=== PATIENT | male | born 1925 | race Caucasian/White ===

== ENCOUNTER 2016-10-31 17:14 | Inpatient (IN) | payer MEDICARE, OTHER ==
[~2016-10-31] VITALS: Ht 185.4 cm; Wt 88.3 kg
[~2016-10-31 17:14] MED LIST: AMIO200T4 PO; ATOR-24 PO; CLOP1TAB15 PO; CMD6 PO; LISI-461 PO; NTRGSL/4 UT; PANT1TAB48 PO; SIME80CH PO
[2016-10-31] MEDS ORDERED: SODIUM CHLORIDE 0.9% 1000ML 500 ML IV STA (17:41)
--- NOTE | 2016-10-31 17:45 | EMERGENCY ROOM VISIT NOTE ---
History Report prepared by Dereck: Colton Benjamin Under the Supervision of: Dr. Elijah Gaytan M.D. First contact with patient: 17:35 Chief Complaint: ABDOMINAL PAIN Stated Complaint: STOMACH PAIN, GAS History of Present Illness The patient is an 89 year old male who presents to the Emergency Room with complaints of upper abdominal pain that started around 1800 last evening. He rates this pain an 8/10 in severity. The patient states that he was unable to sleep last night due to this pain. He reports that he ate italian fries last evening for dinner. He denies urinary symptoms, fever, shortness of breath, or any additional associated symptoms. The patient states that he is no longer experiencing pain at this time. Per the patient's family, the patient's family doctor recommended the patient come in to the ED as he takes Warfarin regularly secondary to a prior cardiac bypass procedure. The patient reports no prior GI surgeries. He does take gas-X regularly for indigestion. Source of History: patient, family Onset: 1800 last evening Position: abdomen Symptom Intensity: 8/10 Timing: resolved Associated Symptoms: No SOB, No fevers, No urinary symptoms Review of Systems See HPI for pertinent positives & negatives. A total of 10 systems reviewed and were otherwise negative. 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5 MG PO 4XWK Warfarin Sodium (Warfarin Sodium), 5 MG PO 3XWK Scheduled PRN Acetaminophen (Tylenol), 975 MG PO Q8 PRN for Pain or Fever Miscellaneous Medications [Erna-Setlzer], Unknown Dose Allergies Coded Allergies: No Known Allergies (Verified , 10/31/16) Physical Exam Vital Signs Date Time Temp Pulse Resp B/P Pulse Ox O2 Delivery O2 Flow Rate FiO2 10/31/16 20:43 90 10/31/16 20:19 91 20 164/109 96 Room Air 10/31/16 18:25 89 18 158/99 90 Room Air 10/31/16 17:24 36.8 91 18 140/90 96 Room Air Physical Exam GENERAL: Patient is in no acute distress. HEENT: No acute trauma, normocephalic atraumatic, mucous membranes moist, no nasal congestion, no scleral icterus. NECK: No stridor, no adenopathy, no meningismus, trachea is midline. LUNGS: Clear to auscultation bilaterally, no wheeze, no rhonchi, breath sounds equal. HEART: Irregular rhythm, normal rate, no murmurs. ABDOMEN: Tender in epigastrium, soft, bowel sounds positive, no hernias, no peritonitis. EXTREMITIES: Mild bilateral pedal edema, no cyanosis, full range of motion of all the joints without pain or difficulty, no signs for acute trauma. NEUROLOGIC: Oriented x 3, no acute motor or sensory deficits, no focal weakness. SKIN: No rash, no jaundice, no diaphoresis. Medical Decision & Procedures ER Provider Diagnostic Interpretation: X ray results and stated below per my interpretation and radiologist interpretation. Other radiology results and stated below per my review and radiologist interpretation: BILIARY ULTRASOUND CLINICAL HISTORY: Right upper quadrant abdominal pain COMPARISON STUDY: No previous studies for comparison. FINDINGS: Evaluation the pancreas is nondiagnostic. There is right renal cortical thinning. There is no hydronephrosis. There are multiple gallbladder calculi. The gallbladder wall is at the upper limits of normal diameter. The common bile duct measures 4 mm. There is no intrahepatic biliary ductal dilatation. No hepatic masses are evident. There are multiple right renal cysts measuring up to 3.9 cm in diameter. IMPRESSION: 1. Nondiagnostic evaluation of the pancreas 2. Cholelithiasis. No evidence of ductal dilatation. Electronically signed by: Vikram Roldan M.D. 10/31/2016 7:04 PM Dictated Date/Time: 10/31/2016 7:02 PM CHEST ONE VIEW PORTABLE CLINICAL HISTORY: Pain, radiating to the abdomen COMPARISON STUDY: 08/13/2015 FINDINGS: The cardiac silhouette is enlarged. There is no free intraperitoneal air. There is no pneumothorax. There is no lobar consolidation. There is mild left lung interstitial thickening. There are postsurgical changes of midline sternotomy. The study was obtained in apical lordotic fashion.[ IMPRESSION: 1. Cardiac enlargement 2. Persistent asymmetric interstitial thickening on the left 3. No evidence of lobar consolidation Electronically signed by: Vikram Roldan M.D. 10/31/2016 7:01 PM Dictated Date/Time: 10/31/2016 7:00 PM Laboratory Results 10/31/16 18:15 Red Blood Count 3.99, Mean Corpuscular Volume 89.5, Mean Corpuscular Hemoglobin 29.6, Mean Corpuscular Hemoglobin Concent 33.1, Mean Platelet Volume 11.5, Neutrophils (%) (Auto) 54.4, Lymphocytes (%) (Auto) 27.0, Monocytes (%) (Auto) 14.3, Eosinophils (%) (Auto) 3.9, Basophils (%) (Auto) 0.4, Neutrophils # (Auto ) 2.79, Lymphocytes # (Auto) 1.38, Monocytes # (Auto) 0.73, Eosinophils # (Auto ) 0.20, Basophils # (Auto) 0.02 10/31/16 18:15 Test 10/31/16 18:00 10/31/16 18:15 Urine Color DK YELLOW Urine Appearance CLEAR (CLEAR) Urine pH 5.0 (4.5-7.5) Urine Specific Douglass 1.026 (1.000-1.030) Urine Protein NEG (NEG) Urine Glucose (UA) NEG (NEG) Urine Ketones TRACE (NEG) Urine Occult Blood NEG (NEG) Urine Nitrite NEG (NEG) Urine Bilirubin NEG (NEG) Urine Urobilinogen NEG (NEG) Urine Leukocyte Esterase NEG (NEG) White Blood Count 5.12 K/uL (4.8-10.8) Red Blood Count 3.99 M/uL (4.7-6.1) Hemoglobin 11.8 g/dL (14.0-18.0) Hematocrit 35.7 % (42-52) Mean Corpuscular Volume 89.5 fL (80-100) Mean Corpuscular Hemoglobin 29.6 pg (25-34) Mean Corpuscular Hemoglobin Concent 33.1 g/dl (32-36) Platelet Count 160 K/uL (130-400) Mean Platelet Volume 11.5 fL (7.4-10.4) Neutrophils (%) (Auto) 54.4 % Lymphocytes (%) (Auto) 27.0 % Monocytes (%) (Auto) 14.3 % Eosinophils (%) (Auto) 3.9 % Basophils (%) (Auto) 0.4 % Neutrophils # (Auto) 2.79 K/uL (1.4-6.5) Lymphocytes # (Auto) 1.38 K/uL (1.2-3.4) Monocytes # (Auto) 0.73 K/uL (0.11-0.59) Eosinophils # (Auto) 0.20 K/uL (0-0.5) Basophils # (Auto) 0.02 K/uL (0-0.2) RDW Standard Deviation 48.3 fL (36.4-46.3) RDW Coefficient of Variation 14.8 % (11.5-14.5) Immature Granulocyte % (Auto) 0.0 % Immature Granulocyte # (Auto) 0.00 K/uL (0.00-0.02) Prothrombin Time 34.4 SECONDS (9.0-12.0) Prothromb Time International Ratio 3.1 (0.9-1.1) Activated Partial Thromboplast Time 39.4 SECONDS (21.0-31.0) Partial Thromboplastin Ratio 1.5 Anion Gap 9.0 mmol/L (3-11) Est Creatinine Clear Calc Drug Dose 44.4 ml/min Estimated GFR () 56.5 Estimated GFR (Non- 48.7 BUN/Creatinine Ratio 24.2 (10-20) Calcium Level 8.3 mg/dl (8.5-10.1) Total Bilirubin 0.3 mg/dl (0.2-1) Aspartate Amino Transf (AST/SGOT) 21 U/L (15-37) Alanine Aminotransferase (ALT/SGPT) 19 U/L (12-78) Alkaline Phosphatase 96 U/L (45-117) Troponin I 0.158 ng/ml (0-0.045) Total Protein 7.0 gm/dl (6.4-8.2) Albumin 3.4 gm/dl (3.4-5.0) Globulin 3.6 gm/dl (2.5-4.0) Albumin/Globulin Ratio 0.9 (0.9-2) Lipase 255 U/L (73-393) Laboratory results reviewed by me. Medications Administered Medications (Trade) Dose Ordered Sig/Zainab Route Start Time Stop Time Status Last Admin Dose Admin Sodium Chloride (Nss 1000ml) 500 ml @ 999 mls/hr Q31M STAT IV 10/31/16 17:41 10/31/16 18:11 DC 10/31/16 18:24 999 MLS/HR ECG Indication: abdominal pain Rate (beats per minute): 86 Rhythm: atrial fibrillation Findings: other (Old inferior infarct, poor R wave progression, no obvious acute ischemia, ) Comparison ECG Date: August 15, 2015 Change: Atrial Fibrillation now present. ED Course 1734: The patient was evaluated in room C8. A complete history and physical exam was performed. 1740:Ordered Sodium Chloride 500 ml @ 999 mls/hr IV. 2111: Discussed the patient's case with Dr. Jurado ([facility]). The patient will be evaluated for further management. 2115: I updated the patient of the treatment plan. He is agreeable at this time. Medical Decision Differential diagnosis includes but is not limited to ulcer, gastritis, intracranial bleeding, pancreatitis, biliary colic, acute cholecystitis, diverticulitis, appendicitis, hernia, UTI, pneumonia, cardiac ischemia There is no leukocytosis or concerning anemia. No significant electrolyte abnormality, kidney failure or hepatitis. There is no pancreatitis. INR is elevated consistent with his Coumadin use. Gallbladder ultrasound shows gallstones, no acute cholecystitis. Abdominal and pelvis CT shows some chronic findings, no acute cause for his abdominal pain by CT. No bowel obstruction or acute diverticulitis. Urinalysis does not show infection. EKG shows atrial fibrillation, no acute ischemia. Cardiac enzyme testing 1 is elevated, this troponin elevation is concerning for acute cardiac strain/injury. The patient did not require anything for pain. He did receive IV saline for hydration. Because of the elevated cardiac troponin, further workup in the hospital was felt warranted. The patient's symptoms may all be from biliary colic but a cardiac etiology must be ruled out first. I did review the patient' s old records and he has had some elevated troponins in the past. I talked to the patient and the case coordinator. The on-call hospitalist was consulted. Consults Time Called: 2029 Consulting Physician: Dr. Jurado ([facility]) Returned Call: 2111 Discussed the patient's case with Dr. Jurado ([facility]). The patient will be evaluated for further management. Impression Primary Impression: Epigastric abdominal pain Additional Impressions: Elevated troponin Gallstones Scribe Attestation The scribe's documentation has been prepared under my direction and personally reviewed by me in its entirety. I confirm that the note above accurately reflects all work, treatment, procedures, and medical decision making performed by me. Departure Information Dispostion Being Evaluated By Hospitalist Referrals Kiah Rm DO (PCP) Patient Instructions [facility] Problem Qualifiers
[2016-10-31] MEDS ORDERED: OPTIRAY 320 IV PRN (18:00)
[2016-10-31] MEDS ORDERED: WARF7.5T4 PO (18:11)
[2016-10-31] MEDS ORDERED: AMIO100T PO (18:11)
[2016-10-31] MEDS ORDERED: NRV/5 PO (18:11)
[2016-10-31] MEDS ORDERED: WARF-246 PO (18:11)
[2016-10-31] MEDS ORDERED: LSN40 PO (18:11)
[2016-10-31] MEDS ORDERED: [UNRECOGNIZED DRUG - OTHER] (18:12)
[2016-10-31] MEDS ORDERED: ACET-1311 PO (18:12)
[2016-10-31 18:38] LABS: BASO % 0.4 %; BASO ABS # 0.02 K/uL (0-0.2); COMPLETE YES; EOS % 3.9 %; HEMATOCRIT 35.7 % (42-52); LYMPH ABS # 1.38 K/uL (1.2-3.4); MEAN CELL VOLUME 89.5 fL (80-100); MEAN CORPUSCULAR HEMOGLOBIN 29.6 pg (25-34); MEAN CORPUSCULAR HGB CONC 33.1 g/dl (32-36); MEAN PLATELET VOLUME 11.5 fL (7.4-10.4); MONO % 14.3 %; NEUT % 54.4 %; PLATELET COUNT 160 K/uL (130-400); RED BLOOD COUNT 3.99 M/uL (4.7-6.1); WHITE BLOOD COUNT 5.12 K/uL (4.8-10.8)
[2016-10-31 18:50] LABS: URINE APPEARANCE CLEAR (CLEAR); URINE BILIRUBIN NEG (NEG); URINE COLOR DK YELLOW; URINE NITRITE NEG (NEG); URINE SPECIFIC GRAVITY 1.026 (1.000-1.030); UROBILINOGEN NEG (NEG); ZZUR CULT IF INDIC CLEAN CATCH NO
[2016-10-31 18:51] LABS: BUN/CREATININE RATIO 24.2 (10-20); CALCIUM 8.3 mg/dl (8.5-10.1); CREATININE 1.3 mg/dl (0.60-1.40); POTASSIUM 4.1 mmol/L (3.5-5.1)
[2016-10-31 18:56] LABS: INR 3.1 (0.9-1.1); PARTIAL THROMBOPLASTIN RATIO 1.5; PROTHROMBIN TIME (PATIENT) 34.4 SECONDS (9.0-12.0)
[2016-10-31 18:58] LABS: ALB/GLOB RATIO 0.9 (0.9-2)
--- NOTE | 2016-10-31 19:03 | DIAGNOSTIC IMAGING REPORT ---
CHEST ONE VIEW PORTABLE CLINICAL HISTORY: Pain, radiating to the abdomen COMPARISON STUDY: 08/13/2015 FINDINGS: The cardiac silhouette is enlarged. There is no free intraperitoneal air. There is no pneumothorax. There is no lobar consolidation. There is mild left lung interstitial thickening. There are postsurgical changes of midline sternotomy. The study was obtained in apical lordotic fashion.[ IMPRESSION: 1. Cardiac enlargement 2. Persistent asymmetric interstitial thickening on the left 3. No evidence of lobar consolidation Electronically signed by: Vikram Roldan M.D. 10/31/2016 7:01 PM Dictated Date/Time: 10/31/2016 7:00 PM
--- NOTE | 2016-10-31 19:05 | DIAGNOSTIC IMAGING REPORT ---
BILIARY ULTRASOUND CLINICAL HISTORY: Right upper quadrant abdominal pain COMPARISON STUDY: No previous studies for comparison. FINDINGS: Evaluation the pancreas is nondiagnostic. There is right renal cortical thinning. There is no hydronephrosis. There are multiple gallbladder calculi. The gallbladder wall is at the upper limits of normal diameter. The common bile duct measures 4 mm. There is no intrahepatic biliary ductal dilatation. No hepatic masses are evident. There are multiple right renal cysts measuring up to 3.9 cm in diameter. IMPRESSION: 1. Nondiagnostic evaluation of the pancreas 2. Cholelithiasis. No evidence of ductal dilatation. Electronically signed by: Vikram Roldan M.D. 10/31/2016 7:04 PM Dictated Date/Time: 10/31/2016 7:02 PM
[2016-10-31 19:06] LABS: MANUAL MICROSCOPIC REQUIRED? NO; REVIEW REQ? NO
--- NOTE | 2016-10-31 20:05 | DIAGNOSTIC IMAGING REPORT ---
CT ABD/PELVIS IV CONTRAST ONLY CLINICAL HISTORY: Generalized abdominal pain. Patient on Coumadin. COMPARISON STUDY: 04/04/2013 TECHNIQUE: Following the IV administration of 116 mL of Optiray-320, CT scan of the abdomen and pelvis was performed from the lung bases to the proximal femurs. Images are reviewed in the axial, sagittal, and coronal planes. IV contrast was administered without complication. CT DOSE: 477.07 mGy.cm FINDINGS: Lower chest: There is calcified mediastinal and hilar lymphadenopathy. There are coronary artery calcifications present. There is a trace right pleural effusion. There is septal edema present. There is a lingular airspace opacity, likely atelectatic. Liver: The contrast-enhanced liver is normal in size, contour, and attenuation. There is no intrahepatic biliary ductal dilatation. The hepatic veins and portal veins are patent. Gallbladder: Cholelithiasis Spleen: Normal in size and attenuation. 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 12 month follow-up is recommended. Adrenal glands: Unremarkable. Kidneys: There are multiple bilateral renal cysts ranging in size from 5 mm to 4 cm. Bowel: There are no transition zones indicate bowel obstruction. There is no evidence of acute diverticulitis. There are multiple scattered diverticula present. There is a tiny fat-containing umbilical hernia. There is mild fecal retention. The appendix is not visualized with certainty. There are no findings to indicate acute appendicitis. Bowel evaluation is limited due to the lack of enteric contrast Peritoneum: There is no intraperitoneal free air or abdominal ascites. Vasculature: There is mild infrarenal abdominal aortic ectasia. There are atheromatous changes present most pronounced in the left common iliac artery. Adenopathy: None. Pelvic viscera: The bladder, and pelvic viscera are unremarkable. Skeletal structures: No destructive osseous lesions are seen. IMPRESSION: 1. Calcified mediastinal and hilar lymphadenopathy 2. Cardiomegaly, coronary calcifications, and septal edema 3. Cholelithiasis 4. 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 12 month follow-up is recommended 5. No evidence of bowel obstruction. No evidence of free air 6. No evidence of acute diverticulitis. No evidence of acute appendicitis. Electronically signed by: Vikram Roldan M.D. 10/31/2016 8:04 PM Dictated Date/Time: 10/31/2016 7:56 PM
[2016-10-31] MEDS ORDERED: ONDANSETRON INJ 2 MG/ML 2 ML VIAL IV PRN (21:15)
[2016-10-31] MEDS ORDERED: MAGNESIUM HYDROXIDE SUSP 30 ML UDC PO PRN (21:15)
[2016-10-31] MEDS ORDERED: NITROGLYCERIN 0.4 MG SL PER TAB CHARGE SL PRN (21:15)
[2016-10-31] MEDS ORDERED: MoRPHine SULFATE 2 MG/ML CARP IV PRN (21:15)
[2016-10-31] MEDS ORDERED: ALUMINUM/MAGNESIUM/SIMETH (MAALOX MAX) 30 ML UDC PO PRN (21:15)
[2016-10-31] MEDS ORDERED: ACETAMINOPHEN 325 MG TAB PO PRN (21:15)
[2016-10-31 22:56] VITALS: BP 186/94; PULSE 102; TEMP 36.4; O2SAT 95; Ht 185.4 cm; Wt 88.3 kg
[2016-11-01] VITALS (10 sets, daily range): BP systolic 118–158; BP diastolic 73–88; PULSE 59–95; TEMP 36.3–36.8; O2SAT 90–95
--- NOTE | 2016-11-01 03:35 | History and Physical ---
History & Physical Date & Time of Service: Nov 01, 2016 at 03:35 Chief Complaint: Elevated Troponin, Epigastric Abdominal Pain Primary Care Physician: Kiah Rm DO History of Present Illness this is an 89 yo m that is presenting to us with epigastric pain. He states that at 1800 the day before the patient had acute epigastric pain without radiation that was a sharp 9/10 pain. He had a difficult time sleeping overnight because of this pain but it resolved in the am. It is currently a 0/ 10 but he states his encouraged him to come to the ED to be evaluated. In the ED he was found to have a elevation in his troponin. He was also found to have cholelithiasis and a pancreatic cyst on his imaging. No significant changes in his LFTs. Because of the troponin and significant CVS history he was admitted to the ED. 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 The first was in 2003 and the second he believes was in 2010. He also has a history of a fibb and is on coumadin for this. 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 Non smoker. His father and multiple siblings had CAD/ MA. He was also admitted last year for TIA and has been on plavix since. 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 (4) Heart disease Status: Chronic (5) Hx-Venous Thrombosis&Embolism Status: Chronic (6) Perforation of intestine Status: Resolved Family History FH: cancer FH: heart disease FH: hypertension Social History Smoking Status: Never Smoker Smokeless Tobacco Use: No Alcohol Use: none Drug Use: none Marital Status: Occupational Status: retired Immunizations History of Influenza Vaccine: N/A Influenza Vaccine Date: Aug 18, 2007 History of Tetanus Vaccine?: Yes History of Pneumococcal: Yes Pneumococcal Date: Aug 18, 2007 History of Hepatitis B Vaccine: No Multi-Drug Resistant Organisms History of MDRO: No Allergies Coded Allergies: No Known Allergies (Verified , 10/31/16) Home Medications Scheduled Amiodarone Hcl (Pacerone), 100 MG PO QAM Amlodipine Besylate (Amlodipine Besylate), 5 MG PO QAM Atorvastatin (Lipitor), 40 MG PO HS Clopidogrel (Plavix), 75 MG PO DAILY Lisinopril (Lisinopril), 40 MG PO QAM Nitroglycerin (Nitrostat), 0.4 MG UT PRN Pantoprazole (Protonix), 40 MG PO QAM Simethicone (Gas-X), 2 TABS PO AMPM Warfarin Sod (Jantoven), 7.5 MG PO [id number] Warfarin Sodium (Warfarin Sodium), 5 MG PO [id number] Scheduled PRN Acetaminophen (Tylenol), 975 MG PO Q8 PRN for Pain or Fever Miscellaneous Medications [Erna-Setlzer], Unknown Dose Review of Systems Constitutional: No fever Eyes: No worsening of vision ENT: No hearing loss Respiratory: + wheezing, No cough, No dyspnea at rest, No dyspnea on exertion, No shortness of breath, No sputum Cardiovascular: No chest pain Abdomen: + pain, No GI bleeding, No constipation, No diarrhea, No nausea, No vomiting Musculoskeletal: No joint pain, No muscle pain Endocrine: No fatigue Integumentary: No rash Physical Exam Vital Signs Date Time Temp Pulse Resp B/P Pulse Ox O2 Delivery O2 Flow Rate FiO2 11/01/16 00:00 Room Air 10/31/16 22:56 36.4 102 22 186/94 95 Room Air 10/31/16 22:14 88 18 158/91 94 Room Air 10/31/16 20:43 90 10/31/16 20:19 91 20 164/109 96 Room Air 10/31/16 18:25 89 18 158/99 90 Room Air 10/31/16 17:24 36.8 91 18 140/90 96 Room Air General Appearance: WD/WN, no apparent distress Head: normocephalic, atraumatic Eyes: normal inspection ENT: normal ENT inspection Neck: supple Respiratory/Chest: no respiratory distress, no accessory muscle use, + wheezing (throughout) Cardiovascular: no murmur, + irregularly irregular Abdomen/GI: normal bowel sounds, non tender, soft Back: normal inspection Extremities/Musculoskelatal: normal inspection, no calf tenderness, no pedal edema Neurologic/Psych: alert, normal mood/affect, oriented x 3 Skin: normal color, warm/dry, no rash Lymphatic: no adenopathy Diagnostics Laboratory Results Results Past 24 Hours Test 10/31/16 18:00 10/31/16 18:15 Range/Units Urine Color DK YELLOW Urine Appearance CLEAR CLEAR Urine pH 5.0 4.5-7.5 Urine Specific [place] 1.026 1.000-1.030 Urine Protein NEG NEG Urine Glucose (UA) NEG NEG Urine Ketones TRACE NEG Urine Occult Blood NEG NEG Urine Nitrite NEG NEG Urine Bilirubin NEG NEG Urine Urobilinogen NEG NEG Urine Leukocyte Esterase NEG NEG White Blood Count 5.12 4.8-10.8 K/uL Red Blood Count 3.99 4.7-6.1 M/uL Hemoglobin 11.8 14.0-18.0 g/dL Hematocrit 35.7 42-52 % Mean Corpuscular Volume 89.5 80-100 fL Mean Corpuscular Hemoglobin 29.6 25-34 pg Mean Corpuscular Hemoglobin Concent 33.1 32-36 g/dl Platelet Count 160 130-400 K/uL Mean Platelet Volume 11.5 7.4-10.4 fL Neutrophils (%) (Auto) 54.4 % Lymphocytes (%) (Auto) 27.0 % Monocytes (%) (Auto) 14.3 % Eosinophils (%) (Auto) 3.9 % Basophils (%) (Auto) 0.4 % Neutrophils # (Auto) 2.79 1.4-6.5 K/uL Lymphocytes # (Auto) 1.38 1.2-3.4 K/uL Monocytes # (Auto) 0.73 0.11-0.59 K/uL Eosinophils # (Auto) 0.20 0-0.5 K/uL Basophils # (Auto) 0.02 0-0.2 K/uL RDW Standard Deviation 48.3 36.4-46.3 fL RDW Coefficient of Variation 14.8 11.5-14.5 % Immature Granulocyte % (Auto) 0.0 % Immature Granulocyte # (Auto) 0.00 0.00-0.02 K/uL Prothrombin Time 34.4 9.0-12.0 SECONDS Prothromb Time International Ratio 3.1 0.9-1.1 Activated Partial Thromboplast Time 39.4 21.0-31.0 SECONDS Partial Thromboplastin Ratio 1.5 Sodium Level 140 136-145 mmol/L Potassium Level 4.1 3.5-5.1 mmol/L Chloride Level 108 98-107 mmol/L Carbon Dioxide Level 23 21-32 mmol/L Anion Gap 9.0 3-11 mmol/L Blood Urea Nitrogen 31 7-18 mg/dl Creatinine 1.30 0.60-1.40 mg/dl Est Creatinine Clear Calc Drug Dose 44.4 ml/min Estimated GFR () 56.5 Estimated GFR (Non- 48.7 BUN/Creatinine Ratio 24.2 10-20 Random Glucose 90 70-99 mg/dl Calcium Level 8.3 8.5-10.1 mg/dl Total Bilirubin 0.3 0.2-1 mg/dl Aspartate Amino Transf (AST/SGOT) 21 15-37 U/L Alanine Aminotransferase (ALT/SGPT) 19 12-78 U/L Alkaline Phosphatase 96 45-117 U/L Troponin I 0.158 0-0.045 ng/ml Total Protein 7.0 6.4-8.2 gm/dl Albumin 3.4 3.4-5.0 gm/dl Globulin 3.6 2.5-4.0 gm/dl Albumin/Globulin Ratio 0.9 0.9-2 Lipase 255 73-393 U/L Diagnostic Radiology CT ABD/PELVIS IV CONTRAST ONLY CLINICAL HISTORY: Generalized abdominal pain. Patient on Coumadin. COMPARISON STUDY: 04/04/2013 TECHNIQUE: Following the IV administration of 116 mL of Optiray-320, CT scan of the abdomen and pelvis was performed from the lung bases to the proximal femurs. Images are reviewed in the axial, sagittal, and coronal planes. IV contrast was administered without complication. CT DOSE: 477.07 mGy.cm FINDINGS: Lower chest: There is calcified mediastinal and hilar lymphadenopathy. There are coronary artery calcifications present. There is a trace right pleural effusion. There is septal edema present. There is a lingular airspace opacity, likely atelectatic. Liver: The contrast-enhanced liver is normal in size, contour, and attenuation. There is no intrahepatic biliary ductal dilatation. The hepatic veins and portal veins are patent. Gallbladder: Cholelithiasis Spleen: Normal in size and attenuation. 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 12 month follow-up is recommended. Adrenal glands: Unremarkable. Kidneys: There are multiple bilateral renal cysts ranging in size from 5 mm to 4 cm. Bowel: There are no transition zones indicate bowel obstruction. There is no evidence of acute diverticulitis. There are multiple scattered diverticula present. There is a tiny fat-containing umbilical hernia. There is mild fecal retention. The appendix is not visualized with certainty. There are no findings to indicate acute appendicitis. Bowel evaluation is limited due to the lack of enteric contrast Peritoneum: There is no intraperitoneal free air or abdominal ascites. Vasculature: There is mild infrarenal abdominal aortic ectasia. There are atheromatous changes present most pronounced in the left common iliac artery. Adenopathy: None. Pelvic viscera: The bladder, and pelvic viscera are unremarkable. Skeletal structures: No destructive osseous lesions are seen. IMPRESSION: 1. Calcified mediastinal and hilar lymphadenopathy 2. Cardiomegaly, coronary calcifications, and septal edema 3. Cholelithiasis 4. 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 12 month follow-up is recommended 5. No evidence of bowel obstruction. No evidence of free air 6. No evidence of acute diverticulitis. No evidence of acute appendicitis. CHEST ONE VIEW PORTABLE CLINICAL HISTORY: Pain, radiating to the abdomen COMPARISON STUDY: 08/13/2015 FINDINGS: The cardiac silhouette is enlarged. There is no free intraperitoneal air. There is no pneumothorax. There is no lobar consolidation. There is mild left lung interstitial thickening. There are postsurgical changes of midline sternotomy. The study was obtained in apical lordotic fashion.[ IMPRESSION: 1. Cardiac enlargement 2. Persistent asymmetric interstitial thickening on the left 3. No evidence of lobar consolidation [~ rep ct add3]] BILIARY ULTRASOUND CLINICAL HISTORY: Right upper quadrant abdominal pain COMPARISON STUDY: No previous studies for comparison. FINDINGS: Evaluation the pancreas is nondiagnostic. There is right renal cortical thinning. There is no hydronephrosis. There are multiple gallbladder calculi. The gallbladder wall is at the upper limits of normal diameter. The common bile duct measures 4 mm. There is no intrahepatic biliary ductal dilatation. No hepatic masses are evident. There are multiple right renal cysts measuring up to 3.9 cm in diameter. IMPRESSION: 1. Nondiagnostic evaluation of the pancreas 2. Cholelithiasis. No evidence of ductal dilatation. EKG bpm 86 a fibb no significant ischemic changes no ectopy Impression Assessment and Plan This is an 89 yo m that was suffering from epigastric pain that is presenting to us with a elevation in his troponin and has significant PMHX Elevated troponin secondary to ischemic vs supply and demand - tele admission - NPO except meds while decision is made for a cath - trend troponin - echo - consult cardio - cont ator Epigastric pain secondary to GERD vs MA vs cholelithiasis - see above for MA r/o - Protonix daily - CMP in am - HIDA Pancreatic cyst noted on CT - new finding - repeat CT in 1 year is recommended - arrange prior to d/c Wheezing possibly secondary to obstructive airway disease from pervious employment - duoneb and pulmicort - consider PFT in outpt setting - O2 per nursing protocol HTN - cont amlodipine and lisinopril A fibb - warfarin held while determining need for cath - currently therapeutic, repeat in am - cont amiodarone H/O TIA - plavix held while determining need for cath DVT Prophylaxis - SCD for now, therapeutic INR FULL CODE Advanced Directives Existing Living Will: Yes Existing Power of Pitch Filler: Yes Resuscitation Status FULL RESUSCITATION VTE Prophylaxis VTE Risk Assessment Done? Y/N: Yes Risk Level: Moderate Given or contraindicated: SCD's Social Service Consult None Apply Note Total Time: Critical Care 30 - 74 minutes Additional Copies To Kiah Rm, DO Assessment and Plan Attending Addendum: I have physically seen and examined this patient, have directed their medical care, have supervised the medical residents activities, and agree with the H&P as noted above, with the following changes: NONE The patient is awake, well-developed and adequately nourished, alert and oriented 3, normocephalic and atraumatic, lying in bed and in no acute distress. HEENT--PERRL, EOMI, mucous membranes and oropharynx dry. Neck--supple, no JVD or bruits, thyroid normal, trachea midline, no adenopathy. Heart--normal S1 and S2, no extra beats, no murmurs, rubs or gallops. Lungs--clear bilaterally with good air movement, no respiratory distress, no accessory muscle use. Abdomen--normal bowel sounds and soft, epigastric and right upper quadrant discomfort, nondistended, no hernias or masses, no organomegaly. Without edema the greater, the upper [place] when her liver enzymes on Extremities--no cyanosis, clubbing or edema. There are good distal pulses b/l. Dermatologic--normal skin turgor, normal color, warm and dry, no abnormal lymph nodes, no rash. Neurologic--cranial nerves II through XII grossly intact, motor and sensory examination normal. Rheumatologic--normal range of motion, nontender, muscles and joints. Psychiatric--normal affect. Assessment and Plan: Cholelithiasis, with possible cholecystitis--patient will be admitted to medical floor. HIDA EF has been ordered for the morning to further assess gallbladder function. He'll be placed on IV antibiotics, and will need to have cardiology approval before he could potentially undergo surgery if that is deemed necessary. Coronary disease/history of CABG/atrial fibrillation--continue amiodarone 100 mg by mouth every morning, amlodipine 5 mg by mouth every morning and lisinopril 40 mg every morning. For now we'll hold Plavix 75 mg by mouth daily and warfarin. He is presently therapeutic on warfarin with an INR 3.1. He will likely need bridging therapy with Lovenox if he is undergoing surgery in the near future. His troponin is mildly elevated at 0.158, with no acute findings on EKG. His director engineering will be consulted. Hypercholesterolemia--atorvastatin 40 mg by mouth at bedtime will be held for now. GERD--pantoprazole 40 mg by mouth every morning. 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 Further workup to include endoscopic ultrasound at a future date.
[2016-11-01] MEDS ORDERED: NITROGLYCERIN 0.4 MG SL PER TAB CHARGE UT SCH (03:45)
[2016-11-01 05:08] LABS: HEMATOCRIT 35.3 % (42-52); MEAN CELL VOLUME 90.1 fL (80-100); MEAN CORPUSCULAR HEMOGLOBIN 29.8 pg (25-34); MEAN CORPUSCULAR HGB CONC 33.1 g/dl (32-36); MEAN PLATELET VOLUME 11.3 fL (7.4-10.4); PLATELET COUNT 147 K/uL (130-400); RED BLOOD COUNT 3.92 M/uL (4.7-6.1); WHITE BLOOD COUNT 4.96 K/uL (4.8-10.8)
[2016-11-01 05:19] LABS: INR 3.1 (0.9-1.1); PROTHROMBIN TIME (PATIENT) 35.2 SECONDS (9.0-12.0)
[2016-11-01 05:34] LABS: BUN/CREATININE RATIO 20.5 (10-20); CALCIUM 8.2 mg/dl (8.5-10.1); CREATININE 1.2 mg/dl (0.60-1.40); POTASSIUM 3.9 mmol/L (3.5-5.1)
[2016-11-01] MEDS: ALBUT/IPRATROP 3MG/0.5MG NEB 3 ML VIAL INH SCH ×4 (07:39→19:10)
[2016-11-01] MEDS: SIMETHICONE 80 MG CHEW PO SCH (08:46)
[2016-11-01] MEDS: PANTOprazole SOD 40 MG TAB PO SCH (08:46)
[2016-11-01] MEDS: AMLODIPINE BESYLATE 5 MG TAB PO SCH (08:47)
[2016-11-01] MEDS: LISINOPRIL 40 MG TAB PO SCH (08:47)
[2016-11-01] MEDS ORDERED: AMIODARONE 200 MG TAB PO SCH (09:00)
[2016-11-01] MEDS: BUDESONIDE 90 MCG INH INH SCH ×2 (09:06→19:53)
[2016-11-01] MEDS: SODIUM CHLORIDE 0.9% 1000ML 1,000 ML IV SCH ×2 (09:39→19:55)
[2016-11-01] MEDS ORDERED: AMIODARONE 200 MG TAB PO ONE (10:00)
[2016-11-01] MEDS ORDERED: METOPROLOL TARTRATE 25 MG TAB PO ONE (10:00)
--- NOTE | 2016-11-01 11:48 | Hospitalist Progress Note ---
Hospitalist Progress Note Date of Service Nov 01, 2016. (Margoth Ellis PA-C) Subjective Pt evaluation today including: conversation w/ patient, physical exam, chart review, lab review, review of studies, review of inpatient medication list Patient reports feeling well this morning. Denies any further pain. He has been pain free all morning. Denies any shortness of breath or heart palpitations. No dizziness or lightheadedness. No cough. No changes in bowel movements. No nausea. Additional Comments: 6 system review negative. Please see pertinent positives in the history of present illness section. (Margoth Ellis PA-C) Objective Vital Signs Date Time Temp Pulse Resp B/P Pulse Ox O2 Delivery O2 Flow Rate FiO2 11/01/16 11:14 82 16 95 Room Air 11/01/16 08:00 Room Air 11/01/16 07:56 36.8 76 20 143/77 93 Room Air 11/01/16 07:41 77 16 93 Room Air 11/01/16 04:15 36.4 78 18 155/76 90 Room Air 11/01/16 04:00 Room Air 11/01/16 00:00 Room Air 10/31/16 22:56 36.4 102 22 186/94 95 Room Air 10/31/16 22:14 88 18 158/91 94 Room Air 10/31/16 20:43 90 10/31/16 20:19 91 20 164/109 96 Room Air 10/31/16 18:25 89 18 158/99 90 Room Air 10/31/16 17:24 36.8 91 18 140/90 96 Room Air (Margoth Ellis PA-C) Physical Exam General Appearance: no apparent distress Eyes: EOMI Neck: + JVD (mild JVD noted) Respiratory/Chest: + pertinent finding (very faint crackles at the bases bilaterally) Cardiovascular: + irregularly irregular (with a mild systolic murmur noted) Abdomen: normal bowel sounds, soft, + pertinent finding (mild tenderness to palpation noted in the epigastric and right upper quadrant) Extremities: non-tender, no pedal edema Neurologic/Psychiatric: no motor/sensory deficits Skin: warm/dry (Margoth Ellis PA-C) Laboratory Results 11/01/16 04:56 11/01/16 04:56 Test 10/31/16 18:00 10/31/16 18:15 11/01/16 04:56 11/01/16 06:05 Urine Color DK YELLOW Urine Appearance CLEAR (CLEAR) Urine pH 5.0 (4.5-7.5) Urine Specific [place] 1.026 (1.000-1.030) Urine Protein NEG (NEG) Urine Glucose (UA) NEG (NEG) Urine Ketones TRACE (NEG) Urine Occult Blood NEG (NEG) Urine Nitrite NEG (NEG) Urine Bilirubin NEG (NEG) Urine Urobilinogen NEG (NEG) Urine Leukocyte Esterase NEG (NEG) Immature Granulocyte % (Auto) 0.0 % White Blood Count 5.12 K/uL (4.8-10.8) Red Blood Count 3.99 M/uL (4.7-6.1) 3.92 M/uL (4.7-6.1) Hemoglobin 11.8 g/dL (14.0-18.0) Hematocrit 35.7 % (42-52) Mean Corpuscular Volume 89.5 fL (80-100) 90.1 fL (80-100) Mean Corpuscular Hemoglobin 29.6 pg (25-34) 29.8 pg (25-34) Mean Corpuscular Hemoglobin Concent 33.1 g/dl (32-36) 33.1 g/dl (32-36) Platelet Count 160 K/uL (130-400) Mean Platelet Volume 11.5 fL (7.4-10.4) 11.3 fL (7.4-10.4) Neutrophils (%) (Auto) 54.4 % Lymphocytes (%) (Auto) 27.0 % Monocytes (%) (Auto) 14.3 % Eosinophils (%) (Auto) 3.9 % Basophils (%) (Auto) 0.4 % Neutrophils # (Auto) 2.79 K/uL (1.4-6.5) Lymphocytes # (Auto) 1.38 K/uL (1.2-3.4) Monocytes # (Auto) 0.73 K/uL (0.11-0.59) Eosinophils # (Auto) 0.20 K/uL (0-0.5) Basophils # (Auto) 0.02 K/uL (0-0.2) Immature Granulocyte # (Auto) 0.00 K/uL (0.00-0.02) Activated Partial Thromboplast Time 39.4 SECONDS (21.0-31.0) Partial Thromboplastin Ratio 1.5 Globulin 3.6 gm/dl (2.5-4.0) Albumin/Globulin Ratio 0.9 (0.9-2) Lipase 255 U/L (73-393) RDW Standard Deviation 49.3 fL (36.4-46.3) RDW Coefficient of Variation 14.9 % (11.5-14.5) Prothrombin Time 35.2 SECONDS (9.0-12.0) Prothromb Time International Ratio 3.1 (0.9-1.1) Anion Gap 11.0 mmol/L (3-11) Est Creatinine Clear Calc Drug Dose 48.1 ml/min Estimated GFR () 62.2 Estimated GFR (Non- 53.7 BUN/Creatinine Ratio 20.5 (10-20) Calcium Level 8.2 mg/dl (8.5-10.1) Total Bilirubin 0.4 mg/dl (0.2-1) Direct Bilirubin 0.1 mg/dl (0-0.2) Aspartate Amino Transf (AST/SGOT) 25 U/L (15-37) Alanine Aminotransferase (ALT/SGPT) 25 U/L (12-78) Alkaline Phosphatase 93 U/L (45-117) Total Protein 6.6 gm/dl (6.4-8.2) Albumin 3.2 gm/dl (3.4-5.0) Troponin I 0.170 ng/ml (0-0.045) Last 24 Hours Test 10/31/16 18:00 10/31/16 18:15 11/01/16 04:56 11/01/16 06:05 Urine Color DK YELLOW Urine Appearance CLEAR Urine pH 5.0 Urine Specific [place] 1.026 Urine Protein NEG Urine Glucose (UA) NEG Urine Ketones TRACE Urine Occult Blood NEG Urine Nitrite NEG Urine Bilirubin NEG Urine Urobilinogen NEG Urine Leukocyte Esterase NEG White Blood Count 5.12 K/uL 4.96 K/uL Red Blood Count 3.99 M/uL 3.92 M/uL Hemoglobin 11.8 g/dL 11.7 g/dL Hematocrit 35.7 % 35.3 % Mean Corpuscular Volume 89.5 fL 90.1 fL Mean Corpuscular Hemoglobin 29.6 pg 29.8 pg Mean Corpuscular Hemoglobin Concent 33.1 g/dl 33.1 g/dl Platelet Count 160 K/uL 147 K/uL Mean Platelet Volume 11.5 fL 11.3 fL Neutrophils (%) (Auto) 54.4 % Lymphocytes (%) (Auto) 27.0 % Monocytes (%) (Auto) 14.3 % Eosinophils (%) (Auto) 3.9 % Basophils (%) (Auto) 0.4 % Neutrophils # (Auto) 2.79 K/uL Lymphocytes # (Auto) 1.38 K/uL Monocytes # (Auto) 0.73 K/uL Eosinophils # (Auto) 0.20 K/uL Basophils # (Auto) 0.02 K/uL RDW Standard Deviation 48.3 fL 49.3 fL RDW Coefficient of Variation 14.8 % 14.9 % Immature Granulocyte % (Auto) 0.0 % Immature Granulocyte # (Auto) 0.00 K/uL Prothrombin Time 34.4 SECONDS 35.2 SECONDS Prothromb Time International Ratio 3.1 3.1 Activated Partial Thromboplast Time 39.4 SECONDS Partial Thromboplastin Ratio 1.5 Sodium Level 140 mmol/L 145 mmol/L Potassium Level 4.1 mmol/L 3.9 mmol/L Chloride Level 108 mmol/L 112 mmol/L Carbon Dioxide Level 23 mmol/L 22 mmol/L Anion Gap 9.0 mmol/L 11.0 mmol/L Blood Urea Nitrogen 31 mg/dl 25 mg/dl Creatinine 1.30 mg/dl 1.20 mg/dl Est Creatinine Clear Calc Drug Dose 44.4 ml/min 48.1 ml/min Estimated GFR () 56.5 62.2 Estimated GFR (Non- 48.7 53.7 BUN/Creatinine Ratio 24.2 20.5 Random Glucose 90 mg/dl 82 mg/dl Calcium Level 8.3 mg/dl 8.2 mg/dl Total Bilirubin 0.3 mg/dl 0.4 mg/dl Aspartate Amino Transf (AST/SGOT) 21 U/L 25 U/L Alanine Aminotransferase (ALT/SGPT) 19 U/L 25 U/L Alkaline Phosphatase 96 U/L 93 U/L Troponin I 0.158 ng/ml 0.177 ng/ml 0.170 ng/ml Total Protein 7.0 gm/dl 6.6 gm/dl Albumin 3.4 gm/dl 3.2 gm/dl Globulin 3.6 gm/dl Albumin/Globulin Ratio 0.9 Lipase 255 U/L Direct Bilirubin 0.1 mg/dl (Margoth Ellis PA-C) Assessment and Plan 89-year-old gentleman with a history of coronary artery disease, UT and CABG admitted to the hospital last night with complaints of epigastric abdominal pain. This is now resolved. Labs notable for a slight elevation of troponin. Cholelithiasis noted on imaging. Epigastric pain with hx CAD-? cardiac cause-->unlikely. Troponin trending down. EKG shows A fib -Continue telemetry monitoring for now -f/u echo -Plavix and Coumadin currently on hold. This is reasonable. Follow-up HIDA scan to rule out gallbladder pathology -We'll likely restart today if normal -Continue med management: MICHELLE, statin -Continue PPI A fib-mildly tachycardic overnight. BP stable -Continue amiodarone 100 mg daily -We'll consider the addition of a beta randy (I'm guessing pt was not tolerating beta randy in the outpt setting) DVT prophylaxis -Coumadin-INR therapeutic yesterday -TEDS, SCDs CODE STATUS -LEVEL I FULL CODE (Margoth Ellis PA-C) AMADEO Physician Supervision Note: I interviewed and examined the patient. Discussed with Margoth Ellis PAC and agree with findings and plan as documented in the note. Any exceptions or clarifications are listed here: None Pt is now without complaints states epigastric pain resolved vss, maybe some mild tachycardia car is irreg, irreg lungs are clear abd is soft Cardiology recommended and changed amiodarone to 200mg bid and started metoprolol given slight resting tachy continue treat abd issue with ppi, HIDA is negative for cholecystitis, hgb stable Documented By: Sanket Danielson (Sanket Danielson M.D.)
[2016-11-01] MEDS ORDERED: SINCALIDE INJ 1.7 MCG in SODIUM CHLORIDE 0.9% 100ML 100 ML IV ONE (14:00)
--- NOTE | 2016-11-01 14:25 | ECHOCARDIOGRAM REPORT ---
*NOTICE TO RECEIVING REPUBLICAN AGENCY This information is strictly Confidential and protected under [place] law. [place] law prohibits you from making any further disclosure of this information unless further disclosure is expressly permitted by the written consent of the person to whom it pertains or is authorized by law. A general authorization for the release of medical or other information is not sufficient for this purpose. Hospital accepts no responsibility if the information is made available to any other person, INCLUDING THE PATIENT. Interpretation Summary * Name: DONITA MCKEON JR Study Date: 11/01/2016 07:07 AM BP: 155/76 mmHg * Patient Location: C.2T\S\S239\S\1 HR: 78 * : 1925 (M/d/yyy) Gender: Male Height: 73 in * Age: 89 yrs Ethnicity: [place] Weight: 194 lb * Ordering Physician: Adela Cali * Referring Physician: Self, Referred * Performed By: Aleksandra Roberson RCS * * Reason For Study: Chest Pain * BSA: 2.1 m2 * -- Conclusions -- * Left ventricular systolic function is normal. * No regional wall motion abnormalities noted. * Ejection Fraction = 50-55%. * There is mild concentric left ventricular hypertrophy. * There is mild mitral regurgitation. * There is mild tricuspid regurgitation. Procedure Details * A complete two-dimensional transthoracic echocardiogram was performed (2D, M-mode, Doppler and color flow Doppler). Left Ventricle * The left ventricle is normal in size. * There is mild concentric left ventricular hypertrophy. * Left ventricular systolic function is normal. * Ejection Fraction = 50-55%. * No regional wall motion abnormalities noted. Right Ventricle * The right ventricle is grossly normal size. * The right ventricular systolic function is reduced as assessed by tricuspid annular plane systolic excursion (TAPSE) (TAPSE <1.6 cm). Atria * The left atrium is moderately dilated. * The right atrium is mildly dilated. * There is no evidence of atrial septal defect, but resolution does not allow assessment for a patent foramen ovale. Mitral Valve * The mitral valve is grossly normal. * There is mild mitral annular calcification. * There is no mitral valve stenosis. * There is mild mitral regurgitation. Tricuspid Valve * The tricuspid valve is not well visualized, but is grossly normal. * There is mild tricuspid regurgitation. Aortic Valve * The aortic valve is not well visualized. * The aortic valve opens well. * No hemodynamically significant valvular aortic stenosis. * Trace aortic regurgitation. Pulmonic Valve * The pulmonary valve is not well seen, but the Doppler examination is normal without significant regurgitation or stenosis. * There is no significant pulmonary regurgitation. Great Vessels * The aortic root is normal size. * The pulmonary is not well visualized. Pericardium/Pleural * There is no pericardial effusion. Great Vessels * Normal inferior vena cava size and collapsability with sniff indicates a normal right atrial pressure of 3 mmHg MMode 2D Measurements and Calculations IVSd 1.0 cm IVSs 1.6 cm LVIDd 3.6 cm LVIDs 2.3 cm LVPWd 1.0 cm LVPWs 1.8 cm IVS/LVPW 1.0 FS 34.8 % EDV(Teich) 54.0 ml ESV(Teich) 18.9 ml EF(Teich) 65.0 % EDV(cubed) 46.2 ml ESV(cubed) 12.8 ml EF(cubed) 72.3 % % IVS thick 57.0 % % LVPW thick 72.2 % LV mass(C)d 112.8 grams LV mass(C)dI 53.1 grams/m\S\2 LV mass(C)s 147.6 grams LV mass(C)sI 69.5 grams/m\S\2 CO(Teich) 3.7 l/min CI(Teich) 1.7 l/min/m\S\2 SV(Teich) 35.1 ml SI(Teich) 16.5 ml/m\S\2 CO(cubed) 3.5 l/min CI(cubed) 1.6 l/min/m\S\2 SV(cubed) 33.4 ml SI(cubed) 15.7 ml/m\S\2 Ao root diam 3.8 cm Ao root area 11.6 cm\S\2 ACS 1.3 cm LA dimension 4.0 cm LA/Ao 1.0 LVAd ap4 24.5 cm\S\2 LVLd ap4 8.1 cm EDV(MOD-sp4) 61.0 ml LVAs ap4 17.2 cm\S\2 LVLs ap4 7.3 cm ESV(MOD-sp4) 34.0 ml EF(MOD-sp4) 44.3 % LVAd ap2 23.3 cm\S\2 LVLd ap2 7.7 cm EDV(MOD-sp2) 61.0 ml LVAs ap2 15.1 cm\S\2 LVLs ap2 6.5 cm ESV(MOD-sp2) 32.0 ml EF(MOD-sp2) 47.5 % CO(MOD-sp4) 2.8 l/min CI(MOD-sp4) 1.3 l/min/m\S\2 SV(MOD-sp4) 27.0 ml SI(MOD-sp4) 12.7 ml/m\S\2 CO(MOD-sp2) 3.0 l/min CI(MOD-sp2) 1.4 l/min/m\S\2 SV(MOD-sp2) 29.0 ml SI(MOD-sp2) 13.7 ml/m\S\2 Doppler Measurements and Calculations MV E max nic 99.2 cm/sec MV A max nic 28.6 cm/sec MV E/A 3.5 MV P1/2t max nic 118.6 cm/sec MV P1/2t 61.3 msec MVA(P1/2t) 3.6 cm\S\2 MV dec slope 566.6 cm/sec\S\2 MV dec time 0.20 sec Ao V2 max 184.0 cm/sec Ao max PG 13.5 mmHg Ao max PG (full) 11.7 mmHg LV V1 max PG 1.9 mmHg LV V1 max 68.1 cm/sec PA V2 max 74.0 cm/sec PA max PG 2.2 mmHg TR max nic 278.8 cm/sec
--- NOTE | 2016-11-01 15:47 | DIAGNOSTIC IMAGING REPORT ---
NUCLEAR MEDICINE HEPATOBILIARY SCAN WITH GALLBLADDER EJECTION FRACTION CLINICAL HISTORY: Epigastric pain. COMPARISON: CT of the abdomen and pelvis and right upper quadrant ultrasound October 31, 2016. TECHNIQUE: 5.5 mCi of technetium 99m Choletec IV was injected at 1:30 PM on November 01, 2016. Immediately following injection, imaging of the abdomen was carried out for 60 minutes in the anterior projection. At this time, 1.7 mcg of Sincalide was injected IV as per protocol. Imaging was performed for an additional 45 minutes to estimate a gallbladder ejection fraction. FINDINGS: Hepatic uptake of radiotracer is prompt and homogeneous. Activity is first identified within the common bile duct and gallbladder at 15 minutes. There is borderline delayed visualization of small bowel activity, first noted at 55 minutes. Following injection of sincalide, there is normal gallbladder emptying with an ejection fraction estimated at 71%. Normal is greater than 30-35%. IMPRESSION: 1. No evidence of acute cholecystitis. 2. Borderline delayed visualization of small bowel activity which is within normal limits. 3. Normal gallbladder ejection fraction of 71%. Electronically signed by: Ryan Stone M.D. 11/01/2016 3:46 PM Dictated Date/Time: 11/01/2016 3:42 PM
--- NOTE | 2016-11-01 15:50 | CARDIOLOGY CONSULTATION ---
DATE OF CONSULTATION: 11/01/2016 REFERRING PHYSICIAN: Adela Cali MD ATTENDING PHYSICIAN: Sanket Danielson MD PRIMARY PHYSICIAN: Kiah Aranda DO CONSULTATION BY: Hubert Brar Jr, MD HISTORY OF PRESENT ILLNESS: The patient is an 89-year-old white male. He is well known to me. Longstanding history of coronary artery disease. He also has a history of COPD, dyslipidemia, pulmonary embolus, deep venous thrombosis, hypertension, paroxysmal atrial fibrillation, and GE reflux disease. The patient states he was in his usual state of health until the evening of October 30. A few hours after eating [place] fries, he developed severe epigastric sharp pain. No associated dyspnea or diaphoresis. No associated nausea or vomiting. No fevers or chills. The intensity of the discomfort did not increase with exertion. No radiation of the discomfort. No diarrhea. No symptoms of GI bleeding. The discomfort persisted throughout the night. It subsequently resolved on the morning of October 31. Because of having had a prolonged episode of pain, he came to the Emergency Department for evaluation. He states that when he arrived in the Emergency Department, he was not having any epigastric pain. He denies any further epigastric discomfort since admission to the telemetry unit. He denies any of his prior anginal type chest symptoms. Prior to his bypass surgery, he had severe upper retrosternal chest pressure. He denies having had any such symptoms recently. He states that he has performed strenuous exertion in the past week including moving a large amount of wood at his home. He also did some mechanical work that requires strenuous exertion. He denies any associated anginal symptoms with the strenuous activities. He denies orthopnea or PND. No palpitations, lightheadedness, or syncope. No cerebrovascular or peripheral vascular complaints suggestive of thromboembolic event. No pulmonary or urinary complaints. His appetite is good. No HEENT complaints other than a dry mouth. He is currently only on ice chips. He is scheduled to undergo a HIDA scan later today. PAST MEDICAL HISTORY: 1. Coronary artery disease. 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 Emergency cardiac catheterization at that time revealed a total RCA occlusion, 50% proximal LAD stenosis, 80% mid LAD stenosis, 50% left circumflex stenosis, and 60% left circumflex stenosis. He underwent PTCA of his LAD at that time. In 2003, he underwent 5-vessel CABG surgery at [facility]. 2. History of atrial fibrillation in 2008. 3. Chronic obstructive pulmonary disease. 4. Silicosis. 5. 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 6. Status post pneumothorax secondary to rib fracture secondary to fall off a ladder in June 2013. 7. Small bowel obstruction in admission of March 2013. Colonoscopy at that time revealed ulcerations consistent with ischemia. 8. 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 No cardiac complications with the surgery. 9. Admission in May 2015 with blurry vision. Hypertension noted at that time. Readmission on 06/10/2015 with left-sided weakness. 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 His INR was therapeutic at that time. He was in sinus rhythm. His antiplatelet agent at that time was changed from aspirin to clopidogrel. 10. Echocardiogram in May 2015 with normal biventricular systolic function, moderate LVH, moderate left atrial dilatation, mild pulmonary hypertension, mild aortic regurgitation, mild mitral regurgitation, and mild tricuspid regurgitation. No embolic source identified. Carotid ultrasound in May 2015 with no significant carotid artery disease. 11. Admission for symptomatic hypotension in July 2015. Doxazosin discontinued at that time. 12. History of prostate cancer. 13. Gastroesophageal reflux disease. 14. Osteoarthritis. 15. Decreased hearing. 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 SOCIAL HISTORY: The patient is and lives with his . He is a never smoker. Rare use of alcohol. He is retired. FAMILY HISTORY: History of coronary artery disease in his father. History of clotting disorder in his sister. PAST SURGICAL HISTORY: 1. Status post CABG surgery. 2. Status post cataract surgery. 3. Status post hernia repair. 4. Status post carpal tunnel surgery. MEDICATIONS: At time of admission were amiodarone 100 mg daily, amlodipine 5 mg daily, atorvastatin 40 mg at bedtime, clopidogrel 75 mg daily, lisinopril 40 mg daily, pantoprazole 40 mg daily, warfarin daily as directed, and simethicone 2 tablets b.i.d. ALLERGIES AND ADVERSE DRUG REACTIONS: None. REVIEW OF SYSTEMS: 1. As above. 2. No urinary complaints. 3. No complaints of any GI bleeding. No other bleeding complaints. 4. No cerebrovascular or peripheral vascular complaints. 5. No fevers or chills. 6. No HEENT complaints other than dry mouth and decreased hearing. PHYSICAL EXAMINATION: VITAL SIGNS: This morning with oral temperature of 36.8, pulse 76, blood pressure 143/77, and pulse oximetry on room air 93%. Monitor reveals atrial fibrillation. Ventricular rates up into the low 100s. NECK: No jugular venous distension. Carotids 2/2 bilaterally. Normal upstroke. No bruits. LUNGS: Clear. No rales or wheezes. Normal respiratory effort. HEART: PMI not palpable. No lifts or heaves. Irregularly irregular rhythm. No murmur, S3, or rub. ABDOMEN: Soft. Nontender. No palpable masses or organomegaly. No bruits. EXTREMITIES: No pretibial edema. No cyanosis or clubbing. PULSES: Distal pulses in all extremities are palpable bilaterally. NEUROLOGICAL: Alert and oriented x3. Motor grossly intact. PSYCHIATRIC: Affect is normal. LABORATORY DATA: Labs this morning with WBC 4.96, hemoglobin 11.7, hematocrit 35.3, and platelet count 147. INR 3.1. Metabolic profile -- sodium 145, potassium 3.9, chloride 112, carbon dioxide 22, BUN 25, creatinine 1.20, and random glucose 82. Troponin I's have been 0.158, 0.177, and 0.170. AST 25 and ALT 25. Total bilirubin 0.4. Lipase 255. Electrocardiogram on 10/31/2016 at 05:41 p.m. revealed atrial fibrillation with ventricular rate of 86 beats per minute, left axis deviation, inferior TX, poor R-wave progression in V1-V3, which may reflect lead placement, and nonspecific ST and T wave abnormalities. Chest x-ray performed on 10/31/2016 with increased interstitial markings in the left lung field. Gallbladder ultrasound in October 31 with cholelithiasis. No ductal dilatation. Abdominal CT scan in October 31 with cholelithiasis, coronary calcifications, calcified mediastinal and hilar lymph nodes, and an 8-mm cystic lesion in the pancreatic head. No free air. No evidence of diverticulitis, bowel obstruction, or appendicitis. The patient's blood pressure on October 31 was as high as 164/109. ASSESSMENT: 1. History of coronary artery disease. Prior anginal symptoms versus an upper retrosternal chest pressure. The patient denies any such symptoms for many years. No recent anginal type symptoms such as these. Even with recently performing strenuous exertion, he had no anginal or anginal equivalent symptoms. 2. Troponin I mildly elevated. Suspect secondary to demand ischemia. He had an increased blood pressure yesterday. He has left ventricular hypertrophy on echocardiography. These were both increased myocardial oxygen demand. He clearly has underlying coronary artery disease. Electrocardiogram without any diagnostic ischemic changes. 3. No evidence of heart failure on exam. 4. Chronic obstructive pulmonary disease. This is stable. No wheezing on exam today. No complaints of dyspnea. 5. History of paroxysmal atrial fibrillation. He is in atrial fibrillation on this admission. He has not been noted to have atrial fibrillation on recent office followups. The stress of his acute epigastric pain may have precipitated this episode of atrial fibrillation. 6. Prerenal azotemia on labs. Dry mucous membranes on exam today. These findings are consistent with intravascular volume depletion. 7. History of both severe hypertension as well as symptomatic hypertension. Blood pressure today is adequate. Systolic reading this morning was mildly elevated. Diastolic pressure good. 8. No bleeding complaints on anticoagulation therapy. 9. No symptoms suggestive of a thromboembolic event at this time. 10. Epigastric pain. The patient states he was tender on physical exam in this region just today. The episode of pain occurred after eating a fatty meal. He has cholelithiasis on imaging of his abdomen. The pain may have been secondary to his gallbladder. RECOMMENDATIONS: 1. Increase amiodarone to 200 mg b.i.d. 2. Continue anticoagulation therapy with warfarin. INR today is slightly above therapeutic. 3. Metoprolol tartrate 25 mg b.i.d. This is in light of his ventricular response, being in the low 100s at the time of my exam. 4. Intravenous fluids at this time. The patient is only on ice chips at this time. He does not have any IV fluids running. 5. Conservative medical management of his coronary arteries at this time. I did not suspect that his troponin elevation represents an acute coronary syndrome. 6. If he persists with atrial fibrillation, we will consider electrical cardioversion. Thank you for asking me to see this patient in cardiology consultation. TEMITOPE
[2016-11-01] MEDS: AMIODARONE 200 MG TAB PO SCH (19:54)
[2016-11-01] MEDS: METOPROLOL TARTRATE 25 MG TAB PO SCH (19:54)
[2016-11-01] MEDS ORDERED: ATORVASTATIN 20 MG TAB PO SCH (21:00)
[2016-11-02 04:00] VITALS: BP 152/85; PULSE 65; TEMP 36.6; O2SAT 97
[2016-11-02] MEDS: SODIUM CHLORIDE 0.9% 1000ML 1,000 ML IV SCH (05:15)
[2016-11-02 06:44] LABS: HEMATOCRIT 35.7 % (42-52); MEAN CELL VOLUME 90.2 fL (80-100); MEAN CORPUSCULAR HEMOGLOBIN 29.5 pg (25-34); MEAN CORPUSCULAR HGB CONC 32.8 g/dl (32-36); MEAN PLATELET VOLUME 11.6 fL (7.4-10.4); PLATELET COUNT 152 K/uL (130-400); RED BLOOD COUNT 3.96 M/uL (4.7-6.1); WHITE BLOOD COUNT 4.79 K/uL (4.8-10.8)
[2016-11-02 07:02] LABS: INR 1.9 (0.9-1.1)
[2016-11-02 07:05] VITALS: BP 163/85; PULSE 99; TEMP 36.4; O2SAT 97
[2016-11-02 07:18] LABS: BUN/CREATININE RATIO 17.1 (10-20); CALCIUM 8.2 mg/dl (8.5-10.1); CREATININE 1.2 mg/dl (0.60-1.40); POTASSIUM 4.1 mmol/L (3.5-5.1)
[2016-11-02] MEDS: ALBUT/IPRATROP 3MG/0.5MG NEB 3 ML VIAL INH SCH (07:27)
[2016-11-02 07:37] VITALS: PULSE 87; O2SAT 97
[2016-11-02] MEDS: SIMETHICONE 80 MG CHEW PO SCH (08:39)
[2016-11-02] MEDS: AMIODARONE 200 MG TAB PO SCH (08:40)
[2016-11-02] MEDS: LISINOPRIL 40 MG TAB PO SCH (08:40)
[2016-11-02] MEDS: METOPROLOL TARTRATE 25 MG TAB PO SCH (08:41)
[2016-11-02] MEDS: AMLODIPINE BESYLATE 5 MG TAB PO SCH (08:41)
[2016-11-02] MEDS: PANTOprazole SOD 40 MG TAB PO SCH (08:41)
[2016-11-02] MEDS: BUDESONIDE 90 MCG INH INH SCH (08:42)
[2016-11-02] MEDS ORDERED: CRD200 PO (10:38)
[2016-11-02] MEDS ORDERED: LPR25 PO (10:38)
--- NOTE | 2016-11-02 10:48 | Discharge Instructions ---
Discharge Instructions Admission Reason for Admission: Elevated Troponin, Epigastric Abdominal Pain Discharge Discharge Diagnosis / Problem: abdominal pain, afib Discharge Goals Goal(s): Improve function, Diagnostic testing, Therapeutic intervention Activity Recommendations Activity Limitations: resume your previous activity . Instructions / Follow-Up Instructions / Follow-Up You been treated in the hospital for pain in your upper abdomen. There was concern that this may be coming from your heart given your known history of heart disease. An echocardiogram was performed. No abnormalities with the heart were noted. Your however noted to be in A. fib. Your heart rate was slightly high. A few adjustments have been made to your medications. On your CAT scan, gallstones were noted. Further evaluation of your gallbladder (a HIDA scan) did not show any abnormalities. The following changes/additions of the mid to medications: -Amiodarone has increased to 200 mg twice daily -Metoprolol 25 mg 1 tab twice daily has been added Please continue other medications as prescribed It is important that you follow up with her primary care physician within one week of discharge Please also follow up with your sales office administrator within 1 month Return to the emergency department if you have any of the following symptoms: -Fever of 102F or greater -Persistent vomiting - Persistent diarrhea -Lethargy -dizziness -Chest pain -Shortness of breath -Worsening or returning pain Current Hospital Diet Patient's current hospital diet: AHA Diet (Heart Healthy) Discharge Diet Recommended Diet: AHA Diet (Heart Healthy) Procedures Procedures Performed: HIDA scan-noral Echo-normal Pending Studies Studies pending at discharge: no Medical Emergencies . Who to Call and When: Medical Emergencies: If at any time you feel your situation is an emergency, please call 911 immediately. . Non-Emergent Contact Non-Emergency issues call your: Primary Care Provider . . "Provider Documentation" section prepared by Margoth Ellis. VTE Core Measure Inpt VTE Proph given/why not?: Daisha (Coumadin)Toni, SCD's
--- NOTE | 2016-11-02 10:58 | Discharge Summary ---
Discharge Summary Admission Date: Oct 31, 2016 at 21:10 Discharge Date: Nov 02, 2016 Discharge Disposition: Home Principal Diagnosis: epigastric abdominal pain, gallstones, A. fib Problems/Secondary Diagnoses: (1) Hx-Venous Thrombosis&Embolism Status: Chronic CVA a fib PE GERD Immunizations: Have You Had Influenza Vaccine: N/A Influenza Vaccine Date: Aug 18, 2007 History of Tetanus Vaccine?: Yes History of Pneumococcal: Yes Pneumococcal Date: Aug 18, 2007 History of Hepatitis B Vaccine: No Procedures: HIDA scan-EF noted to be 71%. No signs of cholecystitis Echo-preserved EF of 50-55%. No wall motion abnormalities noted Consultations: Cardiology (Margoth Ellis PA-C) Medication Reconciliation New Medications: Amiodarone HCl (Amiodarone HCl) 200 Mg Tab 200 MG PO BID for 30 Days, #60 TAB Metoprolol Tartrate (Lopressor) 25 Mg Tab 25 MG PO BID for 30 Days, #60 TAB Continued Medications: Acetaminophen (Tylenol) 325 Mg Tab 975 MG PO Q8 PRN for Pain or Fever, TAB Amlodipine Besylate (Amlodipine Besylate) 5 Mg Tab 5 MG PO QAM, #90 Atorvastatin (Lipitor) 40 Mg Tab 40 MG PO HS, TAB Clopidogrel (Plavix) 75 Mg Tab 75 MG PO DAILY, TAB Lisinopril (Lisinopril) 40 Mg Tab 40 MG PO QAM, #90 Nitroglycerin (Nitrostat) 0.4 Mg Tab 0.4 MG UT PRN, 0 Refills Pantoprazole (Protonix) 40 Mg Tab 40 MG PO QAM, #30 TAB Simethicone (Gas-X) 80 Mg Chw 2 TABS PO AMPM Warfarin Sod (Jantoven) 7.5 Mg Tab 7.5 MG PO 4XWK, TAB SATURDAY, SATURDAY, SATURDAY, SATURDAY Warfarin Sodium (Warfarin Sodium) 5 Mg Tab 5 MG PO 3XWK, #100 TAKE 5MG ON MONDAYS, THURSDAYS, AND FRIDAYS ONLY [Erna-Setlzer] () Unknown Strength Unknown Dose Discontinued Medications: Amiodarone Hcl (Pacerone) 100 Mg Tab 100 MG PO QAM, #30 Referrals At Discharge Follow up Referrals: Drywall Finisher Referral - Within a Month with Hubert Brar M.D. Discharge Exam Further epigastric pain. No nausea. Denies any chest pain or discomfort. No shortness of breath. No heart palpitations or dizziness. Review of Systems: Constitutional: No chills Cardiovascular: No chest pain Abdomen: No nausea Neurologic: No weakness Physical Exam: General Appearance: no apparent distress Neck: no JVD Respiratory/Chest: + pertinent finding (very faint crackles noted at the bases bilaterally. No wheezing.) Cardiovascular: + irregularly irregular Abdomen / GI: normal bowel sounds, non tender, soft Extremities: no calf tenderness, no pedal edema Neurologic/Psychiatric: no motor/sensory deficits, oriented x 3 Skin: warm/dry (Margoth Ellis, TYRONE) Review of Systems: Constitutional: No chills, No fever Respiratory: No cough, No sputum, No wheezing Cardiovascular: No PND, No chest pain, No orthopnea Abdomen: No nausea, No pain, No vomiting Physical Exam: General Appearance: WD/WN, + mild distress Neck: supple, no JVD Respiratory/Chest: chest non-tender, lungs clear, normal breath sounds Cardiovascular: + systolic murmur, + irregularly irregular Abdomen / GI: normal bowel sounds, non tender, soft Neurologic/Psychiatric: alert, oriented x 3 (Sanket Danielson M.D.) Hospital Course 89-year-old gentleman with a history of coronary artery disease, [place] and CABG admitted to the hospital last night with complaints of epigastric abdominal pain. This is now resolved. Labs notable for a slight elevation of troponin. Cholelithiasis noted on imaging. Epigastric pain with hx CAD-? cardiac cause-->unlikely. Troponin trending down. EKG shows A fib. Probably GI related. 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 EF 50-55% -Continue med management: MICHELLE, statin, Beta randy added Cholelithiasis noted on CT scan -HIDA scan performed-EF 71%. No signs of cholecystitis -Abdominal pain resolved A fib-mildly tachycardic overnight. BP stable -Amiodarone increased to 200 mg BID -Metoprolol 25 mg BID added -VSS Hx PE/DVT -continue Coumadin hx CVA -ASA, Plavix, statin DVT prophylaxis -Coumadin-INR therapeutic yesterday -TEDS, SCDs CODE STATUS -LEVEL I FULL CODE Total Time Spent: Greater than 30 minutes This includes examination of the patient, discharge planning, medication reconciliation, and communication with other providers. (Margoth Ellis PA-C) Pt here with epigastric pain after dietary indiscression developed recurrent afib with rvr Cardiology has increased amiodarone to 200mg bid and started metoprolol 25 bid with outpt follow up for further titration of possible cardioversion elevated troponin felt not consistent with acute coronary syndrome GI upset resolved, Total Time Spent: Greater than 30 minutes (Sanket Danielson M.D.) Discharge Instructions Please refer to the electronic Patient Visit Report (Discharge Instructions) for additional information. (Margoth Ellis PA-C) Follow-Up PCP 1 week Cardiology 1 month (Margoth Ellis PA-C) Additional Copies To Kiah Rm DO; Hubert Brar M.D.
[2016-11-02 11:03] VITALS: BP 163/85; PULSE 87; TEMP 36.4; O2SAT 97
--- NOTE | 2016-11-05 20:33 | EDITING REQUIRED CODING QUERY ---
CODING QUERY To promote full compliance with coding requirements relating to patient care, provider participation is requested in all cases of mainframe analyst uncertainty. Please assist us with the question(s) below: Coding Question(s): Patient admitted with epigastric pain. Please provide the underlying cause of epigastric pain Physician's Response(s): unknown Thank you Fabby Fairchildwell Principal Diagnosis: "_that condition established after study, to be chiefly responsible for occasioning the admission of the patient to the hospital for care." Co-Existing Principal Diagnosis: "_when two or more diagnoses equally meet the criteria for principal diagnosis as determined by the circumstances of admission, diagnostic work up, and/or therapy provided, and the Alphabetic Index, Tabular List, or another coding guideline does not provide sequencing direction, any one of the diagnoses may be sequenced first." "When the physician has documented what appears to be a current diagnosis in the body of the record, but has not included the diagnosis in the final diagnostic statement, the physician should be asked whether the diagnosis should be added." (Source Coding [facility] 2 QTR90. p3-4)
[2016-11-23] MEDS ORDERED: CMD75 PO (07:49)
[2016-11-23] MEDS ORDERED: CYAN10005 PO (07:49)
[2016-11-23] MEDS ORDERED: FERR325T18 PO (07:49)
[2016-11-23] MEDS ORDERED: WARF5TAB7 PO (07:49)
[2016-12-19] MEDS ORDERED: NEBMAC (12:57)
[2016-12-19] MEDS ORDERED: LSN40 PO (14:44)
[2016-12-19] MEDS ORDERED: LVQ750 PO (14:44)
[2016-12-19] MEDS ORDERED: MRLP17 PO (14:44)
[2016-12-19] MEDS ORDERED: IPRASOL4 INH (14:44)
[2016-12-19] MEDS ORDERED: PRED10TA PO (14:44)
[2016-12-19] MEDS ORDERED: OMEP40CA41 PO (15:21)
[2017-06-01] MEDS ORDERED: FLVHFA220 INH (16:08)
[2017-06-01] MEDS ORDERED: LPR25 PO (16:08)
== END 2016-11-02 12:27 | disposition home or self-care (01) | DRG 392 ==
LOC: ENRESERVTM → ENRESERVDT → C.EDB 17:15 → C.2T 21:10
PROVIDERS: ADMIT Hospitalist; ATTEND Internal Medicine
DX: R10.13 Epigastric pain (principal); K86.2 Cyst of pancreas; Z95.1 Presence of aortocoronary bypass graft; K80.20 Calculus of gallbladder without cholecystitis without obstruction; I25.2 Old myocardial infarction; Z79.01 Long term (current) use of anticoagulants; Z86.73 Personal history of transient ischemic attack (TIA), and cerebral infarction without residual deficits; Z79.02 Long term (current) use of antithrombotics/antiplatelets; I10 Essential (primary) hypertension; Z86.718 Personal history of other venous thrombosis and embolism; I25.10 Atherosclerotic heart disease of native coronary artery without angina pectoris; Z80.9 Family history of malignant neoplasm, unspecified; Z82.49 Family history of ischemic heart disease and other diseases of the circulatory system; Z79.899 Other long term (current) drug therapy; K21.9 Gastro-esophageal reflux disease without esophagitis; E78.00 Pure hypercholesterolemia, unspecified; I48.0 Paroxysmal atrial fibrillation; E78.5 Hyperlipidemia, unspecified; Z95.5 Presence of coronary angioplasty implant and graft; J62.8 Pneumoconiosis due to other dust containing silica; Z96.653 Presence of artificial knee joint, bilateral; M19.90 Unspecified osteoarthritis, unspecified site; Z83.2 Family history of diseases of the blood and blood-forming organs and certain disorders involving the immune mechanism; H91.90 Unspecified hearing loss, unspecified ear; Z86.711 Personal history of pulmonary embolism; J44.9 Chronic obstructive pulmonary disease, unspecified; Z85.46 Personal history of malignant neoplasm of prostate; Z85.028 Personal history of other malignant neoplasm of stomach

== ENCOUNTER 2016-11-17 03:18 | Observation (INO) | payer MEDICARE ==
[2016-11-17] VITALS (7 sets, daily range): BP systolic 131–173; BP diastolic 80–95; PULSE 57–90; TEMP 36.3–36.7; O2SAT 93–100; Ht 185.4 cm; Wt 86.7 kg
[~2016-11-17] VITALS: Ht 185.4 cm; Wt 86.7 kg
[~2016-11-17 03:18] MED LIST changes: +ACET-1311 PO; -AMIO200T4 PO; -CMD6 PO; +CRD200 PO; -LISI-461 PO; +LPR25 PO; +LSN40 PO; +NRV/5 PO; +WARF-246 PO; +WARF7.5T4 PO; +[UNRECOGNIZED DRUG - OTHER]
[2016-11-17 04:07] LABS: BASO % 0.2 %; BASO ABS # 0.01 K/uL (0-0.2); COMPLETE YES; HEMATOCRIT 36.3 % (42-52); IG% 0.2 %; LYMPH % 18.8 %; LYMPH ABS # 1.03 K/uL (1.2-3.4); MEAN CELL VOLUME 90.5 fL (80-100); MEAN CORPUSCULAR HEMOGLOBIN 29.7 pg (25-34); MEAN CORPUSCULAR HGB CONC 32.8 g/dl (32-36); MEAN PLATELET VOLUME 11.4 fL (7.4-10.4); MONO % 14.3 %; NEUT % 62.5 %; PLATELET COUNT 141 K/uL (130-400); RED BLOOD COUNT 4.01 M/uL (4.7-6.1); WHITE BLOOD COUNT 5.47 K/uL (4.8-10.8)
[2016-11-17 04:13] LABS: BUN/CREATININE RATIO 22.3 (10-20); CALCIUM 8.4 mg/dl (8.5-10.1); CREATININE 1.1 mg/dl (0.60-1.40)
[2016-11-17 04:21] LABS: PARTIAL THROMBOPLASTIN RATIO 1.7; PROTHROMBIN TIME (PATIENT) 58.9 SECONDS (9.0-12.0)
[2016-11-17 04:26] LABS: INR 5.1 (0.9-1.1)
[2016-11-17 04:27] LABS: CKMB/CK RATIO 2.3 (0-3.0)
[2016-11-17] MEDS ORDERED: ACETAMINOPHEN 325 MG TAB PO PRN (05:45)
[2016-11-17] MEDS ORDERED: NITROGLYCERIN 0.4 MG SL PER TAB CHARGE SL PRN (05:45)
[2016-11-17] MEDS ORDERED: ZOLPIDEM TARTRATE 5 MG TAB PO PRN (05:45)
--- NOTE | 2016-11-17 05:59 | EMERGENCY ROOM VISIT NOTE ---
History Report prepared by Dereck: Nico Denise Under the Supervision of: Dr. Malgorzata Mar D.O. First contact with patient: 03:30 Chief Complaint: SHORTNESS OF BREATH Stated Complaint: SHORT OF BREATH History of Present Illness The patient is a 89 year old male who presents to the Emergency Room with complaints of intermittent shortness of breath beginning 13 hours ago. He states that he noticed his issues during the day, and they persisted through the night. He has no history of problems with breathing. He does describe recent orthopnea. The patient has a history of atrial fibrillation, and is scheduled to be cardioverted soon. His oxygen saturations were found to be around 92% en route. The patient denies any abdominal pain. He notes that he has had increased leg swelling over the past month. He is on Coumadin. The patient was given 2 L of normal saline en route which appears to have improved his symptoms. Source of History: patient Onset: 13 hours ago Quality: other (shortness of breath) Timing: intermittent Associated Symptoms: No abdominal pain Note: The patient notes that he has had increased leg swelling over the past month. Review of Systems See HPI for pertinent positives & negatives. A total of 10 systems reviewed and were otherwise negative. 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 (8) Shortness of breath Family History FH: cancer FH: heart disease FH: hypertension Social History Smoking Status: Never Smoker Alcohol Use: none Drug Use: none Marital Status: Housing Status: lives alone Occupation Status: retired Current/Historical Medications Scheduled Amiodarone HCl (Amiodarone HCl), 200 MG PO BID Amlodipine Besylate (Amlodipine Besylate), 5 MG PO QAM Atorvastatin (Lipitor), 40 MG PO HS Clopidogrel (Plavix), 75 MG PO DAILY Lisinopril (Lisinopril), 40 MG PO QAM Metoprolol Tartrate (Lopressor), 25 MG PO BID Nitroglycerin (Nitrostat), 0.4 MG UT PRN Pantoprazole (Protonix), 40 MG PO QAM Simethicone (Gas-X), 2 TABS PO AMPM Warfarin Sod (Jantoven), 7.5 MG PO 4XWK Warfarin Sodium (Warfarin Sodium), 5 MG PO 3XWK Scheduled PRN Acetaminophen (Tylenol), 975 MG PO Q8 PRN for Pain or Fever Miscellaneous Medications [Erna-Setlzer], Unknown Dose Allergies Coded Allergies: No Known Allergies (Verified , 10/31/16) Physical Exam Vital Signs Date Time Temp Pulse Resp B/P Pulse Ox O2 Delivery O2 Flow Rate FiO2 11/17/16 05:29 74 23 164/104 99 11/17/16 04:59 76 20 164/93 100 Nasal Cannula 2.0 11/17/16 04:59 80 22 164/93 92 11/17/16 03:35 96 Nasal Cannula 2.0 11/17/16 03:30 36.5 75 20 151/81 94 Room Air 11/17/16 03:30 94 Room Air 11/17/16 03:30 96 Room Air 11/17/16 03:28 81 Physical Exam HEENT: Head - normocephalic and atraumatic Pupils are equal, round, and reactive to light. Extraocular eye muscles are intact, and sclera are anicteric. Nose - moist nasal mucosa without discharge. Mouth - moist buccal mucosa. Oropharynx is nonerythematous and there is no tonsillar exudate or edema noted. Neck: Supple; no JVD, nuchal rigidity, cervical lymphadenopathy, or auscultated bruits. Heart: Irregularly irregular rhythm with a normal rate. There is a normal S1 and S2 with no murmurs, clicks, or gallops appreciated. Lungs: Diffuse rales to auscultation. Abdomen: Soft, completely nontender, nondistended, with good bowel sounds. There are no palpable pulsatile masses or hepatosplenomegaly. There is no guarding, rigidity, or rebound noted. Extremities: No evidence of cyanosis, or clubbing. There are easily palpable peripheral pulses. 2+ pitting edema to the bilateral legs. Skin: warm and dry with good turgor and no rashes. Medical Decision & Procedures ER Provider Diagnostic Interpretation: Two View Chest X-ray interpreted by me: Congestive heart failure. Cardiomegaly. Small left sided pleural effusion. Laboratory Results 11/17/16 03:45 Red Blood Count 4.01, Mean Corpuscular Volume 90.5, Mean Corpuscular Hemoglobin 29.7, Mean Corpuscular Hemoglobin Concent 32.8, Mean Platelet Volume 11.4, Neutrophils (%) (Auto) 62.5, Lymphocytes (%) (Auto) 18.8, Monocytes (%) (Auto) 14.3, Eosinophils (%) (Auto) 4.0, Basophils (%) (Auto) 0.2, Neutrophils # (Auto ) 3.42, Lymphocytes # (Auto) 1.03, Monocytes # (Auto) 0.78, Eosinophils # (Auto ) 0.22, Basophils # (Auto) 0.01 11/17/16 03:45 Test 11/17/16 03:45 White Blood Count 5.47 K/uL (4.8-10.8) Red Blood Count 4.01 M/uL (4.7-6.1) Hemoglobin 11.9 g/dL (14.0-18.0) Hematocrit 36.3 % (42-52) Mean Corpuscular Volume 90.5 fL (80-100) Mean Corpuscular Hemoglobin 29.7 pg (25-34) Mean Corpuscular Hemoglobin Concent 32.8 g/dl (32-36) Platelet Count 141 K/uL (130-400) Mean Platelet Volume 11.4 fL (7.4-10.4) Neutrophils (%) (Auto) 62.5 % Lymphocytes (%) (Auto) 18.8 % Monocytes (%) (Auto) 14.3 % Eosinophils (%) (Auto) 4.0 % Basophils (%) (Auto) 0.2 % Neutrophils # (Auto) 3.42 K/uL (1.4-6.5) Lymphocytes # (Auto) 1.03 K/uL (1.2-3.4) Monocytes # (Auto) 0.78 K/uL (0.11-0.59) Eosinophils # (Auto) 0.22 K/uL (0-0.5) Basophils # (Auto) 0.01 K/uL (0-0.2) RDW Standard Deviation 53.0 fL (36.4-46.3) RDW Coefficient of Variation 16.0 % (11.5-14.5) Immature Granulocyte % (Auto) 0.2 % Immature Granulocyte # (Auto) 0.01 K/uL (0.00-0.02) Activated Partial Thromboplast Time 44.6 SECONDS (21.0-31.0) Partial Thromboplastin Ratio 1.7 Anion Gap 10.0 mmol/L (3-11) Est Creatinine Clear Calc Drug Dose 52.4 ml/min Estimated GFR () 69.1 Estimated GFR (Non- 59.6 BUN/Creatinine Ratio 22.3 (10-20) Calcium Level 8.4 mg/dl (8.5-10.1) Total Bilirubin 0.6 mg/dl (0.2-1) Direct Bilirubin 0.2 mg/dl (0-0.2) Aspartate Amino Transf (AST/SGOT) 30 U/L (15-37) Alanine Aminotransferase (ALT/SGPT) 42 U/L (12-78) Alkaline Phosphatase 91 U/L (45-117) Total Creatine Kinase 98 U/L (39-308) Pro-B-Type Natriuretic Peptide 3893 pg/ml (0-1800) Total Protein 6.9 gm/dl (6.4-8.2) Albumin 3.6 gm/dl (3.4-5.0) Laboratory results per my review. ECG Indication: SOB/dyspnea Rate (beats per minute): 72 Rhythm: atrial fibrillation Findings: no acute ischemic change, no ectopy ED Course 0348: Past medical records reviewed. The patient was evaluated in room B11A. A complete history and physical exam was performed. A twelve-lead EKG was obtained. An IV lock was initiated and labs are drawn as above. The patient had chest x-ray as described above. 0442: Upon reevaluation, I discussed findings and results with the patient. He verbalized agreement of the treatment plan. I spoke with Dr. Jurado of the [facility] Hospitalist Service. The patient will be evaluated for further management and care. Medical Decision The patient is a 89 year old male who presents to the ED with shortness of breath. Differential diagnosis includes CHF, orthopnea, cardiac ischemia, a fib with RVR, as well as other etiologies were considered. Laboratory studies: No leukocytosis. Anemic with a hemoglobin of 11.9. BUN 25. Creatinine 1.1. Glucose of 96. LFTs are normal. Troponin of 0.124. BNP of 3893. INR of 5.1. The patient presents to the emergency department with increasing shortness of breath and orthopnea. Chest x-ray shows evidence of congestive heart failure. Patient has a history of A. fib which is rate controlled but he was scheduled for the end of November to have an elective cardioversion. At this time, his INR is supratherapeutic. The patient has an elevated troponin at this time with a significantly elevated BNP consistent with heart failure. I have discussed the case with the [facility] hospitalist and they will evaluate for further management. Consults Time Called: [phone] Consulting Physician: [facility] Returned Call: [phone] Discussed the patient's case. The patient will be evaluated for further management. Impression Primary Impression: CHF (congestive heart failure) Additional Impression: Supratherapeutic INR Scribe Attestation The scribe's documentation has been prepared under my direction and personally reviewed by me in its entirety. I confirm that the note above accurately reflects all work, treatment, procedures, and medical decision making performed by me. Departure Information Dispostion Being Evaluated By Hospitalist Referrals Kiah Rm DO (PCP) Patient Instructions My [facility] Problem Qualifiers
[2016-11-17] MEDS ORDERED: IV FLUIDS COMPLETED PRN (06:00)
--- NOTE | 2016-11-17 06:31 | History and Physical ---
History & Physical Date & Time of Service: Nov 17, 2016 at 06:14 Chief Complaint: Short Of Breath Primary Care Physician: Kiah Rm DO History of Present Illness Source: patient, family The patient is an 89-year-old male most recently in hospital from October 31 to November 02, who presents to the emergency department with complaint of intermittent shortness of breath that began about 13 hours prior to arrival, and continued frequent abdominal bloating and belching symptoms. During a previous admission, he was seen by Dr. Brar, from cardiology, and was noted to have an ejection fraction of 50-55%, had his amiodarone dose increased to 200 mg by mouth twice a day to further control his atrial fibrillation, and is presently scheduled for tentative cardioversion on December 13. He denies any change in his usual dietary habits, in particular, continues to watch his sodium carefully. 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 (4) Heart disease Status: Chronic (5) Hx-Venous Thrombosis&Embolism Status: Chronic (6) Perforation of intestine Status: Resolved Family History FH: cancer FH: heart disease FH: hypertension Social History Smoking Status: Never Smoker Smokeless Tobacco Use: No Alcohol Use: none Drug Use: none Marital Status: Housing status: lives with family Occupational Status: retired Immunizations History of Influenza Vaccine: N/A Influenza Vaccine Date: Aug 18, 2007 History of Tetanus Vaccine?: Yes History of Pneumococcal: Yes Pneumococcal Date: Aug 18, 2007 History of Hepatitis B Vaccine: No Multi-Drug Resistant Organisms History of MDRO: No Allergies Coded Allergies: No Known Allergies (Verified , 10/31/16) Home Medications Scheduled Amiodarone HCl (Amiodarone HCl), 200 MG PO BID Amlodipine Besylate (Amlodipine Besylate), 5 MG PO QAM Atorvastatin (Lipitor), 40 MG PO HS Clopidogrel (Plavix), 75 MG PO DAILY Lisinopril (Lisinopril), 40 MG PO QAM Metoprolol Tartrate (Lopressor), 25 MG PO BID Nitroglycerin (Nitrostat), 0.4 MG UT PRN Pantoprazole (Protonix), 40 MG PO QAM Simethicone (Gas-X), 2 TABS PO AMPM Warfarin Sod (Jantoven), 7.5 MG PO 4XWK Warfarin Sodium (Warfarin Sodium), 5 MG PO 3XWK Scheduled PRN Acetaminophen (Tylenol), 975 MG PO Q8 PRN for Pain or Fever Miscellaneous Medications [Erna-Setlzer], Unknown Dose Review of Systems The patient denies vision change, hearing change, sore throat, fevers, chills, sweats, weight change, fatigue, nausea, vomiting, abdominal pain, pelvic pain, blood in urine or stool, dysuria, urinary frequency or urgency, lightheadedness , dizziness, headache, memory loss, rash, abnormal bruising or bleeding, imbalance, focal or generalized weakness, numbness or tingling in arms or legs, arthralgias or myalgias, back or neck pain, night sweats, or allergy symptoms. The review of systems is otherwise negative other than for that already noted above, and at least 10 systems have been reviewed. Physical Exam Vital Signs Date Time Temp Pulse Resp B/P Pulse Ox O2 Delivery O2 Flow Rate FiO2 11/17/16 04:59 76 20 164/93 100 Nasal Cannula 2.0 11/17/16 03:35 96 Nasal Cannula 2.0 11/17/16 03:30 36.5 75 20 151/81 94 Room Air 11/17/16 03:30 94 Room Air 11/17/16 03:30 96 Room Air 11/17/16 03:28 81 The patient is awake, well-developed and adequately nourished, alert and oriented 3, normocephalic and atraumatic, lying in bed and in no acute distress. HEENT--PERRL, EOMI, mucous membranes and oropharynx dry. Neck--supple, no JVD or bruits, thyroid normal, trachea midline, no adenopathy. Heart--irregularly irregular, no murmurs, rubs or gallops. Lungs--few crackles at the bases bilaterally, no respiratory distress, no accessory muscle use. Abdomen--hyperactive bowel sounds, soft, mildly distended, tympanitic, nontender. Extremities--no cyanosis, clubbing. There is trace left lower extremity pitting Edema. There are good distal pulses b/l. Dermatologic--normal skin turgor, normal color, warm and dry, no abnormal lymph nodes, no rash. Neurologic--cranial nerves II through XII grossly intact, motor and sensory examination normal. Rheumatologic--normal range of motion, nontender, muscles and joints. Psychiatric--normal affect. Diagnostics Laboratory Results Results Past 24 Hours Test 11/17/16 03:45 Range/Units White Blood Count 5.47 4.8-10.8 K/uL Red Blood Count 4.01 4.7-6.1 M/uL Hemoglobin 11.9 14.0-18.0 g/dL Hematocrit 36.3 42-52 % Mean Corpuscular Volume 90.5 80-100 fL Mean Corpuscular Hemoglobin 29.7 25-34 pg Mean Corpuscular Hemoglobin Concent 32.8 32-36 g/dl Platelet Count 141 130-400 K/uL Mean Platelet Volume 11.4 7.4-10.4 fL Neutrophils (%) (Auto) 62.5 % Lymphocytes (%) (Auto) 18.8 % Monocytes (%) (Auto) 14.3 % Eosinophils (%) (Auto) 4.0 % Basophils (%) (Auto) 0.2 % Neutrophils # (Auto) 3.42 1.4-6.5 K/uL Lymphocytes # (Auto) 1.03 1.2-3.4 K/uL Monocytes # (Auto) 0.78 0.11-0.59 K/uL Eosinophils # (Auto) 0.22 0-0.5 K/uL Basophils # (Auto) 0.01 0-0.2 K/uL RDW Standard Deviation 53.0 36.4-46.3 fL RDW Coefficient of Variation 16.0 11.5-14.5 % Immature Granulocyte % (Auto) 0.2 % Immature Granulocyte # (Auto) 0.01 0.00-0.02 K/uL Prothrombin Time 58.9 9.0-12.0 SECONDS Prothromb Time International Ratio 5.1 0.9-1.1 Activated Partial Thromboplast Time 44.6 21.0-31.0 SECONDS Partial Thromboplastin Ratio 1.7 Sodium Level 145 136-145 mmol/L Potassium Level 4.0 3.5-5.1 mmol/L Chloride Level 112 98-107 mmol/L Carbon Dioxide Level 23 21-32 mmol/L Anion Gap 10.0 3-11 mmol/L Blood Urea Nitrogen 25 7-18 mg/dl Creatinine 1.10 0.60-1.40 mg/dl Est Creatinine Clear Calc Drug Dose 52.4 ml/min Estimated GFR () 69.1 Estimated GFR (Non- 59.6 BUN/Creatinine Ratio 22.3 10-20 Random Glucose 96 70-99 mg/dl Calcium Level 8.4 8.5-10.1 mg/dl Total Bilirubin 0.6 0.2-1 mg/dl Direct Bilirubin 0.2 0-0.2 mg/dl Aspartate Amino Transf (AST/SGOT) 30 15-37 U/L Alanine Aminotransferase (ALT/SGPT) 42 12-78 U/L Alkaline Phosphatase 91 45-117 U/L Total Creatine Kinase 98 39-308 U/L Creatine Kinase MB 2.3 0.5-3.6 ng/ml Creatine Kinase MB Ratio 2.3 0-3.0 Troponin I 0.124 0-0.045 ng/ml Pro-B-Type Natriuretic Peptide 3893 0-1800 pg/ml Total Protein 6.9 6.4-8.2 gm/dl Albumin 3.6 3.4-5.0 gm/dl EKG EKG shows atrial fibrillation at 72 bpm, left axis deviation, old inferior wall IL, no acute ST-T changes. Impression Assessment and Plan Gaseous abdominal distention--the patient's symptoms of shortness of breath, and abdominal distention and frequent belching may be all interrelated. X-ray today shows significant dilated bowel loops suggestive of adynamic ileus, although he has had bowel obstructions in the past. He did have a workup last admission including CT of the abdomen and pelvis, abdominal ultrasound, and HIDA scan with gallbladder ejection fraction. We'll consult GI for their opinion regarding his symptoms. We'll increase his simethicone to 4 times a day. CAD/status post CABG/atrial fibrillation/hypertension--continue amiodarone 200 mg by mouth twice a day, metoprolol tartrate 25 mg by mouth twice a day, amlodipine 5 mg by mouth every morning, lisinopril 40 mg by mouth every morning , clopidogrel 75 mg by mouth daily, nitroglycerin sublinguals when necessary. Warfarin will be held due to supratherapeutic INR 5.1, and will follow serial INRs. We'll consult Dr. Brar. Venous thrombosis/PE history--warfarin as noted above is being held due to supratherapeutic INR. GERD--continue pantoprazole 40 mg by mouth every morning. Hypercholesterolemia--continue atorvastatin 40 mg by mouth at bedtime. Level of Care Telemetry Advanced Directives Existing Advance Directive: No Existing Living Will: No Existing Power of Quarter Folder: No Resuscitation Status FULL RESUSCITATION VTE Prophylaxis VTE Risk Assessment Done? Y/N: Yes Risk Level: Moderate
--- NOTE | 2016-11-17 06:59 | DIAGNOSTIC IMAGING REPORT ---
KUB CLINICAL HISTORY: Abdominal distention COMPARISON STUDY: 04/11/2013 FINDINGS: There is mild gaseous distention of both large and small bowel loops. There is moderate fecal retention. There are no transition zones identified. There are advanced degenerative changes within the lumbar spine. The visualized portions lung bases reveal interstitial thickening IMPRESSION: 1. No conventional radiographic evidence of bowel obstruction 2. Fecal retention Electronically signed by: Vikram Roldan M.D. 11/17/2016 6:57 AM Dictated Date/Time: 11/17/2016 6:56 AM
--- NOTE | 2016-11-17 07:46 | DIAGNOSTIC IMAGING REPORT ---
CHEST 2 VIEWS ROUTINE CLINICAL HISTORY: Shortness of breath COMPARISON STUDY: 10/31/2016 FINDINGS: The heart is enlarged. There are postsurgical changes of a midline sternotomy. There is progressive by basilar interstitial thickening. This may indicate an inflammatory process or failure superimposed on chronic lung disease.[ IMPRESSION: Progressive bibasal interstitial opacities Electronically signed by: Vikram Roldan M.D. 11/17/2016 7:45 AM Dictated Date/Time: 11/17/2016 7:44 AM
[2016-11-17] MEDS ORDERED: POLYETHYLENE (MIRALAX) 17 GM PACK PO PRN (09:00)
[2016-11-17 09:58] LABS: PROTHROMBIN TIME (PATIENT) 53.5 SECONDS (9.0-12.0)
[2016-11-17 10:18] LABS: INR 4.7 (0.9-1.1)
--- NOTE | 2016-11-17 10:29 | Progress Note ---
Subjective Date of Service: Nov 17, 2016. (Josephine Lai PA-C) Date of Service: 11/17/16 agree with PA Note no BM yet (Ron Boles MD) Subjective Pt evaluation today including: conversation w/ patient, physical exam, chart review, lab review, review of studies, review of inpatient medication list Patient seen and evaluated. No acute events overnight. Patient reporting improvement in abdominal distention since admission. Improvement in SOB. Reports last BM yesterday but was hard and did not resolve symptoms. Verbalizes no further complaints at this time. (Josephine Lai PA-C) Pt evaluation today including: conversation w/ patient, physical exam, chart review, review of studies, review of inpatient medication list (Ron Boles MD) Problem List Medical Problems: (1) CHF (congestive heart failure) Status: Acute (2) Dizziness Status: Acute (3) Elevated troponin Status: Acute (4) Epigastric abdominal pain Status: Acute (5) Gallstones Status: Acute (6) Hx-Venous Thrombosis&Embolism Status: Chronic (7) Hypotension Status: Acute (8) Supratherapeutic INR Status: Acute (Josephine Lai PA-C) Review of Systems Constitutional: No chills, No fever Respiratory: + cough, + sputum, No shortness of breath Cardiac: No chest pain Abdomen: + problem reported (abdominal distention (improving)), No nausea, No pain, No vomiting Musculoskeletal: No calf pain Male : No dysuria Endo: No fatigue Skin: No rash (Josephine Lai PA-C) Constitutional: No fever ENT: No hearing loss Respiratory: No cough Cardiac: No chest pain Abdomen: No pain Neurologic: No memory loss Psychiatric: No depression symptoms Endo: + fatigue (Ron Boles MD) Medications Current Inpatient Medications Medications (Trade) Dose Ordered Sig/Zainab Route Start Time Stop Time Status Last Admin Dose Admin Acetaminophen (Tylenol Tab) 650 mg Q4H PRN PO 11/17/16 05:45 12/17/16 05:44 Zolpidem Tartrate (Ambien Tab) 5 mg HSZ PRN PO 11/17/16 05:45 12/17/16 05:44 Nitroglycerin (Nitrostat Tab) 0.4 mg UD PRN SL 2/25/17 05:45 12/17/16 05:44 Amiodarone HCl (Cordarone Tab) 200 mg BID PO 11/17/16 09:00 12/17/16 08:59 Amlodipine Besylate (Norvasc Tab) 5 mg QAM PO 11/17/16 09:00 12/17/16 08:59 Metoprolol Tartrate (Lopressor Tab) 25 mg BID PO 11/17/16 09:00 12/17/16 08:59 Pantoprazole Sodium (Protonix Tab) 40 mg QAM PO 11/17/16 09:00 12/17/16 08:59 Simethicone (Mylicon Chew Tab) 160 mg QID PO 11/17/16 09:00 12/17/16 08:59 Miscellaneous (Iv Fluids Completed) 1 ea PRN PRN N/A 11/17/16 06:00 11/17/17 05:59 Polyethylene (Miralax Powder Packet) 17 gm DAILY PRN PO 11/17/16 09:00 12/17/16 08:59 (Josephine Lai, PA-C) Objective Vital Signs Date Time Temp Pulse Resp B/P Pulse Ox O2 Delivery O2 Flow Rate FiO2 11/17/16 08:50 Room Air 11/17/16 08:06 36.6 62 18 158/95 100 Room Air 11/17/16 07:07 36.4 71 18 157/92 94 Room Air 11/17/16 06:29 78 16 161/103 97 11/17/16 06:16 162/99 11/17/16 05:29 74 23 164/104 99 11/17/16 04:59 76 20 164/93 100 Nasal Cannula 2.0 11/17/16 04:59 80 22 164/93 92 11/17/16 03:35 96 Nasal Cannula 2.0 11/17/16 03:30 36.5 75 20 151/81 94 Room Air 11/17/16 03:30 94 Room Air 11/17/16 03:30 96 Room Air 11/17/16 03:28 81 (Josephine Lai PA-C) Physical Exam General Appearance: WD/WN, no apparent distress Eyes: sclerae normal Neck: supple, no JVD, trachea midline Respiratory/Chest: no respiratory distress, no accessory muscle use, + decreased breath sounds, + crackles (bases bilat), + pertinent finding (barrel chest) Cardiovascular: no gallop, no murmur Abdomen: normal bowel sounds, non tender, soft, + distended Extremities: no pedal edema, no calf tenderness Neurologic/Psychiatric: alert, oriented x 3 Skin: normal color, warm/dry (Josephine Lai, PA-C) General Appearance: WD/WN, no apparent distress Eyes: normal inspection ENT: hearing grossly normal Neck: supple Respiratory/Chest: lungs clear Cardiovascular: no edema, no JVD Abdomen: normal bowel sounds, soft Extremities: non-tender, no pedal edema Neurologic/Psychiatric: alert, normal mood/affect (Ron Boles MD) Laboratory Results Last 24 Hours Test 11/17/16 03:45 11/17/16 07:33 11/17/16 09:21 White Blood Count 5.47 K/uL Red Blood Count 4.01 M/uL Hemoglobin 11.9 g/dL Hematocrit 36.3 % Mean Corpuscular Volume 90.5 fL Mean Corpuscular Hemoglobin 29.7 pg Mean Corpuscular Hemoglobin Concent 32.8 g/dl Platelet Count 141 K/uL Mean Platelet Volume 11.4 fL Neutrophils (%) (Auto) 62.5 % Lymphocytes (%) (Auto) 18.8 % Monocytes (%) (Auto) 14.3 % Eosinophils (%) (Auto) 4.0 % Basophils (%) (Auto) 0.2 % Neutrophils # (Auto) 3.42 K/uL Lymphocytes # (Auto) 1.03 K/uL Monocytes # (Auto) 0.78 K/uL Eosinophils # (Auto) 0.22 K/uL Basophils # (Auto) 0.01 K/uL RDW Standard Deviation 53.0 fL RDW Coefficient of Variation 16.0 % Immature Granulocyte % (Auto) 0.2 % Immature Granulocyte # (Auto) 0.01 K/uL Prothrombin Time 58.9 SECONDS Prothromb Time International Ratio 5.1 Activated Partial Thromboplast Time 44.6 SECONDS Partial Thromboplastin Ratio 1.7 Sodium Level 145 mmol/L Potassium Level 4.0 mmol/L Chloride Level 112 mmol/L Carbon Dioxide Level 23 mmol/L Anion Gap 10.0 mmol/L Blood Urea Nitrogen 25 mg/dl Creatinine 1.10 mg/dl Est Creatinine Clear Calc Drug Dose 52.4 ml/min Estimated GFR () 69.1 Estimated GFR (Non- 59.6 BUN/Creatinine Ratio 22.3 Random Glucose 96 mg/dl Calcium Level 8.4 mg/dl Total Bilirubin 0.6 mg/dl Direct Bilirubin 0.2 mg/dl Aspartate Amino Transf (AST/SGOT) 30 U/L Alanine Aminotransferase (ALT/SGPT) 42 U/L Alkaline Phosphatase 91 U/L Total Creatine Kinase 98 U/L Creatine Kinase MB 2.3 ng/ml Creatine Kinase MB Ratio 2.3 Troponin I 0.124 ng/ml Pro-B-Type Natriuretic Peptide 3893 pg/ml Total Protein 6.9 gm/dl Albumin 3.6 gm/dl (Josephine Lai PA-C) Assessment and Plan Gaseous Abdominal Distention: Associated SOB, Abdominal Distention, and Belching - Last BM 11/16 per patient but was hard and not usual amount; Did not relieve symptoms; continues in A Fib - KUB - image and report reviewed - no evidence of obstruction but moderate fecal impaction - Miralax PRN - will give one dose now and add Colace 100 mg BID - Simethicone 160 mg QID and Protonix 40 mg daily - GI Consulted - last admission Cholelithiasis noted on CT scan - HIDA EF 71% Elevated Troponins: - Present on previous admission will trend - trending down - Cardiology consulted - Tentative cardioversion in November per patient CAD S/P CABG with A Fib/HTN: - Amiodarone 200 mg BID - Metoprolol 25 mg BID, Amlodipine 5 mg daily, Lisinopril 40 mg daily - Plavix 75 mg daily and Atorvastatin 40 mg daily Supratherapeutic INR: - Continue to hold Coumadin and trend INR DVT Prophylaxis: - Supratherapeutic INR - will resume Coumadin when necessary Code Status: FULL RESUSCITATION Disposition: Hopeful discharge 1-2 days (Josephine Lai PA-C) Gaseous Abdominal Distention: Associated SOB Last BM 11/16 per patient but was hard and not usual amount; Did not relieve symptoms KUB: no evidence of obstruction but moderate fecal impaction Miralax PRN - will give one dose now and add Colace 100 mg BID Simethicone 160 mg QID and Protonix 40 mg daily GI Consulted, last admission Cholelithiasis noted on CT scan HIDA EF 71% Elevated Troponins: Present on previous admission will trend, trending down Cardiology consulted, Tentative cardioversion in November per patient CAD S/P CABG with A Fib/HTN: cont amiodarone 200 mg BID cont Metoprolol 25 mg BID, Amlodipine 5 mg daily, Lisinopril 40 mg daily cont Plavix 75 mg daily and Atorvastatin 40 mg daily Supratherapeutic INR: Continue to hold Coumadin and trend INR DVT Prophylaxis:high INR will resume Coumadin when necessary FULL RESUSCITATION (Ron Boles MD)
[2016-11-17] MEDS ORDERED: DOCUSATE SODIUM 100 MG CAP PO ONE (11:00)
[2016-11-17] MEDS ORDERED: POLYETHYLENE (MIRALAX) 17 GM PACK PO ONE (11:00)
[2016-11-17] MEDS ORDERED: FUROSEMIDE INJ 20 MG in SYRINGE 0 ML IV ONE (11:15)
--- NOTE | 2016-11-17 11:19 | Gastrointestinal Consultation ---
Gastrointestinal Consultation Date of Consultation: Nov 17, 2016 History of Present Illness Patient is a 89 year old male whom we are consulted for abdominal gas and bloating. He is a 89 yo gentleman who presented to ER for dyspnea after a recent hospitilization earlier in the month for epigastric abdominal pain. W/U excluded cholecystitis with RUQ U/S in which stones were visualized but no inflammation, and HIDA was normal. He was discharged and apparently had the insidious onset of dyspnea without chest pain, over the last 2-3 days. During this time he apparently has had worsening of constipation and abdominal distention. He has denied n/v or blood in stool. No pain on this admission noted. He tells me this am he feels dramatically improved with both breathing, he specifically denies abdominal pain, bloating, or feelings of fullness that he had yesterday. His GI hx if significant for prior admission several years ago with pain in rlq , colonoscopy at that time revealed ischemic changes. He has no concerns of ischemia now. Discussed with Cardiology who has a planned cardioversion for a-fib and given presentation of edema, dyspnea, CXR findings, and elevated BNP he is in heart failure and likely culprit of abdominal symptoms. Xray on presentation consistent with fecal retention. Past Medical/Surgical History Medical Problems: (1) CHF (congestive heart failure) Status: Acute (2) Dizziness Status: Acute (3) Elevated troponin Status: Acute (4) Epigastric abdominal pain Status: Acute (5) Gallstones Status: Acute (6) Hx-Venous Thrombosis&Embolism Status: Chronic (7) Hypotension Status: Acute (8) Supratherapeutic INR Status: Acute Family History FH: cancer FH: heart disease FH: hypertension Social History Smoking Status: Unknown if Ever Smoked Alcohol Use: none Drug Use: none Marital Status: Housing Status: lives alone Occupation Status: retired Allergies Coded Allergies: No Known Allergies (Verified , 10/31/16) Current Medications Home Meds and Scripts Medications Dose Route/Sig Max Daily Dose Days Date Category Dose Instructions Lopressor (Metoprolol Tartrate) 25 Mg Tab 25 Mg PO BID 30 11/02/16 Rx Amiodarone HCl 200 Mg Tab 200 Mg PO BID 30 11/02/16 Rx [Erna-Setlzer] Unknown Strength Unknown Dose 10/31/16 Reported Tylenol (Acetaminophen) 325 Mg Tab 975 Mg PO Q8 PRN 2/8/17 Reported Lisinopril 40 Mg Tab 40 Mg PO QAM 10/31/16 Reported Amlodipine Besylate 5 Mg Tab 5 Mg PO QAM 10/31/16 Reported Jantoven (Warfarin Sodium) 7.5 Mg Tab 7.5 Mg PO 4XWK 10/31/16 Reported SATURDAY, SATURDAY, SATURDAY, SATURDAY Warfarin Sodium 5 Mg Tab 5 Mg PO 3XWK 10/31/16 Reported TAKE 5MG ON MONDAYS, THURSDAYS, AND FRIDAYS ONLY Plavix (Clopidogrel Bisulfate) 75 Mg Tab 75 Mg PO DAILY 08/11/15 Reported Gas-X (Simethicone) 80 Mg Chw 2 Tabs PO AMPM 06/10/15 Reported Lipitor (Atorvastatin Calcium) 40 Mg Tab 40 Mg PO HS 05/25/15 Reported Protonix (Pantoprazole) 40 Mg Tab 40 Mg PO QAM 11/27/13 Reported Nitrostat (Nitroglycerin) 0.4 Mg Tab 0.4 Mg UT PRN 07/16/09 Reported Review of Systems Constitutional: No chills, No fatigue, No fever, No problem reported, No see HPI, No sweats, No weakness, No weight loss Eyes: No diplopia, No discharge, No eye pain, No problem reported, No redness, No see HPI, No worsening of vision Respiratory: + dyspnea at rest Cardiac: + palpitations Abdomen: + see HPI Musculoskeletal: No calf pain, No joint pain, No muscle pain, No problem reported, No see HPI, No swelling Male : No dysuria, No hematuria, No incontinence, No nocturia more than once/ night, No problem reported, No see HPI, No sexual dysfunction, No slowing stream , No urinary frequency Neuro: No balance problems, No memory loss, No numbness/tingling, No paralysis , No problem reported, No see HPI, No vertigo, No weakness Physical Exam Date Time Temp Pulse Resp B/P Pulse Ox O2 Delivery O2 Flow Rate FiO2 11/17/16 08:50 Room Air 11/17/16 08:06 36.6 62 18 158/95 100 Room Air 11/17/16 07:07 36.4 71 18 157/92 94 Room Air 11/17/16 06:29 78 16 161/103 97 11/17/16 06:16 162/99 11/17/16 05:29 74 23 164/104 99 11/17/16 04:59 76 20 164/93 100 Nasal Cannula 2.0 11/17/16 04:59 80 22 164/93 92 11/17/16 03:35 96 Nasal Cannula 2.0 11/17/16 03:30 36.5 75 20 151/81 94 Room Air 11/17/16 03:30 94 Room Air 11/17/16 03:30 96 Room Air 11/17/16 03:28 81 General Appearance: WD/WN, no apparent distress, + pertinent finding (sits up in bed to talk) Eyes: normal inspection ENT: normal ENT inspection Neck: supple Respiratory/Chest: + decreased breath sounds, + crackles, + wheezing Cardiovascular: + irregularly irregular Abdomen: normal bowel sounds, + pertinent finding (soft and flat without, no pain on palpation) Neurologic/Psych: legal internship II-XII nml as tested Laboratory Results Last 24 Hours Test 11/17/16 03:45 11/17/16 07:33 11/17/16 09:21 White Blood Count 5.47 K/uL Red Blood Count 4.01 M/uL Hemoglobin 11.9 g/dL Hematocrit 36.3 % Mean Corpuscular Volume 90.5 fL Mean Corpuscular Hemoglobin 29.7 pg Mean Corpuscular Hemoglobin Concent 32.8 g/dl Platelet Count 141 K/uL Mean Platelet Volume 11.4 fL Neutrophils (%) (Auto) 62.5 % Lymphocytes (%) (Auto) 18.8 % Monocytes (%) (Auto) 14.3 % Eosinophils (%) (Auto) 4.0 % Basophils (%) (Auto) 0.2 % Neutrophils # (Auto) 3.42 K/uL Lymphocytes # (Auto) 1.03 K/uL Monocytes # (Auto) 0.78 K/uL Eosinophils # (Auto) 0.22 K/uL Basophils # (Auto) 0.01 K/uL RDW Standard Deviation 53.0 fL RDW Coefficient of Variation 16.0 % Immature Granulocyte % (Auto) 0.2 % Immature Granulocyte # (Auto) 0.01 K/uL Prothrombin Time 58.9 SECONDS 53.5 SECONDS Prothromb Time International Ratio 5.1 4.7 Activated Partial Thromboplast Time 44.6 SECONDS Partial Thromboplastin Ratio 1.7 Sodium Level 145 mmol/L Potassium Level 4.0 mmol/L Chloride Level 112 mmol/L Carbon Dioxide Level 23 mmol/L Anion Gap 10.0 mmol/L Blood Urea Nitrogen 25 mg/dl Creatinine 1.10 mg/dl Est Creatinine Clear Calc Drug Dose 52.4 ml/min Estimated GFR () 69.1 Estimated GFR (Non- 59.6 BUN/Creatinine Ratio 22.3 Random Glucose 96 mg/dl Calcium Level 8.4 mg/dl Total Bilirubin 0.6 mg/dl Direct Bilirubin 0.2 mg/dl Aspartate Amino Transf (AST/SGOT) 30 U/L Alanine Aminotransferase (ALT/SGPT) 42 U/L Alkaline Phosphatase 91 U/L Total Creatine Kinase 98 U/L Creatine Kinase MB 2.3 ng/ml 2.4 ng/ml Creatine Kinase MB Ratio 2.3 Troponin I 0.124 ng/ml 0.112 ng/ml Pro-B-Type Natriuretic Peptide 3893 pg/ml Total Protein 6.9 gm/dl Albumin 3.6 gm/dl Impression Patient is a 89 year old male admitted with CHF exacerbation with abdominal bloating that has now resolved. Plan -He denies abdominal discomfort to be today including the pain that he previously had on earlier admission. -Abdomen is flat without distention and passing flatus and no pain. Recs 1. Daily miralax at 17 grams, colace is unlikely to be additive 2. Ambulation 3. Care of CHF likely to improve symptoms. Call with questions or change in clinical status, otherwise will sign off unless other issues. Thank you for the consultation
[2016-11-17] MEDS: PANTOprazole SOD 40 MG TAB PO SCH (11:59)
[2016-11-17] MEDS: AMLODIPINE BESYLATE 5 MG TAB PO SCH (11:59)
[2016-11-17] MEDS: METOPROLOL TARTRATE 25 MG TAB PO SCH ×2 (11:59→20:51)
[2016-11-17] MEDS: AMIODARONE 200 MG TAB PO SCH ×2 (12:00→20:51)
[2016-11-17] MEDS: SIMETHICONE 80 MG CHEW PO SCH ×4 (12:00→20:51)
--- NOTE | 2016-11-17 12:14 | CARDIOLOGY CONSULTATION ---
DATE OF CONSULTATION: 11/17/2016 REQUESTING PHYSICIAN: Josephine Lai PA-C. [employer] CARETAKER: Jesus Doherty D.O, [facility] Cardiology for Dr. Hubert Brar, who is the patient's primary supply officer. REASON FOR CONSULTATION: Increasing abdominal distention, lower extremity edema and shortness of breath in a patient with known coronary artery disease and atrial fibrillation. Dear Ms. Lai, It was a pleasure to see Logan today in consultation with regards to his shortness of breath, lower extremity edema and abdominal distention. As you know, he was admitted to [facility] from 10/31/2016 through 11/02/2016. He was found to be in atrial fibrillation which was a new diagnosis for him. In addition, he was admitted with epigastric abdominal pain. While he was in the hospital, he underwent echocardiography which revealed low normal left ventricular systolic function. His right ventricle was normal in size but his RV function was abnormal. His right atrium was dilated, although his IVC was normal in size and collapse, consistent with a normal right atrial pressure. He was placed on amiodarone with the intent that he would be cardioverted in November for his atrial fibrillation. This was a new diagnosis according to the records. He is unaware of any atrial arrhythmias, palpitations, fluttering or skips during that admission or even this admission. His troponin was mildly elevated 2 weeks ago and remains mildly elevated today. In addition, his BNP is elevated in the 4000s, which is slightly more elevated than his previous in 2015. He is on chronic Coumadin anticoagulation. His INR was therapeutic when he was admitted, it did drop to 1.9 on the day of admission. Currently, he is supratherapeutic. He describes feeling some shortness of breath, especially when he talks in long sentences or with ambulation. He described sitting on the porch and just feeling like he could not breathe well enough. He has had some lower extremity edema. He had abdominal distention. He does note that he did not move his bowels for about 2 days before he came to the hospital. REVIEW OF SYSTEMS: Denies any chest pain, chest pressure, chest heaviness, lightheadedness, dizziness, presyncope, or syncope. He has had a mild cough but denies fevers, chills or sweats. He denies any bleeding, dark stools or black stools even with his supratherapeutic INR. There is no bleeding from his gums or nosebleeds. He does have some arthritic discomfort. The rest of complete review of systems is negative. PAST MEDICAL HISTORY: 1. New onset atrial fibrillation 10/2016. 2. 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 3. Angioplasty and stenting of the LAD in 1986. 4. Coronary artery disease status post coronary artery bypass grafting in 2003 at [facility]. 5. History of AFib in 2008. 6. COPD. 7. Silicosis. 8. History of recurrent pulmonary emboli and DVT. 9. Status post pneumothorax secondary to rib fracture, secondary to a fall off a ladder in June 2013. 10. Small bowel obstruction March 2013, secondary to ischemic bowel. 11. Status post right total knee arthroplasty in 2013 and left knee arthroplasty in October 2014. 12. TIA in May 2015. 13. History of symptomatic hypotension in July 2015. 14. GERD. 15. Osteoarthritis. SOCIAL HISTORY: He is , he lives with his . He is a nonsmoker, rarely uses alcohol. He is retired. 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 FAMILY HISTORY: Positive for coronary artery disease in his dad and a clotting disorder in his sister. MEDICATIONS: Outpatient and inpatient medications were reviewed. ALLERGIES: No known drug allergies. PHYSICAL EXAMINATION: GENERAL: He is awake, alert, oriented x3. He does appear mildly short of breath talking in sentences. VITAL SIGNS: His heart rate 62, respirations 18, blood pressure 158/95, he is 100% on room air. HEENT: 1+ carotid upstrokes. No evidence of carotid bruits. Jugular venous pressure did not appear elevated. His sclera is anicteric. His hearing is mildly diminished. LUNGS: He has crackles in the bases bilaterally with very faint wheezing present. HEART: Irregular rate and rhythm. No appreciable murmurs, rubs or gallops. ABDOMEN: Soft, nontender, nondistended, positive bowel sounds. EXTREMITIES: Mild pitting edema to the mid tibia bilaterally. PSYCHIATRIC: His affect appeared appropriate. NEUROLOGIC: He is awake, alert and oriented x3. LABORATORY STUDIES: INR 4.7 today. His troponin is 0.112. His admission was 0.124, it is unchanged from his admission 2 weeks ago. His proBNP was 3893. Sodium 145, potassium 4.0, BUN 25, creatinine 1.1. Hemoglobin 11.9, platelet count 141. Echocardiogram from his last admission was reviewed as well as his chest x-ray from this admission, progressive bibasilar interstitial opacities. IMPRESSION: 1. Increased abdominal distention, lower extremity edema and shortness of breath, likely consistent with acute on chronic systolic and right-sided heart failure. 2. Echocardiogram with low normal left ventricular systolic function but with RV dysfunction in October 2016. 3. Coronary artery disease status post coronary artery bypass grafting x5. 4. New onset atrial fibrillation in early October 2016, now on amiodarone. 5. Chronic anticoagulation. 6. History of prior transient ischemic attack. As I discussed with the GI service as well as the patient, it sounds like he is having some mild heart failure symptoms. Actually it may be related to loss of his atrial kick in atrial fibrillation. I did review his INRs, one INR was 1.9. The patient asked with regards to potentially being cardioverted while he was in the hospital. I discussed with him he would need to discuss with Dr. Brar whether he felt comfortable with one INR less than 2 within the last 3 weeks of cardioverting him or not. I would recommend Lasix 20 mg IV today while reassessing his weight and how he feels tomorrow. He does need heart failure education. He does not weigh himself on a regular basis. We reviewed foods that are high in salt, that he needs to avoid and low salt foods that are better for him. If he does not feel significantly better, there is a rare form of amiodarone-induced lung toxicity that occurs acutely. I do not think that that is the cause as it sounds pretty consistent with heart failure. He should remain on his anticoagulation for goal INR of 2-3. We will continue to follow with you. Otherwise, he should remain on the rest of his current cardiac regimen.
[2016-11-17] MEDS: DOCUSATE SODIUM 100 MG CAP PO SCH (20:51)
[2016-11-18 04:28] VITALS: BP 151/88; PULSE 71; TEMP 36.4; O2SAT 92
[2016-11-18 08:03] VITALS: BP 162/71; PULSE 70; TEMP 36.3; O2SAT 95
[2016-11-18] MEDS: SIMETHICONE 80 MG CHEW PO SCH (08:11)
[2016-11-18] MEDS: DOCUSATE SODIUM 100 MG CAP PO SCH (08:11)
[2016-11-18] MEDS: AMIODARONE 200 MG TAB PO SCH (08:11)
[2016-11-18] MEDS: PANTOprazole SOD 40 MG TAB PO SCH (08:12)
[2016-11-18] MEDS: AMLODIPINE BESYLATE 5 MG TAB PO SCH (08:12)
[2016-11-18] MEDS: METOPROLOL TARTRATE 25 MG TAB PO SCH (08:12)
[2016-11-18 08:13] LABS: BASO % 0.2 %; BASO ABS # 0.01 K/uL (0-0.2); COMPLETE YES; EOS % 3.2 %; IG% 0.2 %; LYMPH % 15.6 %; LYMPH ABS # 0.97 K/uL (1.2-3.4); MEAN CELL VOLUME 90.3 fL (80-100); MEAN CORPUSCULAR HEMOGLOBIN 29.9 pg (25-34); MEAN CORPUSCULAR HGB CONC 33.2 g/dl (32-36); MEAN PLATELET VOLUME 11.7 fL (7.4-10.4); MONO % 12.4 %; NEUT % 68.4 %; PLATELET COUNT 157 K/uL (130-400); RED BLOOD COUNT 4.21 M/uL (4.7-6.1); WHITE BLOOD COUNT 6.22 K/uL (4.8-10.8)
[2016-11-18 08:31] LABS: PROTHROMBIN TIME (PATIENT) 44.6 SECONDS (9.0-12.0)
[2016-11-18 08:53] LABS: BUN/CREATININE RATIO 18.3 (10-20); CALCIUM 8.9 mg/dl (8.5-10.1); CREATININE 1.2 mg/dl (0.60-1.40); POTASSIUM 3.8 mmol/L (3.5-5.1)
[2016-11-18 09:07] LABS: INR 3.9 (0.9-1.1)
[2016-11-18] MEDS ORDERED: MGNO400 PO (10:45)
[2016-11-18] MEDS ORDERED: MCRK20 PO (10:45)
[2016-11-18] MEDS ORDERED: FURO-85 PO (10:45)
[2016-11-18] MEDS ORDERED: MRLP17X PO (10:45)
[2016-11-18] MEDS ORDERED: MYL80 PO (10:45)
--- NOTE | 2016-11-18 10:55 | Discharge Instructions ---
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 Instructions / Follow-Up Instructions / Follow-Up Gaseous Abdominal Distention: Associated Shortness of Breath, Abdominal Distention, and Belching - It appears that these symptoms are related to fluid backing up due to your Atrial Fibrillation as well as constipation - Your XRay shows that there is a moderate amount of stool located in the bowels - Take Miralax daily to help move your bowels and an prescription will be provided. As well this can be bought over the counter - We increased the Gas-X to 160 mg to take four times a day and a prescription will be provided Atrial Fibrillation and Fluid: - Continue all of your home medications as previous prescribed. We did not adjust dosing or made changes to these - HOLD YOUR COUMADIN TONIGHT YOUR BLOOD IS TOO THIN RIGHT NOW -- Please have your INR checked tomorrow and pending on that result your Coumadin will be adjusted and probably restarted tomorrow. - It is important that this level stay between 2-3 prior to cardioversion. - Due to the fluid backing up we will use medication to help control this until your follow-up appointment - Lasix 20 mg daily which is a water pill - a prescription will be provided -- Due to this we will start you on a potassium and magnesium supplement and a prescription will be provided - Please see the instructions below about monitoring and managing fluid overload due to your atrial fibrillation. Follow-Up: - Please follow-up with Dr. Brar in 7-10 days we will assist with scheduling this appointment - You will be given a prescription to monitor your electrolytes and can be discussed with Dr. Brar's office Call your Primary Care doctor if any of the following symptoms or problems start or get worse: * Shortness of breath or difficulty breathing * Wake up at night short of breath * Chest pain * Cough * Swelling of your hands, feet, or legs * More fatigued or tired with your normal activity * Palpitations - sudden fast heart beats WEIGHT * Weigh yourself every morning after using the bathroom. * Use the same scale. * Wear the same amount of clothing. * Write your weight down on a chart. * Call your Primary Care doctor if you gain more than 2-3 pounds in 1-2 days. MEDICATIONS * Use this discharge instruction sheet for medication instructions. * Take your medications at the time your doctor ordered. * Do not skip a dose of your medicines. * If you miss a dose of medicine, take it as soon as possible, but DO NOT DOUBLE A DOSE. * Read your medicine information when you get home. * Know all of the side effects of your medicine. If in doubt, ask your pharmacist * Call your Primary Care doctor's office if you have any side effects. * Be sure all of your doctors know what medicine and herbs you take (including cold, flu, and herbal medicine). Take the following with you to your follow-up doctor appointments: * Weight Chart * Medication List * List of questions Do not drink excessive alcohol, beer or wine. Current Hospital Diet Patient's current hospital diet: AHA Diet (Heart Healthy), Low Sodium Diet (2gm Na) Discharge Diet Recommended Diet: AHA Diet (Heart Healthy), Low Sodium Diet (2gm Na) Pending Studies Studies pending at discharge: no Medical Emergencies . Who to Call and When: Call 911 or go to the Emergency Room if: * If at any time you feel your situation is an emergency * You have tightness or pain in your chest that does not go away with rest or Nitroglycerin * You are very short of breath even with rest . Non-Emergent Contact Non-Emergency issues call your: Primary Care Provider Call Non-Emergent contact if: you have a fever, your pain is concerning you, you have any medication questions . . "Provider Documentation" section prepared by Josephine Lai. VTE Core Measure Inpt VTE Proph given/why not?: Warfarin (Coumadin)
[2016-11-18 11:10] VITALS: BP 162/71; PULSE 70; TEMP 36.3; O2SAT 95
[2016-11-18 11:52] VITALS: BP 112/72; PULSE 80; TEMP 36.4; O2SAT 98
--- NOTE | 2016-11-18 15:04 | Discharge Summary ---
Discharge Summary Date of Service Nov 18, 2016. Discharge Summary Admission Date: Nov 17, 2016 at 05:45 Discharge Date: Nov 18, 2016 Discharge Disposition: Home Principal Diagnosis: Acute Congestive Heart Failure in Setting of Atrial Fibrillation Problems/Secondary Diagnoses: (1) Hx-Venous Thrombosis&Embolism Status: Chronic Immunizations: Have You Had Influenza Vaccine: N/A Influenza Vaccine Date: Aug 18, 2007 History of Tetanus Vaccine?: Yes History of Pneumococcal: Yes Pneumococcal Date: Aug 18, 2007 History of Hepatitis B Vaccine: No Procedures: 1. KUB CLINICAL HISTORY: Abdominal distention COMPARISON STUDY: 04/11/2013 FINDINGS: There is mild gaseous distention of both large and small bowel loops. There is moderate fecal retention. There are no transition zones identified. There are advanced degenerative changes within the lumbar spine. The visualized portions lung bases reveal interstitial thickening IMPRESSION: 1. No conventional radiographic evidence of bowel obstruction 2. Fecal retention 2. CHEST 2 VIEWS ROUTINE CLINICAL HISTORY: Shortness of breath COMPARISON STUDY: 10/31/2016 FINDINGS: The heart is enlarged. There are postsurgical changes of a midline sternotomy. There is progressive by basilar interstitial thickening. This may indicate an inflammatory process or failure superimposed on chronic lung disease.[ IMPRESSION: Progressive bibasal interstitial opacities Consultations: 1. Cardiology - Dr. Doherty 2. GI - Dr. Petersen Medication Reconciliation New Medications: Furosemide (Lasix) 20 Mg Tab 20 MG PO DAILY for 30 Days, #30 TAB Magnesium Oxide (Magnesium-Oxide) 400 Mg Tab 400 MG PO DAILY for 30 Days Potassium Chloride (Klor-Con M20) 20 Meq Tabcr 20 MEQ PO DAILY for 30 Days Polyethylene (Miralax) 17 Gm Pow 17 GM PO DAILY PRN for Constipation for 5 Days Simethicone (Mi-Acid Gas Relief) 80 Mg Chew 160 MG PO QID for 15 Days Continued Medications: Acetaminophen (Tylenol) 325 Mg Tab 975 MG PO Q8 PRN for Pain or Fever, TAB Amiodarone HCl (Amiodarone HCl) 200 Mg Tab 200 MG PO BID for 30 Days, #60 TAB Amlodipine Besylate (Amlodipine Besylate) 5 Mg Tab 5 MG PO QAM, #90 Atorvastatin (Lipitor) 40 Mg Tab 40 MG PO HS, TAB Clopidogrel (Plavix) 75 Mg Tab 75 MG PO DAILY, TAB Lisinopril (Lisinopril) 40 Mg Tab 40 MG PO QAM, #90 Metoprolol Tartrate (Lopressor) 25 Mg Tab 25 MG PO BID for 30 Days, #60 TAB Nitroglycerin (Nitrostat) 0.4 Mg Tab 0.4 MG UT PRN, 0 Refills Pantoprazole (Protonix) 40 Mg Tab 40 MG PO QAM, #30 TAB Warfarin Sod (Jantoven) 7.5 Mg Tab 7.5 MG PO 4XWK, TAB SATURDAY, SATURDAY, SATURDAY, SATURDAY Warfarin Sodium (Warfarin Sodium) 5 Mg Tab 5 MG PO 3XWK, #100 TAKE 5MG ON MONDAYS, THURSDAYS, AND FRIDAYS ONLY [Erna-Setlzer] () Unknown Strength Unknown Dose Discontinued Medications: Simethicone (Gas-X) 80 Mg Chw 2 TABS PO AMPM Discharge Exam Review of Systems: Constitutional: No chills, No fever Eyes: No worsening of vision ENT: No nasal symptoms Respiratory: No cough, No shortness of breath Cardiovascular: No chest pain Abdomen: + constipation, No diarrhea, No nausea, No pain, No vomiting Musculoskeletal: No calf pain Genitourinary - Male: No dysuria Hematologic / Lymphatic: No abnormal bleeding/bruising Integumentary: No rash Physical Exam: General Appearance: WD/WN, no apparent distress Eyes: sclerae normal ENT: hearing grossly normal Neck: supple, no JVD, trachea midline Respiratory/Chest: no respiratory distress, no accessory muscle use, + crackles (minimal crackles at bases bilat) Cardiovascular: no gallop, no murmur, + irregularly irregular Abdomen / GI: normal bowel sounds, non tender, soft, + distended (mild) Extremities: no calf tenderness, + swelling (trace to 1+ pitting edema bilat ) Neurologic/Psychiatric: alert, oriented x 3 Skin: normal color, warm/dry Hospital Course HOSPITAL ADMISSION: The patient is an 89-year-old male most recently in hospital from October 31 to November 02, who presents to the emergency department with complaint of intermittent shortness of breath that began about 13 hours prior to arrival, and continued frequent abdominal bloating and belching symptoms. During a previous admission, he was seen by Dr. Brar, from cardiology, and was noted to have an ejection fraction of 50-55%, had his amiodarone dose increased to 200 mg by mouth twice a day to further control his atrial fibrillation, and is presently scheduled for tentative cardioversion on December 13. He denies any change in his usual dietary habits, in particular, continues to watch his sodium carefully. HOSPITAL COURSE: Acute on Chronic CHF - Right Ventricular Dysfunction and Atrial Fibrillation ( Rate Controlled): - Collaborated with GI and Cardiology as patient's complaints of gaseous abdominal distention, SOB, and lower extremity edema likely the result of the acute failure that is resultant of his Atrial Fibrillation. Concern for loss of atrial kick contributing to findings - Treated with Lasix 20 mg IV x 1 dose that patient reports marked improvement in symptoms - Rx provided for Lasix 20 mg daily and Potassium and Magnesium supplementation with Rx for BMP check in next 2-3 days - Discussed case with Dr. Doherty prior to discharge and advised follow-up in one week with Dr. Brar for the possible need to do cardioversion sooner than December 13 which was scheduled. -- Placed consult for Nurse Navigator to assist with establishing an appointment - He was continued on home medications as previously prescribed without dosage adjustments Gaseous Abdominal Distention: Associated SOB, Abdominal Distention, and Belching - Last BM 11/16 per patient but was hard and not usual amount; Did not relieve symptoms - KUB - see procedures for full report - no evidence of obstruction but moderate fecal impaction - Miralax daily to help resolve constipation and an Rx was given - Increased Simethicone 160 mg to QID and Rx provided - If constipation does not resolve may need fleet enema vs manual disimpaction Elevated Troponins: - Present on previous admission and currently trending down - did not appear as an ACS and more likely demand ischemia Supratherapeutic INR: - Coumadin noted at 5.1 on admission and Coumadin held and currently INR is 3.9 - Advised to hold Coumadin tonight (11/18) and have INR checked tomorrow for further dosing to maintain therapeutic range of 2-3 DVT Prophylaxis: - Supratherapeutic INR Code Status: FULL RESUSCITATION Disposition: Discussed findings and plan to daughters Gisela and Manuel and updated patient's . Provided discharge instructions of the med changes and additions. Gisela states she will be able to take Mr. Villa to the Coumadin Lab tomorrow for INR check. Will assist in follow-up appointment with Dr. Brar for 1 week. Answered questions they had. Patient currently with resolved symptoms and no acute onset of symptoms. He is suitable for discharge home and follow-up with Dr. Brar in 1 week. Total Time Spent: Greater than 30 minutes This includes examination of the patient, discharge planning, medication reconciliation, and communication with other providers. Discharge Instructions Please refer to the electronic Patient Visit Report (Discharge Instructions) for additional information. Additional Copies To Kiah Rm DO; Hubert Brar M.D.
[2016-11-23] MEDS ORDERED: CMD75 PO (07:49)
[2016-11-23] MEDS ORDERED: CYAN10005 PO (07:49)
[2016-11-23] MEDS ORDERED: FERR325T18 PO (07:49)
[2016-11-23] MEDS ORDERED: WARF5TAB7 PO (07:49)
[2016-12-19] MEDS ORDERED: NEBMAC (12:57)
[2016-12-19] MEDS ORDERED: IPRASOL4 INH (14:44)
[2016-12-19] MEDS ORDERED: PRED10TA PO (14:44)
[2016-12-19] MEDS ORDERED: MRLP17 PO (14:44)
[2016-12-19] MEDS ORDERED: LSN40 PO (14:44)
[2016-12-19] MEDS ORDERED: LVQ750 PO (14:44)
[2016-12-19] MEDS ORDERED: OMEP40CA41 PO (15:21)
[2017-06-01] MEDS ORDERED: LPR25 PO (16:08)
[2017-06-01] MEDS ORDERED: FLVHFA220 INH (16:08)
== END 2016-11-18 13:45 | disposition home or self-care (01) ==
LOC: ENRESERVDT → ENRESERVTM → EDBD 03:18 → C.EDB 03:19 → C.MED 05:45
PROVIDERS: ADMIT Hospitalist; ATTEND Hospitalist
DX: I50.23 Acute on chronic systolic (congestive) heart failure (principal); I48.91 Unspecified atrial fibrillation; I11.0 Hypertensive heart disease with heart failure; K21.9 Gastro-esophageal reflux disease without esophagitis; E78.00 Pure hypercholesterolemia, unspecified; I25.10 Atherosclerotic heart disease of native coronary artery without angina pectoris; Z95.1 Presence of aortocoronary bypass graft; Z79.02 Long term (current) use of antithrombotics/antiplatelets; Z86.718 Personal history of other venous thrombosis and embolism; Z82.49 Family history of ischemic heart disease and other diseases of the circulatory system; Z79.899 Other long term (current) drug therapy; Z79.01 Long term (current) use of anticoagulants

== ENCOUNTER → 2016-11-23 | Day surgery (SDC) | payer MEDICARE ==
[~2016-11-23] VITALS: Ht 185.4 cm; Wt 90.0 kg
[~2016-11-23] MED LIST changes: +ACET-1256 PO; +AMIO200T4 PO; +AZITTAB PO; +CMD75 PO; +CYAN10005 PO; +DOXA2TAB PO; +FERR325T18 PO; +FERR325T49 PO; +FLVHFA220 INH; +FURO-85 PO; +HYDR5SYP11 PO; +IPRASOL4 INH; +LANS30CA12 PO; +LANS30TA3 PO; +LEVO50TA6 PO; +LIDOCAINE HCL 2% 2 ML VIAL (20MG/ML) ONE; +LISI-725 PO; +LVQ750 PO; +MCRK20 PO; +METO25TA56 PO; +MGNO400 PO; +MRLP17 PO; +MRLP17X PO; +MYL80 PO; +NEBMAC; +OMEP40CA41 PO; +POTA10TA PO; +PRED10TA PO; +PROPOFOL IV EMULSION 10 MG/ML 20 ML VIAL IV ONE; -SIME80CH PO; +SPIRIVA 18MCG INH; +WARF5TAB7 PO
[2016-11-23 07:23] VITALS: BP 141/92; PULSE 65; TEMP 36.4; O2SAT 93; Ht 185.4 cm; Wt 90.0 kg
[2016-11-23 09:33] VITALS: BP 140/76; PULSE 67; O2SAT 99
[2016-11-23 09:35] VITALS: BP 112/56; PULSE 44; O2SAT 99
--- NOTE | 2016-11-23 10:06 | Discharge Instructions ---
Discharge Instructions Procedure Procedure Date: Nov 23, 2016. Reason for Visit: BennettJoseph Delmi. Discharge Discharge Date: Nov 23, 2016. Discharge Diagnosis: Electrical cardioversion for atrial fibrillation Last Recorded Wt (Kilograms): 90 Anesthesia Post Anesthesia Instructions: If you have had General Anesthesia or IV Sedation: * Do not drive today. * Resume driving when surgeon permits. * Do not make important decisions or sign legal documents today. * Call surgeon for: 1. Temperature elevations greater than 101 degrees F. 2. Uncontrollable pain. 3. Excessive bleeding. 4. Persistent nausea and vomiting. 5. Medication intolerance (nausea, vomiting or rash). * For nausea and vomiting use only clear liquids such as: tea, soda, bouillon until nausea subsides, then gradually increase diet as tolerated. * If you have any concerns or questions, call your surgeon's office. If physician is unavailable and it is an emergency, call 911 or go to the nearest emergency room. Instructions Activity Recommendations: resume regular activity (on 11/24/26), driving or machine use limit (no driving today.) Recommended Home Diet: low sodium, low cholesterol Allergies: Coded Allergies: No Known Allergies (Verified , 10/31/16) Provider Instructions Decrease amiodarone to 200 mg once a day. Follow Up Additional Instructions: Call Dr. Brar at [phone] for any questions or problems. Follow-up with: Cardiology clinic on 12/13/16 as scheduled. Delaney Bowman Recommendations: Call your doctor if: * Temperature above 101 degrees * Pain not relieved by pain medicine ordered * There is increased drainage or redness from any incision * You have any unanswered questions or concerns. Your Doctors Instructions noted above were prepared by provider Hubert Brar. Patient Signature Section: Patient Instructions Signature Page Logan Villa Patient (or Guardian) Signature/Date: I have read and understand the instructions given to me by my caregivers. Caregiver/RN/Doctor Signature/Date: The above-named patient and/or guardian has received patient instructions on this date. + Original Patient Signature Page (only) stays with chart. Please make copy for patient.
--- NOTE | 2016-11-23 10:34 | Anesthesiology Progress Note ---
Anesthesia Post Op Note Date & Time Nov 23, 2016 at 10:34 Vital Signs Pain Intensity: 0 Vital Signs Past 12 Hours Date Time Temp Pulse Resp B/P Pulse Ox O2 Delivery O2 Flow Rate FiO2 11/23/16 10:15 59 16 131/60 94 Room Air 11/23/16 09:59 48 16 133/68 94 Room Air 11/23/16 09:49 48 16 93/50 94 Room Air 11/23/16 09:39 47 16 92/48 93 Room Air 11/23/16 09:35 44 16 112/56 99 Nasal Cannula 4 11/23/16 09:33 67 16 140/76 99 Nasal Cannula 4 11/23/16 07:23 36.4 65 16 141/92 93 Room Air Notes Mental Status: alert / awake / arousable, participated in evaluation Pt Amnestic to Procedure: Yes Nausea / Vomiting: adequately controlled Pain: adequately controlled Airway Patency, RR, SpO2: stable & adequate BP & HR: stable & adequate Hydration State: stable & adequate Anesthetic Complications: no major complications apparent
--- NOTE | 2016-11-23 10:36 | CARDIOVERSION ---
DATE OF OPERATION: 11/23/2016 DATE OF PROCEDURE: 11/23/2016. PROCEDURE: Elective electrical cardioversion. CLINICAL INDICATIONS: Atrial fibrillation. PROTOCOL: The patient was given deep sedation by the anesthesiology department with intravenous propofol. Following documentation of adequate anesthesia he was given 1 electrical shock of 200 joules of synchronized biphasic energy. This was given via Electro Pads placed anteriorly and posteriorly on his thorax. His rhythm converted to sinus bradycardia. Several minutes later he woke up without any complaint. No cardiac or neurologic complaints. He was hemodynamically stable. His oxygenation was stable. CONCLUSIONS: Successful electrical cardioversion of atrial fibrillation to sinus bradycardia. PLAN: The patient will be monitored post cardioversion in the cardiac garage laborer recovery unit. He will then be discharged home. His amiodarone dose will be decreased from 200 mg b.i.d. to 200 mg once daily. His other medications will remain as they were on admission. He will remain on machinist outside anticoagulation therapy with warfarin. He will have outpatient cardiology followup on 12/13/2016 at the [facility]. I attest to the content of the Intraoperative Record and any orders documented therein. Any exceptio ns are noted below.
[2016-11-23 10:45] VITALS: BP 128/58; PULSE 62; O2SAT 94
== END | disposition home or self-care (01) ==
LOC: C.CATH 06:57
PROVIDERS: ATTEND Internal Medicine Cardiovascular Disease
DX: I48.1 Persistent atrial fibrillation (principal); I50.9 Heart failure, unspecified; J44.9 Chronic obstructive pulmonary disease, unspecified; I63.9 Cerebral infarction, unspecified; J45.909 Unspecified asthma, uncomplicated; I10 Essential (primary) hypertension; D64.9 Anemia, unspecified; K21.9 Gastro-esophageal reflux disease without esophagitis; M15.9 Polyosteoarthritis, unspecified; E78.5 Hyperlipidemia, unspecified; C61 Malignant neoplasm of prostate; Z95.1 Presence of aortocoronary bypass graft

== ENCOUNTER 2016-12-08 16:50 | Emergency (ER) | payer MEDICARE ==
[~2016-12-08] VITALS: Ht 185.4 cm; Wt 85.5 kg
[~2016-12-08 16:50] MED LIST changes: -ACET-1256 PO; -AMIO200T4 PO; -AZITTAB PO; -DOXA2TAB PO; -FERR325T49 PO; -FLVHFA220 INH; -HYDR5SYP11 PO; -IPRASOL4 INH; -LANS30CA12 PO; -LANS30TA3 PO; -LEVO50TA6 PO; -LIDOCAINE HCL 2% 2 ML VIAL (20MG/ML) ONE; -LISI-725 PO; -LVQ750 PO; -METO25TA56 PO; -MRLP17 PO; -NEBMAC; -OMEP40CA41 PO; -POTA10TA PO; -PRED10TA PO; -PROPOFOL IV EMULSION 10 MG/ML 20 ML VIAL IV ONE; -SPIRIVA 18MCG INH; -WARF-246 PO; -WARF7.5T4 PO; -[UNRECOGNIZED DRUG - OTHER]
[2016-12-08 16:53] VITALS: Ht 185.4 cm; Wt 85.5 kg
[2016-12-08] MEDS ORDERED: ALBUT/IPRATROP 3MG/0.5MG NEB 3 ML VIAL INH STA (17:33)
[2016-12-08] MEDS ORDERED: HYDROCODONE/HOMATROPINE SYRUP 5MG/1.5MG 5ML UDP PO STA (17:33)
[2016-12-08 18:07] LABS: HEMATOCRIT 37.3 % (42-52); MEAN CELL VOLUME 88.6 fL (80-100); MEAN CORPUSCULAR HGB CONC 32.7 g/dl (32-36); MEAN PLATELET VOLUME 11.6 fL (7.4-10.4); PLATELET COUNT 145 K/uL (130-400); RED BLOOD COUNT 4.21 M/uL (4.7-6.1); WHITE BLOOD COUNT 5.86 K/uL (4.8-10.8)
[2016-12-08] MEDS ORDERED: HYDR5SYP11 PO (18:09)
[2016-12-08] MEDS ORDERED: AMIO200T4 PO (18:13)
--- NOTE | 2016-12-08 18:14 | EMERGENCY ROOM VISIT NOTE ---
History Report prepared by Dereck: Nikolai Sutherland Under the Supervision of: Dr. Andrew Marte D.O. First contact with patient: 17:28 Chief Complaint: RESPIRATORY PROBLEMS Stated Complaint: COUGHING UP BLOOD Nursing Triage Summary: Triage Note: "I'm spitting up blood". Symptoms started this AM. Coughing has increased. Denies pain. Denies diarrhea or bloody stools. Patient is on Coumadin. History of Present Illness The patient is an 89 year old male who presents to the Emergency Room with complaints of an persistent productive cough with blood tinged sputum beginning twelve and a half hours prior to arrival. He states he has had a cold for the past couple of days. The patient notes he coughs up blood tinted sputum once every half hour. He states he is on Coumadin for atrial fibrillation but he was put back into rhythm recently. They note he is also on Plavix. As per family, the patient had his Coumadin checked two days ago, and his INR was 2.5. The patient denies using an inhaler at home. He denies a history of lung disease. The patient denies diarrhea. 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 A total of 10 systems reviewed and were otherwise negative. 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 (8) Shortness of breath Family History FH: cancer FH: heart disease FH: hypertension Social History Smoking Status: Never Smoker Alcohol Use: none Drug Use: none Marital Status: Housing Status: lives alone Occupation Status: retired Current/Historical Medications Scheduled Amiodarone Hcl (Cordarone), 200 MG PO DAILY Amlodipine Besylate (Amlodipine Besylate), 5 MG PO QAM Atorvastatin (Lipitor), 40 MG PO HS Azithromycin (Zithromax Z-Luis Felipe), 0 PO UD Clopidogrel (Plavix), 75 MG PO DAILY Cyanocobalamin (Vitamin B-12), 1,000 MCG PO DAILY Ferrous Gluconate (Ferrous Gluconate), 324 MG PO BID Lisinopril (Lisinopril), 40 MG PO QAM Nitroglycerin (Nitrostat), 0.4 MG UT PRN Pantoprazole (Protonix), 40 MG PO QAM Warfarin Sod (Jantoven), 5 MG PO DAILY Scheduled PRN Acetaminophen (Tylenol), 975 MG PO Q8 PRN for Pain or Fever Hydrocodone W/ Homatropine (Hycodan 5/1.5MG 5 Ml), 5 ML PO Q6H PRN for Cough Allergies Coded Allergies: No Known Allergies (Verified , 12/08/16) Physical Exam Vital Signs Date Time Temp Pulse Resp B/P Pulse Ox O2 Delivery O2 Flow Rate FiO2 12/08/16 19:31 36.9 99 20 148/66 93 12/08/16 19:30 99 20 148/66 93 Room Air 12/08/16 17:24 92 Room Air 12/08/16 16:56 92 Room Air 12/08/16 16:53 36.9 102 20 153/68 94 Room Air Physical Exam CONSTITUTIONAL/VITAL SIGNS: Reviewed / noted above. GENERAL: Non-toxic in appearance. Patient did cough and spit up some sputum during my evaluation. There was no blood in the sputum at this time. INTEGUMENTARY: Warm, dry, and [place]. HEAD: Normocephalic. EYES: without scleral icterus or trauma. ENT/OROPHARYNX: clear and moist. LYMPHADENOPATHY/NECK: Is supple without lymphadenopathy or meningismus. RESPIRATORY: End expiratory wheezing noted. CARDIOVASCULAR: Regular rate and rhythm. GI/ABDOMEN: Soft and nontender. No organomegaly or pulsatile mass. No rebound or guarding. Normal bowel sounds. EXTREMITIES: Warm and well perfused. BACK: No CVA tenderness. NEUROLOGICAL: Intact without focal deficits. PSYCHIATRIC: normal affect. MUSCULOSKELETAL: Normally developed with good muscle tone. Medical Decision & Procedures ER Provider Diagnostic Interpretation: X ray results and stated below per my interpretation and radiology interpretation. CHEST 2 VIEWS ROUTINE CLINICAL HISTORY: EVALUATE RESPIRATORY DISTRESS.DYSPNEA dyspnea COMPARISON STUDY: 11/17/2016 FINDINGS: Moderate stable cardiomegaly. Prior median sternotomy. Diffuse fibrotic change similar compared to the prior study. Small superimposed left upper lung infiltrate. Baseline emphysematous change unaltered. IMPRESSION: 1. Small parenchymal infiltrate left upper lobe. 2. Interstitial and/or chronic fibrotic changes stable. Electronically signed by: hCavo Schwartz M.D. 12/08/2016 6:18 PM Laboratory Results 12/08/16 17:49 Red Blood Count 4.21, Mean Corpuscular Volume 88.6, Mean Corpuscular Hemoglobin 29.0, Mean Corpuscular Hemoglobin Concent 32.7, Mean Platelet Volume 11.6, Neutrophils (%) (Auto) 70.4, Lymphocytes (%) (Auto) 12.1, Monocytes (%) (Auto) 16.4, Eosinophils (%) (Auto) 0.7, Basophils (%) (Auto) 0.2, Neutrophils # (Auto ) 4.13, Lymphocytes # (Auto) 0.71, Monocytes # (Auto) 0.96, Eosinophils # (Auto ) 0.04, Basophils # (Auto) 0.01 12/08/16 17:49 Test 12/08/16 17:49 White Blood Count 5.86 K/uL (4.8-10.8) Red Blood Count 4.21 M/uL (4.7-6.1) Hemoglobin 12.2 g/dL (14.0-18.0) Hematocrit 37.3 % (42-52) Mean Corpuscular Volume 88.6 fL (80-100) Mean Corpuscular Hemoglobin 29.0 pg (25-34) Mean Corpuscular Hemoglobin Concent 32.7 g/dl (32-36) Platelet Count 145 K/uL (130-400) Mean Platelet Volume 11.6 fL (7.4-10.4) Neutrophils (%) (Auto) 70.4 % Lymphocytes (%) (Auto) 12.1 % Monocytes (%) (Auto) 16.4 % Eosinophils (%) (Auto) 0.7 % Basophils (%) (Auto) 0.2 % Neutrophils # (Auto) 4.13 K/uL (1.4-6.5) Lymphocytes # (Auto) 0.71 K/uL (1.2-3.4) Monocytes # (Auto) 0.96 K/uL (0.11-0.59) Eosinophils # (Auto) 0.04 K/uL (0-0.5) Basophils # (Auto) 0.01 K/uL (0-0.2) RDW Standard Deviation 52.6 fL (36.4-46.3) RDW Coefficient of Variation 16.1 % (11.5-14.5) Immature Granulocyte % (Auto) 0.2 % Immature Granulocyte # (Auto) 0.01 K/uL (0.00-0.02) Echinocytes 2+ Prothrombin Time 26.8 SECONDS (9.0-12.0) Prothromb Time International Ratio 2.4 (0.9-1.1) Activated Partial Thromboplast Time 40.1 SECONDS (21.0-31.0) Partial Thromboplastin Ratio 1.5 Anion Gap 7.0 mmol/L (3-11) Est Creatinine Clear Calc Drug Dose 52.4 ml/min Estimated GFR () 69.1 Estimated GFR (Non- 59.6 BUN/Creatinine Ratio 22.8 (10-20) Calcium Level 8.6 mg/dl (8.5-10.1) Laboratory results as stated above per my review. Medications Administered Medications (Trade) Dose Ordered Sig/Zainab Route Start Time Stop Time Status Last Admin Dose Admin Albuterol/ Ipratropium (Duoneb) 3 ml NOW STAT INH 12/08/16 17:33 12/08/16 17:35 DC 12/08/16 17:51 3 ML Hydrocodone Bit/ Homatropine Methylb (Hycodan Syrup) 5 ml NOW STAT PO 12/08/16 17:33 12/08/16 17:35 DC 12/08/16 17:50 5 ML Albuterol (Ventolin Hfa Inhaler) 2 puffs NOW ONCE INH 12/08/16 18:15 12/08/16 18:16 DC 12/08/16 19:19 2 PUFFS Azithromycin (Zithromax Tab) 500 mg NOW STAT PO 12/08/16 18:57 12/08/16 18:58 DC 12/08/16 19:19 500 MG Hydrocodone Bit/ Homatropine Methylb (Hycodan Elix Homepack 5/1.5MG/ 5ML) 1 homepack UD ONCE PO 12/08/16 19:15 12/08/16 19:16 DC 12/08/16 19:19 1 HOMEPACK ED Course 1730: Previous medical records were reviewed. The patient was evaluated in room B8. A complete history and physical examination was performed. 1733: Ordered Hycodan Syrup 5 ml PO, Duoneb 3 ml INH. 1814: Ordered Albuterol 2 puffs INH. 1856: Ordered Azithromycin 500 mg PO. 1904: On reevaluation, the patient is doing well. I discussed the results and findings with the patient. He verbalized agreement of the treatment plan. The patient was discharged home. Medical Decision The differential was considered includes acute myocardial infarction, acute coronary syndrome, myocarditis, pericarditis, pericardial effusions /tamponad, esophageal perforation, pulmonary embolism, pneumonia, pneumothorax, cardiomyopathy, congestive heart, anemia , COPD/asthma exacerbation. This is a 89-year-old male who presents to the ED with a chief complaint of blood-tinged sputum with cough. The patient states that his symptoms started around 5 AM today. He has had a cough and cold symptoms for the past couple of days. The patient is on Coumadin for atrial fibrillation and he is also taking Plavix. The patient states that he noticed some blood tinged sputum with his cough today. His INR was 2.5 yesterday. He denies any significant complaints. Denies shortness of breath or chest pains. His exam reveals normal vital signs. He is afebrile. He has expiratory wheezing on exam. He did cough and spit sputum up during my evaluation there was no blood in it. The patient's saturations were normal. A chest x-ray reveals a left upper lobe infiltrate. CBC is unremarkable. INR is 2.4 the BUN is 25. The patient was given Hycodan orally as well as a DuoNeb treatment. He was also treated with Zithromax by mouth. He will be discharged on Hycodan, Zithromax and was provided an inhaler. Impression Primary Impression: Bronchitis Additional Impression: Blood-streaked sputum Scribe Attestation The scribe's documentation has been prepared under my direction and personally reviewed by me in its entirety. I confirm that the note above accurately reflects all work, treatment, procedures, and medical decision making performed by me. Departure Information Dispostion Home / Self-Care Prescriptions Azithromycin (ZITHROMAX Z-LUIS FELIPE) 250 Mg Tab 0 PO UD, #1 PKT 2 TABS DAY 1, THEN 1 TAB DAILY FOR 4 DAYS Prov: Andrew Marte, D.O. 12/08/16 Hydrocodone W/ Homatropine (HYCODAN 5/1.5MG 5 ML) 1 Syp Syp 5 ML PO Q6H Y for Cough for 5 Days, #100 ML Prov: Andrew Marte D.O. 12/08/16 Referrals Kiah Rm DO (PCP) Forms HOME CARE DOCUMENTATION FORM, IMPORTANT VISIT INFORMATION, WORK / SCHOOL INSTRUCTIONS Patient Instructions Bronchitis Acute, My [facility] Additional Instructions Albuterol inhaler: 2 puffs every 4 hours until better. Hycodan cough medicine as prescribed. Return for any concerns. See your doctor for recheck this week. Problem Qualifiers
[2016-12-08] MEDS ORDERED: ALBUTEROL HFA 8 GM INHALER INH ONE (18:15)
[2016-12-08 18:16] LABS: INR 2.4 (0.9-1.1); PARTIAL THROMBOPLASTIN RATIO 1.5; PROTHROMBIN TIME (PATIENT) 26.8 SECONDS (9.0-12.0)
--- NOTE | 2016-12-08 18:19 | DIAGNOSTIC IMAGING REPORT ---
CHEST 2 VIEWS ROUTINE CLINICAL HISTORY: EVALUATE RESPIRATORY DISTRESS.DYSPNEA dyspnea COMPARISON STUDY: 11/17/2016 FINDINGS: Moderate stable cardiomegaly. Prior median sternotomy. Diffuse fibrotic change similar compared to the prior study. Small superimposed left upper lung infiltrate. Baseline emphysematous change unaltered. IMPRESSION: 1. Small parenchymal infiltrate left upper lobe. 2. Interstitial and/or chronic fibrotic changes stable. Electronically signed by: Chavo Schwartz M.D. 12/08/2016 6:18 PM Dictated Date/Time: 12/08/2016 6:17 PM
[2016-12-08 18:27] LABS: CREATININE 1.1 mg/dl (0.60-1.40)
[2016-12-08 18:28] LABS: BASO % 0.2 %; BASO ABS # 0.01 K/uL (0-0.2); BUN/CREATININE RATIO 22.8 (10-20); CALCIUM 8.6 mg/dl (8.5-10.1); COMPLETE YES; ECHINOCYTES 2+; EOS % 0.7 %; IG% 0.2 %; LYMPH % 12.1 %; LYMPH ABS # 0.71 K/uL (1.2-3.4); MONO % 16.4 %; NEUT % 70.4 %; POTASSIUM 4.1 mmol/L (3.5-5.1)
[2016-12-08] MEDS ORDERED: AZITHROMYCIN 250 MG TAB PO STA (18:57)
[2016-12-08] MEDS ORDERED: AZITTAB PO (19:01)
[2016-12-08] MEDS ORDERED: HYCODAN 60ML BOTTLE HOMEPACK PO ONE (19:15)
[2016-12-08 19:31] VITALS: BP 148/66; PULSE 99; TEMP 36.9; O2SAT 93
[2016-12-19] MEDS ORDERED: NEBMAC (12:57)
[2016-12-19] MEDS ORDERED: PRED10TA PO (14:44)
[2016-12-19] MEDS ORDERED: LVQ750 PO (14:44)
[2016-12-19] MEDS ORDERED: LSN40 PO (14:44)
[2016-12-19] MEDS ORDERED: MRLP17 PO (14:44)
[2016-12-19] MEDS ORDERED: IPRASOL4 INH (14:44)
[2016-12-19] MEDS ORDERED: OMEP40CA41 PO (15:21)
[2017-06-01] MEDS ORDERED: LPR25 PO (16:08)
[2017-06-01] MEDS ORDERED: FLVHFA220 INH (16:08)
== END 2016-12-08 19:32 | disposition home or self-care (01) ==
LOC: C.EDB 16:50
DX: J40 Bronchitis, not specified as acute or chronic (principal); R04.2 Hemoptysis

== ENCOUNTER 2016-12-13 13:53 | Inpatient (IN) | payer MEDICARE, OTHER ==
[~2016-12-13] VITALS: Ht 185.4 cm; Wt 86.7 kg
[~2016-12-13 13:53] MED LIST changes: -ACET-1256 PO; -DOXA2TAB PO; -FERR325T49 PO; -FLVHFA220 INH; -FURO-85 PO; -IPRASOL4 INH; -LANS30CA12 PO; -LANS30TA3 PO; -LEVO50TA6 PO; -LISI-725 PO; -LPR25 PO; -LVQ750 PO; -METO25TA56 PO; -MRLP17 PO; -NEBMAC; -OMEP40CA41 PO; -POTA10TA PO; -PRED10TA PO; -SPIRIVA 18MCG INH; -WARF7.5T4 PO
[2016-12-13] MEDS ORDERED: METO25TA56 PO (14:24)
[2016-12-13] MEDS ORDERED: POLYETHYLENE (MIRALAX) 17 GM PACK PO PRN (15:15)
[2016-12-13] MEDS ORDERED: ALUMINUM/MAGNESIUM/SIMETH (MAALOX MAX) 30 ML UDC PO PRN (15:15)
[2016-12-13] MEDS ORDERED: ONDANSETRON INJ 2 MG/ML 2 ML VIAL IV PRN (15:15)
[2016-12-13] MEDS ORDERED: VANCOMYCIN CONSULT ACTIVE PRN (15:45)
[2016-12-13] MEDS ORDERED: PATIENT'S HEIGHT AND/OR WEIGHT NEEDED SCH (15:45)
[2016-12-13 15:49] VITALS: BP 134/72; PULSE 98; TEMP 36.5
--- NOTE | 2016-12-13 16:02 | History and Physical ---
History & Physical Date & Time of Service: Dec 13, 2016 at 15:29 Chief Complaint: Pneumonia Primary Care Physician: Kiah Rm DO History of Present Illness Source: patient, clinic records, hospital records This is an 89 y/o male with a history of CHF, CAD, CVA, GERD, hypertension, hyperlipidemia, paroxysmal A. fib, neuropathy, prostate cancer, and silicosis who presented for a direct admission on 12/13 with shortness breath, wheezing and productive cough. The patient presents to the ED on 12/08 and was diagnosed with bronchitis. He was given a Z-Luis Felipe and Hycodan syrup as well as an albuterol inhaler for home. The patient finished his antibiotic course and states that he has continued to feel worse. He has been using the albuterol inhaler every 4 hours without any relief of his symptoms. He complains of shortness of breath, orthopnea, wheezing, and productive cough with occasional blood tinged sputum. The patient states that he's been coughing for 1-2 weeks nonstop despite taking Hycodan syrup. The patient is also on Plavix and warfarin. He denies dyspnea on exertion. The patient also complains of weakness and fatigue and notes that the other night he woke up very sweaty. He has had some intermittent nausea, but he states he has not vomited. The patient denies fevers, chills, chest pain, palpitations, claudication, vomiting , abdominal pain, dysuria, hematuria, urinary retention, paralysis, weakness, numbness and tingling. 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 (4) Heart disease Status: Chronic (5) Hx-Venous Thrombosis&Embolism Status: Chronic (6) Perforation of intestine Status: Resolved Diastolic CHF CAD CVA HLD GERD Paroxysmal a-fib Peripheral neuropathy Prostate cancer Silicosis Family History Coronary artery disease FH: cancer FH: heart disease FH: hypertension Myocardial infarction Social History Smoking Status: Never Smoker Smokeless Tobacco Use: No Alcohol Use: none Drug Use: none Marital Status: Housing status: lives with significant other Occupational Status: retired Immunizations History of Influenza Vaccine: N/A Influenza Vaccine Date: Aug 18, 2007 History of Tetanus Vaccine?: Yes History of Pneumococcal: Yes Pneumococcal Date: Aug 18, 2007 History of Hepatitis B Vaccine: No Multi-Drug Resistant Organisms History of MDRO: No Allergies Coded Allergies: No Known Allergies (Verified , 12/08/16) Home Medications Scheduled Amiodarone Hcl (Cordarone), 200 MG PO DAILY Amlodipine Besylate (Amlodipine Besylate), 5 MG PO QAM Atorvastatin (Lipitor), 40 MG PO HS Clopidogrel (Plavix), 75 MG PO DAILY Cyanocobalamin (Vitamin B-12), 1,000 MCG PO DAILY Ferrous Gluconate (Ferrous Gluconate), 324 MG PO BID Lisinopril (Lisinopril), 40 MG PO QAM Metoprolol Tartrate (Lopressor) (Lopressor), 25 MG PO BID Nitroglycerin (Nitrostat), 0.4 MG UT PRN Pantoprazole (Protonix), 40 MG PO QAM Warfarin Sod (Jantoven), 5 MG PO DAILY Scheduled PRN Acetaminophen (Tylenol), 975 MG PO Q8 PRN for Pain or Fever Hydrocodone W/ Homatropine (Hycodan 5/1.5MG 5 Ml), 5 ML PO Q6H PRN for Cough Review of Systems Constitutional: + fatigue, + sweats, + weakness, No chills, No fever Eyes: No diplopia, No eye pain, No worsening of vision ENT: No hearing loss, No sore throat, No trouble swallowing Respiratory: + cough, + shortness of breath, + sputum (some blood tinged), + wheezing, No dyspnea on exertion Cardiovascular: + orthopnea, No PND, No chest pain, No claudication, No palpitations Abdomen: + constipation, + nausea, No pain, No vomiting Musculoskeletal: No calf pain, No joint pain, No muscle pain Genitourinary - Male: No dysuria, No hematuria, No urinary retention Neurologic: No numbness/tingling, No paralysis, No weakness Integumentary: No color change, No itch, No rash Physical Exam General Appearance: WD/WN, no apparent distress Head: normocephalic, atraumatic Eyes: normal inspection, PERRL, EOMI ENT: normal ENT inspection, hearing grossly normal, pharynx normal Neck: supple, no JVD, trachea midline Respiratory/Chest: normal breath sounds, no respiratory distress, + crackles ( right base), + wheezing (scattered throughout) Cardiovascular: no gallop, no murmur, + abnormal rhythm (periods of irregularity, normal rate) Abdomen/GI: normal bowel sounds, non tender, soft Extremities/Musculoskelatal: normal inspection, no calf tenderness, no pedal edema Neurologic/Psych: alert, normal mood/affect, oriented x 3 Skin: normal color, warm/dry, no rash Diagnostics Laboratory Results Results Past 24 Hours Test 12/13/16 15:15 Range/Units Microbiology Results 12/13/16 MRSA DNA Surveillance Screen, Primitivo Batch Pending Diagnostic Radiology Reviewed the following studies and agree with interpretation as follows: Patient Name: DONITA MCKEON JR Unit Number: [id number] Dictated: 12/13/161309 Transcribed: 12/13/161309 ARG Printed Date/Time: [~ rep prt dt]/[~ rep prt tm] [~ rep ct labl] - [~ rep ct ivnm] [facility] [place] [address] Dictated: 12/13/161309 Transcribed: 12/13/161309 ARG Printed Date/Time: [~ rep prt dt]/[~ rep prt tm] [~ rep ct labl] - [~ rep ct ivnm] Patient: DONITA MCKEON JR Address1: [address] [place] [address] Rec: [id number] Address2: Acct ID: [id number] [facility] Zip: [place] [address] Date: 1925 Sex: M Room/Bed: Ref Phy: Pushpa Pimentel PA-C SC: [id number] Att Phy: Pushpa Pimentel PA-C Report #: [id number] Cami Phy: Kiah Rm DO Test: CXR Admit Phy: [employer] Teacher: ISABEL Interpreting Phy: Vikram Roldan M.D. Diagnosis: J18.9 Ordering Phy: Pushpa Pimentel PA-C Service Date: 12/13/16 Admit Date: 12/13/16 MNE: [id number] CONF: DICTATED BY: Vikram Roldan M.D.]] CC: Kiah Rm DO Tyson, Sara, PA-C Endcc: [~ rep ct add3]] CHEST 2 VIEWS ROUTINE CLINICAL HISTORY: Pneumonia COMPARISON STUDY: 12/08/2016 FINDINGS: There are postsurgical changes of a midline sternotomy. There are increasing left lung interstitial opacities. There is a small right pleural effusion. There is mild right lower lobe bronchial wall thickening. IMPRESSION: 1. Small right pleural effusion 2. Slight increase in the nonspecific left lung interstitial opacities Electronically signed by: Vikram Roldan M.D. 12/13/2016 1:11 PM Dictated Date/Time: 12/13/2016 1:10 PM The status of this report is Signed. Draft = Not yet reviewed or approved by Radiologist. Signed = Reviewed and approved by Radiologist. <AttendingPhy>Pushpa Pimentel PA-C</AttendingPhy> <FamilyPhy>Pushpa Pimentel PA-C</ FamilyPhy> <PrimaryPhy>Kiah Rm DO</PrimaryPhy> <UnitNumber>[id number]< /UnitNumber> <VisitNumber>[id number]</VisitNumber> <PatientName>DONITA MCKEON JR</PatientName> <DateOfBirth>1925</DateOfBirth> <Location> [id number]</Location> <ServiceDate>12/13/16</ServiceDate> <MNE>ESINDI</MNE> < OrderingPhy>Pushpa Pimentel PA-C</OrderingPhy> <OrderingPhyMNE>f rep ord dr palmer</ OrderingPhyMNE> <DictatingPhyMNE>f rep dict dr palmer</DictatingPhyMNE> <CCListMNE> f rep ct mne</CCListMNE> <AdmittingPhyMNE>f pt admit dr palmer</AdmittingPhyMNE> < AttendingPhyMNE>f pt attend dr palmer</AttendingPhyMNE> <ConsultingPhyMNE>f pt consult dr palmer</ConsultingPhyMNE> <FamilyPhyMNE>f pt fam dr palmer</FamilyPhyMNE> <OtherPhyMNE>f pt other dr palmer</OtherPhyMNE> < PrimaryPhyMNE>f pt prim care dr palmer</PrimaryPhyMNE> <ReferringPhyMNE>f pt referring dr palmer</ReferringPhyMNE> Impression Assessment and Plan 89 y/o male with a history of CHF, CAD, CVA, GERD, hypertension, hyperlipidemia , paroxysmal A. fib, neuropathy, prostate cancer, and silicosis who presented for a direct admission on 12/13 with shortness breath, wheezing and productive cough. Patient presented to the ED on 12/08 and was diagnosed with bronchitis. He was given a Z-Luis Felipe, Hycodan syrup and albuterol inhaler. Patient has continued to feel worse and presents for admission per his PCP. Chest x-ray done in PCP office shows right pleural effusion and slight increase in left lung opacities as compared to 12/08 study. On arrival, patient is afebrile. O2 saturations were only 86% on room air, ordered to place patient on 2 L nasal cannula and titrate as appropriate. Other vital signs stable. Presumed hospital-acquired pneumonia--patient had been admitted on 11/17 -Admit to [facility] -IV vancomycin and Levaquin 750 mg IV qd -Check for MRSA in nares -Duonebs QIDR scheduled and q2h prn SOB/wheezing -Incentive spirometry -Sputum culture if obtainable -O2 per protocol Paroxysmal A. fib--patient sounds somewhat irregular on exam -Obtain stat EKG -Continue amiodarone 200 mg PO qd and Lopressor 25 mg PO BID -Continue warfarin 5 mg PO qd -Check PT/INR HTN--stable on arrival -Continue amlodipine 5 mg PO qd and lisinopril 40 mg PO qd HLD -Continue atorvastatin 40 mg PO qd Chronic diastolic CHF--small right pleural effusion, no peripheral edema -Continue beta randy and MICHELLE inhibitor as above -Daily weights -Strict I's and O's -Low sodium diet GERD -Continue Protonix 40 mg PO qd DVT prophylaxis -Warfarin -MERLINE hose and SCDs Code Status -Level I, FULL RESUSCITATION STATUS This chart was completed in part utilizing [employer] Speech Voice Recognition software. Attempts were made to minimize the grammatical errors, random word insertions, pronoun errors and incomplete sentences. Any formal questions or concerns about the content, text or information contained within the body of this dictation should be directly addressed to the provider for clarification. I agree with PA assessment and plan and have seen and examined pt myself Pt admitted as direct admit from Dr Smith office Failed OP antibx Treating for HCAP Will utilitze levaquin, and ricardo Milligan SPutum cx if available Pt has hx of silicosis Lungs: scattered rhochi Level of Care Med/Surg Resuscitation Status FULL RESUSCITATION VTE Prophylaxis VTE Risk Assessment Done? Y/N: Yes Risk Level: Moderate Given or contraindicated: Warfarin (Coumadin), T.E.D. Stockings, SCD's
[2016-12-13 16:06] VITALS: BP 134/72; PULSE 98; TEMP 36.5; Ht 185.4 cm; Wt 86.7 kg
[2016-12-13 16:13] LABS: BASO % 0.4 %; BASO ABS # 0.02 K/uL (0-0.2); COMPLETE YES; EOS % 1.2 %; HEMATOCRIT 36.1 % (42-52); IG% 0.2 %; LYMPH % 14.7 %; LYMPH ABS # 0.76 K/uL (1.2-3.4); MEAN CORPUSCULAR HEMOGLOBIN 28.8 pg (25-34); MEAN CORPUSCULAR HGB CONC 32.7 g/dl (32-36); MEAN PLATELET VOLUME 10.9 fL (7.4-10.4); MONO % 10.9 %; NEUT % 72.6 %; PLATELET COUNT 133 K/uL (130-400); WHITE BLOOD COUNT 5.16 K/uL (4.8-10.8)
[2016-12-13 16:24] VITALS: O2SAT 92
[2016-12-13 16:30] LABS: INR 3.4 (0.9-1.1); PROTHROMBIN TIME (PATIENT) 38.8 SECONDS (9.0-12.0)
[2016-12-13 16:39] LABS: BUN/CREATININE RATIO 19.9 (10-20); CALCIUM 8.7 mg/dl (8.5-10.1); POTASSIUM 3.8 mmol/L (3.5-5.1)
--- NOTE | 2016-12-13 16:50 | Pharmacy Progress Note ---
Pharmacy Antibiotic Consult Date of Service: Dec 13, 2016. Pharmacy Dosing Scope Pharmacy is consulted to initiate Vancomycin IV dosing therapy, order appropriate labs and adjust drug dose/frequency. Subjective The patient is a 89 year old male admitted on Dec 13, 2016 at 14:15 with possible HAP. Recent admission 11/17/16, and patient was in ED on 12/08/16, discharged on Z-Luis Felipe, pt finished course. Objective Height (Feet): 6 Height (Inches): 1.00 Weight (Kilograms): 84.100 Lab Results (24hrs): Laboratory Tests Test 12/13/16 16:04 BUN/Creatinine Ratio 19.9 Blood Urea Nitrogen 20 mg/dl Creatinine 1.00 mg/dl White Blood Count 5.16 K/uL Red Blood Count 4.10 M/uL Hemoglobin 11.8 g/dL Hematocrit 36.1 % Mean Corpuscular Volume 88.0 fL Mean Corpuscular Hemoglobin 28.8 pg Mean Corpuscular Hemoglobin Concent 32.7 g/dl Platelet Count 133 K/uL Mean Platelet Volume 10.9 fL Neutrophils (%) (Auto) 72.6 % Lymphocytes (%) (Auto) 14.7 % Monocytes (%) (Auto) 10.9 % Eosinophils (%) (Auto) 1.2 % Basophils (%) (Auto) 0.4 % Neutrophils # (Auto) 3.75 K/uL Lymphocytes # (Auto) 0.76 K/uL Monocytes # (Auto) 0.56 K/uL Eosinophils # (Auto) 0.06 K/uL Basophils # (Auto) 0.02 K/uL Micro Results: Item Value Date Time Gram Stain Primitivo Batch 12/13/16 1631 Sputum Expectorated Sputum Pending MRSA DNA Surveillance Screen Received 12/13/16 1545 Nasal Pending Recent Pertinent Medications Levaquin 750mg IV daily Assessment & Plan Loading dose: Vancomycin 2100 mg (25mg/kg) IV X 1 dose then: * Vancomycin 1300 mg (15mg/kg) IV every 18 hours. * Estimated pharmacokinetic parameters: T1/2 = 13.6hrs, Christiano = 0.051/hr, Vd = 0.7L/kg * Goal trough level estimate: between 15 - 20 mcg/mL for HAP. * Trough level has been ordered for: prior to 2200 dose, this will be after patient has received 3 total doses of IV Vancomycin. Pharmacy will continue to follow and will adjust dose/frequency as necessary. Thank you
[2016-12-13] MEDS ORDERED: VANCOMYCIN INJ 2,100 MG in SODIUM CHLORIDE 0.9% 500ML 500 ML IV ONE (17:00)
[2016-12-13] MEDS ORDERED: POLYETHYLENE (MIRALAX) 17 GM PACK PO ONE (17:00)
[2016-12-13] MEDS: LEVOFLOXACIN / D5W 750 MG in PREMIXED IN D5W 150 ML IV SCH (17:46)
[2016-12-13 19:49] VITALS: PULSE 85; O2SAT 94
[2016-12-13] MEDS: ALBUT/IPRATROP 3MG/0.5MG NEB 3 ML VIAL INH SCH (19:49)
[2016-12-13] MEDS ORDERED: NITROGLYCERIN 0.4 MG SL PER TAB CHARGE UT PRN (20:00)
[2016-12-13] MEDS ORDERED: HYDROCODONE/HOMATROPINE SYRUP 5MG/1.5MG 5ML UDP PO PRN (20:00)
[2016-12-13] MEDS: FERROUS GLUCONATE 324 MG TAB PO SCH (22:29)
[2016-12-13] MEDS: METOPROLOL TARTRATE 25 MG TAB PO SCH (22:30)
[2016-12-13] MEDS: ATORVASTATIN 40 MG TAB PO SCH (22:30)
[2016-12-14] VITALS (15 sets, daily range): BP systolic 131–164; BP diastolic 78–100; PULSE 64–100; TEMP 36.4–36.7; O2SAT 90–98
[2016-12-14] MEDS: ALBUT/IPRATROP 3MG/0.5MG NEB 3 ML VIAL INH SCH ×5 (01:40→20:06)
[2016-12-14 07:28] LABS: BASO % 0.9 %; BASO ABS # 0.04 K/uL (0-0.2); COMPLETE YES; EOS % 1.7 %; HEMATOCRIT 36.2 % (42-52); IG% 0.2 %; LYMPH % 19.1 %; LYMPH ABS # 0.88 K/uL (1.2-3.4); MEAN CELL VOLUME 88.5 fL (80-100); MEAN CORPUSCULAR HEMOGLOBIN 28.9 pg (25-34); MEAN CORPUSCULAR HGB CONC 32.6 g/dl (32-36); MEAN PLATELET VOLUME 11.3 fL (7.4-10.4); MONO % 11.1 %; PLATELET COUNT 142 K/uL (130-400); RED BLOOD COUNT 4.09 M/uL (4.7-6.1); WHITE BLOOD COUNT 4.61 K/uL (4.8-10.8)
[2016-12-14 07:38] LABS: INR 3.4 (0.9-1.1); PROTHROMBIN TIME (PATIENT) 38.1 SECONDS (9.0-12.0)
[2016-12-14] MEDS: FERROUS GLUCONATE 324 MG TAB PO SCH ×2 (07:47→21:12)
[2016-12-14] MEDS: METOPROLOL TARTRATE 25 MG TAB PO SCH ×2 (07:47→21:12)
[2016-12-14] MEDS: POLYETHYLENE (MIRALAX) 17 GM PACK PO SCH (07:47)
[2016-12-14] MEDS: AMLODIPINE BESYLATE 5 MG TAB PO SCH (07:48)
[2016-12-14] MEDS: CYANOCOBALAMIN 500 MCG TAB (VIT B-12) PO SCH (07:48)
[2016-12-14] MEDS: LISINOPRIL 40 MG TAB PO SCH (07:48)
[2016-12-14] MEDS: AMIODARONE 200 MG TAB PO SCH (07:48)
[2016-12-14] MEDS: CLOPIDOGREL BISULFATE 75 MG TAB PO SCH (07:49)
[2016-12-14] MEDS: PANTOprazole SOD 40 MG TAB PO SCH (07:49)
[2016-12-14 07:54] LABS: BUN/CREATININE RATIO 18.9 (10-20); CALCIUM 8.6 mg/dl (8.5-10.1); CREATININE 0.94 mg/dl (0.60-1.40); POTASSIUM 3.8 mmol/L (3.5-5.1)
[2016-12-14] MEDS: SIMETHICONE 80 MG CHEW PO PRN ×2 (07:54→21:17)
[2016-12-14] MEDS ORDERED: VANCOMYCIN INJ 1,300 MG in SODIUM CHLORIDE 0.9% 250ML 250 ML IV SCH (10:00)
--- NOTE | 2016-12-14 10:33 | Clinical Documentation Query ---
CLINICAL DOCUMENTATION QUERY Dr. CALLE, In your clinical opinion is this patient being managed for: ( ) possible gram negative Pneumonia (x ) Other explanation of clinical findings (Please Explain) - community acquired pneumonia, LLL ( ) Unable to determine (Please Define) ( ) Need to Discuss ( ) Not Agree The medical record reflects the following clinical findings, treatment, and risk factors. Clinical Indicators: 89 yo male presenting with dyspnea, wheezing and productive cough from pulmonology office. Sputum gram stain with moderate gram negative coccobacilli Treatment: IV vancomycin, IV levaquin, nebs, IS, O2 support Risk Factors: age, prior hospital OBS status 11/17, Please clarify and document your clinical opinion in the progress notes and discharge summary. Terms such as "probable", "suspected", "likely", "questionable", "possible", or "still to be ruled out" are acceptable. IF IN AGREEMENT, YOU MUST DOCUMENT ABOVE DIAGNOSTIC STATEMENT IN DAILY PROGRESS NOTES AND DISCHARGE SUMMARY. This document is not part of the patient's record. Thank You, Mague Meier RN [phone]
[2016-12-14] MEDS ORDERED: BISACODYL 10 MG SUPP PR STA (14:38)
[2016-12-14] MEDS ORDERED: GUAIFENESIN 600 MG TABCR PO ONE (15:00)
[2016-12-14] MEDS: METHYLPREDNISOLONE IV 40 MG in SYRINGE 0 ML IV SCH ×2 (16:33→21:12)
[2016-12-14] MEDS: LEVOFLOXACIN / D5W 750 MG in PREMIXED IN D5W 150 ML IV SCH (17:09)
[2016-12-14] MEDS: ATORVASTATIN 40 MG TAB PO SCH (21:12)
[2016-12-14] MEDS: MAGNESIUM HYDROXIDE SUSP 30 ML UDC PO PRN (21:19)
[2016-12-14] MEDS: ACETAMINOPHEN 325 MG TAB PO PRN (23:18)
--- NOTE | 2016-12-14 23:30 | Progress Note ---
Subjective Date of Service: Dec 14, 2016. Subjective Pt evaluation today including: conversation w/ patient, physical exam, chart review, lab review, review of studies (cxr, ct chest - old films), review of inpatient medication list Pain: abdominal bloating from constipation PO Intake: poor due to abdominal bloating Voiding: no voiding problems patient with ongoing cough, congestion cough is productive of yellow/brown sputum very short of breath and wheezy today albeit somewhat better than yesterday no fever Problem List Medical Problems: (1) Blood-streaked sputum Status: Acute (2) CHF (congestive heart failure) Status: Acute (3) Dizziness Status: Acute (4) Elevated troponin Status: Acute (5) Epigastric abdominal pain Status: Acute (6) Gallstones Status: Acute (7) Hx-Venous Thrombosis&Embolism Status: Chronic (8) Hypotension Status: Acute (9) Supratherapeutic INR Status: Acute Review of Systems Constitutional: No chills, No fever Respiratory: + cough, + dyspnea on exertion, + shortness of breath, + sputum, + wheezing Cardiac: No chest pain, No orthopnea Abdomen: + constipation, + pain, + see HPI Objective Vital Signs Date Time Temp Pulse Resp B/P Pulse Ox O2 Delivery O2 Flow Rate FiO2 12/14/16 21:09 100 131/78 91 Room Air 12/14/16 20:06 95 18 98 Room Air 12/14/16 16:43 36.5 85 20 153/88 96 Room Air 12/14/16 16:00 91 Room Air 12/14/16 15:56 87 95 12/14/16 15:53 88 18 97 Nasal Cannula 2.0 12/14/16 11:25 64 18 93 Nasal Cannula 2.0 12/14/16 10:02 131/83 12/14/16 09:56 94 Nasal Cannula 2.0 12/14/16 08:30 Nasal Cannula 2.0 12/14/16 08:03 90 18 95 Nasal Cannula 2.0 12/14/16 07:35 36.4 80 19 164/100 97 Nasal Cannula 2.0 134/81 12/14/16 01:40 74 18 91 Nasal Cannula 2.0 12/14/16 00:44 36.5 81 18 142/88 91 Room Air 12/14/16 00:05 Nasal Cannula 2.0 Physical Exam General Appearance: no apparent distress ENT: pharynx normal Neck: no JVD Respiratory/Chest: + decreased breath sounds (right base), + crackles (right base), + wheezing (diffuse in all lung segments) Cardiovascular: no gallop, no murmur, + irregularly irregular Abdomen: normal bowel sounds, non tender, no organomegaly, + distended (mild) Extremities: no pedal edema Neurologic/Psychiatric: alert, oriented x 3 Laboratory Results Last 24 Hours Test 12/14/16 06:42 12/14/16 06:56 White Blood Count 4.61 K/uL Red Blood Count 4.09 M/uL Hemoglobin 11.8 g/dL Hematocrit 36.2 % Mean Corpuscular Volume 88.5 fL Mean Corpuscular Hemoglobin 28.9 pg Mean Corpuscular Hemoglobin Concent 32.6 g/dl Platelet Count 142 K/uL Mean Platelet Volume 11.3 fL Neutrophils (%) (Auto) 67.0 % Lymphocytes (%) (Auto) 19.1 % Monocytes (%) (Auto) 11.1 % Eosinophils (%) (Auto) 1.7 % Basophils (%) (Auto) 0.9 % Neutrophils # (Auto) 3.09 K/uL Lymphocytes # (Auto) 0.88 K/uL Monocytes # (Auto) 0.51 K/uL Eosinophils # (Auto) 0.08 K/uL Basophils # (Auto) 0.04 K/uL RDW Standard Deviation 50.6 fL RDW Coefficient of Variation 15.7 % Immature Granulocyte % (Auto) 0.2 % Immature Granulocyte # (Auto) 0.01 K/uL Sodium Level 139 mmol/L Potassium Level 3.8 mmol/L Chloride Level 105 mmol/L Carbon Dioxide Level 28 mmol/L Anion Gap 6.0 mmol/L Blood Urea Nitrogen 18 mg/dl Creatinine 0.94 mg/dl Est Creatinine Clear Calc Drug Dose 60.2 ml/min Estimated GFR () 83.0 Estimated GFR (Non- 71.6 BUN/Creatinine Ratio 18.9 Random Glucose 99 mg/dl Calcium Level 8.6 mg/dl Prothrombin Time 38.1 SECONDS Prothromb Time International Ratio 3.4 Activated Partial Thromboplast Time 51.7 SECONDS Partial Thromboplastin Ratio 2.0 Assessment and Plan 89yo male with: 1. COPD with exacerbation - add IV solumedrol 40mg q6h. Cont scheduled nebs. Cont levaquin, day #2. Add mucinex. Incentive spirometry. Follow sputum cx. Repeat chest x-ray in AM to assess for worsening pneumonia. 2. abnormal CXR - cxr from 12/13/16 with LLL interstitial opacities. I am unclear if this represents chronic fibrotic changes or pneumonia. repeat cxr in AM. records indicate h/o silicosis; there is another reference to sarcoid but I cannot substantiate this. he is on amiodarone - known to cause fibrosis. low threshold for CT chest if he fails to show clinical improvement. 3. a. fib on chronic coumadin - underwent elective cardioversion by Dr. Brar a few weeks ago at [facility]. NSR was restored, but at time of follow-up he was back in a. fib. He remains on amiodarone and beta randy. repeat INR am. 4. abdominal bloating and constipation - in October he was hospitalized and had abdominal pain/bloating at that time. No bowel movement in 4 days. Dulcolax suppos x 1 now, then bowel maintenance thereafter. Had CT abd/pelvis in October showing small cyst of pancreas but no other pathology. check TSH as he was early hypothyroid in 2014. 5. CAD s/p CABG - noted. no ischemic symptoms at this time. 6. HTN - controlled. 7. chronic diastolic CHF - compensated. 8. h/o stroke - noted. remains on aspirin and coumadin. 9. h/o prostate cancer - noted. 10. mild thrombocytopenia with leukopenia - chronic. check b12/folate in AM. 11. concern for LLL pneumonia - day #2 of levaquin. Continue such; change to PO when clinically improving. PT, OT consults Continued [facility] stay due to: multiple IV medications needed
[2016-12-15] VITALS (9 sets, daily range): BP systolic 129–138; BP diastolic 80–88; PULSE 79–104; TEMP 36.4–36.9; O2SAT 93–98
[2016-12-15] MEDS: METHYLPREDNISOLONE IV 40 MG in SYRINGE 0 ML IV SCH ×3 (03:02→20:14)
[2016-12-15] MEDS: FERROUS GLUCONATE 324 MG TAB PO SCH ×2 (07:44→20:15)
[2016-12-15] MEDS: POLYETHYLENE (MIRALAX) 17 GM PACK PO SCH (07:44)
[2016-12-15] MEDS: METOPROLOL TARTRATE 25 MG TAB PO SCH ×2 (07:44→20:16)
[2016-12-15] MEDS: AMIODARONE 200 MG TAB PO SCH (07:44)
[2016-12-15] MEDS: GUAIFENESIN 600 MG TABCR PO SCH ×2 (07:44→20:15)
[2016-12-15] MEDS: CLOPIDOGREL BISULFATE 75 MG TAB PO SCH (07:45)
[2016-12-15] MEDS: AMLODIPINE BESYLATE 5 MG TAB PO SCH (07:45)
[2016-12-15] MEDS: LISINOPRIL 40 MG TAB PO SCH (07:45)
[2016-12-15] MEDS: PANTOprazole SOD 40 MG TAB PO SCH (07:45)
[2016-12-15] MEDS: CYANOCOBALAMIN 500 MCG TAB (VIT B-12) PO SCH (07:45)
[2016-12-15 07:48] LABS: INR 3.1 (0.9-1.1); PROTHROMBIN TIME (PATIENT) 34.5 SECONDS (9.0-12.0)
[2016-12-15] MEDS: ALBUT/IPRATROP 3MG/0.5MG NEB 3 ML VIAL INH SCH ×4 (08:00→20:38)
--- NOTE | 2016-12-15 09:26 | DIAGNOSTIC IMAGING REPORT ---
TWO VIEW CHEST CLINICAL HISTORY: Cough and wheezing. FINDINGS: PA and lateral chest radiographs are compared to study dated 12/13/2016 and correlated with chest CT dated 12/02/2013. The frontal view is degraded by patient rotation. The patient is status post midline sternotomy. The heart is enlarged and there is atherosclerotic calcification of the thoracic aorta. The pulmonary vasculature is noncongested. There are low lung volumes with chronic elevation of left hemidiaphragm. No airspace consolidation is seen typical for pneumonia. There are small pleural effusions. Bibasilar airspace opacities are unchanged from yesterday. Chronic interstitial thickening is again noted. There is no pneumothorax. The skeletal structures are osteopenic. The bony thorax is grossly intact. Degenerative changes are present throughout the thoracic spine. IMPRESSION: 1. Cardiomegaly without radiographic evidence of congestive failure. 2. Small pleural effusions and bibasilar airspace opacities are similar to 12/13/2016. Electronically signed by: Elijah Mo M.D. 12/15/2016 9:25 AM Dictated Date/Time: 12/15/2016 9:22 AM
--- NOTE | 2016-12-15 09:28 | Hospitalist Progress Note ---
Hospitalist Progress Note Date of Service Dec 15, 2016. Subjective Pt evaluation today including: conversation w/ patient, physical exam, chart review, lab review, review of studies, review of inpatient medication list Voiding: no voiding problems, no incontinence Patient states he is feeling well today. +SOB w/ ambulation. O2 supplement off while interviewing w/ O2 sats of 94%. +cough w/ sputum production. He is eating and drinking OK. Patient denies any fever, chills, sweats, lightheadedness, dizziness, vision changes, CP, palpitations, edema, wheezing, abdominal pain, nausea, vomiting, diarrhea, urinary symptoms, melena, numbness/tingling, weakness, muscle/joint pain, anxiety/depression, active bleeding, or new skin discoloration/changes. Medications Current Inpatient Medications Medications (Trade) Dose Ordered Sig/Zainab Route Start Time Stop Time Status Last Admin Dose Admin Acetaminophen (Tylenol Tab) 650 mg Q4H PRN PO 12/13/16 15:15 01/12/17 15:14 12/14/16 23:18 650 MG Al Hydrox/Mg Hydrox/Simethicone (Maalox Max Susp) 15 ml Q4H PRN PO 12/13/16 15:15 01/12/17 15:14 12/14/16 01:23 15 ML Magnesium Hydroxide (Milk Of Magnesia Susp) 30 ml Q6H PRN PO 12/13/16 15:15 01/12/17 15:14 12/14/16 21:19 30 ML Ondansetron HCl 4 mg 4 mg Q6H PRN IV 12/13/16 15:15 01/12/17 15:14 Levofloxacin/Prmx (Levaquin / D5W/ Premixed D5W) 150 ml @ 100 mls/hr DAILY@1700 IV 12/13/16 17:00 12/20/16 16:59 12/14/16 17:09 100 MLS/HR Albuterol/ Ipratropium (Duoneb) 3 ml QIDR INH 12/13/16 16:00 01/12/17 15:59 12/15/16 08:00 3 ML Polyethylene (Miralax Powder Packet) 17 gm DAILY PO 12/14/16 09:00 01/13/17 08:59 12/15/16 07:44 17 GM Amiodarone HCl (Cordarone Tab) 200 mg DAILY PO 12/14/16 09:00 01/13/17 08:59 12/15/16 07:44 200 MG Amlodipine Besylate (Norvasc Tab) 5 mg QAM PO 12/14/16 09:00 01/13/17 08:59 12/15/16 07:45 5 MG Atorvastatin Calcium (Lipitor Tab) 40 mg HS PO 12/13/16 21:00 01/12/17 20:59 12/14/16 21:12 40 MG Clopidogrel Bisulfate (plAVix TAB) 75 mg DAILY PO 12/14/16 09:00 01/13/17 08:59 12/15/16 07:45 75 MG Cyanocobalamin (Vitamin B-12 Tab) 1,000 mcg DAILY PO 12/14/16 09:00 01/13/17 08:59 12/15/16 07:45 1,000 MCG Ferrous Gluconate (Ferrous Gluconate Tab) 324 mg BID PO 12/13/16 21:00 01/12/17 20:59 12/15/16 07:44 324 MG Hydrocodone Bit/ Homatropine Methylb (Hycodan Syrup) 5 ml Q6H PRN PO 12/13/16 20:00 12/27/16 19:59 Lisinopril (Zestril Tab) 40 mg QAM PO 12/14/16 09:00 01/13/17 08:59 12/15/16 07:45 40 MG Metoprolol Tartrate (Lopressor Tab) 25 mg BID PO 12/13/16 21:00 01/12/17 20:59 12/15/16 07:44 25 MG Nitroglycerin (Nitrostat Tab) 0.4 mg UD PRN UT 12/13/16 20:00 01/12/17 19:59 Pantoprazole Sodium (Protonix Tab) 40 mg QAM PO 12/14/16 09:00 01/13/17 08:59 12/15/16 07:45 40 MG Simethicone (Mylicon Chew Tab) 80 mg Q6H PRN PO 12/14/16 01:45 01/13/17 01:44 12/14/16 21:17 80 MG Guaifenesin 1200 mg 1,200 mg Q12 PO 12/15/16 09:00 01/14/17 08:59 12/15/16 07:44 1,200 MG Methylprednisolone Sodium Succinate/ Syringe (Solu-Medrol IV/ Syringe) 0.64 ml @ 1.5 mls/min Q6H IV 12/14/16 15:00 01/13/17 14:59 12/15/16 07:44 1.5 MLS/MIN Objective Vital Signs Date Time Temp Pulse Resp B/P Pulse Ox O2 Delivery O2 Flow Rate FiO2 12/15/16 08:00 Room Air 12/15/16 08:00 92 18 98 Room Air 12/15/16 07:30 36.9 86 17 138/84 93 Room Air 12/14/16 23:44 92 Room Air 12/14/16 23:28 36.7 99 18 150/97 90 Room Air 12/14/16 21:09 100 131/78 91 Room Air 12/14/16 20:06 95 18 98 Room Air 12/14/16 16:43 36.5 85 20 153/88 96 Room Air 12/14/16 16:00 91 Room Air 12/14/16 15:56 87 95 12/14/16 15:53 88 18 97 Nasal Cannula 2.0 12/14/16 11:25 64 18 93 Nasal Cannula 2.0 12/14/16 10:02 131/83 12/14/16 09:56 94 Nasal Cannula 2.0 Physical Exam General Appearance: no apparent distress Eyes: normal inspection, PERRL ENT: hearing grossly normal Neck: supple Respiratory/Chest: no respiratory distress, no accessory muscle use, + decreased breath sounds (right lung base ), + wheezing (throughout all lung velazquez ) Cardiovascular: + irregularly irregular (rate controlled ) Abdomen: normal bowel sounds, non tender, soft Extremities: no pedal edema, no calf tenderness Neurologic/Psychiatric: alert, normal mood/affect, oriented x 3 Skin: normal color, warm/dry, no rash Laboratory Results Last 24 Hours Test 12/15/16 07:09 Prothrombin Time 34.5 SECONDS Prothromb Time International Ratio 3.1 Vitamin B12 Level 1359 pg/mL Folate 9.44 ng/mL Thyroid Stimulating Hormone (TSH) 0.967 uIu/ml Assessment and Plan 89 y/o male with a history of CHF, CAD, CVA, GERD, hypertension, hyperlipidemia , paroxysmal A. fib, neuropathy, prostate cancer, and silicosis who presented for a direct admission on 12/13 with shortness breath, wheezing and productive cough. Patient presented to the ED on 12/08 and was diagnosed with bronchitis. He was given a Z-Luis Felipe, Hycodan syrup and albuterol inhaler. Patient has continued to feel worse and presents for admission per his PCP. Chest x-ray done in PCP office shows right pleural effusion and slight increase in left lung opacities as compared to 12/08 study. On arrival, patient is afebrile. O2 saturations were only 86% on room air, ordered to place patient on 2 L nasal cannula and titrate as appropriate. Other vital signs stable. Presumed hospital-acquired pneumonia- patient had been admitted on 11/17/COPD exacerbation: - Admit to MedSurg - IV Vancomycin and Levaquin 750 mg IV qd (started on 12/13)--> transition to PO Levaquin on 12/15 -- MRSA swab negative, d/c IV Vancomycin - DuoNebs QIDR and q2 hrs PRN SOB/wheezing - IV Solu Medrol 40 mg q6 hrs--> wean to q12 hrs on 12/15 and transition to PO Prednisone ari on 12/16 - Mucinex - Incentive spirometry - Sputum culture - O2 per protocol--> wean as tolerated. Patient does NOT wear O2 supplement at home - Repeat CXR on 12/15- Cardiomegaly without radiographic evidence of congestive failure. Small pleural effusions and bibasilar airspace opacities are similar to 12/13/2016. Constipation, resolved: - Treated w/ Dulcolax suppository - TSH WNL Paroxysmal A. fib: - Continue Amiodarone 200 mg PO qd and Lopressor 25 mg PO BID - Warfarin 5 mg PO qd held due to supratherapeutic INR, resume when INR < 3 - Follow PT/INR HTN: Continue Amlodipine 5 mg PO qd and Lisinopril 40 mg PO qd HLD: Continue Atorvastatin 40 mg PO qd Chronic diastolic CHF/CAD s/p CABG: - Continue beta randy and MICHELLE inhibitor as above - Daily weights - Strict I's and O's - Low sodium diet h/o stroke: Continue ASA h/o prostate cancer Mild thrombocytopenia with leukopenia- chronic: - Checked B12/folate GERD: Continue Protonix 40 mg PO qd DVT prophylaxis: Warfarin, MERLINE hose and SCDs Code Status: Level I, FULL Dispo: Discharge to home once medically stable, likely within the next 1-2 days - PT/OT evaluations--> patient stable to return home
[2016-12-15] MEDS: LEVOFLOXACIN 750 MG TAB PO SCH (12:22)
--- NOTE | 2016-12-15 13:49 | Progress Note ---
Subjective Date of Service: Dec 15, 2016. Subjective pt feels much better but has continued wheezing, cough Problem List Medical Problems: (1) Blood-streaked sputum Status: Acute (2) CHF (congestive heart failure) Status: Acute (3) Dizziness Status: Acute (4) Elevated troponin Status: Acute (5) Epigastric abdominal pain Status: Acute (6) Gallstones Status: Acute (7) Hx-Venous Thrombosis&Embolism Status: Chronic (8) Hypotension Status: Acute (9) Supratherapeutic INR Status: Acute Review of Systems Constitutional: No chills, No fever Respiratory: + cough, + dyspnea on exertion, + shortness of breath, + wheezing Cardiac: No chest pain, No edema Abdomen: No diarrhea, No nausea, No pain, No vomiting Male : No dysuria, No urinary frequency Objective Vital Signs Date Time Temp Pulse Resp B/P Pulse Ox O2 Delivery O2 Flow Rate FiO2 12/14/16 23:44 92 Room Air 12/14/16 23:28 36.7 99 18 150/97 90 Room Air 12/14/16 21:09 100 131/78 91 Room Air 12/14/16 20:06 95 18 98 Room Air 12/14/16 16:43 36.5 85 20 153/88 96 Room Air 12/14/16 16:00 91 Room Air 12/14/16 15:56 87 95 12/14/16 15:53 88 18 97 Nasal Cannula 2.0 12/14/16 11:25 64 18 93 Nasal Cannula 2.0 12/14/16 10:02 131/83 12/14/16 09:56 94 Nasal Cannula 2.0 12/14/16 08:30 Nasal Cannula 2.0 12/14/16 08:03 90 18 95 Nasal Cannula 2.0 Physical Exam General Appearance: WD/WN, + mild distress Neck: supple, no JVD Respiratory/Chest: + decreased breath sounds, + accessory muscle use, + rhonchi , + wheezing Cardiovascular: + systolic murmur, + irregularly irregular Abdomen: normal bowel sounds, non tender, soft Extremities: no pedal edema, no calf tenderness Neurologic/Psychiatric: alert, oriented x 3 Laboratory Results Last 24 Hours Test 12/15/16 04:44 Assessment and Plan 89yo male with copd exacerbation Acute on chronic respiratory failure with LLL pneumonia IV solumedrol scheduled nebs. levaquin, mucinex. Pneumonia, with abnormal CXR, will consider CT to eval as h/o silicosis exposure , and possible sarcoid A. fib rate controlled on chronic coumadin - failed cardioversion by Dr Brar amiodarone and beta randy. constipation - No bowel movement in 4 days. Dulcolax suppos CAD s/p CABG -stble at this point and HTN - controlled, chronic diastolic CHF - compensated. h/o prostate cancer - noted. PT, OT consults Continued [facility] stay due to: multiple IV medications needed
[2016-12-15] MEDS: SIMETHICONE 80 MG CHEW PO PRN (20:14)
[2016-12-15] MEDS: ATORVASTATIN 40 MG TAB PO SCH (20:15)
[2016-12-15] MEDS ORDERED: VANCOMYCIN TROUGH SCH (21:30)
[2016-12-16] VITALS (10 sets, daily range): BP systolic 122–136; BP diastolic 76–87; PULSE 80–100; TEMP 36.4–37; O2SAT 91–97
[2016-12-16] MEDS: ACETAMINOPHEN 325 MG TAB PO PRN (00:06)
[2016-12-16] MEDS: ALBUT/IPRATROP 3MG/0.5MG NEB 3 ML VIAL INH SCH ×4 (07:25→20:00)
[2016-12-16] MEDS: METHYLPREDNISOLONE IV 40 MG in SYRINGE 0 ML IV SCH ×2 (07:51→20:45)
[2016-12-16] MEDS: AMIODARONE 200 MG TAB PO SCH (07:51)
[2016-12-16] MEDS: POLYETHYLENE (MIRALAX) 17 GM PACK PO SCH (07:51)
[2016-12-16] MEDS: METOPROLOL TARTRATE 25 MG TAB PO SCH ×2 (07:51→20:45)
[2016-12-16] MEDS: FERROUS GLUCONATE 324 MG TAB PO SCH ×2 (07:51→20:44)
[2016-12-16] MEDS: GUAIFENESIN 600 MG TABCR PO SCH (07:51)
[2016-12-16] MEDS: CLOPIDOGREL BISULFATE 75 MG TAB PO SCH (07:52)
[2016-12-16] MEDS: CYANOCOBALAMIN 500 MCG TAB (VIT B-12) PO SCH (07:52)
[2016-12-16] MEDS: PANTOprazole SOD 40 MG TAB PO SCH (07:52)
[2016-12-16] MEDS: LISINOPRIL 40 MG TAB PO SCH (07:52)
[2016-12-16] MEDS: AMLODIPINE BESYLATE 5 MG TAB PO SCH (07:52)
[2016-12-16] MEDS: SIMETHICONE 80 MG CHEW PO PRN ×2 (07:59→20:47)
[2016-12-16 08:14] LABS: PROTHROMBIN TIME (PATIENT) 33.5 SECONDS (9.0-12.0)
[2016-12-16] MEDS ORDERED: PROMETHAZINE HCL 12.5 MG/10 ML UDP PO PRN (09:15)
[2016-12-16] MEDS: FORMOTEROL FUMA NEBULIZER SOLN 20 MCG/2 ML VIAL INH SCH ×2 (10:30→20:27)
[2016-12-16] MEDS: LEVOFLOXACIN 750 MG TAB PO SCH (11:07)
--- NOTE | 2016-12-16 14:31 | Progress Note ---
Subjective Date of Service: Dec 16, 2016. Subjective this pt had a rough night with cough and mucus production Problem List Medical Problems: (1) Blood-streaked sputum Status: Acute (2) CHF (congestive heart failure) Status: Acute (3) Dizziness Status: Acute (4) Elevated troponin Status: Acute (5) Epigastric abdominal pain Status: Acute (6) Gallstones Status: Acute (7) Hx-Venous Thrombosis&Embolism Status: Chronic (8) Hypotension Status: Acute (9) Supratherapeutic INR Status: Acute Review of Systems Constitutional: No chills, No fever Respiratory: No cough, No shortness of breath Cardiac: No chest pain, No edema Abdomen: No diarrhea, No nausea, No pain, No vomiting Musculoskeletal: No joint pain, No muscle pain Psychiatric: No anhedonism, No anxiety, No depression symptoms Objective Vital Signs Date Time Temp Pulse Resp B/P Pulse Ox O2 Delivery O2 Flow Rate FiO2 12/16/16 11:19 99 16 97 Room Air 12/16/16 08:00 Room Air 12/16/16 07:30 36.4 80 18 136/87 93 Room Air 12/16/16 07:25 99 16 95 Room Air 12/16/16 00:30 93 Room Air 2.0 12/16/16 00:27 36.6 100 18 122/82 93 Room Air 12/15/16 20:38 104 16 95 Room Air 12/15/16 20:12 91 129/80 95 Room Air 12/15/16 16:20 99 16 95 Room Air 12/15/16 16:00 95 Room Air 12/15/16 15:00 36.4 88 15 130/82 95 Room Air Physical Exam General Appearance: WD/WN, + mild distress Neck: supple, no JVD Respiratory/Chest: chest non-tender, + decreased breath sounds, + accessory muscle use, + rhonchi Cardiovascular: regular rate, rhythm, + systolic murmur Abdomen: normal bowel sounds, non tender, soft Extremities: no pedal edema, no calf tenderness Neurologic/Psychiatric: alert, oriented x 3 Laboratory Results Last 24 Hours Test 12/16/16 07:10 Prothrombin Time 33.5 SECONDS Prothromb Time International Ratio 3.0 Assessment and Plan 89yo male with copd exacerbation, had coughing episode, maybe mucus plugging Acute on chronic respiratory failure with LLL pneumonia IV solumedrol scheduled nebs. levaquin, mucinex. Pulmonary evaluation will have them help with decision if CT needed Pneumonia, with abnormal CXR, will consider CT to eval as h/o silicosis exposure , and possible sarcoid A. fib rate controlled on chronic coumadin - failed cardioversion by Dr Brar amiodarone and beta randy. constipation - No bowel movement in 4 days. Dulcolax suppos Pt requested sleeping aid, add hs seroquel CAD s/p CABG -stble at this point and HTN - controlled, chronic diastolic CHF - compensated. h/o prostate cancer - noted. PT, OT consults Continued [facility] stay due to: multiple IV medications needed
--- NOTE | 2016-12-16 14:46 | PULMONARY CONSULTATION ---
DATE OF CONSULTATION: 12/16/2016 HISTORY OF PRESENT ILLNESS: The patient is an 89-year-old male who was admitted to the hospital on the and Dr. Danielson has asked me to evaluate the patient today for COPD. When I reviewed his records, went through the extensive records as an outpatient, he had PFTs done last year as ordered by Dr. Brar. I showed absolutely minimal obstruction with an FEF 25/75 with 71% with a normal FEV1, normal volumes, reduced diffusion. I do not believe this patient has chronic obstructive lung disease. 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 He has had small pleural effusions as well which have been chronic especially on the left side. Nonetheless, he was seen by Pushpa Pimentel PA-C in the office on the . There was a suggestion of perhaps pneumonia since he had some blood tinged sputum. When I reviewed his records, he was seen in the Emergency Room on the by Dr. Andrew Lewis and was noted to have some blood tinged sputum at that point as well. He states this started just last week, but apparently it started perhaps several weeks ago. He has been on anticoagulants for atrial fibrillation and did have an evaluation by Dr. Brar with cardioversion. At this point, the patient was discharged in a normal sinus rhythm on 23 of November. His oxygen saturation when I reviewed those records was 94% on room air. At this point, the patient has been fairly stable at home, although he does have dyspnea with heavy exertion. He denies chest pain, fevers, night sweats or weight loss. He has not had any aspiration. He was then admitted to the hospitalist service with possible pneumonia, although recently he was treated for a possible left upper lobe infiltrate with Zithromax and Hycodan for the cough. Since his admission, he has been placed on Levaquin and steroids intravenously and states he feels considerably better. However, he continues to have hemoptysis. He has a large basin with about 30 towels with blood tinged sputum, some of them up to about 2 mL. He denies chest pain, aspiration, cough, has not had any weight loss. His daughters, at the end of the exam came into the room and states that other than some abdominal distention he looks about the same. He has had some wheezing and some shortness of breath as well. He has not had any industrial exposures recently. He has been using an albuterol inhaler, even though there is no significant evidence of significant obstructive lung disease and states that sometimes that will help. He denies any upper airway bleeding. He has been on Coumadin with an adequate INR in the 3.4 range, on the it is down to 3.0. Sputum Gram stain on the revealed some epithelial cells but revealed many inflammatory cells with Gram-positive diplococci. At this point the patient is comfortable. 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 He may have been about 37 years old at that time. His daughter who is 42 years old states that as a child she and her mother were checked for TB after he was diagnosed with this. He was seen the [facility] and treated. He does not know whether it was active TB or just a positive PPD. He states he was coughing at that time and was told that he had tuberculosis. When I reviewed his records in 1997 he had a biopsy of a lymph node that showed some lymphocytes. I do not see any records prior to 1997. At this point, the patient is comfortable. He is able to carry on a conversation. Continues to have cough producing some blood tinged sputum. He denies wheezing. REVIEW OF SYSTEMS: Otherwise, unremarkable. PAST MEDICAL HISTORY: Well outlined in the records includes history of pulmonary embolism, atrial fibrillation, coronary artery disease with bypass surgery, prostate cancer, hypertension, perforated intestines, stroke, diastolic heart failure, coronary artery disease, peripheral neuropathy and silicosis. FAMILY HISTORY: Father from cancer, site unknown. Mother from heart disease, hypertension. SOCIAL HISTORY: Never used tobacco. He rarely uses any alcohol. 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 He would remove the brick from the [employer] at that time. He is , several of his daughters accompany him today right at the end of the evaluation. He appears up to date with immunizations. He has not been in the service. He has no allergies. He is compliant with his medications. PHYSICAL EXAMINATION: VITAL SIGNS: His blood pressure 136/87, pulse is 90 and regular, respiratory rate 16 and he is afebrile. He has been afebrile since admission. HEENT: Unremarkable. No evidence of upper airway bleeding, no bleeding in the nose or posterior pharynx. There is no adenopathy, no neck vein distention or HJR is noted. No nodes are palpable. Expansion of the thorax is good with deep inspiration. HEART: Regular rate and rhythm. No murmurs are auscultated. LUNGS: Reveal some coarse breath sounds bilaterally with rhonchi at the left base and some wheezing. I do not detect any rales or crackles. No dullness to percussion is noted. ABDOMEN: Soft and nontender. He has no cyanosis, clubbing or edema. DIAGNOSTIC DATA: Chest x-ray reveals cardiomegaly with evidence of previous heart surgery. 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 Chemistry profile looked good with a B12 level of 1359, TSH of 0.9, normal folate level. White count is 5.16 at the time of admission with no significant neutrophils noted. Hemoglobin was 11.8 and that is stable. Platelet count 142,000. According to the bronchoscopy that was done in [address]ang, he had right middle lobe washings done that was normal at that time. Brushings that time were negative for malignancy as well. The patient's electrocardiogram reveals he is reverted back to atrial fibrillation with fairly well controlled ventricular response, and old inferior wall ME. IMPRESSION: 1. Acute bronchitis. The patient could have pneumonia, but I do not see it really on the x-ray, he does not have leukocytosis and I do not detect any evidence of pneumonia by his exam but it is difficult because of all the abnormal lung sounds noted on his exam today which appear to be chronic. He recently had a left upper lobe infiltrative process that was treated with Zithromax and that may have resolved. 2. Hemostasis. I am quite concerned about the fact that he has continued to have blood tinged sputum and significant hemoptysis over the last week to 10 days. An infectious process certainly could be the etiology, but recurrent tuberculosis and malignancy need to be considered, especially in a patient with silicosis. 3. Coronary artery disease. 4. Silicosis. He has this diagnosis even though he only worked in the [employer] for 3 years. Certainly could have been enough to give him that disorder. 5. Recurrent atrial fibrillation. RECOMMENDATIONS: 1. Sputum for AFB smear and culture. 2. Suggest continue his present antibiotics, I think the steroids could be decreased, perhaps he could be placed on 40 mg of prednisone with a taper over about a week to 10 days. At this point, I would continue on his inhalers even though he does not have significant obstructive lung disease, it may help with mucociliary clearance. 3. Discontinue the Mucinex. 4. Consider repeating the CT scan, perhaps in about a week or when this infectious process has improved to assess lower lobes in particular. 5. I would certainly consider bronchoscopy if the blood tinged sputum persists. I would continue on albuterol in the form of DuoNeb with ipratropium 4 times a day just p.r.n. Thanks for asking me to evaluate Mr. Villa and he will be seen by Dr. Becker starting tomorrow. TEMITOPE
[2016-12-16] MEDS ORDERED: NURSING VERBAL MED ORDER ONE (18:30)
[2016-12-16] MEDS: QUETIAPINE FUMARATE 25 MG TAB PO SCH (20:44)
[2016-12-16] MEDS: ATORVASTATIN 40 MG TAB PO SCH (20:45)
[2016-12-16] MEDS: HYDROCODONE/HOMATROPINE SYRUP 5MG/1.5MG 5ML UDP PO PRN (20:53)
[2016-12-17] VITALS (10 sets, daily range): BP systolic 100–122; BP diastolic 68–86; PULSE 76–103; TEMP 36.7–37; O2SAT 93–96
[2016-12-17] MEDS: ALBUT/IPRATROP 3MG/0.5MG NEB 3 ML VIAL INH SCH ×4 (07:16→20:00)
[2016-12-17] MEDS: FORMOTEROL FUMA NEBULIZER SOLN 20 MCG/2 ML VIAL INH SCH ×2 (07:16→20:21)
[2016-12-17] MEDS: METHYLPREDNISOLONE IV 40 MG in SYRINGE 0 ML IV SCH (07:47)
[2016-12-17] MEDS: POLYETHYLENE (MIRALAX) 17 GM PACK PO SCH (07:47)
[2016-12-17] MEDS: AMLODIPINE BESYLATE 5 MG TAB PO SCH (07:47)
[2016-12-17] MEDS: METOPROLOL TARTRATE 25 MG TAB PO SCH ×2 (07:47→20:44)
[2016-12-17] MEDS: AMIODARONE 200 MG TAB PO SCH (07:47)
[2016-12-17] MEDS: FERROUS GLUCONATE 324 MG TAB PO SCH ×2 (07:47→20:44)
[2016-12-17] MEDS: LISINOPRIL 40 MG TAB PO SCH (07:48)
[2016-12-17] MEDS: CYANOCOBALAMIN 500 MCG TAB (VIT B-12) PO SCH (07:48)
[2016-12-17] MEDS: PANTOprazole SOD 40 MG TAB PO SCH (07:48)
[2016-12-17] MEDS: CLOPIDOGREL BISULFATE 75 MG TAB PO SCH (07:48)
[2016-12-17 08:57] LABS: BASO % 0.1 %; BASO ABS # 0.01 K/uL (0-0.2); COMPLETE YES; HEMATOCRIT 35.5 % (42-52); IG% 0.2 %; LYMPH % 3.2 %; LYMPH ABS # 0.35 K/uL (1.2-3.4); MEAN CELL VOLUME 87.9 fL (80-100); MEAN CORPUSCULAR HEMOGLOBIN 28.7 pg (25-34); MEAN CORPUSCULAR HGB CONC 32.7 g/dl (32-36); MONO % 6.5 %; PLATELET COUNT 192 K/uL (130-400); RED BLOOD COUNT 4.04 M/uL (4.7-6.1); WHITE BLOOD COUNT 11.07 K/uL (4.8-10.8)
[2016-12-17 09:31] LABS: BUN/CREATININE RATIO 25.7 (10-20); CALCIUM 8.9 mg/dl (8.5-10.1); CREATININE 1.5 mg/dl (0.60-1.40)
[2016-12-17] MEDS: LEVOFLOXACIN 750 MG TAB PO SCH (10:56)
--- NOTE | 2016-12-17 14:15 | Progress Note ---
Subjective Date of Service: Dec 17, 2016. Subjective Pt evaluation today including: conversation w/ patient, physical exam, chart review, lab review, review of studies, review of inpatient medication list Reports persistent cough Resting comfortably in bed No fevers or chills Problem List Medical Problems: (1) Blood-streaked sputum Status: Acute (2) CHF (congestive heart failure) Status: Acute (3) Dizziness Status: Acute (4) Elevated troponin Status: Acute (5) Epigastric abdominal pain Status: Acute (6) Gallstones Status: Acute (7) Hx-Venous Thrombosis&Embolism Status: Chronic (8) Hypotension Status: Acute (9) Supratherapeutic INR Status: Acute Review of Systems Constitutional: No chills, No fever Respiratory: + cough, + sputum, No shortness of breath, No wheezing Cardiac: No chest pain, No orthopnea Abdomen: No diarrhea, No nausea, No pain, No vomiting Musculoskeletal: No joint pain, No muscle pain Male : No dysuria, No urinary frequency Objective Vital Signs Date Time Temp Pulse Resp B/P Pulse Ox O2 Delivery O2 Flow Rate FiO2 12/17/16 12:19 89 16 94 Room Air 12/17/16 08:00 Room Air 12/17/16 07:52 94 Room Air 12/17/16 07:43 37.0 80 12 122/82 94 Room Air 12/17/16 07:17 89 16 94 Room Air 12/17/16 01:30 93 Room Air 12/16/16 20:43 86 18 125/86 96 Room Air 12/16/16 20:27 94 16 92 Room Air 12/16/16 16:00 91 Room Air 12/16/16 15:48 37.0 82 16 135/76 91 12/16/16 15:46 94 16 92 Room Air Physical Exam General Appearance: WD/WN, no apparent distress Neck: supple, no adenopathy Respiratory/Chest: lungs clear, + decreased breath sounds Cardiovascular: no edema, no gallop Abdomen: non tender, soft Neurologic/Psychiatric: alert, normal mood/affect Laboratory Results Last 24 Hours Test 12/17/16 08:44 12/17/16 13:59 White Blood Count 11.07 K/uL Red Blood Count 4.04 M/uL Hemoglobin 11.6 g/dL Hematocrit 35.5 % Mean Corpuscular Volume 87.9 fL Mean Corpuscular Hemoglobin 28.7 pg Mean Corpuscular Hemoglobin Concent 32.7 g/dl Platelet Count 192 K/uL Mean Platelet Volume 11.0 fL Neutrophils (%) (Auto) 90.0 % Lymphocytes (%) (Auto) 3.2 % Monocytes (%) (Auto) 6.5 % Eosinophils (%) (Auto) 0.0 % Basophils (%) (Auto) 0.1 % Neutrophils # (Auto) 9.97 K/uL Lymphocytes # (Auto) 0.35 K/uL Monocytes # (Auto) 0.72 K/uL Eosinophils # (Auto) 0.00 K/uL Basophils # (Auto) 0.01 K/uL RDW Standard Deviation 50.7 fL RDW Coefficient of Variation 15.7 % Immature Granulocyte % (Auto) 0.2 % Immature Granulocyte # (Auto) 0.02 K/uL Sodium Level 139 mmol/L Potassium Level 4.0 mmol/L Chloride Level 104 mmol/L Carbon Dioxide Level 26 mmol/L Anion Gap 9.0 mmol/L Blood Urea Nitrogen 39 mg/dl Creatinine 1.50 mg/dl Est Creatinine Clear Calc Drug Dose 37.7 ml/min Estimated GFR () 47.2 Estimated GFR (Non- 40.7 BUN/Creatinine Ratio 25.7 Random Glucose 134 mg/dl Calcium Level 8.9 mg/dl Assessment and Plan 89 y/o male with a history of CHF, CAD, CVA, GERD, hypertension, hyperlipidemia , paroxysmal A. fib, neuropathy, prostate cancer, and silicosis who presented for a direct admission on 12/13 with shortness breath, wheezing and productive cough. Patient presented to the ED on 12/08 and was diagnosed with bronchitis. He was given a Z-Luis Felipe, Hycodan syrup and albuterol inhaler. Patient has continued to feel worse and presents for admission per his PCP. Chest x-ray done in PCP office shows right pleural effusion and slight increase in left lung opacities as compared to 12/08 study. On arrival, patient is afebrile. O2 saturations were only 86% on room air, ordered to place patient on 2 L nasal cannula and titrate as appropriate. Other vital signs stable. Presumed hospital-acquired pneumonia--patient had been admitted on 11/17 -Admit to [facility] Levaquin 750 mg IV qd, vanc dced as MRSA nares neg -Duonebs QIDR scheduled and q2h prn SOB/wheezing -Cont to taper steroids, appreciate pulm recs -Incentive spirometry -Sputum culture if obtainable, due to persistent blood in sputum, will need to check for AFB -O2 per protocol Paroxysmal A. fib -Continue amiodarone 200 mg PO qd and Lopressor 25 mg PO BID -Continue warfarin 5 mg PO qd -INR therapeutic HTN -Continue amlodipine 5 mg PO qd and lisinopril 40 mg PO qd HLD -Continue atorvastatin 40 mg PO qd Chronic diastolic CHF--small right pleural effusion, no peripheral edema -Continue beta randy and MICHELLE inhibitor as above -Daily weights -Strict I's and O's -Low sodium diet GERD -Continue Protonix 40 mg PO qd DVT prophylaxis -Warfarin -MERLINE forde and SCDs Code Status -Level I, FULL RESUSCITATION STATUS This chart was completed in part utilizing [employer] Speech Voice Recognition software. Attempts were made to minimize the grammatical errors, random word insertions, pronoun errors and incomplete sentences. Any formal questions or concerns about the content, text or information contained within the body of this dictation should be directly addressed to the provider for clarification. I agree with PA assessment and plan and have seen and examined pt myself Pt admitted as direct admit from Dr Smith office Failed OP antibx Treating for HCAP Will utildora simon, and ricardo Milligan SPutum cx if available Pt has hx of silicosis Lungs: scattered rhochi Continued [facility] stay due to: multiple IV medications needed
--- NOTE | 2016-12-17 14:18 | PULMONARY PROGRESS NOTE ---
DATE: 12/17/2016 TIME: 01:50 p.m. SUBJECTIVE: The patient feels much better. His cough is significantly improved. There has been a scant amount of blood in his sputum today. He denies chest pains. He states he is not short of breath. He was up walking to the bathroom without difficulty. He denies any chills, fevers or sweats. OBJECTIVE: GENERAL: The patient appears comfortable at rest. He seems hard of hearing. He was cooperative. He was sleeping when I first came in, but he awakened readily. He stated that he took a sleeping pill last night and he has remained sleepy throughout the day. VITAL SIGNS: Temperature is 37 degrees. Heart rate is 80 beats per minute. Blood pressure 122/82. Respiratory rate was 18 breaths per minute. HEENT: Eye exam suggested probable implants. Nares were clear. Mouth exam was negative. NECK: Palpation of the neck reveals no lymph nodes. CHEST: Normal expansion and development. LUNGS: Lung velazquez were clear bilaterally. The breath sounds were mildly decreased. No wheezes, rales or rhonchi were heard. Saturation was 94% on room air. ABDOMEN: Soft and nontender. Good bowel sounds were heard. EXTREMITIES: Showed no cyanosis, clubbing or edema. LABORATORY DATA: White count today is 11.07. Hemoglobin 11.6. Platelets 192,000. INR today was not done. Yesterday, it was 3.0. Electrolytes show sodium 139, potassium 4.0, chloride 104, and bicarb 26. BUN is 39 with a creatinine of 1.5. This represents an increase from December 14 when the BUN was 18 and the creatinine was 0.94. Blood sugar is 134. B12 level was high at 1359. Folate level was 9.44. I spoke with the patient about his past pulmonary history. He states that they did not find any tuberculosis in the past. There was some questionable history of having TB. He tells me he definitely did not have TB in the past. IMPRESSIONS: 1. Acute bronchitis. 2. Hemoptysis secondary to #1. 3. Silicosis. 4. The patient is on anticoagulation. 5. Recurrent atrial fibrillation. COMMENTS AND RECOMMENDATIONS: The patient has an AFB smear, which is still pending. Clinically, he seems to be doing much better. He is indicating now that he almost feels back to normal. He does have a history of an apparent lung nodule or mass in both the left and right lungs. This was thought to reflect progressive massive fibrosis. Considering his hemoptysis, it would be advised that he have a followup CAT scan done. I would tend to wait a period of time after the acute infection has cleared, however. If he continues to improve clinically, perhaps he may be able to be discharged in the relatively near future. I am going to order a QuantiFERON TB gold just for completeness. We will also order 1 additional AFB culture.
[2016-12-17] MEDS: MAGNESIUM HYDROXIDE SUSP 30 ML UDC PO PRN (16:13)
[2016-12-17] MEDS: ATORVASTATIN 40 MG TAB PO SCH (20:44)
[2016-12-17] MEDS: QUETIAPINE FUMARATE 25 MG TAB PO SCH (20:44)
[2016-12-17] MEDS: SIMETHICONE 80 MG CHEW PO PRN (20:44)
[2016-12-17] MEDS: HYDROCODONE/HOMATROPINE SYRUP 5MG/1.5MG 5ML UDP PO PRN (20:45)
[2016-12-18] VITALS (9 sets, daily range): BP systolic 97–155; BP diastolic 55–82; PULSE 70–96; TEMP 36.4–36.9; O2SAT 92–97
[2016-12-18] MEDS: FORMOTEROL FUMA NEBULIZER SOLN 20 MCG/2 ML VIAL INH SCH (07:05)
[2016-12-18] MEDS: ALBUT/IPRATROP 3MG/0.5MG NEB 3 ML VIAL INH SCH ×4 (07:06→20:26)
[2016-12-18] MEDS: POLYETHYLENE (MIRALAX) 17 GM PACK PO SCH (08:03)
[2016-12-18] MEDS: CYANOCOBALAMIN 500 MCG TAB (VIT B-12) PO SCH (08:04)
[2016-12-18] MEDS: CLOPIDOGREL BISULFATE 75 MG TAB PO SCH (08:04)
[2016-12-18] MEDS: METOPROLOL TARTRATE 25 MG TAB PO SCH ×2 (08:05→20:38)
[2016-12-18] MEDS: LISINOPRIL 40 MG TAB PO SCH (08:05)
[2016-12-18] MEDS: AMIODARONE 200 MG TAB PO SCH (08:06)
[2016-12-18] MEDS: FERROUS GLUCONATE 324 MG TAB PO SCH ×2 (08:06→20:37)
[2016-12-18] MEDS: AMLODIPINE BESYLATE 5 MG TAB PO SCH (08:06)
[2016-12-18] MEDS: PANTOprazole SOD 40 MG TAB PO SCH (08:07)
[2016-12-18 10:41] LABS: INR 2.2 (0.9-1.1); PROTHROMBIN TIME (PATIENT) 24.1 SECONDS (9.0-12.0)
[2016-12-18 11:12] LABS: BUN/CREATININE RATIO 34.5 (10-20); CALCIUM 8.6 mg/dl (8.5-10.1); CREATININE 1.4 mg/dl (0.60-1.40); POTASSIUM 4.9 mmol/L (3.5-5.1)
[2016-12-18] MEDS: LEVOFLOXACIN 750 MG TAB PO SCH (11:29)
[2016-12-18] MEDS: METHYLPREDNISOLONE IV 40 MG in SYRINGE 0 ML IV SCH (17:36)
--- NOTE | 2016-12-18 18:01 | PULMONARY PROGRESS NOTE ---
DATE: 12/18/2016 TIME: 04:05. SUBJECTIVE: The patient states he feels better. He is less short of breath. There has been no hemoptysis today. He has been expectorating modest quantities of brown sputum. He ambulated in the hallway today with nurse. His saturations went as low as 83%. This was on room air. He denies any chest pains. The patient seems mentally a little sharper today than yesterday. OBJECTIVE: GENERAL: The patient appears comfortable. He is afebrile. NECK: Palpation of the neck reveals no lymph nodes. CARDIAC: Rate is 82 beats per minute. The rhythm is irregular. Blood pressure 119/66. LUNGS: Lung velazquez revealed mild wheeze on expiration. Respiratory rate at rest was 16 breaths per minute. Oxygen saturation at the time of my exam on room air was 94%. ABDOMEN: Soft and nontender. EXTREMITIES: Showed no edema. LABORATORY DATA: INR today is 2.2. Electrolytes show sodium 139, potassium 4.9, chloride 104, and bicarb 27. The BUN is 48 with a creatinine of 1.4. The QuantiFERON TB gold test is still pending. Sputum AFB x1 is negative per smear. There is another one pending. The cultures of course take weeks. Sputum Gram stain reports squamous cells indicating upper respiratory contamination. However, the patient's sputum that I see that he collected in his room is very dark and appears to be originating from the lungs. IMPRESSIONS: 1. Acute bronchitis. 2. Hemoptysis, likely secondary to #1. 3. Silicosis. 4. Atrial fibrillation. COMMENTS AND RECOMMENDATIONS: The patient seems to be improving. He may need home oxygen. Suggest two step at the time of discharge. He was just started on some methylprednisolone. It does not appear that he was on bronchodilator medications at home. He may benefit from a nebulizer at home. TEMITOPE
[2016-12-18] MEDS: ATORVASTATIN 40 MG TAB PO SCH (20:37)
[2016-12-18] MEDS: QUETIAPINE FUMARATE 25 MG TAB PO SCH (20:38)
[2016-12-18] MEDS: SIMETHICONE 80 MG CHEW PO PRN (22:32)
[2016-12-19] VITALS (7 sets, daily range): BP systolic 110–132; BP diastolic 72–84; PULSE 73–90; TEMP 36.8; O2SAT 94–98
--- NOTE | 2016-12-19 00:03 | Progress Note ---
Subjective Date of Service: Dec 18, 2016. Subjective Pt evaluation today including: conversation w/ patient, physical exam, chart review, lab review Pain: denies PO Intake: improved Voiding: no voiding problems patient reports "about 50-75% improvement" but still wheezing and still coughing I had the staff walk patient in the hallway - O2 sats dropped into the low 80s in room air; some dyspnea reported by staff Problem List Medical Problems: (1) Blood-streaked sputum Status: Acute (2) CHF (congestive heart failure) Status: Acute (3) Dizziness Status: Acute (4) Elevated troponin Status: Acute (5) Epigastric abdominal pain Status: Acute (6) Gallstones Status: Acute (7) Hx-Venous Thrombosis&Embolism Status: Chronic (8) Hypotension Status: Acute (9) Supratherapeutic INR Status: Acute Review of Systems Constitutional: No fever Cardiac: No chest pain, No orthopnea Abdomen: No constipation, No diarrhea, No nausea, No pain Objective Vital Signs Date Time Temp Pulse Resp B/P Pulse Ox O2 Delivery O2 Flow Rate FiO2 12/18/16 23:22 36.7 82 20 130/73 96 Room Air 12/18/16 20:26 82 16 95 Room Air 12/18/16 16:00 Room Air 12/18/16 15:31 82 16 95 Room Air 12/18/16 15:05 36.4 80 18 119/66 93 Room Air 12/18/16 11:39 87 16 96 Room Air 12/18/16 08:27 84 155/82 12/18/16 08:00 Room Air 12/18/16 07:30 36.7 70 20 125/78 97 Room Air 12/18/16 07:05 90 12 93 Room Air 12/18/16 00:22 36.9 96 20 97/55 92 Room Air 12/18/16 00:00 Room Air Physical Exam General Appearance: no apparent distress ENT: pharynx normal Neck: no JVD Respiratory/Chest: no respiratory distress, no accessory muscle use, + wheezing Cardiovascular: no gallop, no murmur, + irregularly irregular Abdomen: normal bowel sounds, non tender, soft, no organomegaly Extremities: no pedal edema Laboratory Results Last 24 Hours Test 12/18/16 10:18 Prothrombin Time 24.1 SECONDS Prothromb Time International Ratio 2.2 Sodium Level 139 mmol/L Potassium Level 4.9 mmol/L Chloride Level 104 mmol/L Carbon Dioxide Level 27 mmol/L Anion Gap 8.0 mmol/L Blood Urea Nitrogen 48 mg/dl Creatinine 1.40 mg/dl Est Creatinine Clear Calc Drug Dose 40.4 ml/min Estimated GFR () 51.3 Estimated GFR (Non- 44.2 BUN/Creatinine Ratio 34.5 Random Glucose 86 mg/dl Calcium Level 8.6 mg/dl Assessment and Plan 89yo male with: 1. COPD with exacerbation - ongoing. In comparison to last week's visit (Saturday) he is improved but still wheezing quite a bit and still with hypoxia with activity. Restarted IV solumedrol 40mg q12h. Hold prednisone by mouth. Cont scheduled nebs. Cont levaquin, day #6 of such. Cont pulmonary toilet. Consider Repeat chest x-ray in AM to assess for radiographic stability, r/o edema, etc. 2. acute kidney injury - repeat BMP shows improving Cr; plan to recheck Cr in am for stability/ongoing improvement. 3. a. fib on chronic coumadin - underwent elective cardioversion by Dr. Brar a few weeks ago at [facility]. NSR was restored, but at time of follow-up he was back in a. fib. He remains on amiodarone and beta randy. repeat INR am. rates controlled. 4. abdominal bloating and constipation - resolved. 5. CAD s/p CABG - noted. no ischemic symptoms at this time. 6. HTN - controlled. 7. chronic diastolic CHF - compensated. 8. h/o stroke - noted. remains on aspirin and coumadin. 9. h/o prostate cancer - noted. 10. mild thrombocytopenia with leukopenia - resolved on yesterday's CBC. PT, OT consults - notes indicate he can likely d/c back to home may need home O2 if so will need 2-step Continued [facility] stay due to: multiple IV medications needed Discharge planning: home
[2016-12-19] MEDS: METHYLPREDNISOLONE IV 40 MG in SYRINGE 0 ML IV SCH (04:34)
[2016-12-19] MEDS: ALBUT/IPRATROP 3MG/0.5MG NEB 3 ML VIAL INH SCH ×2 (07:58→11:13)
[2016-12-19] MEDS: FORMOTEROL FUMA NEBULIZER SOLN 20 MCG/2 ML VIAL INH SCH (07:58)
[2016-12-19 08:21] LABS: INR 1.7 (0.9-1.1); PROTHROMBIN TIME (PATIENT) 18.7 SECONDS (9.0-12.0)
[2016-12-19 08:41] LABS: BUN/CREATININE RATIO 33.6 (10-20); CALCIUM 8.5 mg/dl (8.5-10.1); CREATININE 1.4 mg/dl (0.60-1.40); POTASSIUM 4.9 mmol/L (3.5-5.1)
[2016-12-19] MEDS: POLYETHYLENE (MIRALAX) 17 GM PACK PO SCH ×2 (08:45→10:21)
[2016-12-19] MEDS: AMIODARONE 200 MG TAB PO SCH (08:49)
[2016-12-19] MEDS: FERROUS GLUCONATE 324 MG TAB PO SCH (08:49)
[2016-12-19] MEDS: METOPROLOL TARTRATE 25 MG TAB PO SCH (08:49)
[2016-12-19] MEDS: AMLODIPINE BESYLATE 5 MG TAB PO SCH (08:50)
[2016-12-19] MEDS: CLOPIDOGREL BISULFATE 75 MG TAB PO SCH (08:51)
[2016-12-19] MEDS: PANTOprazole SOD 40 MG TAB PO SCH (08:51)
[2016-12-19] MEDS: CYANOCOBALAMIN 500 MCG TAB (VIT B-12) PO SCH (08:52)
[2016-12-19] MEDS: LISINOPRIL 40 MG TAB PO SCH (08:53)
[2016-12-19] MEDS: SIMETHICONE 80 MG CHEW PO PRN (09:01)
[2016-12-19] MEDS: LEVOFLOXACIN 750 MG TAB PO SCH (10:32)
[2016-12-19] MEDS ORDERED: NEBMAC (12:57)
--- NOTE | 2016-12-19 13:16 | PULMONARY PROGRESS NOTE ---
DATE: 12/19/2016 TIME: 12:55 p.m. SUBJECTIVE: The patient is feeling better. He has had no hemoptysis. His cough is minimal. He is less short of breath. He did ambulate the hallway today without dropping his saturations significantly. Reportedly, the lowest was 89%. This reflected improvement over yesterday. The patient indicated he feels well enough to go home. OBJECTIVE: GENERAL: The patient is comfortable at rest. He has been afebrile. Current temperature 36.8. EARS, NOSE, THROAT: Exam is unremarkable. VITAL SIGNS: Heart rate is 86 per minute. The rhythm is irregular. Blood pressure earlier today was 132/84. Respiratory rate is 16 breaths per minute. CHEST: Auscultation revealed a faint wheeze and rhonchi at end expiration. Oxygen saturation on room air was 97%. EXTREMITIES: Showed no edema. LABORATORY DATA: INR today is 1.7. Electrolytes are normal. The BUN is elevated at 47 with a creatinine of 1.4. Blood sugar today was 114. TB gold test is still pending. IMPRESSIONS: 1. Hemoptysis - resolved. 2. Acute bronchitis. 3. Silicosis by history. 4. Atrial fibrillation. 5. Renal insufficiency. COMMENTS AND RECOMMENDATIONS: The case was discussed with Dr. Hennessy twice today. We both concur the patient appears to be acceptable for discharge. He will need some prednisone in a decreasing fashion upon discharge. We are also suggesting a nebulizer for treatments at home. He can follow up with his primary doctor as well as Dr. Dang if need be.
[2016-12-19] MEDS ORDERED: LVQ750 PO (14:44)
[2016-12-19] MEDS ORDERED: PRED10TA PO (14:44)
[2016-12-19] MEDS ORDERED: IPRASOL4 INH (14:44)
[2016-12-19] MEDS ORDERED: MRLP17 PO (14:44)
[2016-12-19] MEDS ORDERED: LSN40 PO (14:44)
--- NOTE | 2016-12-19 14:52 | Discharge Instructions ---
Discharge Instructions Date of Service Dec 19, 2016. Admission Reason for Admission: Pneumonia Discharge Discharge Diagnosis / Problem: Bilateral pneumonia - improved. Discharge Goals Goal(s): Learn about illness, Diagnostic testing, Therapeutic intervention Activity Recommendations Activity Limitations: as noted below For the next 4-5 days you are going to want to "take it easy." Going for light walks is fine but avoid heavy, exertional activity at home (working in the yard , moving heavy objects, etc) until you have your follow-up appointments next week. . Instructions / Follow-Up Instructions / Follow-Up From Dr. Hennessy: 1. Pneumonia - * please take 1 more dose of levaquin (levofloxacin) on , 12/20/16 - then stop. * may purchase rilr-hha-ibtxccj mucinex and may take up to 1200mg twice a day for cough 2. For wheezing/bronchitis - * a prescription for a nebulizer machine has been sent to [facility] in [place] * the medication that goes into the nebulizer machine - "duonebs" (albuterol- ipratropium) has been sent to the [facility] for you * recommend using the duonebs in the neb machine SCHEDULED every 6 hours at least for the next 7 days then after that may use as needed for cough, wheezing , shortness of breath * prednisone course - take a "tapering" prednisone course starting TOMORROW on , 12/20/16 * you will start with 5 tablets daily and gradually taper down over the course of 1-2 weeks * take the prednisone with food 3. Coumadin (warfarin) - * please take 7.5mg of coumadin TODAY only * then resume 5mg of coumadin daily on , 12/20/16 * please have your INR rechecked by your coumadin provider on Saturday of this coming week (go to the [facility] as previous) * IF YOU SEE ONGOING BLOOD IN YOUR SPIT PLEASE STOP THE COUMADIN AND CONTACT YOUR LUNG DOCTORS IN [place] 4. Atrial fibrillation - * you have been in a. fib the entire hospital stay * I confirmed with Dr. Brra to STOP YOUR AMIODARONE * however, continue on metoprolol 25mg twice daily 5. While on prednisone it can sometimes cause fluid retention. Please check your weight DAILY and watch for fluid build-up in your legs, etc. If you notice ANY WEIGHT GAIN of more than 2-3 pounds in 1-[address] Brar or your family doctor right away. 6. Return to [facility] with any fever over 100.5 degrees, worsening shortness of breath/cough, blood in your spit, etc. 7. Follow-up appointments - see dedicated appointment section for details. 8. Gastrointestinal issues - * take yxip-jix-opyfift miralax once-twice daily for constipation * take omeprazole 40mg once every AM for suspected reflux/gas/burping * may follow-up with Dr. Joshi in [place] as desired for any ongoing GI issues Current Hospital Diet Patient's current hospital diet: Low Sodium Diet (2gm Na) Discharge Diet Recommended Diet: AHA Diet (Heart Healthy) Procedures Procedures Performed: chest x-ray -- bilateral pneumonia Pending Studies Studies pending at discharge: no Medical Emergencies . Who to Call and When: Medical Emergencies: If at any time you feel your situation is an emergency, please call 911 immediately. . Non-Emergent Contact Non-Emergency issues call your: Primary Care Provider Call Non-Emergent contact if: temperature is above 100.5, you have any medication questions . . "Provider Documentation" section prepared by Zohaib Hennessy. VTE Core Measure Inpt VTE Proph given/why not?: Warfarin (Coumadin), T.EMira Stockings, SCD's
[2016-12-19] MEDS ORDERED: OMEP40CA41 PO (15:21)
[2016-12-20 12:22] LABS: QUANTIFERON NIL 0.03 IU/ML
--- NOTE | 2016-12-27 00:16 | Discharge Summary ---
Discharge Summary Date of Service Dec 26, 2016. Discharge Summary Admission Date: Dec 13, 2016 at 14:15 Discharge Date: Dec 19, 2016 Discharge Disposition: Home with services Principal Diagnosis: acute bronchitis Problems/Secondary Diagnoses: 1. bilateral pneumonia 2. chronic diastolic CHF 3. CAD 4. h/o stroke 5. GERD 6. hypertension 7. hyperlipidemia 8. paroxysmal A. fib 9. neuropathy 10. 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 mild thrombocytopenia & leukopenia - both resolved 14. constipation - resolved Immunizations: Have You Had Influenza Vaccine: N/A Influenza Vaccine Date: Aug 18, 2007 History of Tetanus Vaccine?: Yes History of Pneumococcal: Yes Pneumococcal Date: Aug 18, 2007 History of Hepatitis B Vaccine: No Consultations: pulmonary - Lio Becker, DO Medication Reconciliation New Medications: Nebulizer Machine (Home Use) (Nebulizer Machine (Home Use) ) Mis 1 EA N/A UD for Wheezing, #1 diagnosis - pneumonia, silicosis, COPD Omeprazole (Prilosec) 40 Mg Cap 40 MG PO qam for reflux/gas for 30 Days, #30 CAP 2 Refills Ipratropium-Albuterol (Duoneb) 3 Ml Nebu 3 ML INH QID, #1 BOX 2 Refills Levofloxacin (Levofloxacin) 750 Mg Tab 750 MG PO once on 12/20/16 for 1 Day, #1 TAB 0 Refills Polyethylene (Miralax) 17 Gm Pow 17 GM PO qd-bid, #1 BTL 2 Refills Prednisone Tab (Prednisone) 10 Mg Tab 10 MG PO DIRECTED, #40 TAB 0 Refills start 12/20/16: 5 tabs QD x 3 days, 4 tabs QD x 3 days, 3 tabs QD x 2 days, 2 tabs QD x 2 days, 1 tab QD x 2 days. Changed Medications: Lisinopril (Lisinopril) 40 Mg Tab 20 MG PO QAM, #90 1 Refill (Changed from: 40 MG; Refills: ) Continued Medications: Acetaminophen (Tylenol) 325 Mg Tab 975 MG PO Q8 PRN for Pain or Fever, TAB Amlodipine Besylate (Amlodipine Besylate) 5 Mg Tab 5 MG PO QAM, #90 Atorvastatin (Lipitor) 40 Mg Tab 40 MG PO HS, TAB Clopidogrel (Plavix) 75 Mg Tab 75 MG PO DAILY, TAB Cyanocobalamin (Vitamin B-12) 1,000 Mcg Tab 1000 MCG PO DAILY, TAB Ferrous Gluconate (Ferrous Gluconate) 324 Mg Tab 324 MG PO BID, TAB Metoprolol Tartrate (Lopressor) (Lopressor) 25 Mg Tab 25 MG PO BID, TAB Nitroglycerin (Nitrostat) 0.4 Mg Tab 0.4 MG UT PRN, 0 Refills Pantoprazole (Protonix) 40 Mg Tab 40 MG PO QAM, #30 TAB Warfarin Sod (Jantoven) 5 Mg Tab 5 MG PO DAILY, TAB Discontinued Medications: Amiodarone Hcl (Cordarone) 200 Mg Tab 200 MG PO DAILY, TAB Discharge Exam Physical Exam: General Appearance: no apparent distress ENT: pharynx normal Neck: no JVD Respiratory/Chest: no respiratory distress, no accessory muscle use, + wheezing (end-exp) Cardiovascular: regular rate, rhythm, no gallop, no murmur, normal peripheral pulses Abdomen / GI: normal bowel sounds, non tender, soft, no organomegaly Extremities: no pedal edema Neurologic/Psychiatric: alert, oriented x 3 Hospital Course HISTORY OF PRESENT ILLNESS: This is an 89yo male with a history of chronic diastolic CHF, CAD, stroke, GERD , hypertension, hyperlipidemia, paroxysmal A. fib, neuropathy, prostate cancer, and silicosis who presented for a direct admission on 12/13/16 with shortness of breath, wheezing and productive cough. The patient had presented to the ED on 12/08/16 and was diagnosed with bronchitis. He was given a Z-Luis Felipe and Hycodan syrup as well as an albuterol inhaler for home. The patient finished his antibiotic course and states that he has continued to feel worse. He has been using the albuterol inhaler every 4 hours without any relief of his symptoms. He complains of shortness of breath, orthopnea, wheezing, and productive cough with occasional blood tinged sputum. The patient states that he's been coughing for 1-2 weeks nonstop despite taking Hycodan syrup. The patient is also on Plavix and warfarin. He denies dyspnea on exertion. The patient also complains of weakness and fatigue and notes that the other night he woke up very sweaty. He has had some intermittent nausea, but he states he has not vomited. The patient denies fevers, chills, chest pain, palpitations, claudication, vomiting, abdominal pain, dysuria, hematuria, urinary retention, paralysis, weakness, numbness and tingling. HOSPITAL COURSE: The patient's acute bronchitis & pneumonia were treated with IV/PO antibiotics, steroids, and nebulizer treatments. He was seen in consult by [facility] throughout his stay. He made gradual improvement in all pulmonary symptoms. The small amount of hemoptysis he had had resolved. All sputum cultures including those for AFB remained negative. He will discharge home on a steroid taper, additional antibiotics, and was given prescriptions for a nebulizer machine & duonebs. He will NOT require NC O2 at discharge. Follow-up with the pulmonary division was advised for within 1 week. All medical problems remained stable while here. He suffered a mild acute kidney injury with peak Cr of 1.5, improving to 1.4 prior to discharge. CHF remained compensated. PT/OT were consulted and both felt he could return home with his . INR on day of discharge was 1.7. He was counseled to resume his coumadin per his previous doing schedule. However, if he were to see any additional hemoptysis, he was instructed to discontinue the coumadin right away. Lastly, for his GI issues, the following were recommended - * miralax daily for constipation * omeprazole daily for any DAYANA symptoms Total Time Spent: Greater than 30 minutes This includes examination of the patient, discharge planning, medication reconciliation, and communication with other providers. Discharge Instructions Please refer to the electronic Patient Visit Report (Discharge Instructions) for additional information. Follow-Up 1. Dr. Rm on SaturdayDecember 24 at 11:00 am. 2. [facility] Office - SaturdayDecember 28 at 1:00pm with Pushpa Pimentel PA-C. Additional Copies To Lio Becker DO; Kiah Rm DO; Pushpa Pimentel PA-C; Hubert Brar M.D.
[2017-06-01] MEDS ORDERED: FLVHFA220 INH (16:08)
[2017-06-01] MEDS ORDERED: LPR25 PO (16:08)
== END 2016-12-19 15:50 | disposition home health service (06) | DRG 193 ==
LOC: C.MS2W 14:15
PROVIDERS: ADMIT Hospitalist; ATTEND Internal Medicine
DX: J18.9 Pneumonia, unspecified organism (principal); I50.32 Chronic diastolic (congestive) heart failure; J96.20 Acute and chronic respiratory failure, unspecified whether with hypoxia or hypercapnia; C49.A0 Gastrointestinal stromal tumor, unspecified site; J44.1 Chronic obstructive pulmonary disease with (acute) exacerbation; N17.9 Acute kidney failure, unspecified; J44.0 Chronic obstructive pulmonary disease with (acute) lower respiratory infection; J90 Pleural effusion, not elsewhere classified; J20.9 Acute bronchitis, unspecified; J62.8 Pneumoconiosis due to other dust containing silica; I25.10 Atherosclerotic heart disease of native coronary artery without angina pectoris; Z86.73 Personal history of transient ischemic attack (TIA), and cerebral infarction without residual deficits; D69.6 Thrombocytopenia, unspecified; I48.0 Paroxysmal atrial fibrillation; E78.5 Hyperlipidemia, unspecified; G62.9 Polyneuropathy, unspecified; K21.9 Gastro-esophageal reflux disease without esophagitis; Z85.46 Personal history of malignant neoplasm of prostate; Z79.01 Long term (current) use of anticoagulants; Z95.1 Presence of aortocoronary bypass graft; Z86.718 Personal history of other venous thrombosis and embolism; Z86.711 Personal history of pulmonary embolism; Z86.11 Personal history of tuberculosis

== ENCOUNTER → 2016-12-13 | Outpatient (CLI) | payer MEDICARE ==
[~2016-12-13] MED LIST changes: +ACET-1256 PO; +AMIO200T4 PO; +AZITTAB PO; -CMD75 PO; -CRD200 PO; +DOXA2TAB PO; +FERR325T49 PO; +FLVHFA220 INH; +HYDR5SYP11 PO; +IPRASOL4 INH; +LANS30CA12 PO; +LANS30TA3 PO; +LEVO50TA6 PO; +LISI-725 PO; +LVQ750 PO; -MCRK20 PO; +METO25TA56 PO; -MGNO400 PO; +MRLP17 PO; -MRLP17X PO; -MYL80 PO; +NEBMAC; +OMEP40CA41 PO; +POTA10TA PO; +PRED10TA PO; +SPIRIVA 18MCG INH; +WARF7.5T4 PO
--- NOTE | 2016-12-13 13:12 | DIAGNOSTIC IMAGING REPORT ---
CHEST 2 VIEWS ROUTINE CLINICAL HISTORY: Pneumonia COMPARISON STUDY: 12/08/2016 FINDINGS: There are postsurgical changes of a midline sternotomy. There are increasing left lung interstitial opacities. There is a small right pleural effusion. There is mild right lower lobe bronchial wall thickening. IMPRESSION: 1. Small right pleural effusion 2. Slight increase in the nonspecific left lung interstitial opacities Electronically signed by: Vikram Roldan M.D. 12/13/2016 1:11 PM Dictated Date/Time: 12/13/2016 1:10 PM
== END | disposition home or self-care (01) ==
LOC: C.RAD1850 12:39
PROVIDERS: ATTEND Physician Assistant Medical
DX: J18.9 Pneumonia, unspecified organism (principal); J90 Pleural effusion, not elsewhere classified

== ENCOUNTER → 2017-01-11 | Outpatient (CLI) | payer MEDICARE, OTHER ==
[~2017-01-11] MED LIST changes: +ACET-1256 PO; -AMIO200T4 PO; -AZITTAB PO; +DOXA2TAB PO; +FERR325T49 PO; +FLVHFA220 INH; +FURO-85 PO; -HYDR5SYP11 PO; +IPRASOL4 INH; +LANS30CA12 PO; +LANS30TA3 PO; +LEVO50TA6 PO; +LISI-725 PO; +LPR25 PO; +LVQ750 PO; +METO25TA56 PO; +MRLP17 PO; +OMEP40CA41 PO; +POTA10TA PO; +PRED10TA PO; +SPIRIVA 18MCG INH; +WARF7.5T4 PO
--- NOTE | 2017-01-11 12:16 | DIAGNOSTIC IMAGING REPORT ---
TWO VIEW CHEST CLINICAL HISTORY: Dyspnea. FINDINGS: PA and lateral chest radiographs are compared to study dated 12/15/2016 and correlated with chest CT dated 12/02/2013. The PA view is degraded by patient rotation and apical lordotic positioning. The patient is status post midline sternotomy. The heart is enlarged and there is atherosclerotic calcification of the thoracic aorta. The pulmonary vasculature is noncongested. There are low lung volumes with chronic elevation of the left hemidiaphragm. There are small pleural effusions. Bibasilar airspace opacities are unchanged from yesterday. Chronic interstitial thickening is again noted. There is no pneumothorax. The skeletal structures are osteopenic. The bony thorax is grossly intact. Degenerative changes are present throughout the thoracic spine. IMPRESSION: 1. Cardiomegaly without radiographic evidence of congestive failure. 2. Small pleural effusions and bibasilar airspace opacities are similar to 12/15/2016. Electronically signed by: Elijah Mo M.D. 01/11/2017 12:13 PM Dictated Date/Time: 01/11/2017 12:12 PM
[2017-01-11 13:23] LABS: BASO % 0.3 %; BASO ABS # 0.01 K/uL (0-0.2); COMPLETE YES; EOS % 1.6 %; HEMATOCRIT 36.9 % (42-52); LYMPH % 19.1 %; LYMPH ABS # 0.72 K/uL (1.2-3.4); MEAN CELL VOLUME 92.3 fL (80-100); MEAN CORPUSCULAR HGB CONC 30.4 g/dl (32-36); MEAN PLATELET VOLUME 10.8 fL (7.4-10.4); MONO % 16.4 %; NEUT % 62.6 %; PLATELET COUNT 182 K/uL (130-400); WHITE BLOOD COUNT 3.77 K/uL (4.8-10.8)
[2017-01-11 13:35] LABS: INR 2.8 (0.9-1.1); PROTHROMBIN TIME (PATIENT) 30.7 SECONDS (9.0-12.0)
[2017-01-11 13:42] LABS: ALT/SGPT 32 U/L (12-78); AST/SGOT 21 U/L (15-37); BLOOD UREA NITROGEN 20 mg/dl (7-18); BUN/CREATININE RATIO 15.7 (10-20); CALCIUM 8.3 mg/dl (8.5-10.1); CARBON DIOXIDE 28 mmol/L (21-32); CHLORIDE 110 mmol/L (98-107); GLUCOSE 110 mg/dl (70-99); SODIUM 143 mmol/L (136-145)
[2017-01-11 13:53] LABS: ALKALINE PHOSPHATASE 80 U/L (45-117)
== END | disposition home or self-care (01) ==
LOC: C.RAD1850 11:32
PROVIDERS: ATTEND Physician Assistant Medical
DX: R06.02 Shortness of breath (principal); I25.10 Atherosclerotic heart disease of native coronary artery without angina pectoris; E78.5 Hyperlipidemia, unspecified; I10 Essential (primary) hypertension; I48.0 Paroxysmal atrial fibrillation; R60.9 Edema, unspecified; I50.32 Chronic diastolic (congestive) heart failure; J90 Pleural effusion, not elsewhere classified; I51.7 Cardiomegaly

== ENCOUNTER → 2017-02-13 | Outpatient (CLI) | payer MEDICARE ==
[2017-02-13 11:16] LABS: BLOOD UREA NITROGEN 19 mg/dl (7-18); BUN/CREATININE RATIO 16.1 (10-20); CARBON DIOXIDE 26 mmol/L (21-32); CHLORIDE 110 mmol/L (98-107); GLUCOSE 93 mg/dl (70-99); POTASSIUM 3.8 mmol/L (3.5-5.1); SODIUM 143 mmol/L (136-145)
[2017-02-13 11:24] LABS: ALB/GLOB RATIO 0.9 (0.9-2); ALKALINE PHOSPHATASE 83 U/L (45-117); ALT/SGPT 17 U/L (12-78); AST/SGOT 18 U/L (15-37)
[2017-02-13 11:33] LABS: CALCIUM 8.6 mg/dl (8.5-10.1)
== END | disposition home or self-care (01) ==
LOC: C.LAB1850 09:59
PROVIDERS: ATTEND Nurse Practitioner Family
DX: R60.9 Edema, unspecified (principal); I50.32 Chronic diastolic (congestive) heart failure

== ENCOUNTER → 2017-03-06 | Outpatient (CLI) | payer MEDICARE ==
[2017-03-06 13:02] LABS: BLOOD UREA NITROGEN 34 mg/dl (7-18); BUN/CREATININE RATIO 20.1 (10-20); CALCIUM 8.5 mg/dl (8.5-10.1); CARBON DIOXIDE 25 mmol/L (21-32); CHLORIDE 107 mmol/L (98-107); GLUCOSE 104 mg/dl (70-99); MAGNESIUM 2.5 mg/dl (1.8-2.4); POTASSIUM 3.6 mmol/L (3.5-5.1); SODIUM 144 mmol/L (136-145)
== END | disposition home or self-care (01) ==
LOC: C.LAB1850 11:21
PROVIDERS: ATTEND Physician Assistant Medical
DX: I50.33 Acute on chronic diastolic (congestive) heart failure (principal)

== ENCOUNTER 2017-05-30 02:40 | Inpatient (IN) | payer MEDICARE, OTHER ==
[2017-05-30] VITALS (19 sets, daily range): BP systolic 100–167; BP diastolic 59–102; PULSE 65–113; TEMP 36.4–36.7; O2SAT 91–99; Ht 175.3 cm; Wt 83.8 kg
[~2017-05-30] VITALS: Ht 175.3 cm; Wt 83.8 kg
[~2017-05-30 02:40] MED LIST changes: -ACET-1256 PO; -DOXA2TAB PO; -FERR325T49 PO; -FLVHFA220 INH; -FURO-85 PO; -LANS30CA12 PO; -LANS30TA3 PO; -LEVO50TA6 PO; -LISI-725 PO; -LPR25 PO; -POTA10TA PO; -SPIRIVA 18MCG INH; -WARF7.5T4 PO
[2017-05-30 03:03] LABS: BASO % 0.2 %; BASO ABS # 0.01 K/uL (0-0.2); COMPLETE YES; EOS % 3.5 %; HEMATOCRIT 34.4 % (42-52); IG% 0.2 %; LYMPH % 25.9 %; LYMPH ABS # 1.24 K/uL (1.2-3.4); MEAN CELL VOLUME 90.1 fL (80-100); MEAN CORPUSCULAR HEMOGLOBIN 28.8 pg (25-34); MEAN PLATELET VOLUME 11.7 fL (7.4-10.4); MONO % 14.8 %; NEUT % 55.4 %; PLATELET COUNT 112 K/uL (130-400); RED BLOOD COUNT 3.82 M/uL (4.7-6.1); WHITE BLOOD COUNT 4.79 K/uL (4.8-10.8)
[2017-05-30] MEDS ORDERED: DOXA2TAB PO (03:09)
[2017-05-30] MEDS ORDERED: FERR325T49 PO (03:11)
[2017-05-30] MEDS ORDERED: ASPIRIN 81 MG CHEW PO STA (03:12)
[2017-05-30] MEDS ORDERED: FUROSEMIDE INJ 40 MG in SYRINGE 0 ML IV STA (03:12)
[2017-05-30] MEDS ORDERED: IPRASOL4 INH (03:12)
[2017-05-30] MEDS ORDERED: LANS30CA12 PO (03:13)
[2017-05-30] MEDS ORDERED: LANS30TA3 PO (03:16)
[2017-05-30 03:17] LABS: INR 3.3 (0.9-1.1); PROTHROMBIN TIME (PATIENT) 37.5 SECONDS (9.0-12.0)
[2017-05-30] MEDS ORDERED: LEVO50TA6 PO (03:17)
[2017-05-30] MEDS ORDERED: LISI-725 PO (03:19)
[2017-05-30] MEDS ORDERED: FUROSEMIDE 40 MG/4 ML VIAL ONE (03:19)
[2017-05-30] MEDS ORDERED: POTA10TA PO (03:21)
[2017-05-30] MEDS ORDERED: ACET-1256 PO (03:22)
[2017-05-30 03:23] LABS: BUN/CREATININE RATIO 22.9 (10-20); CALCIUM 8.7 mg/dl (8.5-10.1); CREATININE 1.1 mg/dl (0.60-1.40); POTASSIUM 4.5 mmol/L (3.5-5.1)
[2017-05-30] MEDS ORDERED: SPIRIVA 18MCG INH (03:24)
[2017-05-30] MEDS ORDERED: FURO-85 PO (03:25)
[2017-05-30 03:28] LABS: ALB/GLOB RATIO 0.8 (0.9-2)
[2017-05-30] MEDS ORDERED: WARF7.5T4 PO (03:28)
--- NOTE | 2017-05-30 03:46 | EMERGENCY ROOM VISIT NOTE ---
History Report prepared by Dereck: Nico Denise Under the Supervision of: Dr. Giorgi Garcia D.O. First contact with patient: 02:41 Chief Complaint: RESPIRATORY DISTRESS Stated Complaint: SHORTNESS OF BREATH History of Present Illness The patient is a 89 year old male who presents to the Emergency Room by EMS with complaints of worsening shortness of breath beginning several years ago. The patient states that his breathing worsened today. He has a history of pneumonia. He has no history of CHF. The patient also complains of leg swelling. He is on 20 mg Lasix once daily, and states that he has been compliant with his medications. Nothing has improved his symptoms. Source of History: patient Onset: A few years ago Quality: other (shortness of breath) Timing: worsening Modifying Factors (Relieving): other (none) Note: Additional symptoms: Leg swelling. Review of Systems See HPI for pertinent positives and negatives. A total of ten systems were reviewed and were otherwise negative. 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 (8) Shortness of breath Family History Coronary artery disease FH: cancer FH: heart disease FH: hypertension Myocardial infarction Social History Smoking Status: Unknown if Ever Smoked Alcohol Use: none Drug Use: none Marital Status: Housing Status: lives alone Occupation Status: retired Current/Historical Medications Scheduled Acetaminophen (Tylenol), 1,000 MG PO Q8 Atorvastatin (Lipitor), 40 MG PO HS Clopidogrel (Plavix), 75 MG PO DAILY Cyanocobalamin (Vitamin B-12), 1,000 MCG PO DAILY Doxazosin Mesylate (Cardura), 1 MG PO HS Ferrous Gluconate (Fe Gluconate), 325 MG PO BID Furosemide (Lasix), 20 MG PO DAILY Lansoprazole (Prevacid Solutab), 30 MG PO QAM Levothyroxine Sodium (Levothyroxine Sodium), 50 MCG PO QAM Lisinopril (Zestril), 10 MG PO DAILY Metoprolol Tartrate (Lopressor) (Lopressor), 25 MG PO BID Nitroglycerin (Nitrostat), 0.4 MG UT PRN Potassium Chloride (K-Tabs), 10 MEQ PO DAILY Warfarin Sod (Jantoven), 5 MG PO 4XWK Warfarin Sod (Jantoven), 7.5 MG PO 3XWK [Spiriva 18MCG], 1 PUFF INH DAILY Scheduled PRN Ipratropium-Albuterol (Duoneb), 3 ML INH Q4H PRN for SOB/Wheezing Allergies Coded Allergies: No Known Allergies (Verified , 12/08/16) Physical Exam Vital Signs Date Time Temp Pulse Resp B/P (MAP) Pulse Ox O2 Delivery O2 Flow Rate FiO2 05/30/17 03:05 Nasal Cannula 2.0 05/30/17 02:58 36.4 91 19 143/96 95 Room Air 05/30/17 02:55 87 Physical Exam GENERAL: Awake, alert, well-appearing, in no distress HENT: Normocephalic, atraumatic. Oropharynx unremarkable. EYES: Normal conjunctiva. Sclera non-icteric. NECK: Supple. No nuchal rigidity. FROM. No JVD. RESPIRATORY: Clear to auscultation. CARDIAC: Regular rate, normal rhythm. Extremities warm and well perfused. Pulses equal. ABDOMEN: Soft, non-distended. No tenderness to palpation. No rebound or guarding. No masses. RECTAL: Deferred. MUSCULOSKELETAL: Chest examination reveals no tenderness. The back is symmetrical on inspection without obvious abnormality. There is no CVA tenderness to palpation. No joint edema. LOWER EXTREMITIES: Calves are equal size bilaterally and non-tender. Bilateral lower extremity pitting edema. No discoloration. NEURO: Normal sensorium. No sensory or motor deficits noted. SKIN: No rash or jaundice noted. Medical Decision & Procedures ER Provider Diagnostic Interpretation: One View Chest X-ray interpreted by me: mild CHF. Normal mediastinum. No pneumothorax. Laboratory Results 05/30/17 02:05 Red Blood Count 3.82, Mean Corpuscular Volume 90.1, Mean Corpuscular Hemoglobin 28.8, Mean Corpuscular Hemoglobin Concent 32.0, Mean Platelet Volume 11.7, Neutrophils (%) (Auto) 55.4, Lymphocytes (%) (Auto) 25.9, Monocytes (%) (Auto) 14.8, Eosinophils (%) (Auto) 3.5, Basophils (%) (Auto) 0.2, Neutrophils # (Auto ) 2.65, Lymphocytes # (Auto) 1.24, Monocytes # (Auto) 0.71, Eosinophils # (Auto ) 0.17, Basophils # (Auto) 0.01 05/30/17 02:05 Test 05/30/17 02:05 05/30/17 02:43 05/30/17 02:54 White Blood Count 4.79 K/uL (4.8-10.8) Red Blood Count 3.82 M/uL (4.7-6.1) Hemoglobin 11.0 g/dL (14.0-18.0) Hematocrit 34.4 % (42-52) Mean Corpuscular Volume 90.1 fL (80-100) Mean Corpuscular Hemoglobin 28.8 pg (25-34) Mean Corpuscular Hemoglobin Concent 32.0 g/dl (32-36) Platelet Count 112 K/uL (130-400) Mean Platelet Volume 11.7 fL (7.4-10.4) Neutrophils (%) (Auto) 55.4 % Lymphocytes (%) (Auto) 25.9 % Monocytes (%) (Auto) 14.8 % Eosinophils (%) (Auto) 3.5 % Basophils (%) (Auto) 0.2 % Neutrophils # (Auto) 2.65 K/uL (1.4-6.5) Lymphocytes # (Auto) 1.24 K/uL (1.2-3.4) Monocytes # (Auto) 0.71 K/uL (0.11-0.59) Eosinophils # (Auto) 0.17 K/uL (0-0.5) Basophils # (Auto) 0.01 K/uL (0-0.2) RDW Standard Deviation 54.8 fL (36.4-46.3) RDW Coefficient of Variation 16.5 % (11.5-14.5) Immature Granulocyte % (Auto) 0.2 % Immature Granulocyte # (Auto) 0.01 K/uL (0.00-0.02) Prothrombin Time 37.5 SECONDS (9.0-12.0) Prothromb Time International Ratio 3.3 (0.9-1.1) Anion Gap 5.0 mmol/L (3-11) Est Creatinine Clear Calc Drug Dose 51.4 ml/min Estimated GFR () 68.6 Estimated GFR (Non- 59.2 BUN/Creatinine Ratio 22.9 (10-20) Calcium Level 8.7 mg/dl (8.5-10.1) Total Bilirubin 0.6 mg/dl (0.2-1) Aspartate Amino Transf (AST/SGOT) 21 U/L (15-37) Alanine Aminotransferase (ALT/SGPT) 17 U/L (12-78) Alkaline Phosphatase 106 U/L (45-117) Pro-B-Type Natriuretic Peptide 7769 pg/ml (0-1800) Total Protein 6.8 gm/dl (6.4-8.2) Albumin 3.1 gm/dl (3.4-5.0) Globulin 3.7 gm/dl (2.5-4.0) Albumin/Globulin Ratio 0.8 (0.9-2) Bedside Troponin I 0.120 ng/ml (0-0.045) Laboratory results reviewed by me Medications Administered Medications (Trade) Dose Ordered Sig/Zainab Route Start Time Stop Time Status Last Admin Dose Admin Aspirin (Aspirin Chew) 324 mg NOW STAT PO 05/30/17 03:12 05/30/17 03:13 DC 05/30/17 03:23 324 MG Furosemide (Lasix Inj) 40 mg STK-MED ONCE .ROUTE 05/30/17 03:19 05/30/17 03:20 DC 05/30/17 03:22 40 MG ECG Indication: SOB/dyspnea Rate (beats per minute): 94 Rhythm: atrial fibrillation Findings: other (LAD. No obvious ST segment elevation or depression. Age indeterminate inferior wall MO. ) ED Course 0247: The patient was evaluated in room A2. A complete history and physical exam was performed. 0312: Ordered Furosemide 40 mg/Syringe 4 mL @ 4 mL/min IV, Aspirin Chew 324 mg PO. 0319: Ordered Lasix Inj 40 mg IV. 0350: Upon reexamination, the patient was resting comfortably. I discussed the test results and treatment plan with him. The patient will be evaluated for further management. Medical Decision Differential diagnosis: Etiologies such as cardiac ischemia, aortic dissection, pulmonary embolism, pneumonia, pneumothorax, musculoskeletal, infections, pericarditis, myocarditis , esophageal rupture, gastrointestinal, as well as others were entertained. Patient was treated for CHF as well as elevated troponin. The case was discussed with the hospitalist. Patient was given aspirin as well as IV Lasix. Patient remained in stable condition and was hemodynamically stable throughout emergency department evaluation Medication Reconcilliation Current Medication List: was personally reviewed by me Blood Pressure Screening Patient's blood pressure: Elevated blood pressure Blood pressure disposition: Elevated BP felt to be situational Consults Time Called: [phone] Consulting Physician: Dr. Rhiannon BENNETT Returned Call: [phone] Discussed the patient's case. The patient will be evaluated for further treatment and disposition. Impression Primary Impression: CHF (congestive heart failure) Additional Impression: NSTEMI (non-ST elevated myocardial infarction) Scribe Attestation The scribe's documentation has been prepared under my direction and personally reviewed by me in its entirety. I confirm that the note above accurately reflects all work, treatment, procedures, and medical decision making performed by me. Departure Information Dispostion Being Evaluated By Hospitalist Referrals Simón Odonnell III, CRNP (PCP) Patient Instructions Asthma - [facility], COPD - [facility], Croup - [facility], [facility] Problem Qualifiers
[2017-05-30 04:14] LABS: MANUAL MICROSCOPIC REQUIRED? NO; REVIEW REQ? NO; URINE APPEARANCE CLEAR (CLEAR); URINE BILIRUBIN NEG (NEG); URINE COLOR YELLOW; URINE EPITHELIAL CELL AUTO 0-5 /lpf (0-5); URINE NITRITE NEG (NEG); URINE SPECIFIC GRAVITY 1.016 (1.000-1.030); UROBILINOGEN NEG (NEG)
[2017-05-30] MEDS ORDERED: NITROGLYCERIN 0.4 MG SL PER TAB CHARGE UT SCH (04:45)
[2017-05-30] MEDS ORDERED: POLYETHYLENE (MIRALAX) 17 GM PACK PO PRN (04:45)
[2017-05-30] MEDS ORDERED: ONDANSETRON INJ 2 MG/ML 2 ML VIAL IV PRN (04:45)
[2017-05-30] MEDS ORDERED: NITROGLYCERIN 0.4 MG SL PER TAB CHARGE SL PRN (04:45)
[2017-05-30] MEDS ORDERED: ALBUT/IPRATROP 3MG/0.5MG NEB 3 ML VIAL INH PRN (04:45)
[2017-05-30] MEDS ORDERED: ACETAMINOPHEN 325 MG TAB PO PRN (04:45)
--- NOTE | 2017-05-30 05:31 | History and Physical ---
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 The patient stated that he had been waking up from sleep with difficulty breathing but denied any chest pain, palpitations, dizziness. Denies any fevers or chills. He has chronic cough has not changed recently. Shortness of breath is worse on exertion and has orthopnea and paroxysmal nocturnal dyspnea. 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 (4) Heart disease Status: Chronic (5) Hx-Venous Thrombosis&Embolism Status: Chronic (6) Perforation of intestine Status: Resolved Family History Coronary artery disease FH: cancer FH: heart disease FH: hypertension Myocardial infarction Social History Smoking Status: Unknown if Ever Smoked Smokeless Tobacco Use: No Alcohol Use: none Drug Use: none Marital Status: Housing status: lives with significant other Occupational Status: retired Immunizations History of Influenza Vaccine: N/A Influenza Vaccine Date: Aug 18, 2007 History of Tetanus Vaccine?: Yes History of Pneumococcal: Yes Pneumococcal Date: Aug 18, 2007 History of Hepatitis B Vaccine: No Multi-Drug Resistant Organisms History of MDRO: No Allergies Coded Allergies: No Known Allergies (Verified , 12/08/16) Home Medications Scheduled Acetaminophen (Tylenol), 1,000 MG PO Q8 Atorvastatin (Lipitor), 40 MG PO HS Clopidogrel (Plavix), 75 MG PO DAILY Cyanocobalamin (Vitamin B-12), 1,000 MCG PO DAILY Doxazosin Mesylate (Cardura), 1 MG PO HS Ferrous Gluconate (Fe Gluconate), 325 MG PO BID Furosemide (Lasix), 20 MG PO DAILY Lansoprazole (Prevacid Solutab), 30 MG PO QAM Levothyroxine Sodium (Levothyroxine Sodium), 50 MCG PO QAM Lisinopril (Zestril), 10 MG PO DAILY Metoprolol Tartrate (Lopressor) (Lopressor), 25 MG PO BID Nitroglycerin (Nitrostat), 0.4 MG UT PRN Potassium Chloride (K-Tabs), 10 MEQ PO DAILY Warfarin Sod (Jantoven), 5 MG PO 4XWK Warfarin Sod (Jantoven), 7.5 MG PO 3XWK [Spiriva 18MCG], 1 PUFF INH DAILY Scheduled PRN Ipratropium-Albuterol (Duoneb), 3 ML INH Q4H PRN for SOB/Wheezing Review of Systems Constitutional: No fever, No chills Eyes: No worsening of vision ENT: No hearing loss Respiratory: + cough (chronic), + shortness of breath, + dyspnea on exertion, + dyspnea at rest Cardiovascular: + orthopnea, + PND, No chest pain, No palpitations Abdomen: No pain, No nausea, No vomiting Musculoskeletal: No joint pain Genitourinary - Male: No hematuria, No dysuria Neurologic: No memory loss, No paralysis Psychiatric: No depression symptoms Endocrine: No fatigue Hematologic / Lymphatic: No abnormal bleeding/bruising Integumentary: No rash Physical Exam Vital Signs Date Time Temp Pulse Resp B/P (MAP) Pulse Ox O2 Delivery O2 Flow Rate FiO2 05/30/17 04:40 116 18 94 Nasal Cannula 2.0 05/30/17 04:33 170/59 05/30/17 04:10 115 19 98 Nasal Cannula 2.0 05/30/17 04:01 143/119 05/30/17 03:40 122 29 05/30/17 03:32 145/101 05/30/17 03:10 100 22 96 05/30/17 03:05 Nasal Cannula 2.0 05/30/17 03:02 154/90 05/30/17 02:58 36.4 91 19 143/96 95 Room Air 05/30/17 02:55 87 05/30/17 02:55 143/96 General Appearance: WD/WN, no apparent distress Head: normocephalic Eyes: normal inspection ENT: + pertinent finding (hearing loss) Neck: supple Respiratory/Chest: + decreased breath sounds, + crackles Cardiovascular: + tachycardia, + irregularly irregular Abdomen/GI: normal bowel sounds, non tender, soft Back: normal range of motion Extremities/Musculoskelatal: no pedal edema Neurologic/Psych: alert, normal mood/affect, oriented x 3 Skin: normal color Diagnostics Laboratory Results Results Past 24 Hours Test 05/30/17 02:05 05/30/17 02:54 05/30/17 03:40 Range/Units White Blood Count 4.79 4.8-10.8 K/uL Red Blood Count 3.82 4.7-6.1 M/uL Hemoglobin 11.0 14.0-18.0 g/dL Hematocrit 34.4 42-52 % Mean Corpuscular Volume 90.1 80-100 fL Mean Corpuscular Hemoglobin 28.8 25-34 pg Mean Corpuscular Hemoglobin Concent 32.0 32-36 g/dl Platelet Count 112 130-400 K/uL Mean Platelet Volume 11.7 7.4-10.4 fL Neutrophils (%) (Auto) 55.4 % Lymphocytes (%) (Auto) 25.9 % Monocytes (%) (Auto) 14.8 % Eosinophils (%) (Auto) 3.5 % Basophils (%) (Auto) 0.2 % Neutrophils # (Auto) 2.65 1.4-6.5 K/uL Lymphocytes # (Auto) 1.24 1.2-3.4 K/uL Monocytes # (Auto) 0.71 0.11-0.59 K/uL Eosinophils # (Auto) 0.17 0-0.5 K/uL Basophils # (Auto) 0.01 0-0.2 K/uL RDW Standard Deviation 54.8 36.4-46.3 fL RDW Coefficient of Variation 16.5 11.5-14.5 % Immature Granulocyte % (Auto) 0.2 % Immature Granulocyte # (Auto) 0.01 0.00-0.02 K/uL Prothrombin Time 37.5 9.0-12.0 SECONDS Prothromb Time International Ratio 3.3 0.9-1.1 Sodium Level 142 136-145 mmol/L Potassium Level 4.5 3.5-5.1 mmol/L Chloride Level 111 98-107 mmol/L Carbon Dioxide Level 26 21-32 mmol/L Anion Gap 5.0 3-11 mmol/L Blood Urea Nitrogen 25 7-18 mg/dl Creatinine 1.10 0.60-1.40 mg/dl Est Creatinine Clear Calc Drug Dose 51.4 ml/min Estimated GFR () 68.6 Estimated GFR (Non- 59.2 BUN/Creatinine Ratio 22.9 10-20 Random Glucose 99 70-99 mg/dl Calcium Level 8.7 8.5-10.1 mg/dl Total Bilirubin 0.6 0.2-1 mg/dl Aspartate Amino Transf (AST/SGOT) 21 15-37 U/L Alanine Aminotransferase (ALT/SGPT) 17 12-78 U/L Alkaline Phosphatase 106 45-117 U/L Pro-B-Type Natriuretic Peptide 7769 0-1800 pg/ml Total Protein 6.8 6.4-8.2 gm/dl Albumin 3.1 3.4-5.0 gm/dl Globulin 3.7 2.5-4.0 gm/dl Albumin/Globulin Ratio 0.8 0.9-2 Bedside Troponin I 0.120 0-0.045 ng/ml Urine Color YELLOW Urine Appearance CLEAR CLEAR Urine pH 6.0 4.5-7.5 Urine Specific [place] 1.016 1.000-1.030 Urine Protein TRACE NEG Urine Glucose (UA) NEG NEG Urine Ketones NEG NEG Urine Occult Blood TRACE NEG Urine Nitrite NEG NEG Urine Bilirubin NEG NEG Urine Urobilinogen NEG NEG Urine Leukocyte Esterase MODERATE NEG Urine WBC (Auto) >30 0-5 /hpf Urine RBC (Auto) 5-10 0-4 /hpf Urine Hyaline Casts (Auto) 1-5 0-5 /lpf Urine Epithelial Cells (Auto) 0-5 0-5 /lpf Urine Bacteria (Auto) 1+ NEG Diagnostic Radiology CHEST ONE VIEW PORTABLE HISTORY: 89 years-old Male sob acute shortness of breath. Initial exam. COMPARISON: Chest radiographs 01/11/2017, 12/15/2016 and 12/13/2016 TECHNIQUE: Portable upright AP view of the chest FINDINGS: Moderate enlargement of the cardiac silhouette is again seen. There is atherosclerosis of the aorta. Prior median sternotomy. The lungs are hypoinflated with bronchovascular crowding. There is persistent blunting of the bilateral costophrenic angles, right greater than left with background reticular opacities and pulmonary vascular congestion. This pattern of disease appears unchanged dating back to at least 12/15/2016. Surgical clip is seen within the left upper abdomen. The bones appear grossly intact. IMPRESSION: Stable appearance of the chest with cardiomegaly, probable small bilateral pleural effusions and background interstitial opacities suggesting chronic interstitial changes. Mild pulmonary edema is also in the differential. 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 Respiratory distress likely secondary to CHF exacerbation - Chest x-ray: Chronic interstitial changes versus pulmonary edema - Received 40 mg IV Lasix in the ER - Continue Lasix 20 MG iv - Daily weights with strict I's and O's - Last echo 11/09 : * Left ventricular systolic function is normal. * No regional wall motion abnormalities noted. * Ejection Fraction = 50-55%. - Cardiology consult Elevated troponin /Coronary artery disease status post CABG -Likely secondary to demand ischemia -Initial troponin 0.12, trend every 8 hours -Continue Plavix and Lipitor Atrial fibrillation: -Rate control with Lopressor 25 mg twice a day -anticoagulation with Coumadin UTI: - UA positive for moderate leuc esterase, WBC - UC pending - Rocephin IV daily History of DVT and PE: - Coumadin - INR today at 3.3, no active bleeding ,monitor INR COPD: - History of silicosis continue - Continue DuoNebS and Spiriva Hypothyroidism: - Continue Synthroid HTN: - continue Zestril DVt prophylaxis: Warfarin Full code Dispo: admitted to tele Attending Addendum: I have physically seen and examined this patient, have directed the resident's medical activities, and agree with the H&P as noted above with the following exceptions as noted. The patient is awake, alert and oriented 3, well-developed and well-nourished , normocephalic and atraumatic, lying in bed and in no acute distress. HEENT--PERRL, EOMI, mucous membranes and oropharynx normal. Neck--supple, no JVD or bruits, thyroid normal, trachea midline, no adenopathy. Heart--irregularly irregular and tachycardic no murmurs, rubs or gallops. Lungs--crackles at the bases bilaterally, no respiratory distress, no accessory muscle use. Abdomen--normal bowel sounds and soft, nontender and nondistended, no hernias or masses, no organomegaly. Extremities--no cyanosis, clubbing or edema. There are good distal pulses b/l. Dermatologic--normal skin turgor, normal color, warm and dry, no abnormal lymph nodes, no rash. Neurologic--cranial nerves II through XII grossly intact. Rheumatologic--normal range of motion, nontender, muscles and joints. Psychiatric--normal affect. Assessment and Plan: Acute respiratory failure/acute CHF exacerbation/elevated troponin/CAD/status post CABG/atrial fibrillation-- The patient will be admitted to telemetry for serial cardiac enzymes, cardiac rhythm monitoring and a 2-D echocardiogram with Dopplers. Lasix 40 mg IV every morning. Continue Plavix. Continue metoprolol tartrate 25 mg by mouth twice a day, and lisinopril. Continue warfarin with daily PT/INR. UTI-- Ceftriaxone 1 g IV daily. Follow urine culture and sensitivity COPD/silicosis-- Duonebs every 4 hours while awake and every 2 hours when necessary. Level of Care Telemetry Advanced Directives Existing Advance Directive: No Existing Living Will: No Existing Power of Manager Banking: No Resuscitation Status FULL RESUSCITATION VTE Prophylaxis VTE Risk Assessment Done? Y/N: Yes Risk Level: Moderate Given or contraindicated: Warfarin (Coumadin) Resident Tracking Resident Involvement: Resident Care Provided Care Provided: Adult Hospital Medicine
[2017-05-30] MEDS: CEFTRIAXONE SOD INJ 1 GM in DEXTROSE 5% ADD-VANTAGE 50ML 50 ML IV SCH (06:41)
--- NOTE | 2017-05-30 06:45 | DIAGNOSTIC IMAGING REPORT ---
CHEST ONE VIEW PORTABLE HISTORY: 89 years-old Male sob acute shortness of breath. Initial exam. COMPARISON: Chest radiographs 01/11/2017, 12/15/2016 and 12/13/2016 TECHNIQUE: Portable upright AP view of the chest FINDINGS: Moderate enlargement of the cardiac silhouette is again seen. There is atherosclerosis of the aorta. Prior median sternotomy. The lungs are hypoinflated with bronchovascular crowding. There is persistent blunting of the bilateral costophrenic angles, right greater than left with background reticular opacities and pulmonary vascular congestion. This pattern of disease appears unchanged dating back to at least 12/15/2016. Surgical clip is seen within the left upper abdomen. The bones appear grossly intact. IMPRESSION: Stable appearance of the chest with cardiomegaly, probable small bilateral pleural effusions and background interstitial opacities suggesting chronic interstitial changes. Mild pulmonary edema is also in the differential. The above report was generated using voice recognition software. It may contain grammatical, syntax or spelling errors. Electronically signed by: Rober Castro M.D. 05/30/2017 6:44 AM Dictated Date/Time: 05/30/2017 6:41 AM
[2017-05-30] MEDS ORDERED: METOPROLOL TARTRATE 1 MG/ML VIAL IV PRN (08:15)
[2017-05-30] MEDS ORDERED: METOPROLOL TARTRATE 25 MG TAB PO ONE (08:15)
[2017-05-30] MEDS: LISINOPRIL 10 MG TAB PO SCH (08:29)
[2017-05-30] MEDS: POTASSIUM CHLORIDE 10 MEQ TABCR PO SCH (08:29)
[2017-05-30] MEDS: CYANOCOBALAMIN 500 MCG TAB (VIT B-12) PO SCH (08:30)
[2017-05-30] MEDS: METOPROLOL TARTRATE 25 MG TAB PO SCH ×2 (08:30→20:28)
[2017-05-30] MEDS: PANTOprazole SOD 40 MG TAB PO SCH (08:30)
[2017-05-30] MEDS: FERROUS GLUCONATE 324 MG TAB PO SCH ×2 (08:30→20:27)
[2017-05-30] MEDS: CLOPIDOGREL BISULFATE 75 MG TAB PO SCH (08:30)
[2017-05-30] MEDS: TIOTROPIUM BROMIDE 5 PUFF/90 MCG INH INH SCH (08:31)
[2017-05-30] MEDS ORDERED: FUROSEMIDE 20 MG TAB PO SCH (09:00)
[2017-05-30] MEDS ORDERED: DILTIAZEM BOLUS / DRIP IV STA (09:08)
[2017-05-30] MEDS ORDERED: DILTIAZEM HCL INJ 125 MG in DEXTROSE 5% 100ML IV PRN (09:30)
[2017-05-30] MEDS ORDERED: DILTIAZEM HCL 5 MG/ML 5 ML VIAL IV SCH (09:30)
[2017-05-30 09:51] LABS: HEMATOCRIT 37.3 % (42-52); MEAN CELL VOLUME 90.8 fL (80-100); MEAN CORPUSCULAR HEMOGLOBIN 28.5 pg (25-34); MEAN CORPUSCULAR HGB CONC 31.4 g/dl (32-36); MEAN PLATELET VOLUME 11.7 fL (7.4-10.4); PLATELET COUNT 116 K/uL (130-400); RED BLOOD COUNT 4.11 M/uL (4.7-6.1); WHITE BLOOD COUNT 2.89 K/uL (4.8-10.8)
[2017-05-30] MEDS ORDERED: FUROSEMIDE INJ 20 MG in SYRINGE 0 ML IV SCH (10:00)
[2017-05-30 10:19] LABS: BUN/CREATININE RATIO 19.2 (10-20); CALCIUM 9.1 mg/dl (8.5-10.1); CREATININE 1.3 mg/dl (0.60-1.40); POTASSIUM 3.9 mmol/L (3.5-5.1)
[2017-05-30] MEDS ORDERED: FLUTICASONE HFA 220 MCG INHALER INH SCH (10:45)
--- NOTE | 2017-05-30 10:48 | Family Medicine Progress Note ---
Progress Note Date of Service May 30, 2017. Subjective Pt evaluation today including: conversation w/ patient, physical exam, chart review, lab review, review of studies, conversation w/ area development consultant Pain: 0/10 PO Intake: WNL Voiding: no voiding problems Patient states that he feels much better while on the oxygen and denies any chest pain he notes that he essentially came in because of worsening SOB over four days The swelling he noted in his lower extremities has also resolved Constitutional: No fever Eyes: No worsening of vision ENT: No hearing loss Respiratory: No cough, No sputum, No wheezing, No shortness of breath, No dyspnea on exertion, No dyspnea at rest Cardiovascular: No chest pain Abdomen: No pain, No nausea, No vomiting, No diarrhea, No constipation Musculoskeletal: No joint pain, No muscle pain Male : No hematuria Neurologic: + weakness, No balance problems Psychiatric: No depression symptoms Heme: No abnormal bleeding/bruising Endo: + fatigue Skin: No rash Medications Medications Administered Medications (Trade) Dose Ordered Sig/Zainab Route Start Time Stop Time Status Last Admin Dose Admin Aspirin (Aspirin Chew) 324 mg NOW STAT PO 05/30/17 03:12 05/30/17 03:13 DC 05/30/17 03:23 324 MG Furosemide (Lasix Inj) 40 mg STK-MED ONCE .ROUTE 05/30/17 03:19 05/30/17 03:20 DC 05/30/17 03:22 40 MG Clopidogrel Bisulfate (plAVix TAB) 75 mg DAILY PO 05/30/17 09:00 06/29/17 08:59 05/30/17 08:30 75 MG Cyanocobalamin (Vitamin B-12 Tab) 1,000 mcg DAILY PO 05/30/17 09:00 06/29/17 08:59 05/30/17 08:30 1,000 MCG Pantoprazole Sodium (Protonix Tab) 40 mg QAM PO 05/30/17 09:00 06/29/17 08:59 05/30/17 08:30 40 MG Lisinopril (Zestril Tab) 10 mg DAILY PO 05/30/17 09:00 06/29/17 08:59 05/30/17 08:29 10 MG Metoprolol Tartrate (Lopressor Tab) 25 mg BID PO 05/30/17 09:00 06/29/17 08:59 05/30/17 08:30 25 MG Ferrous Gluconate (Ferrous Gluconate Tab) 324 mg BID PO 05/30/17 09:00 06/29/17 08:59 05/30/17 08:30 324 MG Potassium Chloride (Klor-Con M10) 10 meq DAILY PO 05/30/17 09:00 06/29/17 08:59 05/30/17 08:29 10 MEQ Tiotropium [place] (Spiriva Handihaler Inhaler) 1 puff DAILY INH 05/30/17 09:00 06/29/17 08:59 05/30/17 08:31 1 PUFF Ceftriaxone Sodium 1 gm/ Dextrose 50 ml @ 100 mls/hr Q24H IV 05/30/17 06:00 06/09/17 05:59 05/30/17 06:41 100 MLS/HR Furosemide (Lasix Tab) 20 mg DAILY PO 05/30/17 09:00 05/30/17 09:00 DC 05/30/17 08:29 20 MG Diltiazem HCl (Cardizem Inj) 15 mg TODAY@0930 IV 05/30/17 09:30 05/30/17 09:31 DC 05/30/17 10:07 15 MG Diltiazem HCl 125 mg/Dextrose 125 ml @ 10 mls/hr [id number] PRN IV 05/30/17 09:30 06/29/17 09:29 05/30/17 10:08 10 MLS/HR Objective Vital Signs Date Time Temp Pulse Resp B/P (MAP) Pulse Ox O2 Delivery O2 Flow Rate FiO2 05/30/17 08:09 36.6 113 20 159/93 (115) 98 Room Air 05/30/17 05:46 36.5 107 20 167/99 99 Nasal Cannula 2.0 05/30/17 05:20 107 17 145/104 96 05/30/17 04:40 116 18 94 Nasal Cannula 2.0 05/30/17 04:33 170/59 05/30/17 04:10 115 19 98 Nasal Cannula 2.0 05/30/17 04:01 143/119 05/30/17 03:40 122 29 05/30/17 03:32 145/101 05/30/17 03:10 100 22 96 05/30/17 03:05 Nasal Cannula 2.0 05/30/17 03:02 154/90 05/30/17 02:58 36.4 91 19 143/96 95 Room Air 05/30/17 02:55 87 05/30/17 02:55 143/96 Physical Exam General Appearance: no apparent distress Eyes: normal inspection, + pertinent finding (pytergion on right eye) ENT: normal ENT inspection Neck: supple Respiratory/Chest: no respiratory distress, no accessory muscle use, + decreased breath sounds (bilat bases) Cardiovascular: + tachycardia, + irregularly irregular, + normal peripheral pulses Abdomen: normal bowel sounds, non tender, soft Extremities: normal range of motion, non-tender, normal inspection, no pedal edema, no calf tenderness Neurologic/Psychiatric: alert, normal mood/affect, oriented x 3 Skin: normal color, warm/dry, no rash Lymphatic: no adenopathy Laboratory Results Results Past 24 Hours Test 05/30/17 02:05 05/30/17 02:54 05/30/17 03:40 05/30/17 09:30 Range/Units White Blood Count 4.79 2.89 4.8-10.8 K/uL Red Blood Count 3.82 4.11 4.7-6.1 M/uL Hemoglobin 11.0 11.7 14.0-18.0 g/dL Hematocrit 34.4 37.3 42-52 % Mean Corpuscular Volume 90.1 90.8 80-100 fL Mean Corpuscular Hemoglobin 28.8 28.5 25-34 pg Mean Corpuscular Hemoglobin Concent 32.0 31.4 32-36 g/dl Platelet Count 112 116 130-400 K/uL Mean Platelet Volume 11.7 11.7 7.4-10.4 fL Neutrophils (%) (Auto) 55.4 % Lymphocytes (%) (Auto) 25.9 % Monocytes (%) (Auto) 14.8 % Eosinophils (%) (Auto) 3.5 % Basophils (%) (Auto) 0.2 % Neutrophils # (Auto) 2.65 1.4-6.5 K/uL Lymphocytes # (Auto) 1.24 1.2-3.4 K/uL Monocytes # (Auto) 0.71 0.11-0.59 K/uL Eosinophils # (Auto) 0.17 0-0.5 K/uL Basophils # (Auto) 0.01 0-0.2 K/uL RDW Standard Deviation 54.8 55.0 36.4-46.3 fL RDW Coefficient of Variation 16.5 16.5 11.5-14.5 % Immature Granulocyte % (Auto) 0.2 % Immature Granulocyte # (Auto) 0.01 0.00-0.02 K/uL Prothrombin Time 37.5 9.0-12.0 SECONDS Prothromb Time International Ratio 3.3 0.9-1.1 Sodium Level 142 141 136-145 mmol/L Potassium Level 4.5 3.9 3.5-5.1 mmol/L Chloride Level 111 108 98-107 mmol/L Carbon Dioxide Level 26 25 21-32 mmol/L Anion Gap 5.0 8.0 3-11 mmol/L Blood Urea Nitrogen 25 25 7-18 mg/dl Creatinine 1.10 1.30 0.60-1.40 mg/dl Est Creatinine Clear Calc Drug Dose 51.4 41.7 ml/min Estimated GFR () 68.6 56.1 Estimated GFR (Non- 59.2 48.4 BUN/Creatinine Ratio 22.9 19.2 10-20 Random Glucose 99 171 70-99 mg/dl Calcium Level 8.7 9.1 8.5-10.1 mg/dl Total Bilirubin 0.6 0.2-1 mg/dl Aspartate Amino Transf (AST/SGOT) 21 15-37 U/L Alanine Aminotransferase (ALT/SGPT) 17 12-78 U/L Alkaline Phosphatase 106 45-117 U/L Pro-B-Type Natriuretic Peptide 7769 0-1800 pg/ml Total Protein 6.8 6.4-8.2 gm/dl Albumin 3.1 3.4-5.0 gm/dl Globulin 3.7 2.5-4.0 gm/dl Albumin/Globulin Ratio 0.8 0.9-2 Bedside Troponin I 0.120 0-0.045 ng/ml Urine Color YELLOW Urine Appearance CLEAR CLEAR Urine pH 6.0 4.5-7.5 Urine Specific [place] 1.016 1.000-1.030 Urine Protein TRACE NEG Urine Glucose (UA) NEG NEG Urine Ketones NEG NEG Urine Occult Blood TRACE NEG Urine Nitrite NEG NEG Urine Bilirubin NEG NEG Urine Urobilinogen NEG NEG Urine Leukocyte Esterase MODERATE NEG Urine WBC (Auto) >30 0-5 /hpf Urine RBC (Auto) 5-10 0-4 /hpf Urine Hyaline Casts (Auto) 1-5 0-5 /lpf Urine Epithelial Cells (Auto) 0-5 0-5 /lpf Urine Bacteria (Auto) 1+ NEG Troponin I 0.190 0-0.045 ng/ml Microbiology Results 05/30/17 Urine Culture, Received Pending Assessment and Plan 89-year-old male with a past medical history of hypertension, coronary artery disease status post CABG 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 The patient has a very significant past medical history of mod- severe obstructive respiratory disease on top of the patient's diastolic dysfunction. Hypoxic respiratory failure likely secondary to acute on chronic COPD exacerbation with some element of acute on chronic diastolic CHF - Chest x-ray: Chronic interstitial changes versus pulmonary edema - Received 40 mg IV Lasix in the ER and will continue his lasix 20 mg PO - Daily weights with strict I's and O's - Last echo 11/09 : * Left ventricular systolic function is normal. * No regional wall motion abnormalities noted. * Ejection Fraction = 50-55%. * Will repeat today - Cardiology consult - Spiriva and duoneb continued - Will initiate Flovent 220 bid, will refrain from using Elevated troponin /Coronary artery disease status post CABG -Likely secondary to demand ischemia as patient is tachycardic with a fibb -Initial troponin 0.12, trend every 8 hours -Continue Plavix and Lipitor Atrial fibrillation with RVR: -Rate control with Lopressor 25 mg twice a day - Diltiazem drip for improved controll -anticoagulation with Coumadin Abnormal UA: - UA positive for moderate leuc esterase, WBC however unlikely UTI - UC pending - Rocephin IV daily empirically and will d/c after 48 h if Ucx remain negative History of DVT and PE: - Coumadin - INR today at 3.3, no active bleeding ,monitor INR Hypothyroidism: - Continue Synthroid HTN: - continue Zestril DVt prophylaxis: Warfarin Full code Dispo: PT/Ot May require Home O2 so will plan for 2 step prior to d/c Continued [facility] stay due to: other Discharge planning: uncertain
--- NOTE | 2017-05-30 11:17 | CARDIOLOGY CONSULTATION REPORT ---
DATE OF CONSULTATION: 05/30/2017 DATE OF CONSULTATION: 05/30/2017 REASON FOR CONSULTATION: Respiratory distress, history CHF. HISTORY OF PRESENT ILLNESS: Mr. 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 It got so bad that he could barely get back to his home after working in his yard yesterday. The patient states that he has had very minimal body weight increase, but has been taking an increased dose of his diuretic. His body weight has come back down, but his breathing has not improved. The patient offers no other complaints. He denies any exertional chest pain, heaviness, tightness, pressure, discomfort, or angina pectoris. He denies any exertional neck, jaw, back or arm pain. He does feel short of breath when lying down and his cough has become very persistent. He denies any syncope or near syncope. The patient remains compliant with his medications and has not had any other side effects to his knowledge. The patient is chronically anticoagulated with Coumadin. Thus far his workup has shown a mild anemia with a hemoglobin of 11.0 grams per deciliter, mildly elevated BUN at 25 mg/dL with a normal creatinine of 1.10 mg/dL, minimal elevation of troponin I (0.120 ng/mL), moderately elevated proBNP at 7,769 pg/mL, and his INR is slightly supratherapeutic at 3.3. His chest x-ray on admission shows cardiomegaly, background interstitial opacity suggesting chronic interstitial changes, lungs are hypoinflated with bronchovascular crowding, and persistent blunting of bilateral costophrenic angles, right greater than left with background reticular opacities and possibly some pulmonary vascular congestion. These chest x-ray abnormalities have not changed since 12/15/2016. The patient also remains in Afib with an elevated ventricular response rate. Most recent echocardiogram in October 2016 shows normal normal LV size and systolic function, LVEF is 50% to 55%, no regional wall motion abnormalities. There is mild concentric LVH, mild MR, mild TR. RV is normal size with reduced systolic function as assessed by tricuspid annular plane systolic excursion. Moderate left atrial dilatation, mild right atrial dilatation. MEDICATIONS: 1. Warfarin 7.5 mg every Saturday, Saturday and Saturday, 5 mg all other days. 2. Levothyroxine 50 mcg daily. 3. Lipitor 40 mg at bedtime. 4. Cardura 1 mg at bedtime. 5. Lasix 20 mg IV daily. 6. Plavix 75 mg daily. 7. Vitamin B12 1000 mcg daily. 8. Protonix 40 mg daily. 9. Lisinopril 10 mg daily. 10. Lopressor 25 mg p.o. b.i.d. 11. Ferrous gluconate 325 mg b.i.d. 12. Klor-Con 10 mEq daily. 13. Spiriva HandiHaler 1 puff daily. 14. IV Lopressor 5 mg p.r.n. q. 6 hours for heart rate greater than 110 beats per minute. 15. Ceftriaxone 1 gram IV q. 24 hours. 16. Tylenol p.r.n. 17. Zofran p.r.n. 18. Sublingual nitroglycerin p.r.n. 19. MiraLax 17 grams daily as needed for constipation. 20. DuoNeb nebulizers q. 4 hours p.r.n. ALLERGIES: NKDA. PAST MEDICAL HISTORY: 1. Hypertension. 2. Dyslipidemia. 3. Persistent, likely chronic atrial fibrillation, currently with RVR. 4. CAD status post CABG x5 vessels 2003. 5. History of LAD PTCA. 6. History of inferior PA complicated by ventricular tachycardia and cardiac arrest 1986. 7. History of CVA. 8. Chronic interstitial lung disease/silicosis. 9. COPD. 10. History of CVA. 11. Chronic kidney disease. 12. History of carpal tunnel syndrome. 13. History of cholelithiasis. 14. Osteoarthritis. 15. Pancreatic cyst. 16. History of peripheral neuropathy. 17. History of prostate cancer. 18. Chronic anticoagulation. 19. History of cataract surgery. 20. History of hernia repair. 21. History of carpal tunnel release. 22. History of total knee arthroplasty. SOCIAL HISTORY: The patient is and lives with his in [facility]. He is a life-long nonsmoker. Rarely drinks alcohol. He remains physically active on a daily basis, exercises routinely. FAMILY HISTORY: Significant for CAD and myocardial infarction on his father's side. Sister with coagulation disorder and breast cancer. PHYSICAL EXAMINATION: VITAL SIGNS: Temperature 36.6?C, pulse 120 to 128 beats per minute and irregularly irregular, respiration rate 19, slightly labored, blood pressure 159/92, SPO2 is 98% on room air. GENERAL: The patient is in no acute distress. HEAD, EYES, EARS, NOSE, AND THROAT: Head is atraumatic, normocephalic. EOM intact. Sclera anicteric. Faces symmetric. No perioral cyanosis. Mucous membranes are dry. NECK: With mildly elevated jugular venous pressure, no obvious JVD. CHEST AND LUNGS: Are with harsh breath sounds in bilateral bases, including crackles to the mid lung velazquez, and intermittent late expiratory wheezes. No stridor noted. CARDIOVASCULAR SYSTEM: S1 and S2 are irregularly irregular, tachycardic, without obvious murmurs, gallops or rubs. ABDOMINAL EXAMINATION: Bowel sounds present. No masses, organomegaly, or tenderness. EXTREMITIES: Are without clubbing or cyanosis. There is trace calf edema bilaterally. Riley's sign absent. Calves are soft and nontender. NEUROLOGIC EXAMINATION: The patient is awake, alert and oriented, pleasant and cooperative. Answers questions appropriately. Speech is clear. Normal movement in bilateral upper extremities. Currently having an echocardiogram. Overall LV systolic function appears to be normal. Protective Services Social Worker interpretation is pending. forestry technician shows Afib with RVR currently. LABORATORY DATA: INR on admission 3.3. Sodium is 142 mmol/L, potassium 4.5 mmol/L, BUN 25 mg/dL, creatinine 1.10 mg/dL. Random glucose 99 mg/dL. LFTs unremarkable. Point of care troponin I is 0.120 ng/mL. ProBNP is elevated at 7,769 pg/mL (reference range 0-1800 pg/mL). White blood cell count is 4.79, hemoglobin 11.0 g/dL, hematocrit 36.4%, and platelet count 112,000. Urinalysis shows trace protein, trace blood, moderate leukocyte esterase, elevated urine WBCs and RBCs, +1 urine bacteria noted. Chest x-ray on admission shows stable appearance of the chest with cardiomegaly, probable small bilateral pleural effusions and a background interstitial opacity suggesting chronic interstitial changes. Mild pulmonary edema is also in the differential. ASSESSMENT: 1. Respiratory distress, shortness of breath over the past 3 days, likely multifactorial including underlying chronic obstructive pulmonary disease, interstitial lung disease, with possible component of diastolic and right sided congestive heart failure. 2. Currently appears prerenal with an elevated BUN. 3. Atrial Fibrillation with rapid ventricular response. Likely contributing to problem #1. 4. Coronary artery disease status post CABG x5 vessels 2004 at [facility]. 5. Mildly elevated troponin I, likely demand ischemia in the presence of multivessel CAD and respiratory distress. 6. No angina pectoris or angina equivalent symptoms. 7. Hypertension, moderately elevated today. 8. Dyslipidemia, on assisted statin therapy. 9. Persistent and likely chronic atrial fibrillation. 10. History of interstitial lung disease, silicosis. 11. History of chronic obstructive pulmonary disease. PLAN: 1. Discussed patient's current state, as well as factors contributing to #2. From a cardiac standpoint, we should slow his ventricular response rate which will help with diastolic dysfunction. 2. Begin Diltiazem drip for better rate control. 3. Continue Lopressor 25 mg b.i.d. 4. Continue Coumadin with a goal INR of 2.0 to 3.0. 5. He is now on a low dose of IV Lasix. Continue to monitor daily I&Os, body weights. 6. Await echocardiogram interpretation by fork lift mechanic. 7. Would recommend increasing DuoNeb nebulizers to q. 4 hours around the clock. 8. Consider pulmonology consultation/possible PFTs. 9. Continue Lisinopril 10 mg daily. 10. Continue Potassium Chloride supplement. 11. Continue Lipitor 40 mg daily. 12. Continue Plavix 75 mg daily. 13. Check serum magnesium level. 14. Continue broad-spectrum antibiotics for the time being. 15. We will continue to follow along while hospitalized. The the patient was seen and examined by me on the morning of May 30, 2017. I agree with history performed by Dipesh Serrano as documented above. My exam showed the patient to have diffuse expiratory wheezing. Despite this he was not short of breath at the time. He currently has increased ventricular response with his atrial fibrillation. This could exacerbate his left ventricular diastolic dysfunction. He has good overall LV systolic function. He has no anginal-type symptoms. Mildly elevated troponin I likely secondary to demand ischemia. Suspect his dyspnea is multifactorial. He has severe underlying lung disease including restrictive and obstructive lung disease. He has pulmonary silicosis. Also component of acute left ventricular diastolic heart failure. The case was discussed with Mr. Serrano. Agree with above recommendations. He needs additional ventricular rate control for his atrial fibrillation. This can be accomplished with addition of diltiazem to his medical regimen. Continue current dose of metoprolol. He is not on home oxygen. Prior to discharge would certainly perform an oxygen two step study to see if he requires home oxygen. Would continue with aggressive management of his underlying pulmonary disease. Hubert Brar MD. [facility]
[2017-05-30] MEDS: ALBUT/IPRATROP 3MG/0.5MG NEB 3 ML VIAL INH SCH ×3 (14:58→23:11)
[2017-05-30] MEDS ORDERED: WARFARIN SOD 5 MG TAB PO SCH (16:00)
--- NOTE | 2017-05-30 17:17 | ECHOCARDIOGRAM REPORT ---
*NOTICE TO RECEIVING [employer] This information is strictly Confidential and protected under [place] law. [place] law prohibits you from making any further disclosure of this information unless further disclosure is expressly permitted by the written consent of the person to whom it pertains or is authorized by law. A general authorization for the release of medical or other information is not sufficient for this purpose. Hospital accepts no responsibility if the information is made available to any other person, INCLUDING THE PATIENT. Interpretation Summary * Name: DONITA MCKEON JR Study Date: 05/30/2017 08:27 AM BP: 159/93 mmHg * Patient Location: C.2T\S\S241\S\2 HR: 115 * : 1925 (M/d/yyy) Gender: Male Height: 69 in * Age: 89 yrs Ethnicity: CA Weight: 187 lb * Ordering Physician: Adela Cali * Referring Physician: Self, Referred * Performed By: Lisa Zamora RDCS * * Reason For Study: CHF * BSA: 2.0 m2 * -- Conclusions -- * 1. Normal left ventricular size with mildly reduced systolic function. EF 45-50%. Akinesis of the septal base and base to mid inferior wall. Mild concentric left ventricular hypertrophy. * 2. Mildly dilated right ventricle with moderately reduced systolic function. * 3. The left atrium is mildly dilated. * 4. The right atrium is moderately dilated. * 5. Sclerotic aortic valve without significant stenosis. * 6. There is mild mitral regurgitation. * 7. Mildly elevated estimated right ventricular systolic pressure; 40 mmHg. * 8. Similar compared to prior study on 11/01/2016. Procedure Details * A complete two-dimensional transthoracic echocardiogram was performed (2D, M-mode, Doppler and color flow Doppler). Left Ventricle * Normal left ventricular size with mildly reduced systolic function. EF 45-50%. Akinesis of the septal base and base to mid inferior wall. Mild concentric left ventricular hypertrophy. Right Ventricle * Mildly dilated right ventricle with moderately reduced systolic function. * The right ventricular systolic function is reduced as assessed by tricuspid annular plane systolic excursion (TAPSE) (TAPSE <1.6 cm). Atria * The left atrium is mildly dilated. * The right atrium is moderately dilated. Mitral Valve * There is mild mitral annular calcification. * There is no mitral valve stenosis. * There is mild mitral regurgitation. Tricuspid Valve * The tricuspid valve is not well visualized, but is grossly normal. * There is no tricuspid stenosis. * There is mild tricuspid regurgitation. Aortic Valve * The aortic valve is trileaflet. * Sclerotic aortic valve without significant stenosis. * There is no significant aortic regurgitation. Pulmonic Valve * The pulmonic valve is not well visualized. * There is no pulmonic valvular stenosis. * There is no significant pulmonary regurgitation. Great Vessels * The aortic root is normal size. Pericardium/Pleural * There is no pericardial effusion. Great Vessels * Blunted pulmonary venous flow pattern. * Normal inferior vena cava size and collapsability with sniff indicates a normal right atrial pressure of 3 mmHg MMode 2D Measurements and Calculations IVSd 1.3 cm IVSs 1.9 cm LVIDd 4.4 cm LVIDs 3.0 cm LVPWd 1.2 cm LVPWs 2.0 cm IVS/LVPW 1.0 FS 31.4 % EDV(Teich) 88.0 ml ESV(Teich) 35.7 ml EF(Teich) 59.5 % EDV(cubed) 85.5 ml ESV(cubed) 27.6 ml EF(cubed) 67.7 % % IVS thick 46.8 % % LVPW thick 58.4 % LV mass(C)d 206.2 grams LV mass(C)dI 102.7 grams/m\S\2 LV mass(C)s 247.6 grams LV mass(C)sI 123.3 grams/m\S\2 SV(Teich) 52.3 ml SI(Teich) 26.1 ml/m\S\2 SV(cubed) 57.9 ml SI(cubed) 28.8 ml/m\S\2 Ao root diam 3.3 cm Ao root area 8.7 cm\S\2 LVOT diam 2.3 cm LVOT area 4.0 cm\S\2 LVAd ap4 22.7 cm\S\2 LVLd ap4 7.6 cm EDV(MOD-sp4) 60.9 ml EDV(sp4-el) 57.5 ml LVAs ap4 15.0 cm\S\2 LVLs ap4 6.2 cm ESV(MOD-sp4) 34.9 ml ESV(sp4-el) 30.5 ml EF(MOD-sp4) 42.7 % EF(sp4-el) 47.0 % LVAd ap2 26.8 cm\S\2 LVLd ap2 8.4 cm EDV(MOD-sp2) 74.8 ml EDV(sp2-el) 72.7 ml LVAs ap2 18.4 cm\S\2 LVLs ap2 7.2 cm ESV(MOD-sp2) 42.3 ml ESV(sp2-el) 39.5 ml EF(MOD-sp2) 43.4 % EF(sp2-el) 45.6 % LVLd %diff 9.5 % EDV(MOD-bp) 69.8 ml LVLs %diff 14.0 % ESV(MOD-bp) 41.0 ml EF(MOD-bp) 41.2 % SV(MOD-sp4) 26.0 ml SI(MOD-sp4) 13.0 ml/m\S\2 SV(MOD-sp2) 32.5 ml SI(MOD-sp2) 16.2 ml/m\S\2 SV(MOD-bp) 28.7 ml SI(MOD-bp) 14.3 ml/m\S\2 SV(sp4-el) 27.0 ml SI(sp4-el) 13.5 ml/m\S\2 SV(sp2-el) 33.2 ml SI(sp2-el) 16.5 ml/m\S\2 Doppler Measurements and Calculations MV E max nic 115.9 cm/sec MV dec time 0.11 sec Ao V2 max 183.5 cm/sec Ao max PG 13.5 mmHg Ao max PG (full) 11.6 mmHg Ao V2 mean 128.6 cm/sec Ao mean PG 7.3 mmHg Ao mean PG (full) 6.2 mmHg Ao V2 VTI 30.3 cm CRISTO(I,A) 1.7 cm\S\2 CRISTO(I,D) 1.7 cm\S\2 CRISTO(V,A) 1.5 cm\S\2 CRISTO(V,D) 1.5 cm\S\2 LV V1 max PG 1.9 mmHg LV V1 mean PG 1.1 mmHg LV V1 max 68.4 cm/sec LV V1 mean 49.6 cm/sec LV V1 VTI 12.9 cm SV(Ao) 262.9 ml SI(Ao) 131.0 ml/m\S\2 SV(LVOT) 51.6 ml SI(LVOT) 25.7 ml/m\S\2 TR max nic 301.3 cm/sec RVSP(TR) 39.5 mmHg RAP systole 3.0 mmHg
[2017-05-30] MEDS: ATORVASTATIN 20 MG TAB PO SCH (20:28)
[2017-05-30] MEDS: FLUTICASONE HFA 220 MCG INHALER INH SCH (20:29)
[2017-05-30] MEDS: DOXAZosin MESYLATE TAB 2 MG TAB PO SCH (20:29)
[2017-05-31] VITALS (19 sets, daily range): BP systolic 109–144; BP diastolic 64–80; PULSE 73–112; TEMP 36.4–36.9; O2SAT 89–97
[2017-05-31] MEDS: GUAIFENESIN SUGAR FREE 100 MG/5 ML UDC PO PRN ×3 (00:48→20:38)
[2017-05-31] MEDS: ALBUT/IPRATROP 3MG/0.5MG NEB 3 ML VIAL INH SCH ×6 (03:33→23:08)
[2017-05-31] MEDS: LEVOTHYROXINE 50 MCG TAB PO SCH (05:48)
[2017-05-31] MEDS: CEFTRIAXONE SOD INJ 1 GM in DEXTROSE 5% ADD-VANTAGE 50ML 50 ML IV SCH (05:49)
[2017-05-31 06:37] LABS: HEMATOCRIT 34.2 % (42-52); MEAN CELL VOLUME 90.2 fL (80-100); MEAN CORPUSCULAR HEMOGLOBIN 28.2 pg (25-34); MEAN CORPUSCULAR HGB CONC 31.3 g/dl (32-36); MEAN PLATELET VOLUME 11.1 fL (7.4-10.4); PLATELET COUNT 115 K/uL (130-400); RED BLOOD COUNT 3.79 M/uL (4.7-6.1); WHITE BLOOD COUNT 6.58 K/uL (4.8-10.8)
[2017-05-31 06:47] LABS: INR 3.1 (0.9-1.1); PROTHROMBIN TIME (PATIENT) 35.3 SECONDS (9.0-12.0)
[2017-05-31 07:06] LABS: BUN/CREATININE RATIO 24.3 (10-20); CALCIUM 9.1 mg/dl (8.5-10.1); CREATININE 1.5 mg/dl (0.60-1.40); POTASSIUM 4.2 mmol/L (3.5-5.1)
[2017-05-31 07:09] LABS: ALB/GLOB RATIO 0.9 (0.9-2)
[2017-05-31] MEDS: FLUTICASONE HFA 220 MCG INHALER INH SCH ×2 (08:57→20:38)
[2017-05-31] MEDS: TIOTROPIUM BROMIDE 5 PUFF/90 MCG INH INH SCH (08:58)
[2017-05-31] MEDS: FERROUS GLUCONATE 324 MG TAB PO SCH ×2 (08:58→20:40)
[2017-05-31] MEDS: CLOPIDOGREL BISULFATE 75 MG TAB PO SCH (08:59)
[2017-05-31] MEDS: LISINOPRIL 10 MG TAB PO SCH (08:59)
[2017-05-31] MEDS: POTASSIUM CHLORIDE 10 MEQ TABCR PO SCH (08:59)
[2017-05-31] MEDS: CYANOCOBALAMIN 500 MCG TAB (VIT B-12) PO SCH (08:59)
[2017-05-31] MEDS: METOPROLOL TARTRATE 25 MG TAB PO SCH ×2 (08:59→20:50)
[2017-05-31] MEDS: PANTOprazole SOD 40 MG TAB PO SCH (09:00)
--- NOTE | 2017-05-31 09:57 | Clinical Documentation Query ---
CLINICAL DOCUMENTATION QUERY Most recent echo report has been read and reveals a reduction in EF. However initial hypothesis was acute on chronic diastolic CHF. Is your clinical opinion still has originally thought? In your clinical opinion is this patient being managed for: ( ) Acute Systolic CHF ( ) Acute on chronic diastolic CHF ( ) Not Agree ( ) Other explanation of clinical findings (Please Explain) ( ) Unable to determine (Please Define) ( ) Need to Discuss The medical record reflects the following clinical findings, treatment, and risk factors. Clinical Indicators: Echo showing mildly reduced EF. Treatment: IV Lasix Risk Factors: Age, Afib, cad, copd Please clarify and document your clinical opinion in the progress notes and discharge summary. Terms such as "probable", "suspected", "likely", "questionable", "possible", or "still to be ruled out" are acceptable. IF IN AGREEMENT, YOU MUST DOCUMENT ABOVE DIAGNOSTIC STATEMENT IN DAILY PROGRESS NOTES AND DISCHARGE SUMMARY. This document is not part of the patient's record. Thank You, Haroldo Lai, CARMEL [phone]
--- NOTE | 2017-05-31 10:28 | Family Medicine Progress Note ---
Progress Note Date of Service May 31, 2017. Subjective Pt evaluation today including: conversation w/ patient, physical exam, chart review, lab review, review of studies Pain: 0/10 PO Intake: WNL Voiding: no voiding problems Rate controlled a fibb overnight no questions or concerns denies any chest pain at this time patient is unable to sleep laying flat and requesting a hospital bed for home, information regarding whom to fax rx to was given Constitutional: No fever Eyes: No worsening of vision ENT: No hearing loss Respiratory: No cough, No sputum, No wheezing, No shortness of breath, No dyspnea on exertion, No dyspnea at rest Cardiovascular: No chest pain Abdomen: No pain, No nausea, No vomiting, No diarrhea, No constipation Musculoskeletal: No joint pain, No muscle pain Male : No dysuria, No hematuria Neurologic: No weakness, No numbness/tingling, No balance problems Psychiatric: No depression symptoms Heme: No abnormal bleeding/bruising Endo: No fatigue Skin: No rash Medications Medications Administered Medications (Trade) Dose Ordered Sig/Zainab Route Start Time Stop Time Status Last Admin Dose Admin Aspirin (Aspirin Chew) 324 mg NOW STAT PO 05/30/17 03:12 05/30/17 03:13 DC 05/30/17 03:23 324 MG Furosemide (Lasix Inj) 40 mg STK-MED ONCE .ROUTE 05/30/17 03:19 05/30/17 03:20 DC 05/30/17 03:22 40 MG Atorvastatin Calcium (Lipitor Tab) 40 mg HS PO 05/30/17 21:00 06/29/17 20:59 05/30/17 20:28 40 MG Clopidogrel Bisulfate (plAVix TAB) 75 mg DAILY PO 05/30/17 09:00 06/29/17 08:59 05/31/17 08:59 75 MG Cyanocobalamin (Vitamin B-12 Tab) 1,000 mcg DAILY PO 05/30/17 09:00 06/29/17 08:59 05/31/17 08:59 1,000 MCG Doxazosin Mesylate (Cardura Tab) 1 mg HS PO 05/30/17 21:00 06/29/17 20:59 05/30/17 20:29 1 MG Pantoprazole Sodium (Protonix Tab) 40 mg QAM PO 05/30/17 09:00 06/29/17 08:59 05/31/17 09:00 40 MG Levothyroxine Sodium (Synthroid Tab) 50 mcg DAILYBB PO 05/31/17 06:00 06/30/17 05:59 05/31/17 05:48 50 MCG Lisinopril (Zestril Tab) 10 mg DAILY PO 05/30/17 09:00 06/29/17 08:59 05/31/17 08:59 10 MG Metoprolol Tartrate (Lopressor Tab) 25 mg BID PO 05/30/17 09:00 06/29/17 08:59 05/31/17 08:59 25 MG Ferrous Gluconate (Ferrous Gluconate Tab) 324 mg BID PO 05/30/17 09:00 06/29/17 08:59 05/31/17 08:58 324 MG Potassium Chloride (Klor-Con M10) 10 meq DAILY PO 05/30/17 09:00 06/29/17 08:59 05/31/17 08:59 10 MEQ Tiotropium [place] (Spiriva Handihaler Inhaler) 1 puff DAILY INH 05/30/17 09:00 06/29/17 08:59 05/31/17 08:58 1 PUFF Ceftriaxone Sodium 1 gm/ Dextrose 50 ml @ 100 mls/hr Q24H IV 05/30/17 06:00 06/09/17 05:59 05/31/17 05:49 100 MLS/HR Furosemide (Lasix Tab) 20 mg DAILY PO 05/30/17 09:00 05/30/17 09:00 DC 05/30/17 08:29 20 MG Warfarin Sodium (Coumadin Tab) 5 mg TuThFrSa@1600 PO 05/30/17 16:00 05/31/17 07:35 DC 05/30/17 16:05 5 MG Diltiazem HCl (Cardizem Inj) 15 mg TODAY@0930 IV 05/30/17 09:30 05/30/17 09:31 DC 05/30/17 10:07 15 MG Diltiazem HCl 125 mg/Dextrose 125 ml @ 10 mls/hr [id number] PRN IV 05/30/17 09:30 06/29/17 09:29 05/30/17 10:08 10 MLS/HR Albuterol/ Ipratropium (Duoneb) 3 ml Q4R INH 05/30/17 12:45 06/29/17 12:44 05/31/17 07:24 3 ML Fluticasone Propionate (Flovent Hfa 220MCG Inhaler) 2 puffs BID INH 05/30/17 21:00 06/29/17 20:59 05/31/17 08:57 2 PUFFS Fluticasone Propionate (Flovent Hfa 220MCG Inhaler) 2 puffs TODAY@1045 INH 05/30/17 10:45 05/30/17 12:00 DC 05/30/17 11:31 2 PUFFS Guaifenesin (Robitussin Sugar Free Syrup) 100 mg Q6H PRN PO 05/31/17 00:30 06/30/17 00:29 05/31/17 00:48 100 MG Objective Vital Signs Date Time Temp Pulse Resp B/P (MAP) Pulse Ox O2 Delivery O2 Flow Rate FiO2 05/31/17 07:27 36.7 76 18 118/64 (82) 97 Nasal Cannula 2.0 05/31/17 07:24 76 20 97 Nasal Cannula 2.0 05/31/17 05:38 36.9 05/31/17 04:37 112 18 112/73 (86) 97 Room Air 05/31/17 04:00 Room Air 05/31/17 03:33 102 20 97 Nasal Cannula 2.0 05/31/17 00:54 97 Nasal Cannula 2.0 05/31/17 00:51 96 97 Nasal Cannula 2.0 05/31/17 00:16 87 110/68 (82) 89 Room Air 05/30/17 23:59 Room Air 05/30/17 23:50 36.7 65 19 100/59 (73) 98 Room Air 05/30/17 23:11 108 18 91 Room Air 05/30/17 21:28 86 18 91 Room Air 05/30/17 20:25 36.6 86 18 139/85 (103) 94 Room Air 05/30/17 20:00 Room Air 05/30/17 16:11 36.5 81 16 142/81 (101) 96 Room Air 05/30/17 16:00 Room Air 05/30/17 14:59 87 18 91 Nasal Cannula 2.0 05/30/17 12:30 100 145/79 (101) 05/30/17 12:00 Room Air 05/30/17 12:00 95 146/86 (106) 05/30/17 11:52 36.4 83 16 131/71 (91) 93 Room Air 05/30/17 11:42 97 95 05/30/17 11:40 99 149/102 (118) 05/30/17 11:20 91 142/74 (96) 05/30/17 11:05 80 116/70 (85) 05/30/17 10:50 95 131/71 (91) 05/30/17 10:35 90 119/67 (84) Physical Exam General Appearance: no apparent distress Eyes: normal inspection ENT: normal ENT inspection Neck: supple Respiratory/Chest: no respiratory distress, no accessory muscle use, + decreased breath sounds (bilat bases), + pertinent finding (good air movement without wheezing) Cardiovascular: regular rate, rhythm, no murmur, + irregularly irregular Abdomen: normal bowel sounds, non tender, soft Extremities: non-tender, normal inspection, no pedal edema, no calf tenderness Neurologic/Psychiatric: alert, normal mood/affect, oriented x 3 Skin: normal color, warm/dry, no rash Lymphatic: no adenopathy Laboratory Results Results Past 24 Hours Test 05/30/17 18:17 05/31/17 06:03 Range/Units Troponin I 0.164 0-0.045 ng/ml White Blood Count 6.58 4.8-10.8 K/uL Red Blood Count 3.79 4.7-6.1 M/uL Hemoglobin 10.7 14.0-18.0 g/dL Hematocrit 34.2 42-52 % Mean Corpuscular Volume 90.2 80-100 fL Mean Corpuscular Hemoglobin 28.2 25-34 pg Mean Corpuscular Hemoglobin Concent 31.3 32-36 g/dl RDW Standard Deviation 54.8 36.4-46.3 fL RDW Coefficient of Variation 16.6 11.5-14.5 % Platelet Count 115 130-400 K/uL Mean Platelet Volume 11.1 7.4-10.4 fL Prothrombin Time 35.3 9.0-12.0 SECONDS Prothromb Time International Ratio 3.1 0.9-1.1 Sodium Level 142 136-145 mmol/L Potassium Level 4.2 3.5-5.1 mmol/L Chloride Level 108 98-107 mmol/L Carbon Dioxide Level 25 21-32 mmol/L Anion Gap 9.0 3-11 mmol/L Blood Urea Nitrogen 36 7-18 mg/dl Creatinine 1.50 0.60-1.40 mg/dl Est Creatinine Clear Calc Drug Dose 33.4 ml/min Estimated GFR () 47.2 Estimated GFR (Non- 40.7 BUN/Creatinine Ratio 24.3 10-20 Random Glucose 116 70-99 mg/dl Calcium Level 9.1 8.5-10.1 mg/dl Magnesium Level 2.0 1.8-2.4 mg/dl Total Bilirubin 0.5 0.2-1 mg/dl Aspartate Amino Transf (AST/SGOT) 16 15-37 U/L Alanine Aminotransferase (ALT/SGPT) 15 12-78 U/L Alkaline Phosphatase 93 45-117 U/L Total Protein 6.8 6.4-8.2 gm/dl Albumin 3.3 3.4-5.0 gm/dl Globulin 3.5 2.5-4.0 gm/dl Albumin/Globulin Ratio 0.9 0.9-2 Assessment and Plan 89-year-old male with a past medical history of hypertension, coronary artery disease status post CABG 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 The patient has a very significant past medical history of mod- severe obstructive respiratory disease on top of the patient's systolic dysfunction. Hypoxic respiratory failure likely secondary to acute on chronic COPD exacerbation with some element of acute on chronic systolic CHF - Chest x-ray: Chronic interstitial changes versus pulmonary edema - Received 40 mg IV Lasix in the ER and will continue his lasix 20 mg PO - Daily weights with strict I's and O's - Repeat echo: * 1. Normal left ventricular size with mildly reduced systolic function. EF 45-50%. Akinesis of the septal base and base to mid inferior wall. Mild concentric left ventricular hypertrophy. * 2. Mildly dilated right ventricle with moderately reduced systolic function. * 3. The left atrium is mildly dilated. * 4. The right atrium is moderately dilated. * 5. Sclerotic aortic valve without significant stenosis. * 6. There is mild mitral regurgitation. * 7. Mildly elevated estimated right ventricular systolic pressure; 40 mmHg. * 8. Similar compared to prior study on 11/01/2016. - Cardiology consult- appreciate input - Spiriva and duoneb continued - Will initiate Flovent 220 bid, will refrain from using - plan for 2 step on d/c as patient most likely has progression of COPD and would benefit from home oxygen Elevated troponin /Coronary artery disease status post CABG -Likely secondary to demand ischemia as patient is tachycardic with a fibb -Continue Plavix and Lipitor Atrial fibrillation with RVR- currently rate controlled: -Rate control with Lopressor 25 mg twice a day - diltiazem 30 mg bid added -anticoagulation with Coumadin UTI: - UC- gram negative bacilli - Rocephin IV daily - pending sensitivities History of DVT and PE: - Coumadin - INR 3.1- will decrease coumadin doses by 0.5 mg and check in the am Hypothyroidism: - Continue Synthroid HTN: - continue Zestril DVt prophylaxis: Warfarin Full code Dispo: PT/Ot May require Home O2 so will plan for 2 step prior to d/c Resident Physician Supervision Note: I interviewed and examined the patient. Discussed with Dr. Cali and agree with findings and plan as documented in the note. Any exceptions or clarifications are listed here: None Documented By: Mark Anthony Griffith feeling better breathing better no new complaints faint bibasilar rales - he ntes always there, otherwise lungs clear no pallor or icterus, vitals noted acute on chronic hypoxia/CHF -improving -stable for med surg -anticipate home tomorrow w O2 -otherwise as above Continued [facility] stay due to: other Discharge planning: uncertain
[2017-05-31] MEDS ORDERED: DILTIAZEM SR 60 MG CAP PO SCH ×2 (11:00→21:00)
[2017-05-31] MEDS: FUROSEMIDE 20 MG TAB PO SCH (11:38)
[2017-05-31] MEDS: DILTIAZEM HCL 30 MG TAB PO SCH ×2 (13:16→20:43)
[2017-05-31] MEDS: WARFARIN SOD 4 MG TAB PO SCH (16:15)
[2017-05-31] MEDS: DOXAZosin MESYLATE TAB 2 MG TAB PO SCH (20:50)
[2017-05-31] MEDS: ATORVASTATIN 20 MG TAB PO SCH (21:20)
--- NOTE | 2017-05-31 23:27 | PROGRESS NOTE ---
DATE: 05/31/2017 SUBJECTIVE: The patient was seen by me for routine cardiology followup today. He was seen after transfer from the telemetry unit to the medical floor. He states that he is doing well today. He feels less short of breath than he did a few days ago. He denies any orthopnea lying in bed today. No PND last night. He denies dyspnea walking about his room. No palpitations, lightheadedness, or syncope. No chest pain or other anginal type pains. He denies any pain in his legs. His peripheral edema has decreased since admission. No bleeding complaints. No cerebrovascular complaints. Good appetite. No abdominal pain or nausea. No fevers or chills. He does complain of a cough productive of a white to clear sputum. He has not noted any wheezing today. Yesterday, when he was wheezing he was aware of it. CURRENT MEDICATIONS: Warfarin daily, diltiazem 15 mg p.o. t.i.d., furosemide 20 mg daily, levofloxacin 15 mcg daily, guaifenesin 100 mg q. 6 hours p.r.n., atorvastatin 40 mg at bedtime, doxazosin 1 mg at bedtime, Flovent 2 puffs b.i.d., DuoNeb 3 mL q. 4 hours, clopidogrel 75 mg daily, pantoprazole 40 mg daily, lisinopril 10 mg daily, metoprolol tartrate 25 mg b.i.d., ferrous gluconate 324 mg b.i.d., potassium 10 mEq daily, Spiriva HandiHaler 1 puff daily, intravenous ceftriaxone 1 gram IV daily, and several p.r.n. medications. ALLERGIES AND ADVERSE DRUG REACTIONS: None. PHYSICAL EXAMINATION: VITAL SIGNS: Oral temperature this afternoon was 36.6. Heart rate 94 beats per minute. Pulse oximetry on 2 liters via nasal cannula oxygen 97%. Blood pressure this evening 116/77. NECK: No jugular venous distention. LUNGS: Normal respiratory effort. Fine crackles in the lower lung velazquez bilaterally. This is the lower third. No wheezes. No rhonchi. HEART: PMI not palpable. No lifts or heaves. Irregularly irregular. A 1/6 systolic murmur over the second intercostal space and upper left sternal border. No diastolic murmur, S3, or rub. ABDOMEN: Soft. Nontender. No palpable masses or organomegaly. Normal bowel sounds. EXTREMITIES: 1+ pretibial edema bilaterally. No calf tenderness. NEUROLOGIC: Alert and oriented x3. Motor grossly intact. PSYCHIATRIC: Affect is normal. LABORATORY DATA: Labs today was hemoglobin 10.7, hematocrit 34.2, platelet count 115. INR 3.1. Metabolic profile was sodium 142, potassium 4.2, chloride 108, carbon dioxide 25, BUN 36, creatinine 1.50, random glucose 116. Albumin 3.3. Troponin I's on this admission 0.190 and 0.164. IMAGING DATA: Electrocardiogram performed this morning and reviewed by me shows atrial fibrillation with ventricular rate 70 beats per minute. Incomplete right bundle branch block. Nonspecific ST and T wave abnormalities. I could not exclude inferior AR. Small inferior Q-waves. ASSESSMENT: 1. Improvement in dyspnea with treatment for ventricular rate control with his atrial fibrillation, treatment for his underlying pulmonary disease, and diuresis. 2. Suspect that the crackles on his lung exam are secondary to his interstitial lung disease. He has significant underlying lung disease. He has pulmonary silicosis. 3. Coronary artery disease. No anginal symptoms. Troponin I is mildly elevated. Most likely secondary to demand ischemia. He had elevated ventricular response with atrial fibrillation on admission. 4. Mild peripheral edema. Echocardiography yesterday, actually revealed normal estimated central venous pressure. He did have mildly elevated estimated right ventricular systolic pressure at 40 mmHg. Suspect that the edema is primarily secondary to venous insufficiency. The low serum albumin would be contributory. 5. No bleeding complaints on anticoagulation therapy. INR is slightly above therapeutic range. 6. Hypertension. Blood pressure was adequately controlled today. 7. Improved ventricular response with the addition of diltiazem to his medical regimen. RECOMMENDATIONS: 1. Continue metoprolol, lisinopril, and doxazosin. 2. Would switch to extended release diltiazem. 3. Monitor renal function. His BUN and creatinine have increased from yesterday. It is likely secondary to diuresis. 4. Oxygen 2-step study prior to discharge. This is as per need for home oxygen therapy. [facility]
[2017-06-01] VITALS (8 sets, daily range): BP systolic 119–127; BP diastolic 76–80; PULSE 63–98; TEMP 36.5–37; O2SAT 90–97
[2017-06-01] MEDS: ALBUT/IPRATROP 3MG/0.5MG NEB 3 ML VIAL INH SCH ×4 (04:00→15:21)
[2017-06-01] MEDS: LEVOTHYROXINE 50 MCG TAB PO SCH (06:09)
[2017-06-01] MEDS: CEFTRIAXONE SOD INJ 1 GM in DEXTROSE 5% ADD-VANTAGE 50ML 50 ML IV SCH (06:09)
[2017-06-01 07:44] LABS: BASO % 0.2 %; BASO ABS # 0.01 K/uL (0-0.2); COMPLETE YES; EOS % 2.3 %; HEMATOCRIT 34.4 % (42-52); IG% 0.2 %; LYMPH ABS # 1.22 K/uL (1.2-3.4); MEAN CORPUSCULAR HEMOGLOBIN 28.6 pg (25-34); MEAN CORPUSCULAR HGB CONC 31.1 g/dl (32-36); MEAN PLATELET VOLUME 11.3 fL (7.4-10.4); MONO % 10.5 %; NEUT % 63.8 %; PLATELET COUNT 110 K/uL (130-400); RED BLOOD COUNT 3.74 M/uL (4.7-6.1); WHITE BLOOD COUNT 5.31 K/uL (4.8-10.8)
[2017-06-01] MEDS: METOPROLOL TARTRATE 25 MG TAB PO SCH (07:56)
[2017-06-01] MEDS: CYANOCOBALAMIN 500 MCG TAB (VIT B-12) PO SCH (07:56)
[2017-06-01] MEDS: CLOPIDOGREL BISULFATE 75 MG TAB PO SCH (07:56)
[2017-06-01] MEDS: PANTOprazole SOD 40 MG TAB PO SCH (07:56)
[2017-06-01] MEDS: DILTIAZEM HCL 30 MG TAB PO SCH ×2 (07:56→14:13)
[2017-06-01] MEDS: FUROSEMIDE 20 MG TAB PO SCH (07:56)
[2017-06-01] MEDS: TIOTROPIUM BROMIDE 5 PUFF/90 MCG INH INH SCH (07:57)
[2017-06-01] MEDS: LISINOPRIL 10 MG TAB PO SCH (07:57)
[2017-06-01] MEDS: POTASSIUM CHLORIDE 10 MEQ TABCR PO SCH (07:57)
[2017-06-01] MEDS: FERROUS GLUCONATE 324 MG TAB PO SCH (07:57)
[2017-06-01] MEDS: FLUTICASONE HFA 220 MCG INHALER INH SCH (07:57)
[2017-06-01] MEDS: GUAIFENESIN SUGAR FREE 100 MG/5 ML UDC PO PRN (08:00)
[2017-06-01 08:07] LABS: INR 2.8 (0.9-1.1); PROTHROMBIN TIME (PATIENT) 31.7 SECONDS (9.0-12.0)
[2017-06-01 08:24] LABS: BUN/CREATININE RATIO 29.1 (10-20); CALCIUM 8.9 mg/dl (8.5-10.1); CREATININE 1.4 mg/dl (0.60-1.40); POTASSIUM 4.7 mmol/L (3.5-5.1)
[2017-06-01 08:29] LABS: ALB/GLOB RATIO 0.9 (0.9-2)
[2017-06-01] MEDS ORDERED: METOPROLOL TARTRATE 25 MG TAB PO ONE (10:00)
[2017-06-01] MEDS: WARFARIN SOD 4 MG TAB PO SCH (15:46)
[2017-06-01] MEDS ORDERED: FLVHFA220 INH (16:08)
[2017-06-01] MEDS ORDERED: LPR25 PO (16:08)
--- NOTE | 2017-06-01 16:15 | Discharge Instructions ---
Discharge Instructions Date of Service Jun 01, 2017. Admission Reason for Admission: Respiratory Distress Discharge Discharge Diagnosis / Problem: shortness of breath - acutely mostly due to fluid backing up from afib Discharge Goals Goal(s): Diagnostic testing, Therapeutic intervention Activity Recommendations Activity Limitations: resume your previous activity wear oxygen with activity as we discussed, it would greatly help you to have a pulse ox to follow your oxygen numbers at home. the goal would be to have things run at a minimum of 90 -92%; if you're lower than that you'd want to make sure you have the oxygen on, if you're short of breath and lower than that, it would definitely be time to get evaluated right away. wear the oxygen when you sleep as well - it will help overall in taking strain off your heart and lungs to have it on when you're sleeping . Instructions / Follow-Up Instructions / Follow-Up shortness of breath -appears to have been multiple factors at play, but the dominant one was that your afib was making your heart rate too fast, that led to not enough time for your heart to fill with blood, which then led to fluid backing up into your lungs. afib -we've increased your metoprolol to 37.5mg twice a day - that, along with using the oxygen to take strain off your heart, should work well to reduce the racing. we don't want to increase the metoprolol too much too fast or it can make you feel weak/lightheaded/dizzy, but in the coming weeks, your PCP might need to gradually increase things further -your INR today was 2.8. continue your coumadin as directed and have your next INR checked when previously scheduled. -have your PCP draw an electrolyte panel (BMP) when they draw the next INR we added an inhaler called flovent to help with the lung disease - it's an inhaled steroid, so it often will help reduce inflammation in the lungs. rinse your mouth after using so you don't get thrush; it's not an inhaler that you really feel when you take it, but overall using it can cut down on symptoms. Call your Primary Care doctor if any of the following symptoms or problems start or get worse: * Shortness of breath or difficulty breathing * Wake up at night short of breath * Chest pain * Cough * Swelling of your hands, feet, or legs * More fatigued or tired with your normal activity * Palpitations - sudden fast heart beats WEIGHT * Weigh yourself every morning after using the bathroom. * Use the same scale. * Wear the same amount of clothing. * Write your weight down on a chart. * Call your Primary Care doctor if you gain more than 2-3 pounds in 1-2 days. MEDICATIONS * Use this discharge instruction sheet for medication instructions. * Take your medications at the time your doctor ordered. * Do not skip a dose of your medicines. * If you miss a dose of medicine, take it as soon as possible, but DO NOT DOUBLE A DOSE. * Read your medicine information when you get home. * Know all of the side effects of your medicine. If in doubt, ask your pharmacist * Call your Primary Care doctor's office if you have any side effects. * Be sure all of your doctors know what medicine and herbs you take (including cold, flu, and herbal medicine). Take the following with you to your follow-up doctor appointments: * Weight Chart * Medication List * List of questions Do not drink excessive alcohol, beer or wine. Current Hospital Diet Patient's current hospital diet: AHA Diet (Heart Healthy) Discharge Diet Recommended Diet: AHA Diet (Heart Healthy) Pending Studies Studies pending at discharge: no Medical Emergencies . Who to Call and When: Call 911 or go to the Emergency Room if: * If at any time you feel your situation is an emergency * You have tightness or pain in your chest that does not go away with rest or Nitroglycerin * You are very short of breath even with rest . Non-Emergent Contact Non-Emergency issues call your: Primary Care Provider (we're working on getting you a hospital follow up appointment for next week) . . "Provider Documentation" section prepared by Mark Anthony Griffith. . VTE Core Measure Inpt VTE Proph given/why not?: Warfarin (Coumadin)
--- NOTE | 2017-06-01 17:24 | Discharge Summary ---
Discharge Summary Date of Service Jun 01, 2017. Discharge Summary Admission Date: May 30, 2017 at 04:36 Discharge Date: Jun 01, 2017 Discharge Disposition: Home with services Principal Diagnosis: multifactorial acute on chronic hypoxic respiratory failure -- see below Problems/Secondary Diagnoses: (1) Hx-Venous Thrombosis&Embolism Status: Chronic Immunizations: Have You Had Influenza Vaccine: N/A Influenza Vaccine Date: Aug 18, 2007 History of Tetanus Vaccine?: Yes History of Pneumococcal: Yes Pneumococcal Date: Aug 18, 2007 History of Hepatitis B Vaccine: No Procedures: Interpretation Summary Name: DONITA MCKEON JR Study Date: 05/30/2017 08:27 AM BP: 159/93 mmHg Patient Location: 2\S\S241\S\2 HR: 115 : 1925 (M/d/yyyy) Gender: Male Height: 69 in Age: 89 yrs Ethnicity: RI Weight: 187 lb Ordering Physician: Adela Cali Referring Physician: Self, Referred Performed By: Lisa Zamora RDCS Reason For Study: CHF BSA: 2.0 m2 -- Conclusions -- 1. Normal left ventricular size with mildly reduced systolic function. EF 45-50 %. Akinesis of the septal base and base to mid inferior wall. Mild concentric left ventricular hypertrophy. 2. Mildly dilated right ventricle with moderately reduced systolic function. 3. The left atrium is mildly dilated. 4. The right atrium is moderately dilated. 5. Sclerotic aortic valve without significant stenosis. 6. There is mild mitral regurgitation. 7. Mildly elevated estimated right ventricular systolic pressure; 40 mmHg. 8. Similar compared to prior study on 11/01/2016. Procedure Details A complete two-dimensional transthoracic echocardiogram was performed (2D, M- mode, Doppler and color flow Doppler). Left Ventricle Normal left ventricular size with mildly reduced systolic function. EF 45-50%. Akinesis of the septal base and base to mid inferior wall. Mild concentric left ventricular hypertrophy. Right Ventricle Mildly dilated right ventricle with moderately reduced systolic function. The right ventricular systolic function is reduced as assessed by tricuspid annular plane systolic excursion (TAPSE) (TAPSE <1.6 cm). Atria The left atrium is mildly dilated. The right atrium is moderately dilated. Mitral Valve There is mild mitral annular calcification. There is no mitral valve stenosis. There is mild mitral regurgitation. Tricuspid Valve The tricuspid valve is not well visualized, but is grossly normal. There is no tricuspid stenosis. There is mild tricuspid regurgitation. Aortic Valve The aortic valve is trileaflet. Sclerotic aortic valve without significant stenosis. There is no significant aortic regurgitation. Pulmonic Valve The pulmonic valve is not well visualized. There is no pulmonic valvular stenosis. There is no significant pulmonary regurgitation. Great Vessels The aortic root is normal size. Pericardium/Pleural There is no pericardial effusion. Great Vessels Blunted pulmonary venous flow pattern. Normal inferior vena cava size and collapsability with sniff indicates a normal right atrial pressure of 3 mmHg [~ rep ct add3]] CHEST ONE VIEW PORTABLE HISTORY: 89 years-old Male sob acute shortness of breath. Initial exam. COMPARISON: Chest radiographs 01/11/2017, 12/15/2016 and 12/13/2016 TECHNIQUE: Portable upright AP view of the chest FINDINGS: Moderate enlargement of the cardiac silhouette is again seen. There is atherosclerosis of the aorta. Prior median sternotomy. The lungs are hypoinflated with bronchovascular crowding. There is persistent blunting of the bilateral costophrenic angles, right greater than left with background reticular opacities and pulmonary vascular congestion. This pattern of disease appears unchanged dating back to at least 12/15/2016. Surgical clip is seen within the left upper abdomen. The bones appear grossly intact. IMPRESSION: Stable appearance of the chest with cardiomegaly, probable small bilateral pleural effusions and background interstitial opacities suggesting chronic interstitial changes. Mild pulmonary edema is also in the differential. The above report was generated using voice recognition software. It may contain grammatical, syntax or spelling errors. Electronically signed by: Rober Castro M.D. 05/30/2017 6:44 AM Last Resulted CBC 06/01/17 06:49 Red Blood Count 3.74, Mean Corpuscular Volume 92.0, Mean Corpuscular Hemoglobin 28.6, Mean Corpuscular Hemoglobin Concent 31.1, Mean Platelet Volume 11.3, Neutrophils (%) (Auto) 63.8, Lymphocytes (%) (Auto) 23.0, Monocytes (%) (Auto) 10.5, Eosinophils (%) (Auto) 2.3, Basophils (%) (Auto) 0.2, Neutrophils # (Auto ) 3.39, Lymphocytes # (Auto) 1.22, Monocytes # (Auto) 0.56, Eosinophils # (Auto ) 0.12, Basophils # (Auto) 0.01 Last Resulted BMP 06/01/17 06:49 Consultations: cardiology Medication Reconciliation New Medications: Fluticasone Propionate (Flovent Hfa) 120 Puffs/21890 Mcg Aero 2 PUFFS INH BID, #1 INHALER rinse mouth after using Metoprolol Tartrate (Lopressor) 25 Mg Tab 37.5 MG PO BID, #60 TAB Continued Medications: Acetaminophen (Tylenol) 500 Mg Tab 1000 MG PO Q8 Atorvastatin (Lipitor) 40 Mg Tab 40 MG PO HS, TAB Clopidogrel (Plavix) 75 Mg Tab 75 MG PO DAILY, TAB Cyanocobalamin (Vitamin B-12) 1,000 Mcg Tab 1000 MCG PO DAILY, TAB Doxazosin Mesylate (Cardura) 2 Mg Tab 1 MG PO HS Ferrous Gluconate (Fe Gluconate) 325 Mg Tab 325 MG PO BID Furosemide (Lasix) 20 Mg Tab 20 MG PO DAILY Ipratropium-Albuterol (Duoneb) 3 Ml Nebu 3 ML INH Q4H PRN for SOB/Wheezing, INHA Lansoprazole (Prevacid Solutab) 30 Mg Tab 30 MG PO QAM Levothyroxine Sodium (Levothyroxine Sodium) 50 Mcg Tab 50 MCG PO QAM Lisinopril (Zestril) 20 Mg Tab 10 MG PO DAILY 1/2 TABLET DOSE Nitroglycerin (Nitrostat) 0.4 Mg Tab 0.4 MG UT PRN, 0 Refills Potassium Chloride (K-Tabs) 10 Meq Tab 10 MEQ PO DAILY Warfarin Sod (Septoven) 5 Mg Tab 5 MG PO 4XWK, TAB EVERY SATURDAY/SATURDAY/SATURDAY/SATURDAY Warfarin Sod (Septoven) 7.5 Mg Tab 7.5 MG PO 3XWK EVERY SATURDAY/SATURDAY/SATURDAY [Spiriva 18MCG] () 1 PUFF INH DAILY Discontinued Medications: Metoprolol Tartrate (Lopressor) (Lopressor) 25 Mg Tab 25 MG PO BID, TAB Discharge Exam above med list should also reflect O2 Physical Exam: General Appearance: no apparent distress Eyes: EOMI ENT: hearing grossly normal Neck: trachea midline Respiratory/Chest: normal breath sounds (except for faint basilar rales present the whole stay and he notes is his chronic), no respiratory distress, no accessory muscle use Extremities: normal inspection Neurologic/Psychiatric: c 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 The patient has a very significant past medical history of mod- severe obstructive respiratory disease on top of the patient's systolic dysfunction. 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 Normal left ventricular size with mildly reduced systolic function. EF 45-50%. Akinesis of the septal base and base to mid inferior wall. Mild concentric left ventricular hypertrophy. * 2. Mildly dilated right ventricle with moderately reduced systolic function. * 3. The left atrium is mildly dilated. * 4. The right atrium is moderately dilated. * 5. Sclerotic aortic valve without significant stenosis. * 6. There is mild mitral regurgitation. * 7. Mildly elevated estimated right ventricular systolic pressure; 40 mmHg. * 8. Similar compared to prior study on 11/01/2016. - Cardiology consult- appreciate input - Spiriva and duoneb continued Elevated troponin /Coronary artery disease status post CABG -Likely secondary to demand ischemia as patient is tachycardic with a fib, somewhat hypoxic initially creating myocardial strain -Continue Plavix and Lipitor Atrial fibrillation with RVR- currently rate controlled: -Rate control with Lopressor 37.5 mg twice a day -anticoagulation with Coumadin UTI: - UC- gram negative bacilli - Rocephin IV daily x 3 - was sensitive, ?of true infection vs asymptomatic bacteria - so unless develops new sx, 3 days IV abx w sensitive strain should be more than adequate History of DVT and PE: - Coumadin - continue to follow INR - was easy to control and in therapeutic range during stay Hypothyroidism: - Continue Synthroid HTN: - continue Zestril DVt prophylaxis: Warfarin Full code Dispo: stable for home, home O2 PCP next week BMP at time of next INR (since INR was easy to control and no meds that should interfere, next INR at time of regular scheduled check) Total Time Spent: Greater than 30 minutes This includes examination of the patient, discharge planning, medication reconciliation, and communication with other providers. Discharge Instructions Please refer to the electronic Patient Visit Report (Discharge Instructions) for additional information. Additional Copies To Simón Odonnell III, CRNP
[2017-06-01] MEDS ORDERED: METOPROLOL TARTRATE 25 MG TAB PO SCH (20:00)
[2017-06-02] MEDS ORDERED: WARFARIN SOD 2.5 MG TAB PO SCH (16:00)
[2017-06-02] MEDS ORDERED: WARFARIN SOD 7.5 MG TAB PO SCH (16:00)
[2017-06-02] MEDS ORDERED: WARFARIN SOD 4 MG TAB PO SCH ×2 (16:00)
== END 2017-06-01 18:03 | disposition home health service (06) | DRG 291 ==
LOC: EDBD 02:40 → C.EDA 02:41 → C.2T 04:36 → ENRESERV 05:08 → C.4E 05-31 13:22
PROVIDERS: ADMIT Family Medicine; ATTEND Family Medicine
DX: I11.0 Hypertensive heart disease with heart failure (principal); J96.21 Acute and chronic respiratory failure with hypoxia; J44.1 Chronic obstructive pulmonary disease with (acute) exacerbation; N39.0 Urinary tract infection, site not specified; I48.1 Persistent atrial fibrillation; I50.23 Acute on chronic systolic (congestive) heart failure; I25.10 Atherosclerotic heart disease of native coronary artery without angina pectoris; E78.5 Hyperlipidemia, unspecified; E03.9 Hypothyroidism, unspecified; I48.2 Chronic atrial fibrillation; J62.8 Pneumoconiosis due to other dust containing silica; Z79.01 Long term (current) use of anticoagulants; Z79.02 Long term (current) use of antithrombotics/antiplatelets; Z79.899 Other long term (current) drug therapy; Z86.711 Personal history of pulmonary embolism; Z86.718 Personal history of other venous thrombosis and embolism; Z95.1 Presence of aortocoronary bypass graft

== ENCOUNTER 2017-10-03 15:45 | Inpatient (IN) | payer MEDICARE, OTHER ==
[~2017-10-03] VITALS: Ht 185.4 cm; Wt 82.3 kg
[~2017-10-03 15:45] MED LIST changes: +ACET-1256 PO; -ACET-1311 PO; -CLOP1TAB15 PO; +DOXA2TAB PO; -FERR325T18 PO; +FERR325T49 PO; +FLVHFA220 INH; +FURO-85 PO; +LANS30TA3 PO; +LEVO50TA6 PO; +LISI-725 PO; +LPR25 PO; -LSN40 PO; -LVQ750 PO; -METO25TA56 PO; -MRLP17 PO; -NRV/5 PO; -OMEP40CA41 PO; -PANT1TAB48 PO; +POTA10TA PO; -PRED10TA PO; +SPIRIVA 18MCG INH; +WARF7.5T4 PO
[2017-10-03] MEDS ORDERED: CLOP1TAB15 PO (15:49)
[2017-10-03] MEDS ORDERED: FLVHFA44 INH (16:21)
[2017-10-03] MEDS ORDERED: FERR325T18 PO (16:21)
[2017-10-03] MEDS ORDERED: ALBINS/ INH (16:21)
[2017-10-03] MEDS ORDERED: CRD1 PO (16:21)
[2017-10-03] MEDS ORDERED: SPRIN/30 INH (16:21)
[2017-10-03] MEDS ORDERED: METHYLPREDNISOLONE 125 MG VIAL IV STA (16:24)
--- NOTE | 2017-10-03 16:29 | EMERGENCY ROOM VISIT NOTE ---
History Report prepared by Dereck: Slade Sevilla Under the Supervision of: Dr. Bjorn Huber M.D. 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 The patient just came from his doctors office and was advised to come to the ED for evaluation. His PCP was concerned for fluid in the patient's lungs. The patient has been wheezing for two days. His breathing worsens with exertion. He has a history of COPD. The patient uses a nebulizer. He wears oxygen at night. He notes that he had to wear his oxygen earlier than normal He denies any history of smoking. He worked in the [employer]. He notes a productive cough. He denies any nausea, vomiting, or diarrhea. 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 Review of Systems See HPI for pertinent positives and negatives. A total of ten systems were reviewed and were otherwise negative. Past Medical & Surgical Medical Problems: (1) Acute exacerbation of CHF (congestive heart failure) (2) Benign hypertension (3) Cardiac Bypass Graft (4) Gaseous abdominal distention (5) GIST (6) Heart disease (7) Hx-Venous Thrombosis&Embolism (8) Perforation of intestine (9) Pneumonia (10) Respiratory distress (11) Shortness of breath Family History Coronary artery disease FH: cancer FH: heart disease FH: hypertension Myocardial infarction Social History Smoking Status: Never Smoker Alcohol Use: none Drug Use: none Marital Status: Housing Status: lives alone Occupation Status: retired Current/Historical Medications Scheduled Albuterol Sulf (Proventil 0.083% 2.5MG/3ML), 2.5 MG INH Q4-6HRS Atorvastatin (Lipitor), 40 MG PO HS Clopidogrel (Plavix), 75 MG PO DAILY Cyanocobalamin (Vitamin B-12), 1,000 MCG PO DAILY Doxazosin Mesylate (Doxazosin Mesylate), 1 MG PO HS Esomeprazole Magnesium (Nexium), 20 MG PO DAILY Ferrous Gluconate (Ferrous Gluconate), 324 MG PO BID Furosemide (Lasix), 20 MG PO DAILY Levothyroxine Sodium (Levothyroxine Sodium), 50 MCG PO QAM Lisinopril (Lisinopril), 10 MG PO QAM Metoprolol Tartrate (Lopressor), 37.5 MG PO BID Nitroglycerin (Nitrostat), 0.4 MG UT PRN Potassium Chloride (K-Tabs), 10 MEQ PO DAILY Warfarin Sod (Jantoven), 5 MG PO 4XWK Warfarin Sod (Jantoven), 7.5 MG PO 3XWK Scheduled PRN Acetaminophen (Tylenol), 1,000 MG PO Q8 PRN for Pain Ipratropium-Albuterol (Duoneb), 3 ML INH QID PRN for SOB/Wheezing Allergies Coded Allergies: No Known Allergies (Verified , 12/08/16) Physical Exam Vital Signs Date Time Temp Pulse Resp B/P (MAP) Pulse Ox O2 Delivery O2 Flow Rate FiO2 10/03/17 20:00 142 24 10/03/17 19:45 133 17 10/03/17 19:30 142 26 10/03/17 19:15 136 24 10/03/17 19:00 148 23 98 10/03/17 18:45 152 19 98 10/03/17 18:38 149 20 163/109 100 BiPAP 10/03/17 18:30 152 23 163/109 100 10/03/17 18:15 148 21 93 10/03/17 18:08 143 95 40 10/03/17 18:00 137 25 98 10/03/17 17:45 118 23 100 10/03/17 17:30 122 19 100 10/03/17 17:15 109 23 83 10/03/17 17:00 95 19 100 10/03/17 16:49 82 22 96 Nasal Cannula 2.0 10/03/17 16:45 100 19 10/03/17 16:44 92 10/03/17 16:42 96 Nasal Cannula 2.0 10/03/17 16:29 96 Nasal Cannula 2.0 10/03/17 15:58 36.4 76 22 124/77 92 Room Air Physical Exam GENERAL: Awake, alert, in moderate distress. HENT: Normocephalic, atraumatic. Oropharynx dry cracked mucus membranes. EYES: Normal conjunctiva. Sclera non-icteric. NECK: Supple. No nuchal rigidity. FROM. No JVD. RESPIRATORY: Moderate respiratory distress. Diffuse rhonchi and wheezes bilaterally. Tripoding breathing. CARDIAC: Regular rate, normal rhythm. Extremities warm and well perfused. Pulses equal. ABDOMEN: Soft, non-distended. No tenderness to palpation. No rebound or guarding. No masses. RECTAL: Deferred. MUSCULOSKELETAL: Chest examination reveals no tenderness. The back is symmetrical on inspection without obvious abnormality. There is no CVA tenderness to palpation. No joint edema. LOWER EXTREMITIES: Calves are equal size bilaterally and non-tender. No edema. No discoloration. NEURO: Normal sensorium. No sensory or motor deficits noted. SKIN: No rash or jaundice noted. Medical Decision & Procedures ER Provider Diagnostic Interpretation: Radiology results as stated below per my review and radiologist interpretation: CHEST ONE VIEW PORTABLE CLINICAL HISTORY: CHEST PAIN dyspnea COMPARISON STUDY: 05/30/2017 FINDINGS: Moderate stable cardiomegaly. Interval progression and/or development of a interstitial infiltrate left base. Components of mild congestive failure present. Slight blunting right lateral costophrenic angle. Prior median sternotomy. IMPRESSION: Developing components of congestive heart failure with a superimposed interstitial infiltrate left base. The above report was generated using voice recognition software. It may contain grammatical, syntax or spelling errors. Electronically signed by: Chavo Schwartz M.D. 10/03/2017 4:59 PM Dictated Date/Time: 10/03/2017 4:58 PM Laboratory Results 10/03/17 16:25 Red Blood Count 4.05, Mean Corpuscular Volume 92.8, Mean Corpuscular Hemoglobin 28.6, Mean Corpuscular Hemoglobin Concent 30.9, Mean Platelet Volume 11.7, Neutrophils (%) (Auto) 67.2, Lymphocytes (%) (Auto) 15.1, Monocytes (%) (Auto) 15.3, Eosinophils (%) (Auto) 1.8, Basophils (%) (Auto) 0.4, Neutrophils # (Auto ) 3.30, Lymphocytes # (Auto) 0.74, Monocytes # (Auto) 0.75, Eosinophils # (Auto ) 0.09, Basophils # (Auto) 0.02 10/03/17 16:25 Test 10/03/17 16:25 1/11/18 16:30 10/03/17 16:38 White Blood Count 4.91 K/uL (4.8-10.8) Red Blood Count 4.05 M/uL (4.7-6.1) Hemoglobin 11.6 g/dL (14.0-18.0) Hematocrit 37.6 % (42-52) Mean Corpuscular Volume 92.8 fL (80-100) Mean Corpuscular Hemoglobin 28.6 pg (25-34) Mean Corpuscular Hemoglobin Concent 30.9 g/dl (32-36) Platelet Count 118 K/uL (130-400) Mean Platelet Volume 11.7 fL (7.4-10.4) Neutrophils (%) (Auto) 67.2 % Lymphocytes (%) (Auto) 15.1 % Monocytes (%) (Auto) 15.3 % Eosinophils (%) (Auto) 1.8 % Basophils (%) (Auto) 0.4 % Neutrophils # (Auto) 3.30 K/uL (1.4-6.5) Lymphocytes # (Auto) 0.74 K/uL (1.2-3.4) Monocytes # (Auto) 0.75 K/uL (0.11-0.59) Eosinophils # (Auto) 0.09 K/uL (0-0.5) Basophils # (Auto) 0.02 K/uL (0-0.2) RDW Standard Deviation 59.5 fL (36.4-46.3) RDW Coefficient of Variation 17.5 % (11.5-14.5) Immature Granulocyte % (Auto) 0.2 % Immature Granulocyte # (Auto) 0.01 K/uL (0.00-0.02) Platelet Estimate DECREASED Poikilocytosis PRESENT Prothrombin Time 19.4 SECONDS (9.0-12.0) Prothromb Time International Ratio 1.9 (0.9-1.1) Anion Gap 7.0 mmol/L (3-11) Est Creatinine Clear Calc Drug Dose 57.7 ml/min Estimated GFR () 78.9 Estimated GFR (Non- 68.1 BUN/Creatinine Ratio 26.3 (10-20) Calcium Level 8.6 mg/dl (8.5-10.1) Total Bilirubin 0.7 mg/dl (0.2-1) Direct Bilirubin 0.3 mg/dl (0-0.2) Aspartate Amino Transf (AST/SGOT) 26 U/L (15-37) Alanine Aminotransferase (ALT/SGPT) 20 U/L (12-78) Alkaline Phosphatase 120 U/L (45-117) Pro-B-Type Natriuretic Peptide 8195 pg/ml (0-1800) Total Protein 7.1 gm/dl (6.4-8.2) Albumin 3.4 gm/dl (3.4-5.0) Lipase 167 U/L (73-393) Influenza Type A Antigen Neg for Influ A (NEG) Influenza Type B Antigen Neg for Influ B (NEG) Venous Blood pH 7.34 (7.36-7.41) Venous Blood Partial Pressure CO2 53 mmHg (38.0-50.0) Venous Blood Partial Pressure O2 22 mmHg Venous Blood HCO3 28 mmol/L Venous Blood Oxygen Saturation < 60.0 % Venous Blood Base Excess 1.0 mEq/L Lactic Acid Level 1.1 mmol/L (0.4-2.0) Laboratory results reviewed by me Medications Administered Medications (Trade) Dose Ordered Sig/Zainab Route Start Time Stop Time Status Last Admin Dose Admin Albuterol/ Ipratropium (Duoneb) 12 ml ONE ONCE INH 10/03/17 16:30 10/03/17 16:31 DC 10/03/17 16:29 12 ML Methylprednisolone Sodium Succinate (Solu-Medrol IV) 125 mg NOW STAT IV 10/03/17 16:24 10/03/17 16:27 DC 10/03/17 16:24 125 MG Levofloxacin (Levaquin / D5W) 750 mg NOW STAT IV 10/03/17 17:46 10/03/17 17:48 DC 10/03/17 18:12 750 MG Furosemide (Lasix Inj) 20 mg NOW STAT IV 10/03/17 17:46 10/03/17 17:48 DC 10/03/17 18:12 20 MG Metoprolol Tartrate (Lopressor Iv) 5 mg NOW STAT IV 10/03/17 19:53 10/03/17 19:54 DC 10/03/17 20:10 5 MG Furosemide (Lasix Inj) 40 mg NOW STAT IV 10/03/17 19:53 10/03/17 19:54 DC 10/03/17 20:09 40 MG ECG Indication: SOB/dyspnea Rate (beats per minute): 83 Rhythm: atrial fibrillation Findings: no acute ischemic change, left axis deviation Change: no significant change (when compared to 05/31/2017) ED Course 1618: The patient was evaluated in room A9B. A complete history and physical exam was performed. 175: I reassessed the patient at this time. He is feeling better and resting comfortably. I discussed the results and treatment plan with the patient. I answered all pertaining questions that he had. He expressed understanding and verbalized agreement. The patient will be further evaluated. 1804: I spoke with dena Gibson. We discussed the patients case. The patient will be evaluated by the [facility] for further management. Medical Decision I reviewed the patient's past medical history, medications, and the nursing notes as described above. The patient's history was concerning for respiratory difficulties. Differential diagnosis: Etiologies such as infections, reactive airway disease, pneumonia, pneumothorax , COPD, CHF, cardiac ischemia, pulmonary embolism, musculoskeletal, gastrointestinal, as well as others were entertained. The patient is a 89-year-old gentleman with a past medical history of COPD, CHF , A. fib on Coumadin who presents emergency Department with worsening cough congestion shortness of breath after being seen by his PCP concern for worsening respiratory failure per hpi. On arrival the patient is in moderate respiratory distress afebrile stable vital signs. Diffuse Rhonchi and wheezes throughout. He was given continuous neb with marginal effect still with work of breathing and thus placed on BiPAP. CXR with component of CHF as well as infiltrate. BNP 8000 similar to prior CHF exacerbation thus given lasix. Levaquin for likely PNA. Mild hypercapnia as well. Give steroids. Case d/w Dr. Mckeon, [facility] [place], who will admit the patient for further management. Medication Reconcilliation Current Medication List: was personally reviewed by me Blood Pressure Screening Patient's blood pressure: Normal blood pressure Consults Time Called: 1800 Consulting Physician: Dr. Mckeon, hospitalist Returned Call: [phone] I spoke with dena Gibson. We discussed the patients case. The patient will be evaluated by the [facility] for further management. Impression Primary Impression: Acute on chronic respiratory failure with hypoxia Additional Impressions: Community acquired pneumonia COPD exacerbation CHF (congestive heart failure) Critical Care I have personally spent greater than 90 minutes of critical care time in the direct management of this patient. This includes bedside care, interpretation of diagnostic studies, and testing, discussion with consultants, patient, and family members, and other required patient management activities. This 90 minutes is in excess of all separately billable procedures. Scribe Attestation The scribe's documentation has been prepared under my direction and personally reviewed by me in its entirety. I confirm that the note above accurately reflects all work, treatment, procedures, and medical decision making performed by me. Departure Information Dispostion Being Evaluated By Hospitalist Referrals Simón Odonnell III, CRNP (PCP) Patient Instructions My [facility] Problem Qualifiers
[2017-10-03] MEDS ORDERED: ALBUT/IPRATROP 3MG/0.5MG NEB 3 ML VIAL INH ONE (16:30)
[2017-10-03 16:49] VITALS: PULSE 82; O2SAT 96
[2017-10-03 16:53] LABS: INR 1.9 (0.9-1.1)
[2017-10-03] MEDS ORDERED: LSN40 PO ×2 (16:57→18:43)
--- NOTE | 2017-10-03 17:00 | DIAGNOSTIC IMAGING REPORT ---
CHEST ONE VIEW PORTABLE CLINICAL HISTORY: CHEST PAIN dyspnea COMPARISON STUDY: 05/30/2017 FINDINGS: Moderate stable cardiomegaly. Interval progression and/or development of a interstitial infiltrate left base. Components of mild congestive failure present. Slight blunting right lateral costophrenic angle. Prior median sternotomy. IMPRESSION: Developing components of congestive heart failure with a superimposed interstitial infiltrate left base. The above report was generated using voice recognition software. It may contain grammatical, syntax or spelling errors. Electronically signed by: Chavo Schwartz M.D. 10/03/2017 4:59 PM Dictated Date/Time: 10/03/2017 4:58 PM
[2017-10-03 17:05] LABS: ALBUMIN 3.4 gm/dl (3.4-5.0); CALCIUM 8.6 mg/dl (8.5-10.1); CREATININE 0.98 mg/dl (0.60-1.40); POTASSIUM 4.1 mmol/L (3.5-5.1)
[2017-10-03 17:05] LABS: INFLUENZA B ANTIGEN Neg for Influ B (NEG)
[2017-10-03 17:21] LABS: HEMATOCRIT 37.6 % (42-52); HEMOGLOBIN 11.6 g/dL (14.0-18.0); MEAN CELL VOLUME 92.8 fL (80-100); MEAN CORPUSCULAR HEMOGLOBIN 28.6 pg (25-34); MEAN CORPUSCULAR HGB CONC 30.9 g/dl (32-36); MEAN PLATELET VOLUME 11.7 fL (7.4-10.4); PLATELET COUNT 118 K/uL (130-400); RED CELL DISTRIBUTION WIDTH CV 17.5 % (11.5-14.5); RED CELL DISTRIBUTION WIDTH SD 59.5 fL (36.4-46.3); WHITE BLOOD COUNT 4.91 K/uL (4.8-10.8)
[2017-10-03 17:22] LABS: BASO % 0.4 %; BASO ABS # 0.02 K/uL (0-0.2); EOS % 1.8 %; EOS ABS # 0.09 K/uL (0-0.5); IG# 0.01 K/uL (0.00-0.02); LYMPH % 15.1 %; LYMPH ABS # 0.74 K/uL (1.2-3.4); MONO % 15.3 %; MONO ABS # 0.75 K/uL (0.11-0.59); NEUT % 67.2 %
[2017-10-03 17:32] LABS: TOTAL PROTEIN 7.1 gm/dl (6.4-8.2)
[2017-10-03] MEDS ORDERED: FUROSEMIDE 40 MG/4 ML VIAL IV STA ×2 (17:46→19:53)
[2017-10-03] MEDS ORDERED: LEVAQUIN 750MG / 150ML D5W IV STA (17:46)
[2017-10-03 18:08] VITALS: PULSE 143; O2SAT 95
[2017-10-03] MEDS ORDERED: ESOM20CA PO (18:31)
[2017-10-03] MEDS ORDERED: LISI-461 PO (18:36)
[2017-10-03] MEDS ORDERED: WARF5TAB7 PO (18:40)
[2017-10-03] MEDS ORDERED: POTASSIUM CHLORIDE 20 MEQ TABCR PO STA (19:53)
[2017-10-03] MEDS ORDERED: METOPROLOL TARTRATE 1 MG/ML VIAL IV STA ×3 (19:53→21:15)
[2017-10-03] MEDS ORDERED: NITROGLYCERIN 0.4 MG SL PER TAB CHARGE UT SCH (20:00)
[2017-10-03] MEDS: ALBUT/IPRATROP 3MG/0.5MG NEB 3 ML VIAL INH SCH (20:00)
[2017-10-03] MEDS ORDERED: MAGNESIUM HYDROXIDE SUSP 30 ML UDC PO PRN (20:00)
[2017-10-03] MEDS ORDERED: ONDANSETRON INJ 2 MG/ML 2 ML VIAL IV PRN (20:00)
[2017-10-03] MEDS ORDERED: ACETAMINOPHEN 325 MG TAB PO PRN (20:00)
--- NOTE | 2017-10-03 20:35 | History and Physical ---
History & Physical Date & Time of Service: Oct 03, 2017 at 20:07 Chief Complaint: Water In Lower Lungs- Physician Referred Primary Care Physician: Simón Odonnell III, CRNP History of Present Illness Source: patient, family, hospital records Patient is an 89 year old male with a past medical history of CHF, Atrial Fibrillation, Hypertension, Hyperlipidemia, and COPD that presents with a 3 day history of worsening shortness of breath. The daughter who is accompanying the patient states that on Saturday is sounded like he was having crackling and wheezing with breathing and was complaining of shortness of breath. This continued to progress throughout the week and last night was having difficulty sleeping. The patient sees Dr. Brar of Cardiology and takes 20mg IV Lasix as needed with weight changes but has taken his Lasix over the last 3 days. The patient has had 4 similar episodes requiring admission to the hospital over the past year. 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 He also uses an albuterol nebulizer at home as needed and has been using it 4 times per day with no improvement of symptoms. He denies any fevers, chills, chest pain, abdominal pain, nausea, vomiting, or diarrhea at this time. In the ED the patient was initially placed on oxygen but continued to be hypoxic on nasal cannula so he was placed on BiPAP. 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 (4) Heart disease Status: Chronic (5) Hx-Venous Thrombosis&Embolism Status: Chronic (6) Perforation of intestine Status: Resolved Family History Coronary artery disease FH: cancer FH: heart disease FH: hypertension Myocardial infarction Social History Smoking Status: Never Smoker Smokeless Tobacco Use: No Alcohol Use: none Drug Use: none Marital Status: Housing status: lives with significant other Occupational Status: retired Immunizations History of Influenza Vaccine: N/A Influenza Vaccine Date: Aug 18, 2007 History of Tetanus Vaccine?: Yes History of Pneumococcal: Yes Pneumococcal Date: Aug 18, 2007 History of Hepatitis B Vaccine: No Multi-Drug Resistant Organisms History of MDRO: No Allergies Coded Allergies: No Known Allergies (Verified , 12/08/16) Home Medications Scheduled Albuterol Sulf (Proventil 0.083% 2.5MG/3ML), 2.5 MG INH Q4-6HRS Atorvastatin (Lipitor), 40 MG PO HS Clopidogrel (Plavix), 75 MG PO DAILY Cyanocobalamin (Vitamin B-12), 1,000 MCG PO DAILY Doxazosin Mesylate (Doxazosin Mesylate), 1 MG PO HS Esomeprazole Magnesium (Nexium), 20 MG PO DAILY Ferrous Gluconate (Ferrous Gluconate), 324 MG PO BID Furosemide (Lasix), 20 MG PO DAILY Levothyroxine Sodium (Levothyroxine Sodium), 50 MCG PO QAM Lisinopril (Lisinopril), 10 MG PO QAM Metoprolol Tartrate (Lopressor), 37.5 MG PO BID Nitroglycerin (Nitrostat), 0.4 MG UT PRN Potassium Chloride (K-Tabs), 10 MEQ PO DAILY Warfarin Sod (Jantoven), 5 MG PO [id number] Warfarin Sod (Jantoven), 7.5 MG PO 3XWK Scheduled PRN Acetaminophen (Tylenol), 1,000 MG PO Q8 PRN for Pain Ipratropium-Albuterol (Duoneb), 3 ML INH QID PRN for SOB/Wheezing Review of Systems Constitutional: + weakness, + fatigue, No fever, No chills, No sweats, No weight loss Respiratory: + cough, + wheezing, + shortness of breath, + dyspnea on exertion , No sputum Cardiovascular: No chest pain, No edema, No palpitations Abdomen: No pain, No nausea, No vomiting, No diarrhea, No constipation Genitourinary - Male: No dysuria Physical Exam Vital Signs Date Time Temp Pulse Resp B/P (MAP) Pulse Ox O2 Delivery O2 Flow Rate FiO2 10/03/17 18:38 149 20 163/109 100 BiPAP 10/03/17 18:08 143 95 40 10/03/17 16:49 82 22 96 Nasal Cannula 2.0 10/03/17 16:44 92 10/03/17 16:42 96 Nasal Cannula 2.0 10/03/17 16:29 96 Nasal Cannula 2.0 10/03/17 15:58 36.4 76 22 124/77 92 Room Air General Appearance: WD/WN, + mild distress Head: normocephalic, atraumatic Eyes: normal inspection, sclerae normal Respiratory/Chest: chest non-tender, + accessory muscle use, + wheezing, + pertinent finding (Coarse breath sounds bilaterally) Cardiovascular: regular rate, rhythm, no edema, no gallop Abdomen/GI: normal bowel sounds, non tender, soft Extremities/Musculoskelatal: normal inspection, no calf tenderness Neurologic/Psych: alert, normal mood/affect, oriented x 3 Diagnostics Laboratory Results Results Past 24 Hours Test 10/03/17 16:25 10/03/17 16:30 10/03/17 16:38 Range/Units White Blood Count 4.91 4.8-10.8 K/uL Red Blood Count 4.05 4.7-6.1 M/uL Hemoglobin 11.6 14.0-18.0 g/dL Hematocrit 37.6 42-52 % Mean Corpuscular Volume 92.8 80-100 fL Mean Corpuscular Hemoglobin 28.6 25-34 pg Mean Corpuscular Hemoglobin Concent 30.9 32-36 g/dl Platelet Count 118 130-400 K/uL Mean Platelet Volume 11.7 7.4-10.4 fL Neutrophils (%) (Auto) 67.2 % Lymphocytes (%) (Auto) 15.1 % Monocytes (%) (Auto) 15.3 % Eosinophils (%) (Auto) 1.8 % Basophils (%) (Auto) 0.4 % Neutrophils # (Auto) 3.30 1.4-6.5 K/uL Lymphocytes # (Auto) 0.74 1.2-3.4 K/uL Monocytes # (Auto) 0.75 0.11-0.59 K/uL Eosinophils # (Auto) 0.09 0-0.5 K/uL Basophils # (Auto) 0.02 0-0.2 K/uL RDW Standard Deviation 59.5 36.4-46.3 fL RDW Coefficient of Variation 17.5 11.5-14.5 % Immature Granulocyte % (Auto) 0.2 % Immature Granulocyte # (Auto) 0.01 0.00-0.02 K/uL Platelet Estimate DECREASED Poikilocytosis PRESENT Prothrombin Time 19.4 9.0-12.0 SECONDS Prothromb Time International Ratio 1.9 0.9-1.1 Sodium Level 141 136-145 mmol/L Potassium Level 4.1 3.5-5.1 mmol/L Chloride Level 108 98-107 mmol/L Carbon Dioxide Level 27 21-32 mmol/L Anion Gap 7.0 3-11 mmol/L Blood Urea Nitrogen 26 7-18 mg/dl Creatinine 0.98 0.60-1.40 mg/dl Est Creatinine Clear Calc Drug Dose 57.7 ml/min Estimated GFR () 78.9 Estimated GFR (Non- 68.1 BUN/Creatinine Ratio 26.3 10-20 Random Glucose 93 70-99 mg/dl Calcium Level 8.6 8.5-10.1 mg/dl Total Bilirubin 0.7 0.2-1 mg/dl Direct Bilirubin 0.3 0-0.2 mg/dl Aspartate Amino Transf (AST/SGOT) 26 15-37 U/L Alanine Aminotransferase (ALT/SGPT) 20 12-78 U/L Alkaline Phosphatase 120 45-117 U/L Troponin I 0.109 0-0.045 ng/ml Pro-B-Type Natriuretic Peptide 8195 0-1800 pg/ml Total Protein 7.1 6.4-8.2 gm/dl Albumin 3.4 3.4-5.0 gm/dl Lipase 167 73-393 U/L Influenza Type A Antigen Neg for Influ A NEG Influenza Type B Antigen Neg for Influ B NEG Venous Blood pH 7.34 7.36-7.41 Venous Blood Partial Pressure CO2 53 38.0-50.0 mmHg Venous Blood Partial Pressure O2 22 mmHg Venous Blood HCO3 28 mmol/L Venous Blood Oxygen Saturation < 60.0 % Venous Blood Base Excess 1.0 mEq/L Lactic Acid Level 1.1 0.4-2.0 mmol/L Microbiology Results 10/03/17 Blood Culture, Received Pending 10/03/17 Blood Culture, Received Pending Impression Assessment and Plan Patient is an 89 year old male with a past medical history of CHF, Atrial Fibrillation, Hypertension, Hyperlipidemia, and COPD that presents with a 3 day history of worsening shortness of breath 1) Acute on chronic hypoxic respiratory failure - Admit to telemetry - Oxygen supplementation to maintain SpO2 > 92% - BiPAP at this time --> Continue to monitor overnight and wean as tolerated if improving with diuresis 2) Acute CHF Exacerbation - Signs of interstitial fluid progression on CXR - Received 20mg IV Lasix in the ED - Additional 40mg IV Lasix NOW with supplemental 40meq KCL - Determine if require additional IV Lasix tomorrow AM based on respiratory status and renal function - Last ECHO 05/30/17: * Normal left ventricular size with mildly reduced systolic function. EF 45-50% . Akinesis of the septal base and base to mid inferior wall. Mild concentric left ventricular hypertrophy. - Cardiology consult 3) HCAP - Vancomycin, Zosyn, and Levaquin - CXR shows left lower lobe infiltrate --> Repeat CXR tomorrow AM 4) Atrial Fibrillation - Continue home Lopressor and Coumadin (on 5mg/7.5mg dosing --> Changed to 6mg daily when in hospital) - Current INR of 1.9 --> Subtherapeutic --> Repeat INR tomorrow AM - Current HR in 140s --> Will give 5mg IV Lopressor in the ED and continue to monitor when moves to floor 5) Elevated Troponin - EKG: Atrial fibrillation with Tachycardia --> No ST changes or signs of acute Ischemia - Initial Troponin of 0.109 --> Trend q6h x3 - Monitor on Telemetry - Repeat EKG tomorrow AM 6) Hypothyroidism - Continue home Synthroid 7) Hyperlipidemia - Continue home Lipitor 8) GERD - Prevacid 9) BPH - Continue home Doxazosin 10) DVT - Coumadin 11) Code Status - Full Resuscitation Attending addendum: I have physically seen this patient, have supervised the medical residents activities, and agree with the H&P unless as otherwise noted. Assessment and Plan: Acute on chronic respiratory failure with hypoxia/acute CHF/pneumonia-- The patient will be admitted to telemetry for serial cardiac enzymes, serial EKG's, cardiac rhythm monitoring. Continue BiPAP at current settings, and taper to nasal cannula O2 as symptoms improve on its Acute CHF exacerbation/atrial fibrillation-- Give a total of 60 mg Lasix IV in the ED by adding 40 mg now Potassium chloride 80 mEq by mouth now Continue metoprolol tartrate and Coumadin Last echo 05/30/17 reports EF 45-50% Consult cardiology Pneumonia involving left lower lobe-- Vancomycin IV per pharmacokinetic monitoring Zosyn 3.375 mg IV every 8 hours Levofloxacin 500 mg IV every 24 hours Duonebs every 4 hours while awake and every 2 hours when necessary. Solu-Medrol 40 mg IV every 8 hours Guaifenesin extended release 600 mg by mouth twice a day Nasal cannula oxygen titrate to keep pulse ox greater than or equal to 92% Sputum Gram stain and culture Level of Care Telemetry Advanced Directives Existing Living Will: Yes Resuscitation Status FULL RESUSCITATION VTE Prophylaxis VTE Risk Assessment Done? Y/N: Yes Risk Level: Moderate Given or contraindicated: Warfarin (Coumadin) Resident Tracking Resident Involvement: Resident Care Provided Care Provided: Adult Hospital Medicine
[2017-10-03] MEDS ORDERED: POTASSIUM CHLORIDE 10 MEQ TABCR ONE (20:50)
[2017-10-03] MEDS: METOPROLOL TARTRATE 25 MG TAB PO SCH (21:00)
[2017-10-03] MEDS: ATORVASTATIN 20 MG TAB PO SCH (21:00)
[2017-10-03] MEDS: DOXAZosin TAB 1 MG TAB PO SCH (21:00)
[2017-10-03] MEDS ORDERED: VANCOMYCIN INJ 1,000 MG in SODIUM CHLORIDE 0.9% 250ML 250 ML IV SCH (21:00)
[2017-10-03] MEDS: FERROUS GLUCONATE 324 MG TAB PO SCH (21:00)
[2017-10-03] MEDS ORDERED: PIPERACILL/TAZOBAC IV 3.375 GM in DEXTROSE 5% 100ML 100 ML IV SCH (22:00)
[2017-10-03] MEDS ORDERED: PIPERACILL/TAZOBAC CONSULT ACTIVE PRN (22:15)
[2017-10-03 22:28] VITALS: BP 137/91; PULSE 130; TEMP 36.3; O2SAT 94; Ht 185.4 cm; Wt 82.3 kg
[2017-10-03] MEDS ORDERED: VANCOMYCIN INJ 2,000 MG in SODIUM CHLORIDE 0.9% 500ML 500 ML IV SCH (22:30)
[2017-10-03] MEDS ORDERED: PIPERACILL/TAZOBAC IV 3.375 GM in DEXTROSE 5% 100ML IV ONE (22:30)
[2017-10-03 23:14] VITALS: BP 116/79; PULSE 109; TEMP 36.8; O2SAT 95
[2017-10-04] VITALS (13 sets, daily range): BP systolic 117–185; BP diastolic 73–101; PULSE 86–112; TEMP 36.3–37.1; O2SAT 92–97
[2017-10-04] MEDS ORDERED: VANCOMYCIN CONSULT ACTIVE PRN (00:30)
[2017-10-04] MEDS ORDERED: PIPERACILL/TAZOBAC IV 3.375 GM in DEXTROSE 5% 100ML IV SCH (04:00)
[2017-10-04] MEDS: ALBUT/IPRATROP 3MG/0.5MG NEB 3 ML VIAL INH SCH ×5 (05:11→19:51)
[2017-10-04] MEDS: LEVOTHYROXINE 50 MCG TAB PO SCH (06:06)
--- NOTE | 2017-10-04 07:25 | DIAGNOSTIC IMAGING REPORT ---
CHEST ONE VIEW PORTABLE CLINICAL HISTORY: Pneumonia, CHF COMPARISON STUDY: 10/03/2017 FINDINGS: There are postsurgical changes of midline sternotomy. The heart is enlarged. There are bilateral subpulmonic pleural effusions. There is persistent soft tissue prominence the right paratracheal/suprahilar region. Interstitial left basilar opacities persist. Mild pulmonary vascular congestion is also suspected.[ IMPRESSION: Persistent cardiomegaly, interstitial left basilar opacities, mild pulmonary vascular congestion, and small pleural effusions. Electronically signed by: Vikram Roldan M.D. 10/04/2017 7:24 AM Dictated Date/Time: 10/04/2017 7:22 AM
[2017-10-04 08:41] LABS: BASO % 0.3 %; BASO ABS # 0.01 K/uL (0-0.2); HEMATOCRIT 34.8 % (42-52); HEMOGLOBIN 10.9 g/dL (14.0-18.0); LYMPH % 10.2 %; LYMPH ABS # 0.35 K/uL (1.2-3.4); MEAN CELL VOLUME 92.1 fL (80-100); MEAN CORPUSCULAR HEMOGLOBIN 28.8 pg (25-34); MEAN CORPUSCULAR HGB CONC 31.3 g/dl (32-36); MEAN PLATELET VOLUME 11.8 fL (7.4-10.4); MONO % 10.2 %; MONO ABS # 0.35 K/uL (0.11-0.59); NEUT % 79.3 %; NEUT ABS # 2.71 K/uL (1.4-6.5); PLATELET COUNT 105 K/uL (130-400); RED CELL DISTRIBUTION WIDTH CV 17.5 % (11.5-14.5); RED CELL DISTRIBUTION WIDTH SD 59.2 fL (36.4-46.3); WHITE BLOOD COUNT 3.42 K/uL (4.8-10.8)
[2017-10-04 08:47] LABS: INR 1.7 (0.9-1.1)
[2017-10-04 09:11] LABS: CALCIUM 8.6 mg/dl (8.5-10.1); CREATININE 1.17 mg/dl (0.60-1.40); POTASSIUM 3.8 mmol/L (3.5-5.1)
[2017-10-04] MEDS: CLOPIDOGREL BISULFATE 75 MG TAB PO SCH (09:29)
[2017-10-04] MEDS: FERROUS GLUCONATE 324 MG TAB PO SCH ×2 (09:29→19:09)
[2017-10-04] MEDS: FUROSEMIDE INJ 40 MG in SYRINGE 0 ML IV SCH (09:30)
[2017-10-04] MEDS: POTASSIUM CHLORIDE 20 MEQ TABCR PO SCH (09:30)
[2017-10-04] MEDS: METOPROLOL TARTRATE 25 MG TAB PO SCH ×2 (09:30→19:08)
[2017-10-04] MEDS: LISINOPRIL 10 MG TAB PO SCH (09:30)
[2017-10-04] MEDS: CYANOCOBALAMIN 500 MCG TAB (VIT B-12) PO SCH (09:30)
[2017-10-04] MEDS ORDERED: VANCOMYCIN INJ 1,250 MG in SODIUM CHLORIDE 0.9% 250ML 250 ML IV SCH (10:00)
[2017-10-04] MEDS ORDERED: ALBUT/IPRATROP 3MG/0.5MG NEB 3 ML VIAL INH PRN (10:30)
--- NOTE | 2017-10-04 10:33 | Clinical Documentation Query ---
CLINICAL DOCUMENTATION QUERY An 89 year old male with a past medical history of CHF, Atrial Fibrillation, Hypertension, Hyperlipidemia, and COPD that presents with a 3 day history of worsening shortness of breath. Echo 05/30/17 showed Normal left ventricular size with mildly reduced systolic function. EF 45-50%. Akinesis of the septal base and base to mid inferior wall and mild concentric left ventricular hypertrophy. In your clinical opinion is this patient being managed for: (x ) Acute on chronic systolic CHF ( ) Acute on chronic diastolic CHF ( ) Not Agree ( ) Other explanation of clinical findings (Please Explain) ( ) Unable to determine (Please Define) ( ) Need to Discuss The medical record reflects the following clinical findings, treatment, and risk factors. Clinical Indicators: CXR + CHF, hypoxia, SOB, TRIVEDI Treatment: IV Lasix, I&O, Cardiology consult Risk Factors: Age, HTN, Afib, hx CHF Please clarify and document your clinical opinion in the progress notes and discharge summary. Terms such as "probable", "suspected", "likely", "questionable", "possible", or "still to be ruled out" are acceptable. IF IN AGREEMENT, YOU MUST DOCUMENT ABOVE DIAGNOSTIC STATEMENT IN DAILY PROGRESS NOTES AND DISCHARGE SUMMARY. This document is not part of the patient's record. Thank You, Jeanine Catherine RN [phone]
--- NOTE | 2017-10-04 10:34 | Clinical Documentation Query ---
CLINICAL DOCUMENTATION QUERY An 89 year old male with a past medical history of CHF, Atrial Fibrillation, Hypertension, Hyperlipidemia, and COPD that presents with a 3 day history of worsening shortness of breath. Echo 05/30/17 showed Normal left ventricular size with mildly reduced systolic function. EF 45-50%. Akinesis of the septal base and base to mid inferior wall. Mild concentric left ventricular hypertrophy. In your clinical opinion is this patient being managed for: ( x ) Acute on chronic systolic CHF ( x ) Acute on chronic diastolic CHF ( ) Not Agree ( ) Other explanation of clinical findings (Please Explain) ( ) Unable to determine (Please Define) ( ) Need to Discuss The medical record reflects the following clinical findings, treatment, and risk factors. Clinical Indicators: CXR + CHF, hypoxia, SOB, TRIVEDI Treatment: IV Lasix, I&O, Cardiology consult Risk Factors: Age, HTN, Afib, hx CHF Please clarify and document your clinical opinion in the progress notes and discharge summary. Terms such as "probable", "suspected", "likely", "questionable", "possible", or "still to be ruled out" are acceptable. IF IN AGREEMENT, YOU MUST DOCUMENT ABOVE DIAGNOSTIC STATEMENT IN DAILY PROGRESS NOTES AND DISCHARGE SUMMARY. This document is not part of the patient's record. Thank You, Jeanine Catherine RN [phone]
--- NOTE | 2017-10-04 10:49 | Cardiology Consultation ---
Cardiology Consultation Date of Consultation: Oct 04, 2017. Requesting Physician: Dr. Church Attending Physician: Dr. Holman Reason for Consultation: Acute CHF Pt evaluation today including: conversation w/ patient, physical exam, chart review, lab review, review of studies, review of inpatient medication list, conversation w/ attending History of Present Illness Mr. 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 He is followed in our office by Dr. Brar. He was admitted on 10/03/17 with shortness of breath and cough. He was referred by his PCP. He reports that his symptoms have been getting progressively worse over the past week to the point he was feeling short of breath at rest yesterday. He typically uses supplemental oxygen at night only but has been using it more frequently over the past several days. He has also noted orthopnea and has been sleeping in a hospital bed with the head elevated. He has a cough productive of brown sputum and has also noticed wheezing. His was recently in the hospital with similar symptoms. He did not experience PND, edema, chest pain, palpitations, lightheadedness, presyncope or syncope. He had not been weighing himself over the past 2 weeks. Upon admission he was found to be hypoxic. His chest x-ray demonstrated pulmonary vascular congestion and a left basilar infiltrate. His troponin level was elevated (peak 0.125) and has since trended down. His BNP is elevated at >8,000. He was seen today in room 240. He has no acute complaints. He reports improvement in his shortness of breath. No orthopnea or PND. No chest discomfort. He continues to have a cough. No fever or chills. No palpitations, lightheadedness, presyncope or syncope. No cerebrovascular complaints. No abnormal bleeding including melena, hematochezia or hematuria. The remainder of his review of systems is unremarkable. Past Medical/Surgical History 1. Coronary artery disease s/p angioplasty (1986). Cardiac cath at that time: occluded RCA, 50% proximal LAD stenosis, 80% mid LAD stenosis, 50% followed by 60% LCx stenoses. Angioplasty was performed on the LAD. Complicated by ventricular tachycardia and cardiac arrest. Non ST-elevation [place] 2004 status post CABG x 5 [facility]. 2. Permanent atrial fibrillation 3. Hypertension 4. Dyslipidemia 5. COPD 6. Hx of DVT and PE 7. Chronic combined diastolic and systolic CHF. LVEF 45-50% on echo in May 2017. Family History Coronary artery disease FH: cancer FH: heart disease FH: hypertension Myocardial infarction Social History Smoking Status: Never Smoker History of Alcohol Use: No and lives with . 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 Also worked in a [employer] for a few year. He has 7 children. No history of tobacco use. No alcohol or drug use. Allergies Coded Allergies: No Known Allergies (Verified , 12/08/16) Medications Current Inpatient Medications Medications (Trade) Dose Ordered Sig/Zainab Route Start Time Stop Time Status Last Admin Dose Admin Acetaminophen (Tylenol Tab) 650 mg Q4H PRN PO 10/03/17 20:00 11/02/17 19:59 Magnesium Hydroxide (Milk Of Magnesia Susp) 30 ml Q12H PRN PO 10/03/17 20:00 11/02/17 19:59 Ondansetron HCl (Zofran Inj) 4 mg Q6H PRN IV 10/03/17 20:00 11/02/17 19:59 Atorvastatin Calcium (Lipitor Tab) 40 mg HS PO 10/03/17 21:00 11/02/17 20:59 10/03/17 21:00 40 MG Clopidogrel Bisulfate (plAVix TAB) 75 mg DAILY PO 10/04/17 09:00 11/03/17 08:59 10/04/17 09:29 75 MG Cyanocobalamin (Vitamin B-12 Tab) 1,000 mcg DAILY PO 10/04/17 09:00 11/03/17 08:59 10/04/17 09:30 1,000 MCG Doxazosin Mesylate (Cardura Tab) 1 mg HS PO 10/03/17 21:00 11/02/17 20:59 10/03/17 21:00 1 MG Ferrous Gluconate (Ferrous Gluconate Tab) 324 mg BID PO 10/03/17 21:00 11/02/17 20:59 10/04/17 09:29 324 MG Levothyroxine Sodium (Synthroid Tab) 50 mcg DAILYBB PO 10/04/17 06:00 11/03/17 05:59 10/04/17 06:06 50 MCG Lisinopril (Zestril Tab) 10 mg QAM PO 10/04/17 09:00 11/03/17 08:59 10/04/17 09:30 10 MG Metoprolol Tartrate (Lopressor Tab) 37.5 mg BID PO 10/03/17 21:00 11/02/17 20:59 10/04/17 09:30 37.5 MG Nitroglycerin (Nitrostat Tab) 0.4 mg PRN UT 10/03/17 20:00 11/02/17 19:59 Furosemide 40 mg/ Syringe 4 ml @ 4 mls/min QAM IV 10/04/17 09:00 11/03/17 08:59 10/04/17 09:30 4 MLS/MIN Potassium Chloride (Klor-Con Tab) 20 meq QAM PO 10/04/17 09:00 11/03/17 08:59 10/04/17 09:30 20 MEQ Albuterol/ Ipratropium (Duoneb) 3 ml QIDR INH 10/03/17 20:00 11/02/17 19:59 10/04/17 07:13 3 ML Levofloxacin 750 mg/Prmx 150 ml @ 100 mls/hr Q24H IV 10/04/17 18:00 10/09/17 19:29 Warfarin Sodium (Coumadin Tab) 6 mg DAILY@16 PO 10/04/17 16:00 11/03/17 15:59 Piperacillin Sod/ Tazobactam Sod 3.375 gm/Dextrose 115 ml @ 28.75 mls/ hr Q8H IV 10/04/17 04:00 10/11/17 03:59 10/04/17 04:25 28.75 MLS/HR Piperacillin Sod/ Tazobactam Sod (Consult) 1 ea UD PRN N/A 10/03/17 22:15 11/02/17 22:14 Vancomycin HCl (Consult) 1 ea UD PRN N/A 10/04/17 00:30 11/03/17 00:29 Vancomycin HCl 1250 mg/Sodium Chloride 275 ml @ 125 mls/hr Q16H IV 10/04/17 10:00 10/11/17 09:59 Physical Exam Vital Signs Past 12 Hours Date Time Temp Pulse Resp B/P (MAP) Pulse Ox O2 Delivery O2 Flow Rate FiO2 10/04/17 08:00 Nasal Cannula 2.0 10/04/17 07:47 37.1 94 20 130/73 (92) 93 Nasal Cannula 2.0 10/04/17 07:14 110 20 93 Nasal Cannula 2.0 10/04/17 05:11 87 20 93 Nasal Cannula 2.0 10/04/17 04:04 37.1 86 20 117/87 (97) 96 Nasal Cannula 2.0 10/04/17 04:00 96 Nasal Cannula 2.0 10/03/17 23:59 Nasal Cannula 2.0 10/03/17 23:14 36.8 109 18 116/79 (91) 95 Nasal Cannula 2.0 10/03/17 22:28 36.3 130 22 137/91 94 2.0 General: Alert and oriented. No acute distress. Supplemental oxygen via nasal cannula. HEENT: Head is normal. PERRLA. EOMI. Sclera anicteric. Mucous membranes moist. Neck: Mildly elevated JVD at 90 degrees. No carotid bruit. Cardiac: Irregular rhythm with controlled rate. S1 and S2 normal. No appreciable murmur, gallop or rub. Lungs: Bilateral wheezing and decreased breath sounds. No rales, rhonchi or wheezing. Abdomen: Soft and nontender. Bowel sounds normal. No mass or organomegaly. No abdominal bruit. Extremities: Without cyanosis or clubbing. Trace to 1+ pretibial edema bilaterally. Skin: No rash or abnormal lesions. Neurologic: Alert and oriented x3. No lateralizing changes. Psychiatric: Affect seems appropriate. Data Laboratory Results: Last 24 Hours Test 10/03/17 16:25 10/03/17 16:30 10/03/17 16:38 10/03/17 20:24 White Blood Count 4.91 K/uL Red Blood Count 4.05 M/uL Hemoglobin 11.6 g/dL Hematocrit 37.6 % Mean Corpuscular Volume 92.8 fL Mean Corpuscular Hemoglobin 28.6 pg Mean Corpuscular Hemoglobin Concent 30.9 g/dl Platelet Count 118 K/uL Mean Platelet Volume 11.7 fL Neutrophils (%) (Auto) 67.2 % Lymphocytes (%) (Auto) 15.1 % Monocytes (%) (Auto) 15.3 % Eosinophils (%) (Auto) 1.8 % Basophils (%) (Auto) 0.4 % Neutrophils # (Auto) 3.30 K/uL Lymphocytes # (Auto) 0.74 K/uL Monocytes # (Auto) 0.75 K/uL Eosinophils # (Auto) 0.09 K/uL Basophils # (Auto) 0.02 K/uL RDW Standard Deviation 59.5 fL RDW Coefficient of Variation 17.5 % Immature Granulocyte % (Auto) 0.2 % Immature Granulocyte # (Auto) 0.01 K/uL Platelet Estimate DECREASED Poikilocytosis PRESENT Prothrombin Time 19.4 SECONDS Prothromb Time International Ratio 1.9 Sodium Level 141 mmol/L Potassium Level 4.1 mmol/L Chloride Level 108 mmol/L Carbon Dioxide Level 27 mmol/L Anion Gap 7.0 mmol/L Blood Urea Nitrogen 26 mg/dl Creatinine 0.98 mg/dl Est Creatinine Clear Calc Drug Dose 57.7 ml/min Estimated GFR () 78.9 Estimated GFR (Non- 68.1 BUN/Creatinine Ratio 26.3 Random Glucose 93 mg/dl Calcium Level 8.6 mg/dl Total Bilirubin 0.7 mg/dl Direct Bilirubin 0.3 mg/dl Aspartate Amino Transf (AST/SGOT) 26 U/L Alanine Aminotransferase (ALT/SGPT) 20 U/L Alkaline Phosphatase 120 U/L Troponin I 0.109 ng/ml 0.118 ng/ml Pro-B-Type Natriuretic Peptide 8195 pg/ml Total Protein 7.1 gm/dl Albumin 3.4 gm/dl Lipase 167 U/L Influenza Type A Antigen Neg for Influ A Influenza Type B Antigen Neg for Influ B Venous Blood pH 7.34 Venous Blood Partial Pressure CO2 53 mmHg Venous Blood Partial Pressure O2 22 mmHg Venous Blood HCO3 28 mmol/L Venous Blood Oxygen Saturation < 60.0 % Venous Blood Base Excess 1.0 mEq/L Lactic Acid Level 1.1 mmol/L Magnesium Level 1.9 mg/dl Test 10/04/17 01:53 10/04/17 07:57 Troponin I 0.125 ng/ml 0.095 ng/ml White Blood Count 3.42 K/uL Red Blood Count 3.78 M/uL Hemoglobin 10.9 g/dL Hematocrit 34.8 % Mean Corpuscular Volume 92.1 fL Mean Corpuscular Hemoglobin 28.8 pg Mean Corpuscular Hemoglobin Concent 31.3 g/dl Platelet Count 105 K/uL Mean Platelet Volume 11.8 fL Neutrophils (%) (Auto) 79.3 % Lymphocytes (%) (Auto) 10.2 % Monocytes (%) (Auto) 10.2 % Eosinophils (%) (Auto) 0.0 % Basophils (%) (Auto) 0.3 % Neutrophils # (Auto) 2.71 K/uL Lymphocytes # (Auto) 0.35 K/uL Monocytes # (Auto) 0.35 K/uL Eosinophils # (Auto) 0.00 K/uL Basophils # (Auto) 0.01 K/uL RDW Standard Deviation 59.2 fL RDW Coefficient of Variation 17.5 % Immature Granulocyte % (Auto) 0.0 % Immature Granulocyte # (Auto) 0.00 K/uL Prothrombin Time 17.7 SECONDS Prothromb Time International Ratio 1.7 Sodium Level 141 mmol/L Potassium Level 3.8 mmol/L Chloride Level 106 mmol/L Carbon Dioxide Level 26 mmol/L Anion Gap 9.0 mmol/L Blood Urea Nitrogen 27 mg/dl Creatinine 1.17 mg/dl Est Creatinine Clear Calc Drug Dose 48.4 ml/min Estimated GFR () 63.7 Estimated GFR (Non- 54.9 BUN/Creatinine Ratio 23.3 Random Glucose 132 mg/dl Calcium Level 8.6 mg/dl Imaging: EKG: Telemetry reviewed: Assessment & Plan Patient was discussed with Dr. Holman. 1. Acute on chronic combined systolic and diastolic CHF: Patient presented with acute respiratory distress likely multifactorial give his acute CHF, COPD and current respiratory infection. He is -1.4 L since yesterday and symptoms are improving. He appears mildly hypervolemic on exam and recommend continuing current dose of IV Lasix. His renal function and electrolytes are stable, continue to monitor. Continue strict I's&O's. Daily weights. Recommend low sodium diet. 2. Elevated troponin: His troponin was mildly elevated upon admission and is since tending down. He has not had any anginal type symptoms. This is likely due to demand ischemia. Of note troponin was also mildly elevated during hospital admission in May 2017 for acute CHF and COPD exacerbation. 3. Coronary artery disease: No anginal type symptoms. As above mildly elevated troponin not felt to represent acute coronary syndrome. Continue medical therapy. 4. Permanent atrial fibrillation: Heart rate has been relatively well controlled 90s to 100s on telemetry. Continue to monitor, can increase dose of metoprolol tartrate if needed. He is asymptomatic. Continue anticoagulation for stroke risk reduction. 5. Hypertension: Blood pressure controlled on current regimen. 6. Dyslipidemia: Continue statin therapy.
[2017-10-04] MEDS: METHYLPREDNISOLONE IV 40 MG in SYRINGE 0 ML IV SCH ×2 (12:30→19:08)
--- NOTE | 2017-10-04 14:08 | Family Medicine Progress Note ---
Progress Note Date of Service Oct 04, 2017. Subjective Pt evaluation today including: conversation w/ patient, physical exam, chart review, lab review, review of studies, review of inpatient medication list Pain: Denies pain PO Intake: Tolerating well Voiding: no voiding problems Patient reports he is feeling much better compared to when he came in last night.Still SOB with productive cough but feels he is breathing more easily Constitutional: No fever, No chills, No sweats, No weight loss, No weakness , No fatigue, No problem reported Respiratory: + cough, + sputum, + wheezing, + shortness of breath, + dyspnea on exertion, + dyspnea at rest, No hemoptysis Cardiovascular: + orthopnea, + edema, + palpitations, No chest pain, No PND , No claudication, No problem reported Abdomen: No pain, No nausea, No vomiting, No diarrhea, No constipation, No GI bleeding, No problem reported All Other Systems: Reviewed and Negative Medications Current Inpatient Medications Medications (Trade) Dose Ordered Sig/Zainab Route Start Time Stop Time Status Last Admin Dose Admin Acetaminophen (Tylenol Tab) 650 mg Q4H PRN PO 10/03/17 20:00 11/02/17 19:59 Magnesium Hydroxide (Milk Of Magnesia Susp) 30 ml Q12H PRN PO 10/03/17 20:00 11/02/17 19:59 Ondansetron HCl (Zofran Inj) 4 mg Q6H PRN IV 10/03/17 20:00 11/02/17 19:59 Atorvastatin Calcium (Lipitor Tab) 40 mg HS PO 10/03/17 21:00 11/02/17 20:59 10/03/17 21:00 40 MG Clopidogrel Bisulfate (plAVix TAB) 75 mg DAILY PO 10/04/17 09:00 11/03/17 08:59 10/04/17 09:29 75 MG Cyanocobalamin (Vitamin B-12 Tab) 1,000 mcg DAILY PO 10/04/17 09:00 11/03/17 08:59 10/04/17 09:30 1,000 MCG Doxazosin Mesylate (Cardura Tab) 1 mg HS PO 10/03/17 21:00 11/02/17 20:59 10/03/17 21:00 1 MG Ferrous Gluconate (Ferrous Gluconate Tab) 324 mg BID PO 10/03/17 21:00 11/02/17 20:59 10/04/17 09:29 324 MG Levothyroxine Sodium (Synthroid Tab) 50 mcg DAILYBB PO 10/04/17 06:00 11/03/17 05:59 10/04/17 06:06 50 MCG Lisinopril (Zestril Tab) 10 mg QAM PO 10/04/17 09:00 11/03/17 08:59 10/04/17 09:30 10 MG Metoprolol Tartrate (Lopressor Tab) 37.5 mg BID PO 10/03/17 21:00 11/02/17 20:59 10/04/17 09:30 37.5 MG Nitroglycerin (Nitrostat Tab) 0.4 mg PRN UT 10/03/17 20:00 11/02/17 19:59 Furosemide 40 mg/ Syringe 4 ml @ 4 mls/min QAM IV 10/04/17 09:00 11/03/17 08:59 10/04/17 09:30 4 MLS/MIN Potassium Chloride (Klor-Con Tab) 20 meq QAM PO 10/04/17 09:00 11/03/17 08:59 10/04/17 09:30 20 MEQ Albuterol/ Ipratropium (Duoneb) 3 ml QIDR INH 10/03/17 20:00 11/02/17 19:59 10/04/17 11:13 3 ML Warfarin Sodium (Coumadin Tab) 6 mg DAILY@16 PO 10/04/17 16:00 11/03/17 15:59 Albuterol/ Ipratropium (Duoneb) 3 ml Q2H PRN INH 10/04/17 10:30 11/03/17 10:29 Methylprednisolone Sodium Succinate 40 mg/Syringe 0.64 ml @ 1.5 mls/min Q8H IV 10/04/17 12:00 10/05/17 04:01 Objective Vital Signs Date Time Temp Pulse Resp B/P (MAP) Pulse Ox O2 Delivery O2 Flow Rate FiO2 10/04/17 11:13 99 20 94 Nasal Cannula 2.0 10/04/17 11:07 36.3 105 20 139/80 (99) 96 Nasal Cannula 2.0 10/04/17 08:00 Nasal Cannula 2.0 10/04/17 07:47 37.1 94 20 130/73 (92) 93 Nasal Cannula 2.0 10/04/17 07:14 110 20 93 Nasal Cannula 2.0 10/04/17 05:11 87 20 93 Nasal Cannula 2.0 10/04/17 04:04 37.1 86 20 117/87 (97) 96 Nasal Cannula 2.0 10/04/17 04:00 96 Nasal Cannula 2.0 10/03/17 23:59 Nasal Cannula 2.0 10/03/17 23:14 36.8 109 18 116/79 (91) 95 Nasal Cannula 2.0 10/03/17 22:28 36.3 130 22 137/91 94 2.0 10/03/17 21:26 109 140/105 10/03/17 21:22 136 20 143/105 100 10/03/17 21:21 117 143/105 10/03/17 21:19 143/105 10/03/17 21:15 128 23 124/111 10/03/17 21:00 125 26 136/86 96 10/03/17 20:56 113 135/98 10/03/17 20:46 135/98 10/03/17 20:45 124 21 94 10/03/17 20:30 114 21 115/97 100 10/03/17 20:15 133 20 140/95 99 10/03/17 20:10 140 140/92 10/03/17 20:07 140/92 10/03/17 20:00 142 24 10/03/17 19:45 133 17 10/03/17 19:30 142 26 10/03/17 19:15 136 24 10/03/17 19:00 148 23 98 10/03/17 18:45 152 19 98 10/03/17 18:38 149 20 163/109 100 BiPAP 10/03/17 18:30 152 23 163/109 100 10/03/17 18:15 148 21 93 10/03/17 18:08 143 95 40 10/03/17 18:00 137 25 98 10/03/17 17:45 118 23 100 10/03/17 17:30 122 19 100 10/03/17 17:15 109 23 83 10/03/17 17:00 95 19 100 10/03/17 16:49 82 22 96 Nasal Cannula 2.0 10/03/17 16:45 100 19 10/03/17 16:44 92 1/11/18 16:42 96 Nasal Cannula 2.0 10/03/17 16:29 96 Nasal Cannula 2.0 10/03/17 15:58 36.4 76 22 124/77 92 Room Air Physical Exam General Appearance: WD/WN, no apparent distress Eyes: normal inspection, PERRL, EOMI, sclerae normal ENT: pharynx normal, + pertinent finding (hard of hearing) Neck: supple, no adenopathy, no JVD, no carotid bruits, trachea midline Respiratory/Chest: chest non-tender, no accessory muscle use, + wheezing ( diffuse, expiratory) Cardiovascular: no JVD, no murmur, + irregularly irregular Abdomen: normal bowel sounds, non tender, soft Extremities: normal range of motion, non-tender, normal inspection, no calf tenderness, + pedal edema (trace-1+ bilaterally) Neurologic/Psychiatric: gate clerk II-XII nml as tested, no motor/sensory deficits, alert, normal mood/affect, oriented x 3 Skin: normal color, warm/dry, no rash Laboratory Results Last Resulted 10/04/17 07:57 Red Blood Count 3.78, Mean Corpuscular Volume 92.1, Mean Corpuscular Hemoglobin 28.8, Mean Corpuscular Hemoglobin Concent 31.3, Mean Platelet Volume 11.8, Neutrophils (%) (Auto) 79.3, Lymphocytes (%) (Auto) 10.2, Monocytes (%) (Auto) 10.2, Eosinophils (%) (Auto) 0.0, Basophils (%) (Auto) 0.3, Neutrophils # (Auto ) 2.71, Lymphocytes # (Auto) 0.35, Monocytes # (Auto) 0.35, Eosinophils # (Auto ) 0.00, Basophils # (Auto) 0.01 Last Resulted 10/04/17 07:57 Past 24 Hours Test 10/03/17 16:25 10/03/17 20:24 10/04/17 01:53 10/04/17 07:57 Range/Units Prothromb Time International Ratio 1.9 H 1.7 H 0.9-1.1 Prothrombin Time 19.4 H 17.7 H 9.0-12.0 SECONDS Troponin I 0.109 *H 0.118 *H 0.125 *H 0.095 *H 0-0.045 ng/ml Assessment and Plan 76 yo male PMH systolic CHF, pulmonary fibrosis, AFib, HTN, HLD admitted for 3 day history of progressive dyspnea and productive cough. He was not finding relief from his nebulizers at home and required BiPAP in the ED. Acute on Chronic Combined Systolic and Diastolic CHF -CXR showed interstitial left basilar opacities, mild pulmonary vascular congestion, and small pleural effusions. -IV lasix 40 mg daily. Monitor renal function to assess over-diuresis -BMP: normal, K 3.8, Cr 1.17 -Cardiology consulted, appreciate recommendations -Last Echo 05/2017: EF 40-45%, Akinesis of septal base and inferior wall -Weaned off of BiPAP, maintain O2 >92% -PRN duonebs q2h ? Exacerbation of lung ds - Pulmonary Fibrosis; possibly silicosis -Pulm has seen in past -Start on 40 mg solu-medrol IV q8h x 24 hours -Start on Prednisone PO tomorrow -No pulmonary infiltrate. DCd antibiotics Atrial Fibrillation with RVR - RVR likely due to hypoxia from lung ds. - Continue home Lopressor and Coumadin (on 5mg/7.5mg dosing --> Changed to 6mg daily when in hospital) - Monitor INR Elevated Troponin - minimal - EKG: Atrial fibrillation with Tachycardia --> No ST changes or signs of acute Ischemia - Initial Troponin of 0.109 --> Trend q6h x3 negative - Monitor on Telemetry Hypothyroidism - Continue home Synthroid Hyperlipidemia - Continue home Lipitor GERD - Prevacid BPH - Continue home Doxazosin DVTP: Coumadin Code: full Dispo: Tele Resident Tracking Resident Involvement: Resident Care Provided Care Provided: Adult Hospital Medicine Reviewed: Pt Seen/Exam by Me Constitutional: denies: fever Respiratory: positive: cough, short of breath (slightly better since admission) Cardiovascular: denies chest pain Gastrointestinal/Abdominal: negative: abdominal pain General Appearance: mild distress (from cough) Respiratory: no respiratory distress, decreased breath sounds, rhonchi Cardiovascular: irregularly irregular Neurologic/Psychiatric: alert, oriented x 3 Skin Characteristics: warm/dry Assessment/Plan Resident Physician Supervision Note: I independently interviewed and examined the patient and verified the dhillon history and physical, reviewed labs and image studies, discussed the case with the resident Dr. Copeland and agree with the findings and care plan.
[2017-10-04] MEDS: WARFARIN SOD 6 MG TAB PO SCH (17:56)
[2017-10-04] MEDS ORDERED: LEVOFLOXACIN / D5W 750 MG in PREMIXED IN D5W 150 ML IV SCH (18:00)
[2017-10-04] MEDS: ATORVASTATIN 20 MG TAB PO SCH (19:09)
[2017-10-04] MEDS: DOXAZosin TAB 1 MG TAB PO SCH (19:10)
[2017-10-05] VITALS (12 sets, daily range): BP systolic 134–163; BP diastolic 73–96; PULSE 65–114; TEMP 36.3–36.7; O2SAT 92–100
[2017-10-05] MEDS: METHYLPREDNISOLONE IV 40 MG in SYRINGE 0 ML IV SCH ×2 (04:07→16:03)
[2017-10-05] MEDS: LEVOTHYROXINE 50 MCG TAB PO SCH ×2 (04:07→06:10)
[2017-10-05] MEDS: ALBUT/IPRATROP 3MG/0.5MG NEB 3 ML VIAL INH SCH ×4 (07:19→19:43)
[2017-10-05 07:31] LABS: MEAN CORPUSCULAR HGB CONC 31.6 g/dl (32-36)
[2017-10-05] MEDS: FUROSEMIDE INJ 40 MG in SYRINGE 0 ML IV SCH (07:31)
[2017-10-05] MEDS: CLOPIDOGREL BISULFATE 75 MG TAB PO SCH (07:31)
[2017-10-05] MEDS: CYANOCOBALAMIN 500 MCG TAB (VIT B-12) PO SCH (07:31)
[2017-10-05] MEDS: METOPROLOL TARTRATE 25 MG TAB PO SCH ×2 (07:32→20:55)
[2017-10-05] MEDS: POTASSIUM CHLORIDE 20 MEQ TABCR PO SCH (07:33)
[2017-10-05] MEDS: FERROUS GLUCONATE 324 MG TAB PO SCH ×2 (07:33→20:55)
[2017-10-05] MEDS: LISINOPRIL 10 MG TAB PO SCH (07:33)
[2017-10-05 07:38] LABS: INR 1.4 (0.9-1.1)
[2017-10-05 08:12] LABS: CALCIUM 8.9 mg/dl (8.5-10.1); CREATININE 1.24 mg/dl (0.60-1.40); POTASSIUM 4.4 mmol/L (3.5-5.1)
[2017-10-05 08:21] LABS: HEMATOCRIT 36.4 % (42-52); HEMOGLOBIN 11.5 g/dL (14.0-18.0); MEAN CELL VOLUME 91.2 fL (80-100); MEAN CORPUSCULAR HEMOGLOBIN 28.8 pg (25-34); PLATELET COUNT 108 K/uL (130-400); RED CELL DISTRIBUTION WIDTH CV 17.2 % (11.5-14.5); RED CELL DISTRIBUTION WIDTH SD 57.9 fL (36.4-46.3); WHITE BLOOD COUNT 6.37 K/uL (4.8-10.8)
--- NOTE | 2017-10-05 08:47 | Family Medicine Progress Note ---
Progress Note Date of Service Oct 05, 2017. Subjective Pt evaluation today including: conversation w/ patient, physical exam, chart review, lab review Patient is doing well. Says that his SOB is better, although he continues to have a dry cough and is experiencing wheezing. Patient is sleeping well, tolerating food, good appetite. Denies fevers. Constitutional: No fever, No chills Respiratory: + cough, + shortness of breath, No sputum Cardiovascular: No chest pain, No palpitations Abdomen: No pain, No nausea, No vomiting Male : No dysuria Medications Current Inpatient Medications Medications (Trade) Dose Ordered Sig/Zainab Route Start Time Stop Time Status Last Admin Dose Admin Acetaminophen (Tylenol Tab) 650 mg Q4H PRN PO 10/03/17 20:00 11/02/17 19:59 Magnesium Hydroxide (Milk Of Magnesia Susp) 30 ml Q12H PRN PO 10/03/17 20:00 11/02/17 19:59 Ondansetron HCl (Zofran Inj) 4 mg Q6H PRN IV 10/03/17 20:00 11/02/17 19:59 Atorvastatin Calcium (Lipitor Tab) 40 mg HS PO 10/03/17 21:00 11/02/17 20:59 10/04/17 19:09 40 MG Clopidogrel Bisulfate (plAVix TAB) 75 mg DAILY PO 10/04/17 09:00 11/03/17 08:59 10/05/17 07:31 75 MG Cyanocobalamin (Vitamin B-12 Tab) 1,000 mcg DAILY PO 10/04/17 09:00 11/03/17 08:59 10/05/17 07:31 1,000 MCG Doxazosin Mesylate (Cardura Tab) 1 mg HS PO 10/03/17 21:00 11/02/17 20:59 10/04/17 19:10 1 MG Ferrous Gluconate (Ferrous Gluconate Tab) 324 mg BID PO 10/03/17 21:00 11/02/17 20:59 10/05/17 07:33 324 MG Levothyroxine Sodium (Synthroid Tab) 50 mcg DAILYBB PO 10/04/17 06:00 11/03/17 05:59 10/05/17 06:10 50 MCG Lisinopril (Zestril Tab) 10 mg QAM PO 10/04/17 09:00 11/03/17 08:59 10/05/17 07:33 10 MG Metoprolol Tartrate (Lopressor Tab) 37.5 mg BID PO 10/03/17 21:00 11/02/17 20:59 10/05/17 07:32 37.5 MG Nitroglycerin (Nitrostat Tab) 0.4 mg PRN UT 10/03/17 20:00 11/02/17 19:59 Furosemide 40 mg/ Syringe 4 ml @ 4 mls/min QAM IV 10/04/17 09:00 11/03/17 08:59 10/05/17 07:31 4 MLS/MIN Potassium Chloride (Klor-Con Tab) 20 meq QAM PO 10/04/17 09:00 11/03/17 08:59 10/05/17 07:33 20 MEQ Albuterol/ Ipratropium (Duoneb) 3 ml QIDR INH 10/03/17 20:00 11/02/17 19:59 10/05/17 11:29 3 ML Warfarin Sodium (Coumadin Tab) 6 mg DAILY@16 PO 10/04/17 16:00 11/03/17 15:59 10/04/17 17:56 6 MG Albuterol/ Ipratropium (Duoneb) 3 ml Q2H PRN INH 10/04/17 10:30 11/03/17 10:29 Methylprednisolone Sodium Succinate 40 mg/Syringe 0.64 ml @ 1.5 mls/min Q12H IV 10/05/17 16:00 11/04/17 15:59 Objective Vital Signs 10/05/17 07:05 10/05/17 07:05 Last Vital Signs Documentation Date Time Temp Pulse Resp B/P (MAP) Pulse Ox O2 Delivery O2 Flow Rate FiO2 10/05/17 11:29 86 20 92 Nasal Cannula 3.0 10/05/17 07:49 36.4 163/73 (103) 10/03/17 18:08 40 Physical Exam General Appearance: WD/WN, no apparent distress Respiratory/Chest: chest non-tender, no respiratory distress, + wheezing Cardiovascular: regular rate, rhythm, no edema, no murmur Extremities: non-tender, no calf tenderness Neurologic/Psychiatric: alert, normal mood/affect, oriented x 3 Skin: normal color, warm/dry, no rash Laboratory Results 10/05/17 07:05 10/05/17 07:05 Test 10/05/17 07:05 Red Blood Count 3.99 M/uL (4.7-6.1) Mean Corpuscular Volume 91.2 fL (80-100) Mean Corpuscular Hemoglobin 28.8 pg (25-34) Mean Corpuscular Hemoglobin Concent 31.6 g/dl (32-36) RDW Standard Deviation 57.9 fL (36.4-46.3) RDW Coefficient of Variation 17.2 % (11.5-14.5) Mean Platelet Volume 12.0 fL (7.4-10.4) Platelet Estimate DECREASED Prothrombin Time 14.9 SECONDS (9.0-12.0) Prothromb Time International Ratio 1.4 (0.9-1.1) Anion Gap 7.0 mmol/L (3-11) Est Creatinine Clear Calc Drug Dose 45.6 ml/min Estimated GFR () 59.4 Estimated GFR (Non- 51.2 BUN/Creatinine Ratio 28.5 (10-20) Calcium Level 8.9 mg/dl (8.5-10.1) Date/Time Source Procedure Growth Status 10/04/17 20:00 Nasal MRSA DNA Surveillance Screen - Final Specimen Negative for MRSA by DNA Probe Complete Assessment and Plan 76 yo male PMH systolic CHF, pulmonary fibrosis, AFib, HTN, HLD admitted for 3 day history of progressive dyspnea and productive cough. He was not finding relief from his nebulizers at home and required BiPAP in the ED. Acute on Chronic Combined Systolic and Diastolic CHF -CXR showed interstitial left basilar opacities, mild pulmonary vascular congestion, and small pleural effusions. -IV lasix 40 mg daily. Monitor renal function to assess over-diuresis -Cardiology consulted, appreciate recommendations -Last Echo 05/2017: EF 40-45%, Akinesis of septal base and inferior wall -Weaned off of BiPAP, maintain O2 >92% -PRN duonebs q2h ? 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 -No pulmonary infiltrate. DCd antibiotics -prn nebs. hold scheduled nebs since gets more wheezy after neb treatments. Atrial Fibrillation with RVR - RVR likely due to hypoxia from lung ds. - Continue home Lopressor and Coumadin (on 5mg/7.5mg dosing --> Changed to 6mg daily when in hospital) - INR subtherapeutic - extra coumadin of 3mgs today HTN -Cont. Lisinopril 10 mg. Pressures have been elevated yesterday evening SBP in the 150-160. Likely 2/2 to steroids. -Monitor serial BP Elevated Troponin - minimal - EKG: Atrial fibrillation with Tachycardia --> No ST changes or signs of acute Ischemia - Initial Troponin of 0.109 --> Trended q6h x3 negative - Monitor on Telemetry Hypothyroidism - Continue home Synthroid Hyperlipidemia - Continue home Lipitor GERD - Prevacid BPH - Continue home Doxazosin DVTP: Coumadin Code: full Dispo: Tele Reviewed: Pt Seen/Exam by Me History breathing improving nursing reports patient having more bronchospasm when using neb treatment Constitutional: denies: fever Cardiovascular: denies chest pain General Appearance: no apparent distress Respiratory: no respiratory distress, decreased breath sounds Cardiovascular: irregularly irregular Neurologic/Psychiatric: alert, oriented x 3 Skin Characteristics: warm/dry Assessment/Plan Resident Physician Supervision Note: I independently interviewed and examined the patient and verified the dhillon history and physical, reviewed labs and image studies, discussed the case with the resident Dr. Lewis and agree with the findings and care plan.
--- NOTE | 2017-10-05 13:16 | CARDIOLOGY PROGRESS NOTE ---
DATE: 10/05/2017 SUBJECTIVE: Mr. Villa is resting comfortably in bed without complaints of chest pain, dyspnea, or palpitations. OBJECTIVE: VITAL SIGNS: Blood pressure is 155/93 with an irregular pulse of 70. Respiratory rate is 22. The patient is afebrile at 36.7 degrees Celsius. Saturation is 100% on 2 liters nasal cannula. NECK: Supple with full carotid upstrokes. There are no carotid bruits. Jugular venous pressure is flat at 90 degrees. There is no thyromegaly. CARDIOVASCULAR: Reveals an irregularly irregular rhythm with distant heart sounds. No obvious murmurs. LUNGS: Notes some decreased breath sounds at the bases but no rales. ABDOMEN: Soft without bruits. EXTREMITIES: Reveal intact radial artery pulses bilaterally. Trace pretibial edema is noted. DATA: CBC notes a hemoglobin 11.5, hematocrit 36.4, white count 6.3, and platelet count 108,000. Electrolytes note a sodium of 138, potassium 4.4, chloride 104, bicarb 27, BUN 35, creatinine 1.2, and glucose 127. INR is 1.4. inspector plating notes atrial fibrillation with a controlled ventricular response. IMPRESSION AND PLAN: 1. Acute on chronic combined congestive heart failure -- patient has diuresed well and symptoms have improved. Would continue intravenous diuretics for now. 2. Mildly elevated troponin -- likely secondary to his acute presentation. He has not experienced any chest discomfort suggesting a demand ischemia. 3. Coronary artery disease -- status post coronary artery bypass grafting x5 in 2003. 4. Permanent atrial fibrillation -- continue warfarin. 5. Mild left ventricular dysfunction -- ejection fraction 45-50% in May 2017. 6. Hypertension -- controlled. 7. Hypercholesterolemia -- continue statin. 8. Pneumonia -- continue antibiotics.
[2017-10-05] MEDS: WARFARIN SOD 6 MG TAB PO SCH (16:08)
[2017-10-05] MEDS ORDERED: WARFARIN SOD 3 MG TAB PO ONE (17:00)
[2017-10-05] MEDS ORDERED: VANCOMYCIN TROUGH ONE (17:30)
[2017-10-05] MEDS: ATORVASTATIN 20 MG TAB PO SCH (20:55)
[2017-10-05] MEDS: DOXAZosin TAB 1 MG TAB PO SCH (20:55)
[2017-10-06 03:13] VITALS: BP 158/87; PULSE 85; TEMP 36.3; O2SAT 99
[2017-10-06] MEDS: METHYLPREDNISOLONE IV 40 MG in SYRINGE 0 ML IV SCH (04:24)
[2017-10-06] MEDS: LEVOTHYROXINE 50 MCG TAB PO SCH (05:41)
[2017-10-06 06:59] LABS: MEAN CORPUSCULAR HGB CONC 31.6 g/dl (32-36)
[2017-10-06 07:06] LABS: HEMATOCRIT 36.4 % (42-52); HEMOGLOBIN 11.5 g/dL (14.0-18.0); MEAN CORPUSCULAR HEMOGLOBIN 28.8 pg (25-34); RED CELL DISTRIBUTION WIDTH CV 17.2 % (11.5-14.5); RED CELL DISTRIBUTION WIDTH SD 56.9 fL (36.4-46.3); WHITE BLOOD COUNT 8.31 K/uL (4.8-10.8)
[2017-10-06 07:13] LABS: INR 1.4 (0.9-1.1)
[2017-10-06 07:21] VITALS: BP 162/92; PULSE 82; TEMP 36.2; O2SAT 99
[2017-10-06 07:32] LABS: CALCIUM 8.7 mg/dl (8.5-10.1); CREATININE 1.13 mg/dl (0.60-1.40); POTASSIUM 4.3 mmol/L (3.5-5.1)
[2017-10-06 07:34] LABS: IG# 0.02 K/uL (0.00-0.02); LYMPH % 5.3 %; LYMPH ABS # 0.44 K/uL (1.2-3.4); MEAN PLATELET VOLUME 11.4 fL (7.4-10.4); MONO % 7.8 %; MONO ABS # 0.65 K/uL (0.11-0.59); NEUT % 86.7 %; PLATELET COUNT 114 K/uL (130-400)
[2017-10-06] MEDS: FUROSEMIDE INJ 40 MG in SYRINGE 0 ML IV SCH (07:46)
[2017-10-06] MEDS: POTASSIUM CHLORIDE 20 MEQ TABCR PO SCH (07:47)
[2017-10-06] MEDS: ALBUT/IPRATROP 3MG/0.5MG NEB 3 ML VIAL INH SCH (07:47)
[2017-10-06] MEDS: FERROUS GLUCONATE 324 MG TAB PO SCH (07:47)
[2017-10-06] MEDS: LISINOPRIL 10 MG TAB PO SCH (07:47)
[2017-10-06] MEDS: METOPROLOL TARTRATE 25 MG TAB PO SCH (07:48)
[2017-10-06] MEDS: CLOPIDOGREL BISULFATE 75 MG TAB PO SCH (07:49)
[2017-10-06] MEDS: CYANOCOBALAMIN 500 MCG TAB (VIT B-12) PO SCH (07:49)
[2017-10-06] MEDS ORDERED: PRED10TA PO (10:35)
--- NOTE | 2017-10-06 10:47 | Discharge Instructions ---
Discharge Instructions Date of Service Oct 06, 2017. Admission Reason for Admission: Acute Exacerbation Of Chf, Pneumonia Discharge Discharge Diagnosis / Problem: COPD exacerbation, CHF exacebation Discharge Goals Goal(s): Improve function, Increase independence, Improve disease control Activity Recommendations Activity Limitations: per Instructions/Follow-up section . Instructions / Follow-Up Instructions / Follow-Up Mr. Villa, You came to the hospital with acute shortness of breath. There are two possibilities for your symptoms; exacerbation of congestive heart failure and exacerbation of COPD. We provided the following treatments; antibiotic initially in the emergency room, as well as medicines to reduce fluid and inflammation of your lungs. You have showed marked improvements since. We are sending you home with Prednisone. Take the medication for 9 days as directed below. Please follow up with your primary care doctor this week. Day 1 40mg (4 pills) Day 2 40 mg (4 pills) Day 3 40 mg (4 pills) Day 4 20 mg (2pills) Day 5 20 mg (2pills) Day 6 20 mg (2pills) Day 7 10 mg (1 pill) Day 8 10 mg (1 pill) Day 9 10 mg (1 pill) Current Hospital Diet Patient's current hospital diet: AHA Diet (Heart Healthy) Discharge Diet Recommended Diet: Regular Diet Pending Studies Studies pending at discharge: no Medical Emergencies . Who to Call and When: Medical Emergencies: If at any time you feel your situation is an emergency, please call 911 immediately. . Non-Emergent Contact Non-Emergency issues call your: Primary Care Provider . . "Provider Documentation" section prepared by Edy Lewis. . VTE Core Measure Inpt VTE Proph given/why not?: Warfarin (Coumadin)
[2017-10-06 10:55] VITALS: BP 145/92; PULSE 82; TEMP 36.6; O2SAT 86
[2017-10-06] MEDS ORDERED: RANITIDINE HCL 150 MG TAB PO ONE (12:00)
[2017-10-06] MEDS ORDERED: SIMETHICONE 80 MG CHEW PO PRN (12:00)
[2017-10-06 13:30] VITALS: O2SAT 96
--- NOTE | 2017-10-06 13:48 | CARDIOLOGY PROGRESS NOTE ---
DATE: 10/06/2017 SUBJECTIVE: Mr. Villa is resting comfortably in bed without complaints of chest pain, dyspnea, or palpitations. He is anxious for hospital discharge. OBJECTIVE: VITAL SIGNS: Blood pressure 145/90 with a regular pulse of 82. Respiratory rate is 20. The patient is afebrile at 36.6 degrees Celsius. Saturation is 99% on room air. NECK: Supple with full carotid upstrokes. No carotid bruits. Jugular venous pressure is flat at 90 degrees. There is no thyromegaly. CARDIOVASCULAR: Reveals an irregularly irregular rhythm with distant heart sounds. No obvious murmurs. LUNGS: Clear without rales, rhonchi, or wheezes. ABDOMEN: Soft without bruits. EXTREMITIES: Reveal intact radial artery pulses bilaterally. Trace pretibial edema is noted. DATA: CBC notes hemoglobin of 11.5, hematocrit 36.4, white count 8.3, platelet count 114,000. Electrolytes note a sodium of 140, potassium 4.3, chloride 106, bicarb 27, BUN 47, creatinine 1.13 and a glucose of 110. INR is 1.4. equipment monitor phototypesetting notes atrial fibrillation with a controlled ventricular response. IMPRESSION AND PLAN: 1. Acute on chronic combined congestive heart failure -- patient appears euvolemic at this time. Could convert to oral diuretics. 2. Mild elevated troponin -- likely secondary to his acute presentation. He has had no recent angina pectoris. Suspect demand ischemia. 3. Coronary artery disease -- status post coronary artery bypass grafting x5 in 2003. 4. Permanent atrial fibrillation -- INR subtherapeutic. 5. Mild left ventricular dysfunction -- ejection fraction of 45-50% in May 2017. 6. Hypertension -- controlled. 7. Hypercholesterolemia -- continue statin. 8. Pneumonia -- improved on intravenous antibiotics. 9. Disposition -- stable for hospital discharge from a cardiac perspective.
--- NOTE | 2017-10-06 16:36 | Discharge Summary ---
Discharge Summary Date of Service Oct 06, 2017. Discharge Summary Admission Date: Oct 03, 2017 at 20:06 Discharge Date: Oct 06, 2017 Discharge Disposition: Home Principal Diagnosis: CHF/COPD exacerbation Problems/Secondary Diagnoses: (1) Hx-Venous Thrombosis&Embolism Status: Chronic Immunizations: Have You Had Influenza Vaccine: N/A Influenza Vaccine Date: Aug 18, 2007 History of Tetanus Vaccine?: Yes History of Pneumococcal: Yes Pneumococcal Date: Aug 18, 2007 History of Hepatitis B Vaccine: No Procedures: CHEST ONE VIEW PORTABLE CLINICAL HISTORY: CHEST PAIN dyspnea COMPARISON STUDY: 05/30/2017 FINDINGS: Moderate stable cardiomegaly. Interval progression and/or development of a interstitial infiltrate left base. Components of mild congestive failure present. Slight blunting right lateral costophrenic angle. Prior median sternotomy. IMPRESSION: Developing components of congestive heart failure with a superimposed interstitial infiltrate left base. [~ rep ct add3]] CHEST ONE VIEW PORTABLE CLINICAL HISTORY: Pneumonia, CHF COMPARISON STUDY: 10/03/2017 FINDINGS: There are postsurgical changes of midline sternotomy. The heart is enlarged. There are bilateral subpulmonic pleural effusions. There is persistent soft tissue prominence the right paratracheal/suprahilar region. Interstitial left basilar opacities persist. Mild pulmonary vascular congestion is also suspected.[ IMPRESSION: Persistent cardiomegaly, interstitial left basilar opacities, mild pulmonary vascular congestion, and small pleural effusions. Consultations: Delaney Bowman cardiology Medication Reconciliation New Medications: Prednisone (Prednisone) 10 Mg Tab 10 MG PO DAILY for 9 Days, #21 TAB Continued Medications: Acetaminophen (Tylenol) 500 Mg Tab 1000 MG PO Q8 PRN for Pain Albuterol Sulf (Proventil 0.083% 2.5MG/3ML) 2.5 Mg/3 Ml Nebu 2.5 MG INH Q4-6HRS, EA Atorvastatin (Lipitor) 40 Mg Tab 40 MG PO HS, TAB Clopidogrel (Plavix) 75 Mg Tab 75 MG PO DAILY, TAB Cyanocobalamin (Vitamin B-12) 1,000 Mcg Tab 1000 MCG PO DAILY, TAB Doxazosin Mesylate (Doxazosin Mesylate) 1 Mg Tab 1 MG PO HS Esomeprazole Magnesium (Nexium) 20 Mg Capcr 20 MG PO DAILY, CAP Ferrous Gluconate (Ferrous Gluconate) 324 Mg Tab 324 MG PO BID, TAB Furosemide (Lasix) 20 Mg Tab 20 MG PO DAILY Ipratropium-Albuterol (Duoneb) 3 Ml Nebu 3 ML INH QID PRN for SOB/Wheezing, INHA Levothyroxine Sodium (Levothyroxine Sodium) 50 Mcg Tab 50 MCG PO QAM Lisinopril (Lisinopril) 40 Mg Tab 10 MG PO QAM takes 1/4th of a 40mg tablet Metoprolol Tartrate (Lopressor) 25 Mg Tab 37.5 MG PO BID, #60 TAB Nitroglycerin (Nitrostat) 0.4 Mg Tab 0.4 MG UT PRN, 0 Refills Potassium Chloride (K-Tabs) 10 Meq Tab 10 MEQ PO DAILY Warfarin Sod (Jantoven) 5 Mg Tab 5 MG PO 4XWK, TAB currently taking 5mg Sat, Sun, Tue, Raysa; and 7.5mg Mon, Sat, Fri UD BY [facility] Warfarin Sod (Jantoven) 5 Mg Tab 7.5 MG PO 3XWK, TAB currently taking 5mg Sat, Sun, Tue, Raysa; and 7.5mg Sat, Sat, Sat Hospital Course 89 year old male with a past medical history of CHF, Atrial Fibrillation, Hypertension, Hyperlipidemia, and COPD was treated at [facility] for suspected CHF exacerbation and COPD exacerbation. The patient presented after 3 days of SOB and TRIVEDI. Patient was treated empirically with abx for suspected pulmonary infection. The patient remained afebrile, had a normal WBC throughout the hospital course and his CXR showed sign of fluid overload and no infiltrate and thus abx treatment was dc'd early. The patient was subsequently started on 40 mg of IV Lasix. He is on a home dose of 20mg of PO Lasix. He was also started on IV Solu-Medrol and DuoNeb due to h/o Pulmonary fibrosis. 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 He was also noted to have rapid ventricular rate during early hospital course which likely was due to his respiratory distress. His heart rate was control around the time of discharge. The patient showed marked improvements during his hospital course. Patient was sent home with a prednisone taper and a script for home O2. The patient is normally on 2L in the evenings. Patient is advised to also use oxygen in the daytime and with ambulation. Physical therapy advised the patient to establish outpatient PT. His functional status was determined to be appropriate for discharge with home health. After reviewing the patients records it was seen that the patient has been admitted on 4 occasions recently for exacerbations. Patient would benefit closely from follow up with the following; PCP, cardiology and pulmonology. Total Time Spent: Greater than 30 minutes This includes examination of the patient, discharge planning, medication reconciliation, and communication with other providers. Discharge Instructions Please refer to the electronic Patient Visit Report (Discharge Instructions) for additional information. Additional Copies To Simón Odonnell III, CRNP Reviewed: Pt Seen/Exam by Co History breathing significantly improved. Constitutional: denies: fever Cardiovascular: denies chest pain General Appearance: no apparent distress Respiratory: decreased breath sounds Cardiovascular: irregularly irregular Gastrointestinal: soft Neurologic/Psychiatric: alert, oriented x 3 Skin Characteristics: warm/dry Assessment/Plan Resident Physician Supervision Note: I independently interviewed and examined the patient and verified the dhillon history and physical, reviewed labs and image studies, discussed the case with the resident Dr. Lewis and agree with the findings and care plan. Time spent in discharge 40 min
== END 2017-10-06 14:52 | disposition home or self-care (01) | DRG 189 ==
LOC: C.EDB 15:45 → C.2T 20:06 → ENRESERV 20:16
PROVIDERS: ADMIT Student in an Organized Health Care Education/Training Program; ATTEND Family Medicine
DX: J96.21 Acute and chronic respiratory failure with hypoxia (principal); J18.9 Pneumonia, unspecified organism; I50.43 Acute on chronic combined systolic (congestive) and diastolic (congestive) heart failure; J44.1 Chronic obstructive pulmonary disease with (acute) exacerbation; I11.0 Hypertensive heart disease with heart failure; Z82.49 Family history of ischemic heart disease and other diseases of the circulatory system; Z79.01 Long term (current) use of anticoagulants; I48.91 Unspecified atrial fibrillation; E03.9 Hypothyroidism, unspecified; R79.89 Other specified abnormal findings of blood chemistry; E78.5 Hyperlipidemia, unspecified; I25.10 Atherosclerotic heart disease of native coronary artery without angina pectoris

== ENCOUNTER → 2017-10-15 | Outpatient (CLI) | payer MEDICARE ==
[~2017-10-15] MED LIST changes: +ALBINS/ INH; +CLOP1TAB15 PO; +CRD1 PO; -DOXA2TAB PO; +ESOM20CA PO; +FERR325T18 PO; -FERR325T49 PO; -FLVHFA220 INH; -LANS30TA3 PO; -LISI-725 PO; +LSN40 PO; +PRED10TA PO; -SPIRIVA 18MCG INH; -WARF7.5T4 PO
[2017-10-15 16:48] LABS: BLOOD UREA NITROGEN 36 mg/dl (7-18); CALCIUM 8.6 mg/dl (8.5-10.1); CARBON DIOXIDE 32 mmol/L (21-32); CREATININE 1.08 mg/dl (0.60-1.40); GLUCOSE 80 mg/dl (70-99); POTASSIUM 4.3 mmol/L (3.5-5.1); SODIUM 139 mmol/L (136-145)
== END | disposition home or self-care (01) ==
LOC: C.LAB1850 15:42
PROVIDERS: ATTEND Physician Assistant
DX: I50.32 Chronic diastolic (congestive) heart failure (principal)